=== PATIENT | male | born 1940 | race Caucasian/White ===

== ENCOUNTER → 2016-11-26 | Outpatient (CLI) | payer MEDICARE ==
[~2016-11-26] MED LIST: ACET-1256 PO; AMLO-110 PO; ANSHCCR EXT; ASPEC325 PO; ASPI325T39 PO; ASPI81TA28 PO; ATEN50TA8 PO; CLOP1TAB15 PO; CLS1 PO; EPGI2M; ERTA1INJ IV; GLC5 PO; HYDR-4079 PO; IMD2X PO; IMDSR/30 PO; INSDGIPEN SC; LEVO25TA5 PO; LEVO75TA5 PO; LPR25 PO; LVQ750 PO; MCRK20 PO; MGNO400 PO; MTML PO; NITR0.4S UT; NVLGIPEN SC; PRAV40TA2 PO; TAMS0.4C38 PO; TNR50 PO
[2016-11-26 17:49] LABS: URINE APPEARANCE CLEAR (CLEAR); URINE BILIRUBIN NEG (NEG); URINE COLOR DK YELLOW; URINE NITRITE NEG (NEG); UROBILINOGEN NEG (NEG)
[2016-11-26 17:55] LABS: MANUAL MICROSCOPIC REQUIRED? NO; REVIEW REQ? NO
[2016-11-26 18:18] LABS: HEMATOCRIT 26.5 % (42-52); MEAN CELL VOLUME 113.2 fL (80-100); MEAN CORPUSCULAR HEMOGLOBIN 36.8 pg (25-34); MEAN CORPUSCULAR HGB CONC 32.5 g/dl (32-36); MEAN PLATELET VOLUME 13.4 fL (7.4-10.4); PLATELET COUNT 79 K/uL (130-400); RED BLOOD COUNT 2.34 M/uL (4.7-6.1); WHITE BLOOD COUNT 2.75 K/uL (4.8-10.8)
[2016-11-26 18:21] LABS: ALT/SGPT 20 U/L (12-78); BLOOD UREA NITROGEN 26 mg/dl (7-18); BUN/CREATININE RATIO 16.4 (10-20); CARBON DIOXIDE 24 mmol/L (21-32); CHLORIDE 108 mmol/L (98-107); GLUCOSE 181 mg/dl (70-99); HDL CHOLESTEROL 32 mg/dl; POTASSIUM 4.5 mmol/L (3.5-5.1); SODIUM 140 mmol/L (136-145)
[2016-11-26 18:32] LABS: CHOLESTEROL 87 mg/dl (0-200); CHOLESTEROL/HDL RATIO 2.7; LDL CHOLESTEROL CALCULATED 34 mg/dl; TRIGLYCERIDES 107 mg/dl (0-150); VERY LOW DENSITY LIPOPROT CALC 21 mg/dl
[2016-11-26 18:41] LABS: BASO % 0.7 %; BASO ABS # 0.02 K/uL (0-0.2); COMPLETE YES; EOS % 5.1 %; IG% 1.1 %; LYMPH % 56.7 %; LYMPH ABS # 1.56 K/uL (1.2-3.4); MONO % 9.5 %; NEUT % 26.9 %; PLT ESTIMATE DECREASED
[2016-11-27 07:21] LABS: ESTIMATED AVERAGE GLUCOSE 120 mg/dl; HA1C FLAG Normal (Normal)
== END | disposition home or self-care (01) ==
LOC: C.LABBFT 11:12
PROVIDERS: ATTEND Internal Medicine
DX: E11.9 Type 2 diabetes mellitus without complications (principal)

== ENCOUNTER → 2017-01-23 | Outpatient (CLI) | payer MEDICARE ==
[~2017-01-23] MED LIST changes: -ACET-1256 PO; -AMLO-110 PO
--- NOTE | 2017-01-23 14:37 | DIAGNOSTIC IMAGING REPORT ---
CHEST 2 VIEWS ROUTINE CLINICAL HISTORY: R05 [id number] dyspnea COMPARISON STUDY: 04/20/2015 FINDINGS: Nodular density versus artifact right base laterally. Lungs otherwise are clear. Prior median sternotomy. Diaphragms are smooth. IMPRESSION: Nodular density versus overlap artifact right base laterally. CT of the chest is recommended as follow-up. Electronically signed by: Pierce Nielson M.D. 01/23/2017 2:35 PM Dictated Date/Time: 01/23/2017 2:34 PM
== END | disposition home or self-care (01) ==
LOC: C.RAD1850 14:21
PROVIDERS: ATTEND Internal Medicine
DX: R05 Cough (principal)

== ENCOUNTER → 2017-02-24 | Outpatient (CLI) | payer MEDICARE ==
--- NOTE | 2017-02-24 08:46 | DIAGNOSTIC IMAGING REPORT ---
ABDOMEN COMPLETE (US) CLINICAL HISTORY: 76 years-old Male with D64.9 anemia. TECHNIQUE: Multiple real time sonographic images of the abdomen were obtained assessing clark-scale appearance. FINDINGS: PANCREAS: The pancreas is partially obscured by bowel gas. The visualized portions of the pancreas are normal without focal lesion or pancreatic duct dilatation. LIVER: Liver appears to demonstrate increased echogenicity with poor through transmission suggesting mild fatty infiltration measuring up to 17.6 cm. No focal hepatic mass lesions are marginal nodularity is seen. No ascites. GALLBLADDER: The gallbladder is fluid-filled without cholelithiasis, wall thickening, or pericholecystic fluid. Negative sonographic Brand's sign. The common bile duct measures 0.5 cm. RIGHT KIDNEY: The right kidney measures 12.0 x 4.7 x 5.8 cm. There is minimal perinephric fluid adjacent to the inferior pole. No nephrolithiasis or hydronephrosis. There is a small renal sinus cyst, 1.0 x 1.2 x 1.2 cm. LEFT KIDNEY: The left kidney measures 11.9 x 4.7 x 6.4 cm. There is minimal perinephric fluid adjacent to the inferior pole. No nephrolithiasis or hydronephrosis. Hypoechoic lesion with thin internal echogenic septation is seen, 2.3 x 2.4 x 2.2 cm. There are no associated significant posterior features or internal vascularity. Small renal sinus cyst or prominent renal sinus is seen measuring up to 1.3 x 1.1 cm. SPLEEN: The spleen measures 14.9 cm and is normal in echotexture. No focal lesions are identified. VASCULATURE: Negative abdominal aortic aneurysm is again seen with shadowing from the aortobiiliac stent graft. Proximal abdominal aorta measures 1.6 x 1.9 cm. Mid abdominal aorta measures 1.4 x 1.6 cm. Distal abdominal aorta measures 3.1 x 2.8 cm.. IMPRESSION: 1. Minimal perinephric fluid is seen adjacent to the inferior pole kidneys bilaterally, a nonspecific finding. Correlate with urinalysis. 2. Fatty infiltration of the liver. 3. Splenomegaly. 4. No cholelithiasis or sonographic evidence of acute cholecystitis. 5. Lobulated cyst with thin internal septation is seen within the inferior pole left kidney, 2.4 cm. 6. Abdominal aortic aneurysm redemonstrated. The above report was generated using voice recognition software. It may contain grammatical, syntax or spelling errors. Electronically signed by: Marcus Pope M.D. 02/24/2017 8:45 AM Dictated Date/Time: 02/24/2017 8:35 AM
== END | disposition home or self-care (01) ==
LOC: C.ULTR 07:39
PROVIDERS: ATTEND Internal Medicine
DX: D64.9 Anemia, unspecified (principal); K76.0 Fatty (change of) liver, not elsewhere classified; R16.1 Splenomegaly, not elsewhere classified; N28.1 Cyst of kidney, acquired; I71.4 Abdominal aortic aneurysm, without rupture

== ENCOUNTER 2017-03-09 12:24 | Inpatient (IN) | payer MEDICARE, OTHER ==
[2017-03-09] VITALS (14 sets, daily range): BP systolic 114–135; BP diastolic 55–65; PULSE 56–66; TEMP 37.5–38.2; O2SAT 95–98; Ht 185.4 cm; Wt 82.0 kg
[~2017-03-09] VITALS: Ht 185.4 cm; Wt 82.0 kg
[~2017-03-09 12:24] MED LIST changes: -ANSHCCR EXT; -ASPI325T39 PO; -ASPI81TA28 PO; -CLS1 PO; -ERTA1INJ IV; -HYDR-4079 PO; -IMD2X PO; -INSDGIPEN SC; -LEVO75TA5 PO; -LPR25 PO; -LVQ750 PO; -MCRK20 PO; -MGNO400 PO; -MTML PO; -NVLGIPEN SC; -TNR50 PO
[2017-03-09] MEDS ORDERED: SODIUM CHLORIDE 0.9% 1000ML 1,000 ML IV ONE (13:17)
--- NOTE | 2017-03-09 13:25 | EMERGENCY ROOM VISIT NOTE ---
History Report prepared by Colby: Demetra Desir Under the Supervision of: Dr. Janes Newton D.O. First contact with patient: 13:04 Chief Complaint: FEVER Stated Complaint: FEVER, SMDS History of Present Illness The patient is a 76 year old male who presents to the Emergency Room with complaints of a constant fever beginning a couple of days ago. The patient states that he was diagnosed with myelodysplasia in November and notes that he was very anemic at the time. He reports that he is on chemotherapy and had his last treatment 3 weeks ago and is scheduled to have another treatment tomorrow. He notes a history of diabetes and bypass surgery . The patient states that he has had a fever over the last [] days that got as high as 102 yesterday. He notes that he took Aspirin 3 hours ago. The patient complains of a cough and decreased appetite. He denies any urinary symptoms, leg swelling, and leg redness. Source of History: patient Onset: a couple days ago Position: other (global) Symptom Intensity: 102 Quality: other (fever) Timing: constant Associated Symptoms: + cough, No urinary symptoms Note: The patient complains of a decreased appetite. He denies any leg swelling, and leg redness. Review of Systems See HPI for pertinent positives & negatives. A total of 10 systems reviewed and were otherwise negative. Past Medical & Surgical Medical Problems: (1) Abdominal aortic aneurysm (2) Calculus Of Kidney (3) CVD (cardiovascular disease) (4) Hyperlipidemia Nec/Nos (5) Hypertension Nos (6) Neutropenic fever (7) Old Myocardial Infarct (8) Senile Nuclear Cataract (9) Unilat Inguinal Hernia Surgical Problems: (1) H/O abdominal aortic aneurysm repair (2) H/O heart bypass surgery Family History No pertinent family history stated. Social History Smoking Status: Former Smoker Alcohol Use: occasionally Drug Use: none Marital Status: Housing Status: lives with significant other Occupation Status: retired Current/Historical Medications Scheduled Aspirin (Aspirin Ec), 325 MG PO DAILY Atenolol (Atenolol), 1 TAB PO BID Clopidogrel (Plavix), 75 MG PO DAILY Epoetin Butch (Procrit), Unknown Dose WK Glipizide (Glipizide), 5 MG PO BIDM Isosorbide Mononitrate (Isosorbide Mononitrate ER), 30 MG PO DAILY Levothyroxine Sodium (Levothyroxine Sodium), 1 TAB PO DAILYBB Pravastatin Sodium (Pravastatin Sodium), 40 MG PO HS Tamsulosin Hcl (Flomax), 0.4 MG PO HS Scheduled PRN Nitroglycerin (Nitrostat), 0.4 MG UT PRN PRN for Chest Pain Allergies Coded Allergies: No Known Allergies (Verified , 03/09/17) Physical Exam Vital Signs Date Time Temp Pulse Resp B/P (MAP) Pulse Ox O2 Delivery O2 Flow Rate FiO2 03/09/17 16:24 37.2 63 22 116/47 96 Room Air 03/09/17 15:55 63 20 111/46 96 Room Air 03/09/17 15:35 96 Room Air 03/09/17 15:04 65 23 126/51 96 Room Air 03/09/17 14:48 37.8 03/09/17 14:14 65 18 95/74 96 Room Air 03/09/17 13:10 63 03/09/17 13:00 62 22 115/60 92 Room Air 03/09/17 12:56 92 Room Air 03/09/17 12:30 36.9 93 18 102/51 96 Room Air Physical Exam GENERAL: Patient is awake, alert, and in no acute distress. Patient is resting comfortably and showing no signs of anxiety EYES: The conjunctivae are clear. The pupils are round and reactive. EARS, NOSE, Mdry tongue is midline NECK: The neck is nontender and supple. RESPIRATORY: Normal respiratory effort is noted there is no evidence of wheezing rhonchi or rales CARDIOVASCULAR: Regular rate and rhythm noted there no murmurs rubs or gallops normal S1 normal S2 GASTROINTESTINAL: The abdomen is soft. Bowel sounds are present in all quadrants. Abdomen is nontender MUSCULOSKELETAL/EXTREMITIES: There is no evidence of gross deformity full range of motion is noted in the hips and shoulders SKIN: There is no obvious evidence of any rash. There are no petechiae, pallor or cyanosis noted. Trace pedal edema bilaterally NEUROLOGIC: Patient is awake alert and oriented x3 Medical Decision & Procedures ER Provider Diagnostic Interpretation: X-ray results as stated below per interpretation by me and the radiologist. SINGLE VIEW CHEST FINDINGS: An AP, portable, upright chest radiograph is compared to study dated 01/23/2017. The examination is degraded by portable technique and patient rotation. The patient is status post midline sternotomy. The heart is enlarged and there is atherosclerotic calcification of the thoracic aorta. The pulmonary vasculature is noncongested. Chronic interstitial thickening is similar to previous. There are airspace opacities identified at the left lung base. The right lung is grossly clear. No large pleural effusion or pneumothorax is seen. The skeletal structures are osteopenic. The bony thorax is grossly intact. IMPRESSION: 1. Cardiomegaly without radiographic evidence of congestive failure. 2. Patchy airspace opacities are present at the left lung base. The could represent atelectasis versus an infectious/inflammatory pneumonitis. Clinical correlation will be required. Electronically signed by: Sawyer Robins M.D. 03/09/2017 2:01 PM Dictated Date/Time: 03/09/2017 2:00 PM Laboratory Results 03/09/17 13:36 Red Blood Count 2.57, Mean Corpuscular Volume 86.4, Mean Corpuscular Hemoglobin 28.8, Mean Corpuscular Hemoglobin Concent 33.3, Mean Platelet Volume 11.7 03/09/17 13:36 Test 03/09/17 13:36 03/09/17 13:43 03/09/17 14:05 03/09/17 14:40 White Blood Count 1.84 K/uL (4.8-10.8) Red Blood Count 2.57 M/uL (4.7-6.1) Hemoglobin 7.4 g/dL (14.0-18.0) Hematocrit 22.2 % (42-52) Mean Corpuscular Volume 86.4 fL (80-100) Mean Corpuscular Hemoglobin 28.8 pg (25-34) Mean Corpuscular Hemoglobin Concent 33.3 g/dl (32-36) Platelet Count 59 K/uL (130-400) Mean Platelet Volume 11.7 fL (7.4-10.4) RDW Standard Deviation 41.4 fL (36.4-46.3) RDW Coefficient of Variation 13.7 % (11.5-14.5) Neutrophils % (Manual) 33.3 % Lymphocytes % (Manual) 54.4 % Monocytes % (Manual) 1.8 % Myelocytes % 2.6 % Blast Cells % 7.9 % Neutrophils # (Manual) 0.61 K/uL (1.4-6.5) Total Absolute Neutrophils 0.61 K/uL (1.4-6.5) Lymphocytes # (Manual) 1.00 K/uL (1.2-3.4) Total Absolute Lymphocytes 1.00 K/uL (1.2-3.4) Monocytes # (Manual) 0.03 K/uL (0.11-0.59) Myelocytes # 0.05 K/uL (0-0) Hyposegmented Neutrophils OCCASIONAL Hypogranular Neutrophils 3+ Blast Cells # 0.15 K/uL (0-0) Giant Platelets 3+ Erythrocyte Sedimentation Rate 26 mm/hr (0-14) Prothrombin Time 11.5 SECONDS (9.0-12.0) Prothromb Time International Ratio 1.1 (0.9-1.1) Activated Partial Thromboplast Time 29.6 SECONDS (21.0-31.0) Partial Thromboplastin Ratio 1.1 Anion Gap 8.0 mmol/L (3-11) Est Creatinine Clear Calc Drug Dose 52.9 ml/min Estimated GFR () 60.6 Estimated GFR (Non- 52.3 BUN/Creatinine Ratio 15.3 (10-20) Calcium Level 8.8 mg/dl (8.5-10.1) Phosphorus Level 3.2 mg/dl (2.5-4.9) Magnesium Level 2.2 mg/dl (1.8-2.4) Total Bilirubin 1.3 mg/dl (0.2-1) Aspartate Amino Transf (AST/SGOT) 15 U/L (15-37) Alanine Aminotransferase (ALT/SGPT) 34 U/L (12-78) Alkaline Phosphatase 53 U/L (45-117) Total Creatine Kinase 36 U/L (39-308) Creatine Kinase MB 0.6 ng/ml (0.5-3.6) Creatine Kinase MB Ratio 1.7 (0-3.0) Troponin I 0.091 ng/ml (0-0.045) C-Reactive Protein 8.43 mg/dl (0-0.29) Pro-B-Type Natriuretic Peptide 3296 pg/ml (0-1800) Total Protein 7.1 gm/dl (6.4-8.2) Albumin 2.9 gm/dl (3.4-5.0) Globulin 4.2 gm/dl (2.5-4.0) Albumin/Globulin Ratio 0.7 (0.9-2) Lipase 137 U/L (73-393) Bedside Lactic Acid Venous 1.88 mmol/L (0.90-1.70) Venous Blood pH 7.46 (7.36-7.41) Venous Blood Partial Pressure CO2 33 mmHg (38.0-50.0) Venous Blood Partial Pressure O2 21 mmHg Venous Blood HCO3 23 mmol/L Venous Blood Oxygen Saturation < 60.0 % Venous Blood Base Excess -0.3 mEq/L Laboratory results per my review. Medications Administered Medications (Trade) Dose Ordered Sig/Cameron Route Start Time Stop Time Status Last Admin Dose Admin Sodium Chloride 1,000 ml @ 999 mls/hr Q1H1M ONCE IV 03/09/17 13:17 03/09/17 14:17 DC 03/09/17 14:13 999 MLS/HR Levofloxacin (Levaquin / D5W) 750 mg NOW STAT IV 03/09/17 14:26 03/09/17 14:27 DC 03/09/17 14:51 750 MG Cefepime HCl 2000 mg/Dextrose 122.6 ml @ 200 mls/hr NOW STAT IV 03/09/17 14:54 03/09/17 15:30 DC 03/09/17 15:09 200 MLS/HR ECG Rate (beats per minute): 64 Rhythm: junctional (bradycardia) Findings: ST depression (Lateral), other (no PVC) Comparison ECG Date: 04/20/16 Change: Junctional bradycardia is new otherwise no changes. ED Course 1304: The patient was evaluated in room B6. A complete history and physical examination were performed. 1317: NSS 1,000 ml @ 999 mls/hr IV. 1423: I reevaluated and updated the patient. 1426: Levofloxacin 750mg IV. 1454: Cefepime HCl 2000mg/Dextrose 122.6ml @ 200mls/hr IV. 1515: I spoke to Dr. Miguel who suggests that the patient stay in the hospital. 1518: I discussed the patient's case with [place] [facility] The patient will be evaluated for further management. 1524: Upon reevaluation, the patient is doing well. I discussed results and treatment plan with the patient. She verbalizes agreement and understanding. I spoke with Dr. Reese of the [facility] The patient will be evaluated for further management and care. Medical Decision Differential diagnosis: Etiologies such as viral syndrome, otitis, pharyngitis, pneumonia, influenza, meningitis, urinary tract infection, sepsis, bacteremia, as well as others were entertained. Nursing notes reviewed. The patient is a 76-year-old male who presented to the emergency department for an evaluation of fever. The patient had fever and cough. He was found have neutropenia. The patient was treated with IV fluids and IV antibiotics. Review the patient's recent laboratory studies does show that his neutropenia is improving however his total neutrophil count is still less than 1000. This reason I discussed his case with his primary oncologist as well as the on-call [facility] hospitalist group. They've agreed to evaluate patient in the emergency apartment for further management and disposition. Medication Reconcilliation Current Medication List: was personally reviewed by me Blood Pressure Screening Patient's blood pressure: Low blood pressure Blood pressure disposition: Did not require urgent referral Consults Time Called: 1515 Consulting Physician: Dr. Reese - [facility] Returned Call: 1512 I discussed the patient's case with Dr. Reese of [facility] The patient will be evaluated for further management. Additional Consults: Time Called: 1513 Consulted Physician: Dr. Miguel Returned Call: 1515 Additional Comments: I spoke to Dr. Miguel who suggests that the patient stay in the hospital. Impression Primary Impression: Pneumonia Additional Impressions: Pancytopenia Neutropenic fever Scribe Attestation The scribe's documentation has been prepared under my direction and personally reviewed by me in its entirety. I confirm that the note above accurately reflects all work, treatment, procedures, and medical decision making performed by me. Departure Information Dispostion Being Evaluated By Hospitalist Referrals Gonzalo Amin M.D. (PCP) Patient Instructions My [facility] Health Problem Qualifiers Primary Impression: Pneumonia Pneumonia type: due to unspecified organism Laterality: unspecified laterality Lung location: unspecified part of lung Qualified Codes: J18.9 - Pneumonia, unspecified organism
[2017-03-09] MEDS ORDERED: TNR50 PO (13:38)
[2017-03-09] MEDS ORDERED: ASPI325T39 PO (13:38)
[2017-03-09] MEDS ORDERED: LEVO75TA5 PO (13:38)
[2017-03-09 14:01] LABS: HEMATOCRIT 22.2 % (42-52); MEAN CELL VOLUME 86.4 fL (80-100); MEAN CORPUSCULAR HEMOGLOBIN 28.8 pg (25-34); MEAN CORPUSCULAR HGB CONC 33.3 g/dl (32-36); MEAN PLATELET VOLUME 11.7 fL (7.4-10.4); PLATELET COUNT 59 K/uL (130-400); RED BLOOD COUNT 2.57 M/uL (4.7-6.1); WHITE BLOOD COUNT 1.84 K/uL (4.8-10.8)
--- NOTE | 2017-03-09 14:03 | DIAGNOSTIC IMAGING REPORT ---
SINGLE VIEW CHEST CLINICAL HISTORY: Sepsis. FINDINGS: An AP, portable, upright chest radiograph is compared to study dated 01/23/2017. The examination is degraded by portable technique and patient rotation. The patient is status post midline sternotomy. The heart is enlarged and there is atherosclerotic calcification of the thoracic aorta. The pulmonary vasculature is noncongested. Chronic interstitial thickening is similar to previous. There are airspace opacities identified at the left lung base. The right lung is grossly clear. No large pleural effusion or pneumothorax is seen. The skeletal structures are osteopenic. The bony thorax is grossly intact. IMPRESSION: 1. Cardiomegaly without radiographic evidence of congestive failure. 2. Patchy airspace opacities are present at the left lung base. The could represent atelectasis versus an infectious/inflammatory pneumonitis. Clinical correlation will be required. Electronically signed by: Sawyer Robins M.D. 03/09/2017 2:01 PM Dictated Date/Time: 03/09/2017 2:00 PM
[2017-03-09 14:06] LABS: INR 1.1 (0.9-1.1); PARTIAL THROMBOPLASTIN RATIO 1.1; PROTHROMBIN TIME (PATIENT) 11.5 SECONDS (9.0-12.0)
[2017-03-09 14:12] LABS: BUN/CREATININE RATIO 15.3 (10-20); CALCIUM 8.8 mg/dl (8.5-10.1); CREATININE 1.3 mg/dl (0.60-1.40); MAGNESIUM 2.2 mg/dl (1.8-2.4); POTASSIUM 4.2 mmol/L (3.5-5.1)
[2017-03-09 14:19] LABS: ALB/GLOB RATIO 0.7 (0.9-2); C-REACTIVE PROTEIN 8.43 mg/dl (0-0.29); CKMB/CK RATIO 1.7 (0-3.0); PHOSPHORUS 3.2 mg/dl (2.5-4.9)
[2017-03-09 14:20] LABS: VEN BLD GAS O2 SATURATION < 60.0 %; VEN BLOOD GAS BASE EXCESS -0.3 mEq/L; VENOUS BLOOD GAS PCO2 33 mmHg (38.0-50.0); VENOUS BLOOD GAS PO2 21 mmHg
[2017-03-09] MEDS ORDERED: LEVAQUIN 750MG / 150ML D5W IV STA (14:26)
[2017-03-09 14:51] LABS: COMPLETE YES; GIANT PLATELETS 3+; HYPOSEGMENTED POLYS OCCASIONAL; LYMPHOCYTE % 54.4 %; MYELOCYTE % 2.6 %; NEUTROPHILS % 33.3 %
[2017-03-09] MEDS ORDERED: CEFEPIME IV 2,000 MG in DEXTROSE 5% 100ML 100 ML IV STA (14:54)
[2017-03-09 15:07] LABS: URINE APPEARANCE CLEAR (CLEAR); URINE BILIRUBIN NEG (NEG); URINE COLOR ORANGE; URINE EPITHELIAL CELL AUTO 0-5 /lpf (0-5); URINE NITRITE NEG (NEG); URINE SPECIFIC GRAVITY 1.023 (1.000-1.030); UROBILINOGEN NEG (NEG); ZZUR CULT IF INDIC CLEAN CATCH NO
[2017-03-09 15:25] LABS: MANUAL MICROSCOPIC REQUIRED? NO; REVIEW REQ? NO
[2017-03-09] MEDS ORDERED: ALUMINUM/MAGNESIUM/SIMETH (MAALOX MAX) 30 ML UDC PO PRN (16:30)
[2017-03-09] MEDS ORDERED: POLYETHYLENE (MIRALAX) 17 GM PACK PO PRN (16:30)
[2017-03-09] MEDS ORDERED: ONDANSETRON INJ 2 MG/ML 2 ML VIAL IV PRN (16:30)
[2017-03-09] MEDS ORDERED: ACETAMINOPHEN 325 MG TAB PO PRN (16:30)
[2017-03-09] MEDS ORDERED: MAGNESIUM HYDROXIDE SUSP 30 ML UDC PO PRN (16:30)
[2017-03-09] MEDS ORDERED: LEVOFLOXACIN CONSULT ACTIVE PRN (17:00)
[2017-03-09] MEDS ORDERED: CEFEPIME CONSULT ACTIVE PRN ×2 (17:00)
--- NOTE | 2017-03-09 17:11 | History and Physical ---
History & Physical Date & Time of Service: Mar 09, 2017 at 17:04 Chief Complaint: Fever, Smds Primary Care Physician: Gonzalo Amin M.D. History of Present Illness This patient suffers from myelodysplastic syndromes. Dr. Marroquin. He did receive his next treatment and one day. He presents with productive cough for one month 's duration however he is having low-grade fevers. 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 Patient also has a rash on his left flank. It hurts department he was found to have an absolute neutrophil cell count of 610. Elevated troponin 0.91 and hemoglobin 7.4 The chest x-ray is read as left lower lobe pneumonia the infiltrate has slight this might be from his marked neutropenia bases had no recent angina He has not been checking his blood glucoses for his diabetes because his glucometer is broken he however hasn't following a diabetic diet Past Medical/Surgical History Medical Problems: (1) Abdominal aortic aneurysm Status: Chronic (2) Calculus Of Kidney Status: Chronic (3) CVD (cardiovascular disease) Status: Chronic (4) Hyperlipidemia Nec/Nos Status: Chronic (5) Hypertension Nos Status: Chronic (6) Old Myocardial Infarct Status: Chronic (7) Senile Nuclear Cataract Status: Chronic (8) Unilat Inguinal Hernia Status: Chronic Surgical Problems: (1) H/O abdominal aortic aneurysm repair Status: Resolved (2) H/O heart bypass surgery Status: Resolved Family History Family history positive for diabetes cancer and heart disease Social History Smoking Status: Former Smoker Drug Use: none Marital Status: Occupational Status: retired Multi-Drug Resistant Organisms History of MDRO: No Allergies Coded Allergies: No Known Allergies (Verified , 03/09/17) Home Medications Scheduled Aspirin (Aspirin Ec), 325 MG PO DAILY Atenolol (Atenolol), 1 TAB PO BID Clopidogrel (Plavix), 75 MG PO DAILY Epoetin Butch (Procrit), Unknown Dose WK Glipizide (Glipizide), 5 MG PO BIDM Isosorbide Mononitrate (Isosorbide Mononitrate ER), 30 MG PO DAILY Levothyroxine Sodium (Levothyroxine Sodium), 1 TAB PO DAILYBB Pravastatin Sodium (Pravastatin Sodium), 40 MG PO HS Tamsulosin Hcl (Flomax), 0.4 MG PO HS Scheduled PRN Nitroglycerin (Nitrostat), 0.4 MG UT PRN PRN for Chest Pain Review of Systems ROS: well nourished well developed No double vision blurry vision No problems with speech or swallowing No palpitations, chest pain or pressure No Wheezing patient has dyspnea on exertion has a a cough which has not been productive No abdominal pain nausea vomiting diarrhea but has had constipation, no changes in appetite or weight No burning urine urine frequency or changes in color No focal joint pain or muscle pain The patient has a red shravan on his left lower flank over a rib which appears to be an abrasion he has some aphthous ulcers on his cheeks which do not appear to be actively infected No unusual bleeding No focused back pain or numbness or loss of strength No changes in memory or confusion Physical Exam Vital Signs Date Time Temp Pulse Resp B/P (MAP) Pulse Ox O2 Delivery O2 Flow Rate FiO2 03/09/17 16:24 37.2 63 22 116/47 96 Room Air 03/09/17 15:55 63 20 111/46 96 Room Air 03/09/17 15:35 96 Room Air 03/09/17 15:04 65 23 126/51 96 Room Air 03/09/17 14:48 37.8 03/09/17 14:14 65 18 95/74 96 Room Air 03/09/17 13:10 63 03/09/17 13:00 62 22 115/60 92 Room Air 03/09/17 12:56 92 Room Air 03/09/17 12:30 36.9 93 18 102/51 96 Room Air General Appearance: WD/WN, + mild distress Head: normocephalic, atraumatic Eyes: PERRL, EOMI ENT: hearing grossly normal, pharynx normal (at this ulcers are very small no thrush) Neck: supple, no JVD Respiratory/Chest: chest non-tender, lungs clear, normal breath sounds, + pertinent finding (radiology reading pneumonia his exam is unremarkable) Cardiovascular: regular rate, rhythm, no murmur Abdomen/GI: normal bowel sounds, non tender, soft Back: no CVA tenderness, normal range of motion Extremities/Musculoskelatal: normal inspection, no calf tenderness, no pedal edema Neurologic/Psych: alert, oriented x 3 Skin: normal color, + pertinent finding (has an abrasion on his left flank) Diagnostics Laboratory Results Results Past 24 Hours Test 03/09/17 13:36 03/09/17 13:43 03/09/17 14:05 03/09/17 14:40 Range/Units White Blood Count 1.84 4.8-10.8 K/uL Red Blood Count 2.57 4.7-6.1 M/uL Hemoglobin 7.4 14.0-18.0 g/dL Hematocrit 22.2 42-52 % Mean Corpuscular Volume 86.4 80-100 fL Mean Corpuscular Hemoglobin 28.8 25-34 pg Mean Corpuscular Hemoglobin Concent 33.3 32-36 g/dl Platelet Count 59 130-400 K/uL Mean Platelet Volume 11.7 7.4-10.4 fL RDW Standard Deviation 41.4 36.4-46.3 fL RDW Coefficient of Variation 13.7 11.5-14.5 % Neutrophils % (Manual) 33.3 % Lymphocytes % (Manual) 54.4 % Monocytes % (Manual) 1.8 % Myelocytes % 2.6 % Blast Cells % 7.9 % Neutrophils # (Manual) 0.61 1.4-6.5 K/uL Total Absolute Neutrophils 0.61 1.4-6.5 K/uL Lymphocytes # (Manual) 1.00 1.2-3.4 K/uL Total Absolute Lymphocytes 1.00 1.2-3.4 K/uL Monocytes # (Manual) 0.03 0.11-0.59 K/uL Myelocytes # 0.05 0-0 K/uL Hyposegmented Neutrophils OCCASIONAL Hypogranular Neutrophils 3+ Blast Cells # 0.15 0-0 K/uL Giant Platelets 3+ Erythrocyte Sedimentation Rate 26 0-14 mm/hr Prothrombin Time 11.5 9.0-12.0 SECONDS Prothromb Time International Ratio 1.1 0.9-1.1 Activated Partial Thromboplast Time 29.6 21.0-31.0 SECONDS Partial Thromboplastin Ratio 1.1 Sodium Level 136 136-145 mmol/L Potassium Level 4.2 3.5-5.1 mmol/L Chloride Level 104 98-107 mmol/L Carbon Dioxide Level 24 21-32 mmol/L Anion Gap 8.0 3-11 mmol/L Blood Urea Nitrogen 20 7-18 mg/dl Creatinine 1.30 0.60-1.40 mg/dl Est Creatinine Clear Calc Drug Dose 52.9 ml/min Estimated GFR () 60.6 Estimated GFR (Non- 52.3 BUN/Creatinine Ratio 15.3 10-20 Random Glucose 105 70-99 mg/dl Calcium Level 8.8 8.5-10.1 mg/dl Phosphorus Level 3.2 2.5-4.9 mg/dl Magnesium Level 2.2 1.8-2.4 mg/dl Total Bilirubin 1.3 0.2-1 mg/dl Aspartate Amino Transf (AST/SGOT) 15 15-37 U/L Alanine Aminotransferase (ALT/SGPT) 34 12-78 U/L Alkaline Phosphatase 53 45-117 U/L Total Creatine Kinase 36 39-308 U/L Creatine Kinase MB 0.6 0.5-3.6 ng/ml Creatine Kinase MB Ratio 1.7 0-3.0 Troponin I 0.091 0-0.045 ng/ml C-Reactive Protein 8.43 0-0.29 mg/dl Pro-B-Type Natriuretic Peptide 3296 0-1800 pg/ml Total Protein 7.1 6.4-8.2 gm/dl Albumin 2.9 3.4-5.0 gm/dl Globulin 4.2 2.5-4.0 gm/dl Albumin/Globulin Ratio 0.7 0.9-2 Lipase 137 73-393 U/L Bedside Lactic Acid Venous 1.88 0.90-1.70 mmol/L Venous Blood pH 7.46 7.36-7.41 Venous Blood Partial Pressure CO2 33 38.0-50.0 mmHg Venous Blood Partial Pressure O2 21 mmHg Venous Blood HCO3 23 mmol/L Venous Blood Oxygen Saturation < 60.0 % Venous Blood Base Excess -0.3 mEq/L Microbiology Results 03/09/17 Blood Culture, Received Pending 03/09/17 Blood Culture, Received Pending Diagnostic Radiology Pertinent labs her pancytopenia white count 1.8 and a triple count 610 hemoglobin 7.4 platelet count 59 troponin 0.91 other (read as left lower lobe pneumonia) other (junctional bradycardia the patient is on a beta french) Impression Assessment and Plan 68-year-old male to pancytopenia with left lower lobe pneumonia and neutropenic fever with incidental elevated troponin and junctional bradycardia next Neutropenic fever and pneumonia, Levaquin and cefepime blood cultures are pending. Discussed with oncologist on-call regarding G-CSF stimulating medication and recommendations were to not use this at this time. Anemia, the patient will be transfused 2 units packed red blood cells this is likely from lack of production due to his myelodysplastic syndrome From cytopenia and the patient will have his antiplatelet agents of aspirin and Plavix held he has no active bleeding at this time Elevated troponin the patient has known coronary disease and stable angina he's had no recent angina given his junctional bradycardia however we will reduce his atenolol to 25 continue isosorbide Diabetes will continue his glipizide on a diabetic diet with a loose insulin sliding scale Regarding his BPH we'll continue his Flomax at 0.4 DVT prevention is prohibited with his from cytopenia and anemia and compressive devices may cause bruising with low platelets of 59. Advanced Directives Existing Living Will: No Existing Power of Rf Manager: No VTE Prophylaxis VTE Risk Assessment Done? Y/N: Yes Risk Level: Low
[2017-03-09] MEDS: CEFEPIME IV 2,000 MG in DEXTROSE 5% 100ML 100 ML IV SCH ×2 (20:37→23:18)
[2017-03-09] MEDS ORDERED: TAMSULOSIN HCL 0.4 MG CAP PO SCH (21:00)
[2017-03-10] VITALS (7 sets, daily range): BP systolic 117–158; BP diastolic 56–69; PULSE 54–64; TEMP 36.5–38; O2SAT 95–97
[2017-03-10] MEDS: CEFEPIME IV 2,000 MG in DEXTROSE 5% 100ML 100 ML IV SCH (05:29)
[2017-03-10] MEDS ORDERED: LEVOTHYROXINE 75 MCG TAB PO SCH (06:00)
[2017-03-10 07:37] LABS: BLOOD UREA NITROGEN 19 mg/dl (7-18); BUN/CREATININE RATIO 16.1 (10-20); CALCIUM 8.6 mg/dl (8.5-10.1); CARBON DIOXIDE 23 mmol/L (21-32); CHLORIDE 106 mmol/L (98-107); GLUCOSE 130 mg/dl (70-99); POTASSIUM 4.2 mmol/L (3.5-5.1); SODIUM 137 mmol/L (136-145)
[2017-03-10 08:01] LABS: POIKILOCYTOSIS PRESENT
[2017-03-10 08:02] LABS: COMPLETE YES; EOSINOPHIL % 0.9 %; HEMATOCRIT 25.8 % (42-52); LYMPH ABS # 1.22 K/uL (1.2-3.4); LYMPHOCYTE % 65.2 %; MEAN CELL VOLUME 85.7 fL (80-100); MEAN CORPUSCULAR HEMOGLOBIN 29.6 pg (25-34); MEAN CORPUSCULAR HGB CONC 34.5 g/dl (32-36); MEAN PLATELET VOLUME 12.1 fL (7.4-10.4); MYELOCYTE % 1.7 %; NEUTROPHILS % 26.1 %; PLATELET COUNT 39 K/uL (130-400); RED BLOOD COUNT 3.01 M/uL (4.7-6.1); WHITE BLOOD COUNT 1.87 K/uL (4.8-10.8)
--- NOTE | 2017-03-10 08:19 | Oncology Consultation ---
Oncology/Heme Consultation Date of Consultation: Mar 10, 2017. Attending Physician: Carlos Reese M.D. Reason for Consultation: Neutropenic fever High-grade MDS History of Present Illness Elmer is a pleasant 76-year-old gentleman well-known to the [facility] currently under my care with high-grade myelodysplasia. Thus far he has received 3 cycles of 5-azacytidine last administered 4 weeks prior. In fact , he was due to begin a new cycle of chemotherapy today. Devan was diagnosed with myelodysplasia or earlier this spring when he had presented to his family physician with pancytopenia. Initially was felt to be medication induced however after discontinuance his cytopenias persisted and subsequently underwent bone marrow biopsy and aspiration. 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 Elmer has been transfusion dependent throughout his disease course on average receiving packed RBCs every 2 weeks. Unfortunately thus far his transfusion dependence has not improved. Over the weekend Elmer developed low-grade fever he measured at 100.5 complaining of some unproductive cough. He presented to the emergency room and was admitted on 03/09/2017. Chest x-ray reveals nonspecific patchy infiltrates and nonetheless was started on empiric antibiotics because of neutropenia. His overall performance status is reasonable denies any alterations in his appetite and complains of no other symptoms leading up to admission to the hospital. Past Medical/Surgical History Medical Problems: (1) Pancytopenia Status: Acute (2) Pneumonia Status: Acute Family History Sister with history of lung cancer (). Social History Elmer is retired, nonsmoker, nondrinker. Smoking Status: Former Smoker Drug Use: none Marital Status: Housing Status: lives with significant other Occupation Status: retired Allergies Coded Allergies: No Known Allergies (Verified , 03/09/17) Home Medications Scheduled Aspirin (Aspirin Ec), 325 MG PO DAILY Atenolol (Atenolol), 1 TAB PO BID Clopidogrel (Plavix), 75 MG PO DAILY Epoetin Butch (Procrit), Unknown Dose WK Glipizide (Glipizide), 5 MG PO BIDM Isosorbide Mononitrate (Isosorbide Mononitrate ER), 30 MG PO DAILY Levothyroxine Sodium (Levothyroxine Sodium), 1 TAB PO DAILYBB Pravastatin Sodium (Pravastatin Sodium), 40 MG PO HS Tamsulosin Hcl (Flomax), 0.4 MG PO HS Scheduled PRN Nitroglycerin (Nitrostat), 0.4 MG UT PRN PRN for Chest Pain Current Inpatient Medications Current Inpatient Medications Medications (Trade) Dose Ordered Sig/Cameron Route Start Time Stop Time Status Last Admin Dose Admin Glipizide (Glucotrol Tab) 5 mg BIDM PO 03/09/17 18:00 04/08/17 17:59 Isosorbide Mononitrate (Imdur Ext Rel Tab) 30 mg DAILY PO 03/10/17 09:00 04/09/17 08:59 Levothyroxine Sodium (Synthroid Tab) 75 mcg DAILYBB PO 03/10/17 06:00 04/09/17 06:59 03/10/17 05:28 75 MCG Tamsulosin HCl (Flomax Cap) 0.4 mg HS PO 03/09/17 21:00 04/08/17 20:59 03/09/17 20:36 0.4 MG Acetaminophen (Tylenol Tab) 650 mg Q4H PRN PO 03/09/17 16:30 04/08/17 16:29 03/09/17 22:49 650 MG Al Hydrox/Mg Hydrox/Simethicone (Maalox Max Susp) 15 ml Q4H PRN PO 03/09/17 16:30 04/08/17 16:29 Magnesium Hydroxide (Milk Of Magnesia Susp) 30 ml Q12H PRN PO 03/09/17 16:30 04/08/17 16:29 Ondansetron HCl (Zofran Inj) 4 mg Q6H PRN IV 03/09/17 16:30 04/08/17 16:29 Polyethylene (Miralax Powder Packet) 17 gm DAILY PRN PO 03/09/17 16:30 04/08/17 16:29 Cefepime HCl 2000 mg/Dextrose 112.5 ml @ 200 mls/hr Q12@0600,1800 IV 03/09/17 18:33 03/16/17 18:32 03/10/17 05:29 200 MLS/HR Levofloxacin 750 mg/Prmx 150 ml @ 100 mls/hr DAILY@1400 IV 03/10/17 14:00 03/16/17 13:59 Levofloxacin (Consult) 1 ea UD PRN N/A 03/09/17 17:00 04/08/17 16:59 Cefepime HCl (Consult) 1 ea UD PRN N/A 03/09/17 17:00 04/08/17 16:59 Atenolol (Tenormin Tab) 25 mg DAILY PO 03/10/17 09:00 04/08/17 20:59 Review of Systems Constitutional: + fever, + chills Eyes: No worsening of vision, No eye pain, No redness, No discharge, No diplopia, No problem reported ENT: No hearing loss, No unusual epistaxis, No nasal symptoms, No sore throat, No tinnitus, No dental problems, No trouble swallowing, No problem reported Respiratory: + cough Cardiovascular: No chest pain, No orthopnea, No PND, No edema, No claudication , No palpitations, No problem reported Abdomen: No pain, No nausea, No vomiting, No diarrhea, No constipation, No GI bleeding, No problem reported Musculoskeletal: No joint pain, No muscle pain, No swelling, No calf pain, No problem reported Neurologic: No memory loss, No paralysis, No weakness, No numbness/tingling, No vertigo, No balance problems, No problem reported Psychiatric: No depression symptoms, No anhedonism, No anxiety, No insomnia, No substance abuse, No problem reported Endocrine: No fatigue, No excessive thirst, No excessive urination, No problem reported Hematologic / Lymphatic: + abnormal bleeding/bruising, + clotting problems, + swollen lymph nodes, + night sweats, + problem reported (positive for pancytopenia secondary to myelodysplasia.) Integumentary: No rash, No itch, No new/changing skin lesions, No color change , No bleeding, No problem reported Allergic / Immunologic: No environmental allergies, No seasonal allergies, No pet sensitivities, No food allergies, No hives, No frequent infections, No poor healing, No prolonged convalescence, No problem reported Physical Exam Date Time Temp Pulse Resp B/P (MAP) Pulse Ox O2 Delivery O2 Flow Rate FiO2 03/10/17 04:02 36.8 56 17 127/60 (82) 96 Room Air 03/10/17 04:00 Room Air 03/10/17 01:45 36.5 64 16 134/63 96 03/10/17 00:45 37.1 54 16 131/59 96 03/10/17 00:15 38.0 54 15 121/56 97 03/10/17 00:00 Room Air 03/09/17 23:45 38.2 56 15 129/59 95 03/09/17 23:30 38.2 57 16 126/57 96 03/09/17 23:00 38.2 58 16 130/60 95 03/09/17 22:25 38.2 64 15 121/61 96 03/09/17 21:55 38.2 61 16 123/64 95 03/09/17 21:25 38.2 61 16 123/64 97 03/09/17 21:10 60 16 118/63 95 03/09/17 20:55 64 16 120/60 95 03/09/17 20:40 37.7 65 16 115/60 96 03/09/17 20:27 37.5 66 16 114/56 97 03/09/17 20:00 98 Room Air 03/09/17 19:39 37.7 65 18 135/55 (81) 98 Room Air 03/09/17 18:08 37.7 65 20 127/65 (85) 96 Room Air 03/09/17 17:39 37.2 61 22 118/50 95 03/09/17 16:24 37.2 63 22 116/47 96 Room Air 03/09/17 15:55 63 20 111/46 96 Room Air 03/09/17 15:35 96 Room Air 03/09/17 15:04 65 23 126/51 96 Room Air 03/09/17 14:48 37.8 03/09/17 14:14 65 18 95/74 96 Room Air 03/09/17 13:10 63 03/09/17 13:00 62 22 115/60 92 Room Air 03/09/17 12:56 92 Room Air 03/09/17 12:30 36.9 93 18 102/51 96 Room Air General Appearance: WD/WN, no apparent distress Head: normocephalic, atraumatic Eyes: normal inspection, PERRL, EOMI, sclerae normal ENT: normal ENT inspection Neck: supple, no adenopathy Respiratory/Chest: chest non-tender, lungs clear, normal breath sounds Cardiovascular: regular rate, rhythm, no edema, no gallop, no JVD Abdomen/GI: normal bowel sounds, non tender, soft, no organomegaly Back: normal inspection Extremities/Musculoskelatal: normal inspection, no calf tenderness, normal capillary refill 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 Skin: normal color, warm/dry, no rash Lymphatic: no adenopathy Laboratory Results Last 24 Hours Test 03/09/17 13:36 03/09/17 13:43 03/09/17 14:05 03/09/17 14:40 White Blood Count 1.84 K/uL Red Blood Count 2.57 M/uL Hemoglobin 7.4 g/dL Hematocrit 22.2 % Mean Corpuscular Volume 86.4 fL Mean Corpuscular Hemoglobin 28.8 pg Mean Corpuscular Hemoglobin Concent 33.3 g/dl Platelet Count 59 K/uL Mean Platelet Volume 11.7 fL RDW Standard Deviation 41.4 fL RDW Coefficient of Variation 13.7 % Neutrophils % (Manual) 33.3 % Lymphocytes % (Manual) 54.4 % Monocytes % (Manual) 1.8 % Myelocytes % 2.6 % Blast Cells % 7.9 % Neutrophils # (Manual) 0.61 K/uL Total Absolute Neutrophils 0.61 K/uL Lymphocytes # (Manual) 1.00 K/uL Total Absolute Lymphocytes 1.00 K/uL Monocytes # (Manual) 0.03 K/uL Myelocytes # 0.05 K/uL Hyposegmented Neutrophils OCCASIONAL Hypogranular Neutrophils 3+ Blast Cells # 0.15 K/uL Giant Platelets 3+ Erythrocyte Sedimentation Rate 26 mm/hr Prothrombin Time 11.5 SECONDS Prothromb Time International Ratio 1.1 Activated Partial Thromboplast Time 29.6 SECONDS Partial Thromboplastin Ratio 1.1 Sodium Level 136 mmol/L Potassium Level 4.2 mmol/L Chloride Level 104 mmol/L Carbon Dioxide Level 24 mmol/L Anion Gap 8.0 mmol/L Blood Urea Nitrogen 20 mg/dl Creatinine 1.30 mg/dl Est Creatinine Clear Calc Drug Dose 52.9 ml/min Estimated GFR () 60.6 Estimated GFR (Non- 52.3 BUN/Creatinine Ratio 15.3 Random Glucose 105 mg/dl Calcium Level 8.8 mg/dl Phosphorus Level 3.2 mg/dl Magnesium Level 2.2 mg/dl Total Bilirubin 1.3 mg/dl Aspartate Amino Transf (AST/SGOT) 15 U/L Alanine Aminotransferase (ALT/SGPT) 34 U/L Alkaline Phosphatase 53 U/L Total Creatine Kinase 36 U/L Creatine Kinase MB 0.6 ng/ml Creatine Kinase MB Ratio 1.7 Troponin I 0.091 ng/ml C-Reactive Protein 8.43 mg/dl Pro-B-Type Natriuretic Peptide 3296 pg/ml Total Protein 7.1 gm/dl Albumin 2.9 gm/dl Globulin 4.2 gm/dl Albumin/Globulin Ratio 0.7 Lipase 137 U/L Bedside Lactic Acid Venous 1.88 mmol/L Venous Blood pH 7.46 Venous Blood Partial Pressure CO2 33 mmHg Venous Blood Partial Pressure O2 21 mmHg Venous Blood HCO3 23 mmol/L Venous Blood Oxygen Saturation < 60.0 % Venous Blood Base Excess -0.3 mEq/L Urine Color ORANGE Urine Appearance CLEAR Urine pH 5.0 Urine Specific [place] 1.023 Urine Protein NEG Urine Glucose (UA) NEG Urine Ketones NEG Urine Occult Blood 2+ Urine Nitrite NEG Urine Bilirubin NEG Urine Urobilinogen NEG Urine Leukocyte Esterase NEG Urine WBC (Auto) 1-5 /hpf Urine RBC (Auto) 0-4 /hpf Urine Hyaline Casts (Auto) 0 /lpf Urine Epithelial Cells (Auto) 0-5 /lpf Urine Bacteria (Auto) NEG Test 03/09/17 22:23 03/10/17 06:24 03/10/17 06:39 03/10/17 06:42 Creatine Kinase MB 0.5 ng/ml 0.7 ng/ml Creatine Kinase MB Ratio White Blood Count 1.87 K/uL Red Blood Count 3.01 M/uL Hemoglobin 8.9 g/dL Hematocrit 25.8 % Mean Corpuscular Volume 85.7 fL Mean Corpuscular Hemoglobin 29.6 pg Mean Corpuscular Hemoglobin Concent 34.5 g/dl Platelet Count 39 K/uL Mean Platelet Volume 12.1 fL RDW Standard Deviation 41.5 fL RDW Coefficient of Variation 13.8 % Neutrophils % (Manual) 26.1 % Lymphocytes % (Manual) 65.2 % Monocytes % (Manual) 3.5 % Eosinophils % (Manual) 0.9 % Myelocytes % 1.7 % Blast Cells % 2.6 % Neutrophils # (Manual) 0.49 K/uL Total Absolute Neutrophils 0.49 K/uL Lymphocytes # (Manual) 1.22 K/uL Total Absolute Lymphocytes 1.22 K/uL Monocytes # (Manual) 0.07 K/uL Eosinophils # (Manual) 0.02 K/uL Myelocytes # 0.03 K/uL Hypogranular Neutrophils 2+ Blast Cells # 0.05 K/uL Poikilocytosis PRESENT Sodium Level 137 mmol/L Potassium Level 4.2 mmol/L Chloride Level 106 mmol/L Carbon Dioxide Level 23 mmol/L Anion Gap 8.0 mmol/L Blood Urea Nitrogen 19 mg/dl Creatinine 1.20 mg/dl Est Creatinine Clear Calc Drug Dose 57.3 ml/min Estimated GFR () 66.7 Estimated GFR (Non- 57.6 BUN/Creatinine Ratio 16.1 Random Glucose 130 mg/dl Calcium Level 8.6 mg/dl Bedside Glucose 142 mg/dl Assessment & Plan 1 neutropenic fever 2. Elevated troponin 3. Pancytopenia 4. Abdominal aortic aneurysm. 5. Essential hypertension. Elmer is a pleasant 76-year-old gentleman well-known to the cancer care [facility] currently under my care with high-risk myelodysplastic syndrome. Elmer has received multiple cycles of 5-azacytidine and unfortunately has not yet responded to treatment. His transfusion dependence has not improved on average receiving transfused products every 2 weeks. Elmer has been functionally neutropenic throughout his course of treatment and agree would not recommend granulocyte colony-stimulating growth factor because of subsequent leukemic proliferation. Obviously, if he declines further in that circumstance I would consider utilizing Neupogen. Chest x-ray suggests patchy infiltration which could represent developing pneumonic process. Therefore agree with broad- spectrum antimicrobials covering gram negatives with the addition of vancomycin should cultures and/or symptoms dictate. Apparently his troponin was also elevated and the primary team is conducting preliminary cardiac workup. Unfortunately, Chris prognosis is poor with the only curative manipulation would be allogeneic referral blood stem cell transplant. Because of his advanced age he is not a candidate and therefore will proceed with transfusional support, erythropoietin and chemotherapy once he is medically stable. His appointments this week will be canceled and may consider restarting him on 17 March should he be medically stable to do so. Thank you very much for allowing me to participate in his care. If you have any questions and concerns feel free to contact me at any time.
[2017-03-10] MEDS ORDERED: ISOSORBIDE MONONITRATE 30 MG TABCR PO SCH (09:00)
[2017-03-10] MEDS ORDERED: TNR50 PO (11:51)
[2017-03-10] MEDS ORDERED: LVQ750 PO (11:51)
--- NOTE | 2017-03-10 11:53 | Discharge Instructions ---
Discharge Instructions Date of Service Mar 10, 2017. Admission Reason for Admission: Neutropenic Fever Discharge Discharge Diagnosis / Problem: pneumonia, neutropenia Discharge Goals Goal(s): Diagnostic testing, Therapeutic intervention Activity Recommendations Activity Limitations: resume your previous activity . Current Hospital Diet Patient's current hospital diet: Diabetes Type 2 Diet Discharge Diet Recommended Diet: Regular Diet Pending Studies Studies pending at discharge: no Medical Emergencies . Who to Call and When: Medical Emergencies: If at any time you feel your situation is an emergency, please call 911 immediately. . Non-Emergent Contact Non-Emergency issues call your: Oncologist Call Non-Emergent contact if: temperature is above 101, your pain is unusual for you . . "Provider Documentation" section prepared by Carlos Reese. . Flower Pot Press Operator Recommendations Flower Pot Press Operator Recommendations: Please stay away from public places and ill contacts while on antibiotics VTE Core Measure Inpt VTE Proph given/why not?: Contraindicated (low platelets)
--- NOTE | 2017-03-10 13:51 | ECHOCARDIOGRAM REPORT ---
*NOTICE TO RECEIVING REPUBLICAN AGENCY This information is strictly Confidential and protected under [place] law. [place] law prohibits you from making any further disclosure of this information unless further disclosure is expressly permitted by the written consent of the person to whom it pertains or is authorized by law. A general authorization for the release of medical or other information is not sufficient for this purpose. Hospital accepts no responsibility if the information is made available to any other person, INCLUDING THE PATIENT. Interpretation Summary * Name: JAX FERNANDEZ Study Date: 03/10/2017 07:24 AM BP: 127/60 mmHg * Patient Location: C.2T\S\E222\S\1 HR: 56 * : 1940 (M/d/yyy) Gender: Male Height: 73 in * Age: 76 yrs Ethnicity: CA Weight: 180 lb * Ordering Physician: Carlos Reese * Referring Physician: Self, Referred * Performed By: Christianne Li RDCS * * Reason For Study: ELEVATED TROPONIN * BSA: 2.1 m2 * -- Conclusions -- * Left ventricular systolic function is normal. * No regional wall motion abnormalities noted. * Ejection Fraction = 55-60%. * There is mild mitral regurgitation. * There is mild tricuspid regurgitation. Procedure Details * A complete two-dimensional transthoracic echocardiogram was performed (2D, M-mode, Doppler and color flow Doppler). Left Ventricle * The left ventricle is normal in size. * There is normal left ventricular wall thickness. * Ejection Fraction = 55-60%. * Left ventricular systolic function is normal. * No regional wall motion abnormalities noted. Right Ventricle * The right ventricle is not well visualized. * The right ventricular systolic function is normal as assessed by tricuspid annular plane systolic excursion (TAPSE) (normal >1.5 cm). Atria * The left atrium is mildly dilated. * Right atrium not well visualized. * There is no evidence of atrial septal defect, but resolution does not allow assessment for a patent foramen ovale. Mitral Valve * The mitral valve anatomy is normal. * There is no mitral valve stenosis. * There is mild mitral regurgitation. Tricuspid Valve * The tricuspid valve anatomy is normal. * There is mild tricuspid regurgitation. Aortic Valve * The aortic valve is trileaflet. * The aortic valve opens well. * Aortic valve sclerosis mild, without significant aortic valvular stenosis. * No hemodynamically significant valvular aortic stenosis. * There is no significant aortic regurgitation. Pulmonic Valve * The pulmonary valve is not well seen, but the Doppler examination is normal without significant regurgitation or stenosis. Great Vessels * The aortic root is normal size. * The pulmonary is not well visualized. Pericardium/Pleural * There is no pericardial effusion. Great Vessels * Normal inferior vena cava size and collapsability with sniff indicates a normal right atrial pressure of 3 mmHg MMode 2D Measurements and Calculations IVSd 1.3 cm IVSs 1.8 cm LVIDd 4.6 cm LVIDs 3.2 cm LVPWd 1.4 cm LVPWs 1.6 cm IVS/LVPW 0.92 FS 31.3 % EDV(Teich) 99.1 ml ESV(Teich) 40.5 ml EF(Teich) 59.1 % EDV(cubed) 99.6 ml ESV(cubed) 32.3 ml EF(cubed) 67.5 % % IVS thick 38.9 % % LVPW thick 13.0 % LV mass(C)d 242.1 grams LV mass(C)dI 117.7 grams/m\S\2 LV mass(C)s 205.7 grams LV mass(C)sI 100.0 grams/m\S\2 SV(Teich) 58.6 ml SI(Teich) 28.5 ml/m\S\2 SV(cubed) 67.3 ml SI(cubed) 32.7 ml/m\S\2 Ao root diam 3.5 cm Ao root area 9.6 cm\S\2 LA dimension 4.6 cm LA/Ao 1.3 LVAd ap4 37.8 cm\S\2 LVLd ap4 8.6 cm EDV(MOD-sp4) 138.7 ml EDV(sp4-el) 140.9 ml LVAs ap4 22.5 cm\S\2 LVLs ap4 8.0 cm ESV(MOD-sp4) 57.2 ml ESV(sp4-el) 53.8 ml EF(MOD-sp4) 58.8 % EF(sp4-el) 61.8 % LVAd ap2 37.5 cm\S\2 LVLd ap2 8.8 cm EDV(MOD-sp2) 135.0 ml EDV(sp2-el) 135.3 ml LVAs ap2 23.0 cm\S\2 LVLs ap2 7.9 cm ESV(MOD-sp2) 59.4 ml ESV(sp2-el) 56.9 ml EF(MOD-sp2) 56.0 % EF(sp2-el) 57.9 % LVLd %diff 2.2 % EDV(MOD-bp) 136.8 ml LVLs %diff -0.79 % ESV(MOD-bp) 58.9 ml EF(MOD-bp) 56.9 % SV(MOD-sp4) 81.5 ml SI(MOD-sp4) 39.6 ml/m\S\2 SV(MOD-sp2) 75.6 ml SI(MOD-sp2) 36.7 ml/m\S\2 SV(MOD-bp) 77.9 ml SI(MOD-bp) 37.9 ml/m\S\2 SV(sp4-el) 87.1 ml SI(sp4-el) 42.4 ml/m\S\2 SV(sp2-el) 78.3 ml SI(sp2-el) 38.1 ml/m\S\2 Doppler Measurements and Calculations MV E max ankit 118.8 cm/sec MV A max ankit 73.7 cm/sec MV E/A 1.6 MV dec time 0.24 sec Ao V2 max 187.0 cm/sec Ao max PG 14.0 mmHg Ao max PG (full) 8.7 mmHg LV V1 max PG 5.3 mmHg LV V1 max 114.9 cm/sec TR max ankit 287.8 cm/sec
[2017-03-10] MEDS ORDERED: LEVOFLOXACIN / D5W 750 MG in PREMIXED IN D5W 150 ML IV SCH (14:00)
--- NOTE | 2017-03-10 15:57 | Discharge Summary ---
Discharge Summary Date of Service Mar 10, 2017. Discharge Summary Admission Date: Mar 09, 2017 at 16:36 Discharge Date: Mar 10, 2017 Discharge Disposition: Home Principal Diagnosis: neutropenic fever, pneumonia, elevated troponin Procedures: ECHO. no RWMA Medication Reconciliation New Medications: Levofloxacin (Levofloxacin) 750 Mg Tab 750 MG PO DAILY, #14 DOSE Changed Medications: Atenolol (Atenolol) 50 Mg Tab 1 TAB PO DAILY, #60 DOSE (Changed from: BID) Continued Medications: Aspirin (Aspirin Ec) 325 Mg Tab 325 MG PO DAILY Clopidogrel (Plavix) 75 Mg Tab 75 MG PO DAILY, TAB Epoetin Butch (Procrit) Unknown Strength Inj Unknown Dose WK Glipizide (Glipizide) 5 Mg Tab 5 MG PO BIDM Isosorbide Mononitrate (Isosorbide Mononitrate ER) 30 Mg Tabcr 30 MG PO DAILY Levothyroxine Sodium (Levothyroxine Sodium) 75 Mcg Tab 1 TAB PO DAILYBB Nitroglycerin (Nitrostat) 0.4 Mg Sub 0.4 MG UT PRN PRN for Chest Pain, BTL Pravastatin Sodium (Pravastatin Sodium) 40 Mg Tab 40 MG PO HS for 90 Days, #90 TAB 3 Refills Tamsulosin Hcl (Flomax) 0.4 Mg Cap 0.4 MG PO HS, CAP Discharge Exam Review of Systems: Constitutional: No fever, No chills Respiratory: No cough, No sputum, No wheezing, No shortness of breath, No dyspnea on exertion Cardiovascular: No chest pain, No orthopnea, No edema, No claudication Abdomen: No pain, No nausea, No vomiting Musculoskeletal: No joint pain, No muscle pain, No swelling Neurologic: No memory loss, No paralysis Psychiatric: No depression symptoms, No anhedonism Physical Exam: General Appearance: WD/WN, no apparent distress Neck: supple, no JVD Respiratory/Chest: chest non-tender, lungs clear, normal breath sounds Cardiovascular: regular rate, rhythm, no murmur Abdomen / GI: normal bowel sounds, non tender, soft Extremities: no pedal edema, normal range of motion Neurologic/Psychiatric: alert, oriented x 3 Hospital Course 68-year-old male to pancytopenia with left lower lobe pneumonia and neutropenic fever with incidental elevated troponin and junctional bradycardia Neutropenic fever and pneumonia, Discussed with oncologist will be comfortable going home on levequin despite still with low anc as pt is clinically stable at this time with close outpt follow up Anemia, s/p transfusion of 2 units packed red blood cells thrombocytopenia and the patient has no active bleeding at this time Elevated troponin, no trend, no RWMA, no angina, likely supply demand mismatch, for his junctional bradycardia however we will reduce his atenolol to 25 continue isosorbide Diabetes will continue his glipizide on a diabetic diet BPH no symptoms on Flomax at 0.[address] Lemos office this week. Total Time Spent: Greater than 30 minutes This includes examination of the patient, discharge planning, medication reconciliation, and communication with other providers. Discharge Instructions Please refer to the electronic Patient Visit Report (Discharge Instructions) for additional information.
== END 2017-03-10 14:00 | disposition home or self-care (01) | DRG 808 ==
LOC: C.EDB 12:25 → UNDOADMIN 16:36 → C.2T 16:36 → ENRESERV 16:44
PROVIDERS: ADMIT Internal Medicine; ATTEND Internal Medicine
DX: D70.9 Neutropenia, unspecified (principal); J18.9 Pneumonia, unspecified organism; D64.9 Anemia, unspecified; D69.6 Thrombocytopenia, unspecified; E11.9 Type 2 diabetes mellitus without complications; N40.0 Benign prostatic hyperplasia without lower urinary tract symptoms; D46.9 Myelodysplastic syndrome, unspecified; Z87.891 Personal history of nicotine dependence; D61.818 Other pancytopenia; R21 Rash and other nonspecific skin eruption; Z82.49 Family history of ischemic heart disease and other diseases of the circulatory system; Z83.3 Family history of diabetes mellitus; Z80.2 Family history of malignant neoplasm of other respiratory and intrathoracic organs; I71.4 Abdominal aortic aneurysm, without rupture

== ENCOUNTER → 2017-03-14 | Outpatient (CLI) | payer MEDICARE ==
[~2017-03-14] MED LIST changes: +ANSHCCR EXT; -ASPEC325 PO; +ASPI325T39 PO; +ASPI81TA28 PO; -ATEN50TA8 PO; +CLS1 PO; +ERTA1INJ IV; +HYDR-4079 PO; +IMD2X PO; +INSDGIPEN SC; -LEVO25TA5 PO; +LEVO75TA5 PO; +LPR25 PO; +LVQ750 PO; +MCRK20 PO; +MGNO400 PO; +MTML PO; +NVLGIPEN SC; +TNR50 PO
[2017-03-14 18:56] LABS: HEMATOCRIT 26.4 % (42-52); MEAN CELL VOLUME 87.7 fL (80-100); MEAN CORPUSCULAR HEMOGLOBIN 29.2 pg (25-34); MEAN CORPUSCULAR HGB CONC 33.3 g/dl (32-36); MEAN PLATELET VOLUME 11.9 fL (7.4-10.4); PLATELET COUNT 42 K/uL (130-400); RED BLOOD COUNT 3.01 M/uL (4.7-6.1)
[2017-03-14 19:10] LABS: COMPLETE YES; DOHLE BODIES 1+; EOSINOPHIL % 0.9 %; LYMPH ABS # 1.26 K/uL (1.2-3.4); LYMPHOCYTE % 60.2 %; MYELOCYTE % 4.4 %; NEUTROPHILS % 26.5 %; PLT ESTIMATE DECREASED; SCHISTOCYTES OCCASIONAL
== END | disposition home or self-care (01) ==
LOC: C.LAB1850 14:39
PROVIDERS: ATTEND Physician Assistant
DX: D61.818 Other pancytopenia (principal)

== ENCOUNTER 2017-03-17 10:42 | Outpatient (CLI) | payer MEDICARE ==
[~2017-03-17 10:42] MED LIST changes: -ANSHCCR EXT; -ASPI81TA28 PO; -CLS1 PO; -ERTA1INJ IV; -HYDR-4079 PO; -IMD2X PO; -INSDGIPEN SC; -LPR25 PO; -MCRK20 PO; -MGNO400 PO; -MTML PO; -NVLGIPEN SC
[2017-03-17] MEDS ORDERED: ACETAMINOPHEN 325 MG TAB ONE (11:48)
[2017-03-17 13:58] VITALS: BP 102/56; PULSE 59; TEMP 36.5
[2017-03-17 14:15] VITALS: BP 103/55; PULSE 58; TEMP 37; O2SAT 96
[2017-03-17 14:35] VITALS: BP 107/54; PULSE 59; TEMP 37.1; O2SAT 97
[2017-03-17 14:45] VITALS: BP 110/55; PULSE 58; TEMP 36.6; O2SAT 97
[2017-03-17 15:15] VITALS: BP 120/57; PULSE 58; TEMP 36.6; O2SAT 96
[2017-03-17 15:50] VITALS: BP 131/55; PULSE 62; TEMP 36.6; O2SAT 97
[2017-04-09] MEDS ORDERED: ERTA1INJ IV (10:56)
[2017-04-10] MEDS ORDERED: INSDGIPEN SC (11:04)
[2017-04-10] MEDS ORDERED: NVLGIPEN SC (11:04)
[2017-04-10] MEDS ORDERED: LPR25 PO (11:04)
[2017-04-10] MEDS ORDERED: MTML PO (11:04)
[2017-04-10] MEDS ORDERED: HYDR-4079 PO (11:04)
[2017-04-10] MEDS ORDERED: MCRK20 PO (11:04)
[2017-04-10] MEDS ORDERED: MGNO400 PO (11:04)
[2017-04-10] MEDS ORDERED: IMD2X PO (11:04)
[2017-04-10] MEDS ORDERED: CLS1 PO (11:04)
[2017-04-10] MEDS ORDERED: ANSHCCR EXT (11:04)
[2017-04-10] MEDS ORDERED: ASPI81TA28 PO (11:08)
== END 2017-03-17 17:00 | disposition home or self-care (01) ==
LOC: C.OPB 10:42 → C.MSN 10:43 → C.OPB 17:00
PROVIDERS: ATTEND Nurse Practitioner Family
DX: D46.9 Myelodysplastic syndrome, unspecified (principal); D46.21 Refractory anemia with excess of blasts 1; R19.7 Diarrhea, unspecified; D61.818 Other pancytopenia

== ENCOUNTER → 2017-03-17 | Outpatient (CLI) | payer MEDICARE ==
--- NOTE | 2017-03-17 09:51 | DIAGNOSTIC IMAGING REPORT ---
CHEST 2 VIEWS ROUTINE CLINICAL HISTORY: 76 years-old Male presenting with refractory anemia. TECHNIQUE: Portable upright AP view of the chest was obtained. COMPARISON: 03/09/2017. FINDINGS: Aortic atherosclerosis. Median sternotomy wires and numerous scattered mediastinal surgical clips unchanged. Cardiac silhouette is not significantly enlarged. Essential resolution of previous noted vague left basilar opacities. Lungs and pleural spaces clear. Degenerative changes of the spine. Upper abdomen normal. IMPRESSION: 1. Essential resolution of previously noted vague left basilar opacities. No acute cardiopulmonary disease. Electronically signed by: Carlos Laughlin M.D. 03/17/2017 9:50 AM Dictated Date/Time: 03/17/2017 9:48 AM
== END | disposition home or self-care (01) ==
LOC: C.RAD 09:22
PROVIDERS: ATTEND Nurse Practitioner Family
DX: D46.21 Refractory anemia with excess of blasts 1 (principal)

== ENCOUNTER → 2017-03-18 | Outpatient (CLI) | payer MEDICARE ==
[~2017-03-18] MED LIST changes: +ANSHCCR EXT; +ASPI81TA28 PO; +CLS1 PO; +ERTA1INJ IV; +HYDR-4079 PO; +IMD2X PO; +INSDGIPEN SC; +LPR25 PO; +MCRK20 PO; +MGNO400 PO; +MTML PO; +NVLGIPEN SC
== END | disposition home or self-care (01) ==
LOC: C.LAB 17:08
PROVIDERS: ATTEND Internal Medicine
DX: R19.7 Diarrhea, unspecified (principal)

== ENCOUNTER 2017-03-19 11:21 | Inpatient (IN) | payer MEDICARE, OTHER ==
[~2017-03-19] VITALS: Ht 170.2 cm; Wt 80.0 kg
[~2017-03-19 11:21] MED LIST changes: -ANSHCCR EXT; -ASPI81TA28 PO; -CLS1 PO; -ERTA1INJ IV; -HYDR-4079 PO; -IMD2X PO; -INSDGIPEN SC; -LPR25 PO; -MCRK20 PO; -MGNO400 PO; -MTML PO; -NVLGIPEN SC
[2017-03-19 12:30] VITALS: BP 94/51; PULSE 60; TEMP 36.4; O2SAT 97
[2017-03-19 13:40] VITALS: BMI 22.0
[2017-03-19] MEDS ORDERED: ONDANSETRON INJ 2 MG/ML 2 ML VIAL IV PRN ×2 (14:15→15:00)
[2017-03-19] MEDS ORDERED: NITROGLYCERIN 0.4 MG SL PER TAB CHARGE UT PRN (14:15)
[2017-03-19] MEDS ORDERED: ACETAMINOPHEN 325 MG TAB PO PRN (14:15)
[2017-03-19] MEDS ORDERED: POLYETHYLENE (MIRALAX) 17 GM PACK PO PRN ×2 (14:15→15:00)
[2017-03-19] MEDS ORDERED: ACETAMINOPHEN IV 650 MG in EMPTY BAG 0 ML IV PRN (14:30)
[2017-03-19] MEDS ORDERED: OPTIRAY 320 IV PRN (15:00)
[2017-03-19] MEDS ORDERED: MAGNESIUM HYDROXIDE SUSP 30 ML UDC PO PRN (15:00)
[2017-03-19] MEDS: SODIUM CHLORIDE 0.9% 1000ML 1,000 ML IV SCH (15:23)
[2017-03-19 15:24] VITALS: BP 104/61; PULSE 61; TEMP 36.6; O2SAT 97
[2017-03-19 15:25] LABS: HEMATOCRIT 26.3 % (42-52); MEAN CELL VOLUME 87.7 fL (80-100); MEAN CORPUSCULAR HEMOGLOBIN 29.3 pg (25-34); MEAN CORPUSCULAR HGB CONC 33.5 g/dl (32-36); MEAN PLATELET VOLUME 12.2 fL (7.4-10.4); PLATELET COUNT 36 K/uL (130-400); WHITE BLOOD COUNT 2.55 K/uL (4.8-10.8)
[2017-03-19] MEDS ORDERED: GLUCOSE 10 TABS/TUBE PO PRN (15:30)
[2017-03-19] MEDS ORDERED: DEXTROSE 50% 50 ML SYR IV PRN (15:30)
[2017-03-19] MEDS ORDERED: GLUCOSE 40% GEL 15 GM TUBE PO PRN (15:30)
[2017-03-19] MEDS ORDERED: GLUCAGON FOR INJ 1 MG VIAL SQ PRN (15:30)
[2017-03-19 15:33] LABS: COMPLETE YES; DOHLE BODIES 1+; EOSINOPHIL % 0.9 %; LARGE PLATELETS 2+; LYMPH ABS # 1.36 K/uL (1.2-3.4); LYMPHOCYTE % 53.4 %; META ABS # 0.05 K/uL (0-0); METAMYELOCYTE % 1.8 %; MYELOCYTE % 1.8 %; NEUTROPHILS % 34.2 %; SCHISTOCYTES OCCASIONAL; VACUOLIZATION 1+
[2017-03-19 15:38] LABS: ALT/SGPT 32 U/L (12-78); AST/SGOT 16 U/L (15-37); BLOOD UREA NITROGEN 18 mg/dl (7-18); BUN/CREATININE RATIO 17.9 (10-20); CALCIUM 8.7 mg/dl (8.5-10.1); CARBON DIOXIDE 24 mmol/L (21-32); CHLORIDE 102 mmol/L (98-107); GLUCOSE 109 mg/dl (70-99); POTASSIUM 3.6 mmol/L (3.5-5.1); SODIUM 135 mmol/L (136-145)
[2017-03-19 15:42] LABS: ALB/GLOB RATIO 0.6 (0.9-2); ALKALINE PHOSPHATASE 45 U/L (45-117)
[2017-03-19] MEDS ORDERED: PATIENT'S HEIGHT AND/OR WEIGHT NEEDED SCH (16:15)
[2017-03-19] MEDS ORDERED: PIPERACILL/TAZOBAC IV 3.375 GM in DEXTROSE 5% 100ML 100 ML IV ONE (16:15)
[2017-03-19] MEDS ORDERED: PIPERACILL/TAZOBAC CONSULT ACTIVE PRN (16:15)
[2017-03-19] MEDS: INSULIN ASPART 100 UNITS/ML 3 ML PEN SC SCH ×2 (16:30→21:00)
[2017-03-19] MEDS: ACETAMINOPHEN 325 MG TAB PO PRN ×2 (17:37→21:55)
--- NOTE | 2017-03-19 18:52 | DIAGNOSTIC IMAGING REPORT ---
ABD/PELVIS IV AND ORAL CONT CLINICAL HISTORY: 76 years-old Male presenting with fever and myelodysplastic syndrome. TECHNIQUE: Multidetector CT of the abdomen and pelvis was performed after the administration of oral and intravenous contrast. IV contrast: 93 mL of Optiray 320. A dose lowering technique was used consistent with the principles of ALARA (as low as reasonably achievable). COMPARISON: 05/08/2015. CT DOSE (mGy.cm): The estimated cumulative dose is 528.40 mGycm. FINDINGS: Manager Facility topogram: Median sternotomy wires and mediastinal surgical clips noted in addition to an aortobiiliac stent graft. Lung bases: Dependent reticular opacities in the lung bases with a few dependent nodular opacities at the left lung base. These changes of slightly progressed from the prior exam. Respiratory motion artifact degrades evaluation of the lung bases. Normal heart size. No pericardial or pleural effusion. Liver: Congenital hypoplasia of the medial segments of the left hepatic lobe. No liver lesion. Patent hepatic vasculature. Biliary: No intrahepatic or extrahepatic biliary ductal dilatation. Normal gallbladder. Pancreas: Normal. Spleen: Enlarged measuring nearly 15 cm in maximal sagittal dimension. Adrenal glands: Normal. Kidneys and ureters: Multiple well-defined hypodensities primarily localized to the interpolar region of the left kidney. Trace perinephric fat stranding bilaterally. No hydronephrosis. No nephrolithiasis. Normal ureters. Bladder: Minimal circumferential bladder wall thickening may suggest chronic outlet obstruction. Pelvic organs: Prostate enlargement likely secondary to benign prostatic hyperplasia. Bowel: Evidence of a rim-enhancing complex fluid collection along the right posterior lateral aspect of the anorectal junction measuring approximately 3.1 x 1.9 cm. Associated mild infiltration of the mesial rectal fascia and minimal presacral fluid noted. Mild wall thickening of the lower rectum. Diverticulosis of the descending and sigmoid colon. Mild wall thickening of the hepatic flexure likely due to underdistention and/or peristalsis. Normal appendix. No bowel obstruction. Peritoneal cavity: No free fluid or intraperitoneal gas. Vasculature: Atherosclerosis of the abdominal aorta with an aortobiiliac stent graft in place. This terminates prior to the iliac bifurcation. The stent appears patent. The origins of the renal arteries are patent and immediately superior to the stent graft. No significant aneurysmal dilatation of the aorta. IVC patent.. Lymph nodes: No enlarged lymph nodes in the abdomen or pelvis. Abdominal wall: Postsurgical changes in the bilateral inguinal regions likely from prior vascular access. No gross evidence of a pseudoaneurysm. Musculoskeletal: Degenerative changes of the spine. Degenerative changes of the sacroiliac joints. IMPRESSION: 1. Findings consistent with perirectal abscess at the anorectal junction as above. Evaluation for potential perianal fistulas limited. If there is clinical concern for this entity, dedicated contrast-enhanced MR of the perianal region is recommended. 2. Patent aortobiiliac stent graft. 3. Splenomegaly, likely related to myelofibrosis. 4. Slight interval increase in dependent reticulation at the lung bases suggestive of mild fibrotic changes. Rarely, fibrotic appearing changes in the setting of myelofibrosis could be secondary to pulmonary hematopoesis. Alternatively, this may represent changes secondary to a drug reaction or unrelated etiology. Electronically signed by: Carlos Laughlin M.D. 03/19/2017 6:51 PM Dictated Date/Time: 03/19/2017 6:24 PM
[2017-03-19 19:16] LABS: URINE APPEARANCE CLEAR (CLEAR); URINE BILIRUBIN NEG (NEG); URINE COLOR DK YELLOW; URINE EPITHELIAL CELL AUTO 0-5 /lpf (0-5); URINE NITRITE NEG (NEG); URINE SPECIFIC GRAVITY > 1.045 (1.000-1.030); UROBILINOGEN NEG (NEG)
[2017-03-19 19:17] LABS: MANUAL MICROSCOPIC REQUIRED? NO; REVIEW REQ? NO
--- NOTE | 2017-03-19 20:07 | History and Physical ---
History & Physical Date & Time of Service: Mar 19, 2017 at 20:03 Chief Complaint: MDS Primary Care Physician: Gonzalo Amin M.D. History of Present Illness 68-year-old male who's got mild dysplastic syndrome recently admitted with a brown neutropenia, discharge on levofloxacin, has had a poor outpatient course with persistent fevers. His only problem has painful hemorrhoids. He has seen Dr. edith virgen after some diarrhea which was negative for infectious etiologies he continues to have fevers chills and remains in poor condition is recommended for direct admission today he remains neutropenic on presentation with ANC of 870. He has no other focal complaints or problems other than his hemorrhoids and diarrhea Past Medical/Surgical History Medical Problems: (1) Abdominal aortic aneurysm Status: Chronic (2) Calculus Of Kidney Status: Chronic (3) CVD (cardiovascular disease) Status: Chronic (4) Hyperlipidemia Nec/Nos Status: Chronic (5) Hypertension Nos Status: Chronic (6) Old Myocardial Infarct Status: Chronic (7) Senile Nuclear Cataract Status: Chronic (8) Unilat Inguinal Hernia Status: Chronic Surgical Problems: (1) H/O abdominal aortic aneurysm repair Status: Resolved (2) H/O heart bypass surgery Status: Resolved Family History Family history positive for diabetes and heart disease Social History Smoking Status: Unknown if Ever Smoked Drug Use: none Marital Status: Occupational Status: retired Multi-Drug Resistant Organisms History of MDRO: No Allergies Coded Allergies: No Known Allergies (Verified , 03/09/17) Home Medications Scheduled Aspirin (Aspirin Ec), 325 MG PO DAILY Atenolol (Atenolol), 1 TAB PO DAILY Clopidogrel (Plavix), 75 MG PO DAILY Epoetin Butch (Procrit), Unknown Dose WK Glipizide (Glipizide), 5 MG PO BIDM Isosorbide Mononitrate (Isosorbide Mononitrate ER), 30 MG PO DAILY Levofloxacin (Levofloxacin), 750 MG PO DAILY Levothyroxine Sodium (Levothyroxine Sodium), 1 TAB PO DAILYBB Pravastatin Sodium (Pravastatin Sodium), 40 MG PO HS Tamsulosin Hcl (Flomax), 0.4 MG PO HS Scheduled PRN Nitroglycerin (Nitrostat), 0.4 MG UT PRN PRN for Chest Pain Review of Systems ROS: well nourished well developed he continues to have chills and low-grade temperatures No double vision blurry vision No problems with speech or swallowing No palpitations, chest pain or pressure No Wheezing or breathing issues No abdominal pain nausea vomiting patient has had loose bowel movements and rectal pain consistent with previous history of hemorrhoids No burning urine urine frequency has a dark colored urine with no blood No focal joint pain or muscle pain No skin rashes or oral lesions No unusual bruising or bleeding No focused back pain or numbness or loss of strength No changes in memory or confusion Physical Exam Vital Signs Date Time Temp Pulse Resp B/P (MAP) Pulse Ox O2 Delivery O2 Flow Rate FiO2 03/19/17 16:00 Room Air 03/19/17 15:24 36.6 61 18 104/61 (75) 97 Room Air 03/19/17 13:40 Room Air 03/19/17 12:30 36.4 60 18 94/51 (65) 97 Room Air General Appearance: WD/WN, + moderate distress Eyes: PERRL, EOMI ENT: hearing grossly normal, TMs normal, pharynx normal Neck: supple, no adenopathy, thyroid normal, no JVD Respiratory/Chest: chest non-tender, lungs clear, normal breath sounds, no respiratory distress Cardiovascular: regular rate, rhythm, no murmur Abdomen/GI: normal bowel sounds, non tender, soft Genitourinary - Male: normal male genitalia, normal phallus Back: normal inspection, no CVA tenderness, no muscle spasm Extremities/Musculoskelatal: normal inspection, no calf tenderness, normal capillary refill Neurologic/Psych: alert, oriented x 3 Skin: normal color, warm/dry, no rash Diagnostics Laboratory Results Results Past 24 Hours Test 03/19/17 12:37 03/19/17 14:56 03/19/17 14:57 03/19/17 16:53 Range/Units Bedside Glucose 127 124 70-99 mg/dl White Blood Count 2.55 4.8-10.8 K/uL Red Blood Count 3.00 4.7-6.1 M/uL Hemoglobin 8.8 14.0-18.0 g/dL Hematocrit 26.3 42-52 % Mean Corpuscular Volume 87.7 80-100 fL Mean Corpuscular Hemoglobin 29.3 25-34 pg Mean Corpuscular Hemoglobin Concent 33.5 32-36 g/dl Platelet Count 36 130-400 K/uL Mean Platelet Volume 12.2 7.4-10.4 fL RDW Standard Deviation 43.8 36.4-46.3 fL RDW Coefficient of Variation 14.1 11.5-14.5 % Neutrophils % (Manual) 34.2 % Lymphocytes % (Manual) 53.4 % Monocytes % (Manual) 3.5 % Eosinophils % (Manual) 0.9 % Metamyelocytes % 1.8 % Myelocytes % 1.8 % Blast Cells % 4.4 % Neutrophils # (Manual) 0.87 1.4-6.5 K/uL Total Absolute Neutrophils 0.87 1.4-6.5 K/uL Lymphocytes # (Manual) 1.36 1.2-3.4 K/uL Total Absolute Lymphocytes 1.36 1.2-3.4 K/uL Monocytes # (Manual) 0.09 0.11-0.59 K/uL Eosinophils # (Manual) 0.02 0-0.5 K/uL Metamyelocytes # 0.05 0-0 K/uL Myelocytes # 0.05 0-0 K/uL Blast Cells # 0.11 0-0 K/uL Toxic Vacuolation 1+ Dohle Bodies 1+ Large Platelets 2+ Schistocytes OCCASIONAL Lactic Acid Level 1.9 0.4-2.0 mmol/L Sodium Level 135 136-145 mmol/L Potassium Level 3.6 3.5-5.1 mmol/L Chloride Level 102 98-107 mmol/L Carbon Dioxide Level 24 21-32 mmol/L Anion Gap 9.0 3-11 mmol/L Blood Urea Nitrogen 18 7-18 mg/dl Creatinine 1.00 0.60-1.40 mg/dl Estimated GFR () 83.2 Estimated GFR (Non- 71.8 BUN/Creatinine Ratio 17.9 10-20 Random Glucose 109 70-99 mg/dl Calcium Level 8.7 8.5-10.1 mg/dl Total Bilirubin 1.5 0.2-1 mg/dl Aspartate Amino Transf (AST/SGOT) 16 15-37 U/L Alanine Aminotransferase (ALT/SGPT) 32 12-78 U/L Alkaline Phosphatase 45 45-117 U/L Total Protein 6.8 6.4-8.2 gm/dl Albumin 2.5 3.4-5.0 gm/dl Globulin 4.3 2.5-4.0 gm/dl Albumin/Globulin Ratio 0.6 0.9-2 Lipase 112 73-393 U/L Test 03/19/17 19:00 03/19/17 19:33 Range/Units Urine Color DK YELLOW Urine Appearance CLEAR CLEAR Urine pH 5.0 4.5-7.5 Urine Specific [place] > 1.045 1.000-1.030 Urine Protein TRACE NEG Urine Glucose (UA) NEG NEG Urine Ketones NEG NEG Urine Occult Blood 3+ NEG Urine Nitrite NEG NEG Urine Bilirubin NEG NEG Urine Urobilinogen NEG NEG Urine Leukocyte Esterase NEG NEG Urine WBC (Auto) 1-5 0-5 /hpf Urine RBC (Auto) 5-10 0-4 /hpf Urine Hyaline Casts (Auto) 0 0-5 /lpf Urine Epithelial Cells (Auto) 0-5 0-5 /lpf Urine Bacteria (Auto) NEG NEG Bedside Glucose 139 70-99 mg/dl Microbiology Results 03/19/17 Blood Culture, Received Pending Diagnostic Radiology CT scan of the abdomen is worrisome for perirectal abscess Impression Assessment and Plan 68-year-old male here with a history of mild dysplastic syndrome recent febrile neutropenia who presents with chills and persistent low neutrophil count with worrisome CT scan for perirectal abscess The patient will be changed to Zosyn and vancomycin surgical consultation and suggestion for MRI be undertaken blood cultures are pending For the patient's diabetes she'll remain on glipizide with sliding scale insulin For the patient's hypertension he has had no hypotension atenolol and isosorbide be maintained For cardiovascular prevention aspirin and Plavix will be held For BPH Flomax will be continued DVT prevention will be SCDs given the possibility of drainage of this abscess Advanced Directives Existing Living Will: Yes Existing Power of Correctional Treatment Specialist: Yes VTE Prophylaxis VTE Risk Assessment Done? Y/N: Yes Risk Level: Moderate
[2017-03-19] MEDS ORDERED: VANCOMYCIN CONSULT ACTIVE PRN (20:12)
--- NOTE | 2017-03-19 20:19 | Pharmacy Progress Note ---
Pharmacy Abx Initial Consult Date of Service Mar 19, 2017. Pharmacy Dosing Scope Date of Consult: 03/19/17 Consultation requested by: Dr. Reese Pharmacy is consulted to initiate vancomycin/Zosyn IV dosing therapy, order appropriate labs and adjust drug dose/frequency. Subjective The patient is a 76 year old male admitted on Mar 19, 2017 at 12:16. Objective Height (Feet): 6 Height (Inches): 0.00 Weight (Kilograms): 73.500 Vital Signs (Past 12Hrs) Vital Signs Past 12 Hours Date Time Temp Pulse Resp B/P (MAP) Pulse Ox O2 Delivery O2 Flow Rate FiO2 03/19/17 16:00 Room Air 03/19/17 15:24 36.6 61 18 104/61 (75) 97 Room Air 03/19/17 13:40 Room Air 03/19/17 12:30 36.4 60 18 94/51 (65) 97 Room Air Lab Results (24Hrs) Laboratory Tests (24 Hours) Test 03/19/17 14:56 Lactic Acid Level 1.9 mmol/L (0.4-2.0) White Blood Count 2.55 K/uL (4.8-10.8) L Red Blood Count 3.00 M/uL (4.7-6.1) L Hemoglobin 8.8 g/dL (14.0-18.0) L Hematocrit 26.3 % (42-52) L Mean Corpuscular Volume 87.7 fL (80-100) Mean Corpuscular Hemoglobin 29.3 pg (25-34) Mean Corpuscular Hemoglobin Concent 33.5 g/dl (32-36) Platelet Count 36 K/uL (130-400) L Mean Platelet Volume 12.2 fL (7.4-10.4) H Micro Results Date/Time Source Procedure Growth Status 03/19/17 14:57 Blood Blood Culture Pending Received 03/19/17 20:10 Stool C.difficile Toxin B Gene (PCR) Pending Received 03/19/17 20:10 Stool WBC Smear Pending Received 03/19/17 20:10 Stool Shiga Toxin Test Pending Received 03/19/17 20:10 Stool Stool Culture Pending Received Risk Factors for Resistance * Hospitalization for 48 hours or more within the past 90 days * Immunocompromised (chemotherapy- MDS with neutropenia) Assessment & Plan Assessment 76 year old male with a PMH of MDS who was recently admitted with febrile neutropenia. He was discharged on oral Levaquin; however, he has continued to have fevers and malaise with chills. He continued to have chronic diarrhea. He is a direct admit from the oncology office. CT scan of the patient's abdomen concerning for perirectal abscess. Plan vancomycin/Zosyn for treatment of neutropenic fever, concern for perirectal abscess Vancomycin IV * Loading dose: 2000 mg (27 mg/kg) * Maintenance dose: 1250 mg IV (17 mg/kg) every 12 hours (population pharmacokinetics suggest a half-life of 9.9 hours; however by using a larger dose a longer dosing interval can be utilized) * Goal trough level for perirectal abscess : 10 to 15 mcg/mL * Trough ordered for 03/21/17 prior to 10 AM dose Piperacillin/tazobactam * 3.375 g bolus administered over 30 minutes, then 3.375 g IV extended infusion every 8 hours for CrCl greater than 20 mL/min Pharmacy will continue to follow and will adjust dose/frequency as necessary. Thank you.
[2017-03-19] MEDS ORDERED: VANCOMYCIN INJ 2,000 MG in SODIUM CHLORIDE 0.9% 500ML 500 ML IV ONE (20:30)
[2017-03-19] MEDS: PRAVASTATIN SOD 40 MG TAB PO SCH (21:00)
[2017-03-19] MEDS: TAMSULOSIN HCL 0.4 MG CAP PO SCH (21:00)
[2017-03-19] MEDS: PIPERACILL/TAZOBAC IV 3.375 GM in DEXTROSE 5% 100ML 100 ML IV SCH (23:12)
[2017-03-19 23:13] VITALS: BP 126/57; PULSE 57; TEMP 36.9; O2SAT 96
[2017-03-20] VITALS (16 sets, daily range): BP systolic 100–156; BP diastolic 46–64; PULSE 57–71; TEMP 36.3–37.6; O2SAT 94–97; BMI 22.0
[2017-03-20] MEDS: SODIUM CHLORIDE 0.9% 1000ML 1,000 ML IV SCH ×3 (00:05→17:32)
[2017-03-20] MEDS: LEVOTHYROXINE 75 MCG TAB PO SCH (05:45)
[2017-03-20] MEDS: PIPERACILL/TAZOBAC IV 3.375 GM in DEXTROSE 5% 100ML 100 ML IV SCH ×3 (05:45→21:40)
[2017-03-20] MEDS: INSULIN ASPART 100 UNITS/ML 3 ML PEN SC SCH ×4 (06:30→20:11)
[2017-03-20 07:25] LABS: BUN/CREATININE RATIO 16.7 (10-20); CALCIUM 8.4 mg/dl (8.5-10.1); CREATININE 0.96 mg/dl (0.60-1.40); POTASSIUM 3.4 mmol/L (3.5-5.1)
[2017-03-20] MEDS: ISOSORBIDE MONONITRATE 30 MG TABCR PO SCH (07:27)
[2017-03-20 07:30] LABS: PROSTATE SPECIFIC ANTIGEN 0.575 ng/ml (0.000-4.000)
[2017-03-20 07:45] LABS: HEMATOCRIT 25.2 % (42-52); MEAN CELL VOLUME 86.3 fL (80-100); MEAN CORPUSCULAR HEMOGLOBIN 29.8 pg (25-34); MEAN CORPUSCULAR HGB CONC 34.5 g/dl (32-36); MEAN PLATELET VOLUME 11.7 fL (7.4-10.4); PLATELET COUNT 26 K/uL (130-400); RED BLOOD COUNT 2.92 M/uL (4.7-6.1); WHITE BLOOD COUNT 1.99 K/uL (4.8-10.8)
[2017-03-20] MEDS ORDERED: ASPIRIN 325 MG ECTAB PO SCH (08:00)
[2017-03-20] MEDS ORDERED: CLOPIDOGREL BISULFATE 75 MG TAB PO SCH (08:00)
[2017-03-20] MEDS: POTASSIUM CHLORIDE 20 MEQ TABCR PO SCH ×2 (08:44→20:21)
[2017-03-20] MEDS: VANCOMYCIN INJ 1,250 MG in SODIUM CHLORIDE 0.9% 250ML 250 ML IV SCH ×2 (09:03→21:40)
--- NOTE | 2017-03-20 09:45 | Clinical Documentation Query ---
BERNARD Rose : CLINICAL DOCUMENTATION QUERY Patient is a 68 year old male admitted for evaluation of fever and chills in the setting of ?myelodysplastic syndrome. Noted is neutropenia with CT scan of pelvis demonstrating a perirectal abscess. As appropriate, consider documentation as suggested below as this captures additional severity of illness and associated risk of mortality. Thank you. In your clinical opinion is this patient being managed for: ( xx) Pancytopenia due to myelodysplastic syndrome ( ) Not Agree ( ) Other explanation of clinical findings (Please Explain) ( ) Unable to determine (Please Define) ( ) Need to Discuss The medical record reflects the following clinical findings, treatment, and risk factors. Clinical Indicators: As above Treatment: Serial hematology, IV antibiotics Risk Factors: ?myelodysplastic syndrome Please clarify and document your clinical opinion in the progress notes and discharge summary. Terms such as "probable", "suspected", "likely", "questionable", "possible", or "still to be ruled out" are acceptable. IF IN AGREEMENT, YOU MUST DOCUMENT ABOVE DIAGNOSTIC STATEMENT IN DAILY PROGRESS NOTES AND DISCHARGE SUMMARY. This document is not part of the patient's record. Thank You, Porfirio Lund, RN [phone]
--- NOTE | 2017-03-20 11:17 | Surgery Consultation ---
Consultation Date of Consultation: Mar 20, 2017. Attending Physician: Carlos Reese M.D. Reason for Consultation: Perirectal Abscess History of Present Illness Dr. Amin personally called Dr. Rodríguez and requested that we see Mr. Elmer Fenton, a 76-year-old male with myelodysplastic syndrome, recently admitted to [facility] after several weeks of persistent fevers. Patient states that for the past few weeks he has experienced off and on rectal pain with episodes of diarrhea. Patient does have a history of painful hemorrhoids. CT scan was conducted yesterday which showed a perirectal abscess. He denies rectal bleeding or discharge. Denies blood in the stool. Denies abdominal pain. Denies nausea or vomiting. Per pt- last colonoscopy was about 10 years ago- unremarkable. C. diff negative. Patient on daily Aspirin therapy. Past Medical/Surgical History Medical Problems: (1) Pancytopenia Status: Acute (2) Pneumonia Status: Acute (3) Abdominal aortic aneurysm Status: Chronic (4) Calculus Of Kidney Status: Chronic (5) CVD (cardiovascular disease) Status: Chronic (6) Hyperlipidemia Nec/Nos Status: Chronic (7) Hypertension Nos Status: Chronic (8) Old Myocardial Infarct Status: Chronic (9) Senile Nuclear Cataract Status: Chronic (10) Unilat Inguinal Hernia Status: Chronic Surgical Problems: (1) H/O abdominal aortic aneurysm repair Status: Resolved (2) H/O heart bypass surgery Status: Resolved Social History Smoking Status: Unknown if Ever Smoked Drug Use: none Marital Status: Housing Status: lives with significant other Occupation Status: retired Allergies Coded Allergies: No Known Allergies (Verified , 03/09/17) Home Medications Scheduled Aspirin (Aspirin Ec), 325 MG PO DAILY Atenolol (Atenolol), 1 TAB PO DAILY Clopidogrel (Plavix), 75 MG PO DAILY Epoetin Butch (Procrit), Unknown Dose WK Glipizide (Glipizide), 5 MG PO BIDM Isosorbide Mononitrate (Isosorbide Mononitrate ER), 30 MG PO DAILY Levofloxacin (Levofloxacin), 750 MG PO DAILY Levothyroxine Sodium (Levothyroxine Sodium), 1 TAB PO DAILYBB Pravastatin Sodium (Pravastatin Sodium), 40 MG PO HS Tamsulosin Hcl (Flomax), 0.4 MG PO HS Scheduled PRN Nitroglycerin (Nitrostat), 0.4 MG UT PRN PRN for Chest Pain Current Inpatient Medications Current Inpatient Medications Medications (Trade) Dose Ordered Sig/Cameron Route Start Time Stop Time Status Last Admin Dose Admin Aspirin (Ecotrin Tab) 325 mg DAILY PO 03/20/17 08:00 04/19/17 07:59 03/20/17 07:26 325 MG Atenolol (Tenormin Tab) 50 mg DAILY PO 03/20/17 08:00 04/19/17 07:59 03/20/17 07:26 50 MG Clopidogrel Bisulfate (plAVix TAB) 75 mg DAILY PO 03/20/17 08:00 04/19/17 07:59 03/20/17 07:26 75 MG Glipizide (Glucotrol Tab) 5 mg BIDM PO 03/19/17 17:00 04/18/17 16:59 03/20/17 07:27 5 MG Isosorbide Mononitrate (Imdur Ext Rel Tab) 30 mg DAILY PO 03/20/17 08:00 04/19/17 07:59 03/20/17 07:27 30 MG Levothyroxine Sodium (Synthroid Tab) 75 mcg DAILYBB PO 03/20/17 06:30 04/19/17 06:29 03/20/17 05:45 75 MCG Nitroglycerin (Nitrostat Tab) 0.4 mg PRN PRN UT 03/19/17 14:15 04/18/17 14:14 Pravastatin Sodium (Pravachol Tab) 40 mg HS PO 03/19/17 21:00 04/18/17 20:59 03/19/17 21:00 40 MG Tamsulosin HCl (Flomax Cap) 0.4 mg HS PO 03/19/17 21:00 04/18/17 20:59 03/19/17 21:00 0.4 MG Piperacillin Sod/ Tazobactam Sod 3.375 gm/Dextrose 115 ml @ 28.75 mls/ hr Q8H IV 03/19/17 22:00 03/29/17 21:59 03/20/17 05:45 28.75 MLS/HR Acetaminophen 650 mg/Empty Bag 65 ml @ 260 mls/hr Q6H PRN IV 03/19/17 14:30 04/18/17 14:29 Sodium Chloride 1,000 ml @ 100 mls/hr Q10H IV 03/19/17 14:30 04/18/17 14:29 03/20/17 09:03 100 MLS/HR Insulin Aspart (novoLOG ASPART) SLIDING SCALE PARAMETER ACHS SC 03/19/17 16:30 04/18/17 16:29 Hydrocortisone (Proctozone Hc 2.5% Crm) 1 appln TID PRN EXT 03/19/17 15:00 04/18/17 14:59 Acetaminophen (Tylenol Tab) 650 mg Q4H PRN PO 03/19/17 15:00 04/18/17 14:59 03/19/17 21:55 650 MG Al Hydrox/Mg Hydrox/Simethicone (Maalox Max Susp) 15 ml Q4H PRN PO 03/19/17 15:00 04/18/17 14:59 Magnesium Hydroxide (Milk Of Magnesia Susp) 30 ml Q6H PRN PO 03/19/17 15:00 04/18/17 14:59 Polyethylene (Miralax Powder Packet) 17 gm DAILY PRN PO 03/19/17 15:00 04/18/17 14:59 Ondansetron HCl (Zofran Inj) 4 mg Q6H PRN IV 03/19/17 15:00 04/18/17 14:59 Ioversol (Optiray 320) 100 ml UD PRN IV 03/19/17 15:00 03/23/17 14:59 Glucose (Glucose 40% Gel) 15-30 GRAMS 15 GRAMS... UD PRN PO 03/19/17 15:30 04/18/17 15:29 Glucose (Glucose Chew Tab) 4-8 Tablets 4 Tabl... UD PRN PO 03/19/17 15:30 04/18/17 15:29 Dextrose (Dextrose 50% 50ML Syringe) 25-50ML OF 50% DW IV FOR... UD PRN IV 03/19/17 15:30 04/18/17 15:29 Glucagon (Glucagon Inj) 1 mg UD PRN SQ 03/19/17 15:30 04/18/17 15:29 Piperacillin Sod/ Tazobactam Sod (Consult) 1 ea UD PRN N/A 03/19/17 16:15 04/18/17 16:14 Vancomycin HCl (Consult) 1 ea UD PRN N/A 03/19/17 20:12 04/18/17 20:11 Vancomycin HCl 1250 mg/Sodium Chloride 275 ml @ 125 mls/hr Q12H IV 03/20/17 10:00 03/29/17 23:59 03/20/17 09:03 125 MLS/HR Potassium Chloride (Klor-Con Tab) 20 meq BID PO 03/20/17 08:00 03/21/17 08:01 03/20/17 08:44 20 MEQ Review of Systems Constitutional: No chills, No sweats Respiratory: No shortness of breath Cardiovascular: No chest pain Abdomen: + diarrhea, No pain, No nausea, No vomiting Physical Exam Date Time Temp Pulse Resp B/P (MAP) Pulse Ox O2 Delivery O2 Flow Rate FiO2 03/20/17 08:02 37.2 71 18 120/59 (79) 97 Room Air 03/20/17 08:00 97 Room Air 03/20/17 04:45 36.7 62 20 156/56 (89) 97 Room Air 03/20/17 00:05 Room Air 03/19/17 23:13 36.9 57 18 126/57 (80) 96 Room Air 03/19/17 16:00 Room Air 03/19/17 15:24 36.6 61 18 104/61 (75) 97 Room Air 03/19/17 13:40 Room Air 03/19/17 12:30 36.4 60 18 94/51 (65) 97 Room Air General Appearance: WD/WN, no apparent distress Head: normocephalic, atraumatic Respiratory/Chest: no respiratory distress, no accessory muscle use Abdomen/GI: non tender, soft Laboratory Results Last 24 Hours Test 03/19/17 12:37 03/19/17 14:56 03/19/17 14:57 03/19/17 16:53 Bedside Glucose 127 mg/dl 124 mg/dl White Blood Count 2.55 K/uL Red Blood Count 3.00 M/uL Hemoglobin 8.8 g/dL Hematocrit 26.3 % Mean Corpuscular Volume 87.7 fL Mean Corpuscular Hemoglobin 29.3 pg Mean Corpuscular Hemoglobin Concent 33.5 g/dl Platelet Count 36 K/uL Mean Platelet Volume 12.2 fL RDW Standard Deviation 43.8 fL RDW Coefficient of Variation 14.1 % Neutrophils % (Manual) 34.2 % Lymphocytes % (Manual) 53.4 % Monocytes % (Manual) 3.5 % Eosinophils % (Manual) 0.9 % Metamyelocytes % 1.8 % Myelocytes % 1.8 % Blast Cells % 4.4 % Neutrophils # (Manual) 0.87 K/uL Total Absolute Neutrophils 0.87 K/uL Lymphocytes # (Manual) 1.36 K/uL Total Absolute Lymphocytes 1.36 K/uL Monocytes # (Manual) 0.09 K/uL Eosinophils # (Manual) 0.02 K/uL Metamyelocytes # 0.05 K/uL Myelocytes # 0.05 K/uL Blast Cells # 0.11 K/uL Toxic Vacuolation 1+ Dohle Bodies 1+ Large Platelets 2+ Schistocytes OCCASIONAL Lactic Acid Level 1.9 mmol/L Sodium Level 135 mmol/L Potassium Level 3.6 mmol/L Chloride Level 102 mmol/L Carbon Dioxide Level 24 mmol/L Anion Gap 9.0 mmol/L Blood Urea Nitrogen 18 mg/dl Creatinine 1.00 mg/dl Estimated GFR () 83.2 Estimated GFR (Non- 71.8 BUN/Creatinine Ratio 17.9 Random Glucose 109 mg/dl Calcium Level 8.7 mg/dl Total Bilirubin 1.5 mg/dl Aspartate Amino Transf (AST/SGOT) 16 U/L Alanine Aminotransferase (ALT/SGPT) 32 U/L Alkaline Phosphatase 45 U/L Total Protein 6.8 gm/dl Albumin 2.5 gm/dl Globulin 4.3 gm/dl Albumin/Globulin Ratio 0.6 Lipase 112 U/L Test 03/19/17 19:00 03/19/17 19:33 03/20/17 06:09 03/20/17 07:50 Urine Color DK YELLOW Urine Appearance CLEAR Urine pH 5.0 Urine Specific [place] > 1.045 Urine Protein TRACE Urine Glucose (UA) NEG Urine Ketones NEG Urine Occult Blood 3+ Urine Nitrite NEG Urine Bilirubin NEG Urine Urobilinogen NEG Urine Leukocyte Esterase NEG Urine WBC (Auto) 1-5 /hpf Urine RBC (Auto) 5-10 /hpf Urine Hyaline Casts (Auto) 0 /lpf Urine Epithelial Cells (Auto) 0-5 /lpf Urine Bacteria (Auto) NEG Bedside Glucose 139 mg/dl 113 mg/dl White Blood Count 1.99 K/uL Red Blood Count 2.92 M/uL Hemoglobin 8.7 g/dL Hematocrit 25.2 % Mean Corpuscular Volume 86.3 fL Mean Corpuscular Hemoglobin 29.8 pg Mean Corpuscular Hemoglobin Concent 34.5 g/dl RDW Standard Deviation 43.1 fL RDW Coefficient of Variation 14.0 % Platelet Count 26 K/uL Mean Platelet Volume 11.7 fL Sodium Level 137 mmol/L Potassium Level 3.4 mmol/L Chloride Level 105 mmol/L Carbon Dioxide Level 24 mmol/L Anion Gap 8.0 mmol/L Blood Urea Nitrogen 16 mg/dl Creatinine 0.96 mg/dl Est Creatinine Clear Calc Drug Dose 65.9 ml/min Estimated GFR () 87.4 Estimated GFR (Non- 75.4 BUN/Creatinine Ratio 16.7 Random Glucose 94 mg/dl Calcium Level 8.4 mg/dl Prostate Specific Antigen 0.575 ng/ml Assessment & Plan Discussed with Dr. Rodríguez. Patient added to OR schedule for Incision and Drainage of perirectal abscess. Discussed risks and benefits of surgery with patient. Patient had no further questions. Patient NPO. Continue IV antibiotics.
--- NOTE | 2017-03-20 12:22 | Medical Consult ---
Consultation Date of Consultation: Mar 20, 2017. Attending Physician: Carlos Reese M.D. Reason for Consultation: perirectal abscess History of Present Illness Neutropenic, thrombocytopenic pt with fever, perirectal pain and evidence on CT of perirectal abscess Past Medical/Surgical History Medical Problems: (1) Pancytopenia Status: Acute (2) Pneumonia Status: Acute Social History Smoking Status: Unknown if Ever Smoked Drug Use: none Marital Status: Housing Status: lives with significant other Occupation Status: retired Allergies Coded Allergies: No Known Allergies (Verified , 03/09/17) Current Inpatient Medications Current Inpatient Medications Medications (Trade) Dose Ordered Sig/Cameron Route Start Time Stop Time Status Last Admin Dose Admin Aspirin (Ecotrin Tab) 325 mg DAILY PO 03/20/17 08:00 04/19/17 07:59 03/20/17 07:26 325 MG Atenolol (Tenormin Tab) 50 mg DAILY PO 03/20/17 08:00 04/19/17 07:59 03/20/17 07:26 50 MG Clopidogrel Bisulfate (plAVix TAB) 75 mg DAILY PO 03/20/17 08:00 04/19/17 07:59 03/20/17 07:26 75 MG Glipizide (Glucotrol Tab) 5 mg BIDM PO 03/19/17 17:00 04/18/17 16:59 03/20/17 07:27 5 MG Isosorbide Mononitrate (Imdur Ext Rel Tab) 30 mg DAILY PO 03/20/17 08:00 04/19/17 07:59 03/20/17 07:27 30 MG Levothyroxine Sodium (Synthroid Tab) 75 mcg DAILYBB PO 03/20/17 06:30 04/19/17 06:29 03/20/17 05:45 75 MCG Nitroglycerin (Nitrostat Tab) 0.4 mg PRN PRN UT 03/19/17 14:15 04/18/17 14:14 Pravastatin Sodium (Pravachol Tab) 40 mg HS PO 03/19/17 21:00 04/18/17 20:59 03/19/17 21:00 40 MG Tamsulosin HCl (Flomax Cap) 0.4 mg HS PO 03/19/17 21:00 04/18/17 20:59 03/19/17 21:00 0.4 MG Piperacillin Sod/ Tazobactam Sod 3.375 gm/Dextrose 115 ml @ 28.75 mls/ hr Q8H IV 03/19/17 22:00 03/29/17 21:59 03/20/17 05:45 28.75 MLS/HR Acetaminophen 650 mg/Empty Bag 65 ml @ 260 mls/hr Q6H PRN IV 03/19/17 14:30 04/18/17 14:29 Sodium Chloride 1,000 ml @ 100 mls/hr Q10H IV 03/19/17 14:30 04/18/17 14:29 03/20/17 09:03 100 MLS/HR Insulin Aspart (novoLOG ASPART) SLIDING SCALE PARAMETER ACHS SC 03/19/17 16:30 04/18/17 16:29 Hydrocortisone (Proctozone Hc 2.5% Crm) 1 appln TID PRN EXT 03/19/17 15:00 04/18/17 14:59 Acetaminophen (Tylenol Tab) 650 mg Q4H PRN PO 03/19/17 15:00 04/18/17 14:59 03/19/17 21:55 650 MG Al Hydrox/Mg Hydrox/Simethicone (Maalox Max Susp) 15 ml Q4H PRN PO 03/19/17 15:00 04/18/17 14:59 Magnesium Hydroxide (Milk Of Magnesia Susp) 30 ml Q6H PRN PO 03/19/17 15:00 04/18/17 14:59 Polyethylene (Miralax Powder Packet) 17 gm DAILY PRN PO 03/19/17 15:00 04/18/17 14:59 Ondansetron HCl (Zofran Inj) 4 mg Q6H PRN IV 03/19/17 15:00 04/18/17 14:59 Ioversol (Optiray 320) 100 ml UD PRN IV 03/19/17 15:00 03/23/17 14:59 Glucose (Glucose 40% Gel) 15-30 GRAMS 15 GRAMS... UD PRN PO 03/19/17 15:30 04/18/17 15:29 Glucose (Glucose Chew Tab) 4-8 Tablets 4 Tabl... UD PRN PO 03/19/17 15:30 04/18/17 15:29 Dextrose (Dextrose 50% 50ML Syringe) 25-50ML OF 50% DW IV FOR... UD PRN IV 03/19/17 15:30 04/18/17 15:29 Glucagon (Glucagon Inj) 1 mg UD PRN SQ 03/19/17 15:30 04/18/17 15:29 Piperacillin Sod/ Tazobactam Sod (Consult) 1 ea UD PRN N/A 03/19/17 16:15 04/18/17 16:14 Vancomycin HCl (Consult) 1 ea UD PRN N/A 03/19/17 20:12 04/18/17 20:11 Vancomycin HCl 1250 mg/Sodium Chloride 275 ml @ 125 mls/hr Q12H IV 03/20/17 10:00 03/29/17 23:59 03/20/17 09:03 125 MLS/HR Potassium Chloride (Klor-Con Tab) 20 meq BID PO 03/20/17 08:00 03/21/17 08:01 03/20/17 08:44 20 MEQ Physical Exam Date Time Temp Pulse Resp B/P (MAP) Pulse Ox O2 Delivery O2 Flow Rate FiO2 03/20/17 12:00 36.9 62 18 128/52 94 03/20/17 11:45 36.9 62 18 131/58 94 03/20/17 11:42 36.8 61 18 107/58 (74) 95 Room Air 03/20/17 11:26 37.0 70 18 120/51 03/20/17 08:02 37.2 71 18 120/59 (79) 97 Room Air 03/20/17 08:00 97 Room Air 03/20/17 04:45 36.7 62 20 156/56 (89) 97 Room Air 03/20/17 00:05 Room Air 03/19/17 23:13 36.9 57 18 126/57 (80) 96 Room Air 03/19/17 16:00 Room Air 03/19/17 15:24 36.6 61 18 104/61 (75) 97 Room Air 03/19/17 13:40 Room Air 03/19/17 12:30 36.4 60 18 94/51 (65) 97 Room Air very weak General Appearance: + mild distress (from rectal pain), + cachetic Eyes: sclerae normal Respiratory/Chest: no respiratory distress Abdomen/GI: soft Skin: warm/dry Laboratory Results Last 24 Hours Test 03/19/17 12:37 03/19/17 14:56 03/19/17 14:57 03/19/17 16:53 Bedside Glucose 127 mg/dl 124 mg/dl White Blood Count 2.55 K/uL Red Blood Count 3.00 M/uL Hemoglobin 8.8 g/dL Hematocrit 26.3 % Mean Corpuscular Volume 87.7 fL Mean Corpuscular Hemoglobin 29.3 pg Mean Corpuscular Hemoglobin Concent 33.5 g/dl Platelet Count 36 K/uL Mean Platelet Volume 12.2 fL RDW Standard Deviation 43.8 fL RDW Coefficient of Variation 14.1 % Neutrophils % (Manual) 34.2 % Lymphocytes % (Manual) 53.4 % Monocytes % (Manual) 3.5 % Eosinophils % (Manual) 0.9 % Metamyelocytes % 1.8 % Myelocytes % 1.8 % Blast Cells % 4.4 % Neutrophils # (Manual) 0.87 K/uL Total Absolute Neutrophils 0.87 K/uL Lymphocytes # (Manual) 1.36 K/uL Total Absolute Lymphocytes 1.36 K/uL Monocytes # (Manual) 0.09 K/uL Eosinophils # (Manual) 0.02 K/uL Metamyelocytes # 0.05 K/uL Myelocytes # 0.05 K/uL Blast Cells # 0.11 K/uL Toxic Vacuolation 1+ Dohle Bodies 1+ Large Platelets 2+ Schistocytes OCCASIONAL Lactic Acid Level 1.9 mmol/L Sodium Level 135 mmol/L Potassium Level 3.6 mmol/L Chloride Level 102 mmol/L Carbon Dioxide Level 24 mmol/L Anion Gap 9.0 mmol/L Blood Urea Nitrogen 18 mg/dl Creatinine 1.00 mg/dl Estimated GFR () 83.2 Estimated GFR (Non- 71.8 BUN/Creatinine Ratio 17.9 Random Glucose 109 mg/dl Calcium Level 8.7 mg/dl Total Bilirubin 1.5 mg/dl Aspartate Amino Transf (AST/SGOT) 16 U/L Alanine Aminotransferase (ALT/SGPT) 32 U/L Alkaline Phosphatase 45 U/L Total Protein 6.8 gm/dl Albumin 2.5 gm/dl Globulin 4.3 gm/dl Albumin/Globulin Ratio 0.6 Lipase 112 U/L Test 03/19/17 19:00 03/19/17 19:33 03/20/17 06:09 03/20/17 07:50 Urine Color DK YELLOW Urine Appearance CLEAR Urine pH 5.0 Urine Specific Lovely > 1.045 Urine Protein TRACE Urine Glucose (UA) NEG Urine Ketones NEG Urine Occult Blood 3+ Urine Nitrite NEG Urine Bilirubin NEG Urine Urobilinogen NEG Urine Leukocyte Esterase NEG Urine WBC (Auto) 1-5 /hpf Urine RBC (Auto) 5-10 /hpf Urine Hyaline Casts (Auto) 0 /lpf Urine Epithelial Cells (Auto) 0-5 /lpf Urine Bacteria (Auto) NEG Bedside Glucose 139 mg/dl 113 mg/dl White Blood Count 1.99 K/uL Red Blood Count 2.92 M/uL Hemoglobin 8.7 g/dL Hematocrit 25.2 % Mean Corpuscular Volume 86.3 fL Mean Corpuscular Hemoglobin 29.8 pg Mean Corpuscular Hemoglobin Concent 34.5 g/dl RDW Standard Deviation 43.1 fL RDW Coefficient of Variation 14.0 % Platelet Count 26 K/uL Mean Platelet Volume 11.7 fL Sodium Level 137 mmol/L Potassium Level 3.4 mmol/L Chloride Level 105 mmol/L Carbon Dioxide Level 24 mmol/L Anion Gap 8.0 mmol/L Blood Urea Nitrogen 16 mg/dl Creatinine 0.96 mg/dl Est Creatinine Clear Calc Drug Dose 65.9 ml/min Estimated GFR () 87.4 Estimated GFR (Non- 75.4 BUN/Creatinine Ratio 16.7 Random Glucose 94 mg/dl Calcium Level 8.4 mg/dl Prostate Specific Antigen 0.575 ng/ml Test 03/20/17 11:25 Bedside Glucose 75 mg/dl Assessment & Plan 03/20/17- see Leidy Garza consult- I agree- pt is receiving IV atbx and platelets will need Incision/ drainage perirectal abscess- will send culture- may need transrectal drainage. Has eaten breakfast- anesthesia needs us to wait- not emergent
[2017-03-20] MEDS ORDERED: METHYLPREDNISOLONE ACETATE 80 MG/ML VIAL ONE (14:58)
[2017-03-20] MEDS ORDERED: METHYLENE BLUE 0.5% 10 ML VIAL ONE (14:58)
[2017-03-20] MEDS ORDERED: BUPIVACAINE 0.5 % 5 MG/1 ML MPF 30ML VIAL ONE (14:58)
[2017-03-20] MEDS ORDERED: ONDANSETRON INJ 2 MG/ML 2 ML VIAL IV PRN (15:15)
[2017-03-20] MEDS ORDERED: EpHEDrine SULFATE INJ 50 MG/ML AMP IV PRN (15:15)
[2017-03-20] MEDS ORDERED: ATROPINE SULFATE 0.1 MG/ML 5ML SYR IV PRN (15:15)
[2017-03-20] MEDS ORDERED: FENTANYL CITRATE INJ 50 MCG/1 ML 2 ML VIAL IV PRN (15:15)
[2017-03-20] MEDS ORDERED: HYDROmorphone INJ 1 MG/ML SYR IV PRN (15:15)
[2017-03-20] MEDS ORDERED: GLYCOPYRROLATE INJ 0.2 MG/ML VIAL ONE (15:21)
[2017-03-20] MEDS ORDERED: LIDOCAINE HCL 2% 2 ML VIAL (20MG/ML) ONE ×2 (15:21→16:31)
[2017-03-20] MEDS ORDERED: PROPOFOL IV EMULSION 10 MG/ML 20 ML VIAL IV ONE (15:21)
[2017-03-20] MEDS ORDERED: NEOSTIGMINE METHYLSULFATE 5 MG/5 ML SYR ONE (15:21)
[2017-03-20] MEDS ORDERED: DEXAMETHASONE SOD INJ 4 MG/ML VIAL ONE ×2 (15:21→16:31)
[2017-03-20] MEDS ORDERED: ONDANSETRON INJ 2 MG/ML 2 ML VIAL ONE (15:21)
[2017-03-20] MEDS ORDERED: MIDAZOLAM HCL 1 MG/ML 2ML VIAL ONE (15:21)
[2017-03-20] MEDS ORDERED: FENTANYL CITRATE INJ 50 MCG/1 ML 2 ML VIAL ONE (15:22)
--- NOTE | 2017-03-20 16:16 | [facility] Operative Report ---
Operative Report Operative Date Mar 20, 2017. Pre-Operative Diagnosis Perirectal Abscess Post-Operative Diagnosis Perirectal Abscess Procedure(s) Performed Incision and drainage perirectal abscess- cultured x [address] Rodríguez Installation And Repair Technician Surgeon(s) none Estimated Blood Loss 20 cc Findings 4 cm posterior perirectal abscess- significant purulent drainage initially difficult to localize- found just above dentate line and cephalad Specimens Micro #1 Perirectal abscess gram stain, aerobic/anaerobic, culture and sensitivity #2 Posterior perirectal abscess gram stain, aerobic/anaerobic, culture and sensitivity Drains 1/4 inch packing placed Complication(s) None Disposition Recovery Room / PACU I attest to the content of the Intraoperative Record and any orders documented therein. Any exceptions are noted below.
[2017-03-20] MEDS ORDERED: SUCCINYLCHOLINE CHLORIDE 20 MG/ML 10 ML VIAL IV ONE (16:31)
--- NOTE | 2017-03-20 16:50 | Anesthesiology Progress Note ---
Anesthesia Post Op Note Date & Time Mar 20, 2017 at 16:49 Vital Signs Pain Intensity: 0 Vital Signs Past 12 Hours Date Time Temp Pulse Resp B/P (MAP) Pulse Ox O2 Delivery O2 Flow Rate FiO2 03/20/17 16:40 62 28 121/51 95 Nasal Cannula 2 03/20/17 16:30 66 32 113/55 96 Oxymask 10 03/20/17 16:21 37.2 71 32 110/49 96 Oxymask 10 03/20/17 14:49 37 61 16 142/63 (89) 98 Room Air 03/20/17 13:59 36.7 60 16 119/64 95 03/20/17 13:29 36.8 62 16 129/62 95 03/20/17 13:13 36.8 60 16 118/52 95 03/20/17 13:00 36.8 61 18 126/62 03/20/17 12:30 36.8 62 18 129/58 96 03/20/17 12:00 36.9 62 18 128/52 94 03/20/17 11:45 36.9 62 18 131/58 94 03/20/17 11:42 36.8 61 18 107/58 (74) 95 Room Air 03/20/17 11:26 37.0 70 18 120/51 03/20/17 08:02 37.2 71 18 120/59 (79) 97 Room Air 03/20/17 08:00 97 Room Air Notes Mental Status: alert / awake / arousable, participated in evaluation Pt Amnestic to Procedure: Yes Nausea / Vomiting: adequately controlled Pain: adequately controlled Airway Patency, RR, SpO2: stable & adequate BP & HR: stable & adequate Hydration State: stable & adequate Anesthetic Complications: no major complications apparent
--- NOTE | 2017-03-20 19:07 | Progress Note ---
Subjective Date of Service: Mar 20, 2017. Subjective Patient preoperatively was still feeling slightly ill underwent a rectal abscess drainage by Dr. Vega after being transfused with platelets Problem List Medical Problems: (1) Pancytopenia Status: Acute (2) Pneumonia Status: Acute Review of Systems Constitutional: + chills, + weakness, + fatigue, No fever Respiratory: No cough, No sputum, No shortness of breath, No dyspnea on exertion Cardiac: No chest pain, No orthopnea, No PND, No edema Abdomen: + diarrhea, + problem reported (perirectal pain), No pain, No nausea, No vomiting, No constipation Musculoskeletal: No joint pain, No muscle pain Neurologic: + weakness, No memory loss, No paralysis Psychiatric: No depression symptoms, No anhedonism, No anxiety Objective Vital Signs Date Time Temp Pulse Resp B/P (MAP) Pulse Ox O2 Delivery O2 Flow Rate FiO2 03/20/17 19:01 36.6 59 18 107/46 (66) 95 Room Air 03/20/17 18:19 36.5 60 18 100/51 (67) 96 Room Air 03/20/17 17:15 97 Nasal Cannula 2.0 03/20/17 17:15 37.6 59 18 112/46 (68) 97 Nasal Cannula 2.0 03/20/17 17:00 37.5 60 20 116/53 98 Nasal Cannula 2 03/20/17 16:50 62 18 125/51 94 Nasal Cannula 2 03/20/17 16:40 62 28 121/51 95 Nasal Cannula 2 03/20/17 16:30 66 32 113/55 96 Oxymask 10 03/20/17 16:21 37.2 71 32 110/49 96 Oxymask 10 03/20/17 14:49 37 61 16 142/63 (89) 98 Room Air 03/20/17 13:59 36.7 60 16 119/64 95 03/20/17 13:29 36.8 62 16 129/62 95 03/20/17 13:13 36.8 60 16 118/52 95 03/20/17 13:00 36.8 61 18 126/62 03/20/17 12:30 36.8 62 18 129/58 96 03/20/17 12:00 36.9 62 18 128/52 94 03/20/17 11:45 36.9 62 18 131/58 94 03/20/17 11:42 36.8 61 18 107/58 (74) 95 Room Air 03/20/17 11:26 37.0 70 18 120/51 03/20/17 08:02 37.2 71 18 120/59 (79) 97 Room Air 03/20/17 08:00 97 Room Air 03/20/17 04:45 36.7 62 20 156/56 (89) 97 Room Air 03/20/17 00:05 Room Air 03/19/17 23:13 36.9 57 18 126/57 (80) 96 Room Air Physical Exam General Appearance: WD/WN, + mild distress Neck: supple, no JVD Respiratory/Chest: chest non-tender, lungs clear, normal breath sounds Cardiovascular: regular rate, rhythm, no murmur Abdomen: normal bowel sounds, non tender, + guarding, + tenderness Extremities: no pedal edema, no calf tenderness Neurologic/Psychiatric: alert, oriented x 3 Laboratory Results Last 24 Hours Test 03/19/17 19:33 03/20/17 06:09 03/20/17 07:50 03/20/17 11:25 Bedside Glucose 139 mg/dl 113 mg/dl 75 mg/dl White Blood Count 1.99 K/uL Red Blood Count 2.92 M/uL Hemoglobin 8.7 g/dL Hematocrit 25.2 % Mean Corpuscular Volume 86.3 fL Mean Corpuscular Hemoglobin 29.8 pg Mean Corpuscular Hemoglobin Concent 34.5 g/dl RDW Standard Deviation 43.1 fL RDW Coefficient of Variation 14.0 % Platelet Count 26 K/uL Mean Platelet Volume 11.7 fL Sodium Level 137 mmol/L Potassium Level 3.4 mmol/L Chloride Level 105 mmol/L Carbon Dioxide Level 24 mmol/L Anion Gap 8.0 mmol/L Blood Urea Nitrogen 16 mg/dl Creatinine 0.96 mg/dl Est Creatinine Clear Calc Drug Dose 65.9 ml/min Estimated GFR () 87.4 Estimated GFR (Non- 75.4 BUN/Creatinine Ratio 16.7 Random Glucose 94 mg/dl Calcium Level 8.4 mg/dl Prostate Specific Antigen 0.575 ng/ml Test 03/20/17 14:43 03/20/17 17:02 Bedside Glucose 63 mg/dl 72 mg/dl Assessment and Plan 68-year-old male here with a history of myelodysplastic syndrome recent febrile neutropenia who presents with chills and persistent low neutrophil count with worrisome CT scan for perirectal abscess, operative drainage on 03/20 Perirectal abscess we'll continue Zosyn and vancomycin surgical consultation has collected cultures intraoperatively Thrombocytopenia will give 2 units platelets, neutropenia remains for myelodysplastic syndrome For the patient's diabetes he will repeat main on sliding scale insulin and resume glipizide when taking oral intake hypertension atenolol and isosorbide We will resume aspirin and Plavix per surgery's recommendations BPH Flomax will be continued DVT prevention will be SCDs
--- NOTE | 2017-03-20 19:51 | OPERATIVE REPORT ---
DATE OF OPERATION: 03/20/2017 NAME OF OPERATION: Transrectal incision and drainage of perirectal abscess. PREOPERATIVE DIAGNOSIS: Perirectal abscess. POSTOPERATIVE DIAGNOSIS: Same. STAFF SURGEON: Dr. Rodríguez. ANESTHESIA: General. FINDINGS Initially, I could not palpate or observe an area in the distal rectum of the perirectal abscess, but on further examination digital exploration, I found the abscess posteriorly just above the dentate line. It was opened with significant purulent drainage and approximately 4 cm cavity. PROCEDURE: The patient was brought in the operating room and placed on the operating table in supine position. He was then placed in lithotomy position using the shark fins and his buttocks were taped apart. The perineum was prepped and draped in usual fashion. On inspection and palpation, I was unable to visualize or palpate a significant abscess initially; however, after digital manipulation, I was able to enter a site just above the dentate line posteriorly approximately 1.5-2 cm in diameter finding a cavity of approximately 4 cm which traversed cephalad and contained a significant purulent fluid. Two cultures were taken. The first was a perirectal abscess and the second was posterior perirectal abscess. After irrigation and observation with some gentle packing, it did not appear that there was significant bleeding. A 1/4 inch iodoform packing was placed into the cavity and then significant amount left out through the anus to be removed tomorrow. A gauze dressing applied and mesh pants and then the patient transferred to recovery room in stable condition. I attest to the content of the Intraoperative Record and any orders documented therein. Any exception s are noted below.
[2017-03-20] MEDS: PRAVASTATIN SOD 40 MG TAB PO SCH (20:22)
[2017-03-20] MEDS: TAMSULOSIN HCL 0.4 MG CAP PO SCH (20:22)
[2017-03-21] VITALS (8 sets, daily range): BP systolic 115–155; BP diastolic 46–68; PULSE 51–58; TEMP 36.5–36.9; O2SAT 95–99; BMI 26.5
[2017-03-21 04:56] LABS: HEMATOCRIT 23.1 % (42-52); MEAN CELL VOLUME 87.8 fL (80-100); MEAN CORPUSCULAR HGB CONC 34.2 g/dl (32-36); RED BLOOD COUNT 2.63 M/uL (4.7-6.1); WHITE BLOOD COUNT 1.73 K/uL (4.8-10.8)
[2017-03-21 05:38] LABS: BUN/CREATININE RATIO 18.6 (10-20); CALCIUM 8.1 mg/dl (8.5-10.1); CREATININE 1.1 mg/dl (0.60-1.40); POTASSIUM 4.2 mmol/L (3.5-5.1)
[2017-03-21] MEDS: SODIUM CHLORIDE 0.9% 1000ML 1,000 ML IV SCH ×2 (05:44→15:29)
[2017-03-21] MEDS: PIPERACILL/TAZOBAC IV 3.375 GM in DEXTROSE 5% 100ML 100 ML IV SCH ×3 (05:45→21:29)
[2017-03-21] MEDS: LEVOTHYROXINE 75 MCG TAB PO SCH (05:45)
[2017-03-21 05:46] LABS: PLATELET COUNT 33 K/uL (130-400)
--- NOTE | 2017-03-21 06:09 | Surgery Progress Note ---
Surgery Progress Note Date of Service Mar 21, 2017. Subjective says he feels so much better- almost no pain- taking no pain meds no acute bleeding, packing in place some expected decrease in H/H- has been rec transfusion q 2weeks Objective Vital Signs: Date Time Temp Pulse Resp B/P (MAP) Pulse Ox O2 Delivery O2 Flow Rate FiO2 03/21/17 04:40 36.6 53 18 155/68 (97) 99 Room Air 03/21/17 00:00 Room Air 03/20/17 23:30 36.3 57 16 123/55 (77) 97 Room Air 03/20/17 19:01 36.6 59 18 107/46 (66) 95 Room Air 03/20/17 18:19 36.5 60 18 100/51 (67) 96 Room Air 03/20/17 17:15 97 Nasal Cannula 2.0 03/20/17 17:15 37.6 59 18 112/46 (68) 97 Nasal Cannula 2.0 03/20/17 17:00 37.5 60 20 116/53 98 Nasal Cannula 2 03/20/17 16:50 62 18 125/51 94 Nasal Cannula 2 03/20/17 16:40 62 28 121/51 95 Nasal Cannula 2 03/20/17 16:30 66 32 113/55 96 Oxymask 10 03/20/17 16:21 37.2 71 32 110/49 96 Oxymask 10 03/20/17 14:49 37 61 16 142/63 (89) 98 Room Air 03/20/17 13:59 36.7 60 16 119/64 95 03/20/17 13:29 36.8 62 16 129/62 95 03/20/17 13:13 36.8 60 16 118/52 95 03/20/17 13:00 36.8 61 18 126/62 03/20/17 12:30 36.8 62 18 129/58 96 03/20/17 12:00 36.9 62 18 128/52 94 03/20/17 11:45 36.9 62 18 131/58 94 03/20/17 11:42 36.8 61 18 107/58 (74) 95 Room Air 03/20/17 11:26 37.0 70 18 120/51 03/20/17 08:02 37.2 71 18 120/59 (79) 97 Room Air 03/20/17 08:00 97 Room Air General Appearance: no apparent distress Respiratory/Chest: no respiratory distress, no accessory muscle use Incision(s): drainage (packing in place) Laboratory Results: Results Past 24 Hours Test 03/20/17 06:09 03/20/17 07:50 03/20/17 11:25 03/20/17 14:43 Range/Units White Blood Count 1.99 4.8-10.8 K/uL Red Blood Count 2.92 4.7-6.1 M/uL Hemoglobin 8.7 14.0-18.0 g/dL Hematocrit 25.2 42-52 % Mean Corpuscular Volume 86.3 80-100 fL Mean Corpuscular Hemoglobin 29.8 25-34 pg Mean Corpuscular Hemoglobin Concent 34.5 32-36 g/dl RDW Standard Deviation 43.1 36.4-46.3 fL RDW Coefficient of Variation 14.0 11.5-14.5 % Platelet Count 26 130-400 K/uL Mean Platelet Volume 11.7 7.4-10.4 fL Sodium Level 137 136-145 mmol/L Potassium Level 3.4 3.5-5.1 mmol/L Chloride Level 105 98-107 mmol/L Carbon Dioxide Level 24 21-32 mmol/L Anion Gap 8.0 3-11 mmol/L Blood Urea Nitrogen 16 7-18 mg/dl Creatinine 0.96 0.60-1.40 mg/dl Est Creatinine Clear Calc Drug Dose 65.9 ml/min Estimated GFR () 87.4 Estimated GFR (Non- 75.4 BUN/Creatinine Ratio 16.7 10-20 Random Glucose 94 70-99 mg/dl Calcium Level 8.4 8.5-10.1 mg/dl Prostate Specific Antigen 0.575 0.000-4.000 ng/ml Bedside Glucose 113 75 63 70-99 mg/dl Test 03/20/17 17:02 03/20/17 20:03 03/21/17 04:47 Range/Units Bedside Glucose 72 109 70-99 mg/dl White Blood Count 1.73 4.8-10.8 K/uL Red Blood Count 2.63 4.7-6.1 M/uL Hemoglobin 7.9 14.0-18.0 g/dL Hematocrit 23.1 42-52 % Mean Corpuscular Volume 87.8 80-100 fL Mean Corpuscular Hemoglobin 30.0 25-34 pg Mean Corpuscular Hemoglobin Concent 34.2 32-36 g/dl RDW Standard Deviation 44.5 36.4-46.3 fL RDW Coefficient of Variation 14.1 11.5-14.5 % Platelet Count 33 130-400 K/uL Mean Platelet Volume 10.0 7.4-10.4 fL Sodium Level 139 136-145 mmol/L Potassium Level 4.2 3.5-5.1 mmol/L Chloride Level 110 98-107 mmol/L Carbon Dioxide Level 24 21-32 mmol/L Anion Gap 5.0 3-11 mmol/L Blood Urea Nitrogen 20 7-18 mg/dl Creatinine 1.10 0.60-1.40 mg/dl Est Creatinine Clear Calc Drug Dose 57.5 ml/min Estimated GFR () 74.1 Estimated GFR (Non- 64.0 BUN/Creatinine Ratio 18.6 10-20 Random Glucose 145 70-99 mg/dl Calcium Level 8.1 8.5-10.1 mg/dl Microbiology Results 03/20/17 Gram Stain, Received Pending 03/20/17 Bacterial Culture, Received Pending 03/20/17 Gram Stain, Received Pending 03/20/17 Bacterial Culture, Received Pending Assessment & Plan 03/21/17- s/p incision/ drainage perirectal abscess via transrectal approach- will have nurses remove packing- cannot replace- cont IV atbx/ check cultures- may need Blood transfusion with expected anemia. No evidence of acute bleeding. Would cont atbx 2 weeks (IV then po)
[2017-03-21] MEDS: ISOSORBIDE MONONITRATE 30 MG TABCR PO SCH (08:43)
[2017-03-21] MEDS: POTASSIUM CHLORIDE 20 MEQ TABCR PO SCH (08:44)
--- NOTE | 2017-03-21 08:44 | Anesthesiology Progress Note ---
Anesthesia Post Op Note Date & Time Mar 21, 2017 at 08:44 Vital Signs Pain Intensity: 0 Vital Signs Past 12 Hours Date Time Temp Pulse Resp B/P (MAP) Pulse Ox O2 Delivery O2 Flow Rate FiO2 03/21/17 07:26 36.5 52 18 148/64 (92) 98 Room Air 03/21/17 04:40 36.6 53 18 155/68 (97) 99 Room Air 03/21/17 00:00 Room Air 03/20/17 23:30 36.3 57 16 123/55 (77) 97 Room Air Notes Mental Status: alert / awake / arousable, participated in evaluation Pt Amnestic to Procedure: Yes Nausea / Vomiting: adequately controlled Pain: adequately controlled Airway Patency, RR, SpO2: stable & adequate BP & HR: stable & adequate Hydration State: stable & adequate Anesthetic Complications: no major complications apparent
[2017-03-21] MEDS: INSULIN ASPART 100 UNITS/ML 3 ML PEN SC SCH ×4 (08:51→21:32)
[2017-03-21] MEDS ORDERED: VANCOMYCIN TROUGH SCH (09:30)
[2017-03-21] MEDS: VANCOMYCIN INJ 1,250 MG in SODIUM CHLORIDE 0.9% 250ML 250 ML IV SCH (10:35)
[2017-03-21] MEDS: ACETAMINOPHEN 325 MG TAB PO PRN (10:49)
--- NOTE | 2017-03-21 11:08 | Pharmacy Progress Note ---
Pharmacy Abx Dose Progress Nt Date of Service Mar 21, 2017. Pharmacy Dosing Scope The patient is currently receiving the following antimicrobial agents per Pharmacy consult: vancomycin 1250 mg q12 hours Objective Height (Feet): 5 Height (Inches): 7.00 Weight (Kilograms): 76.700 Vital Signs (Past 12Hrs) Vital Signs Past 12 Hours Date Time Temp Pulse Resp B/P (MAP) Pulse Ox O2 Delivery O2 Flow Rate FiO2 03/21/17 08:58 58 121/58 (79) 03/21/17 07:26 36.5 52 18 148/64 (92) 98 Room Air 03/21/17 07:05 Room Air 03/21/17 04:40 36.6 53 18 155/68 (97) 99 Room Air 03/21/17 00:00 Room Air 03/20/17 23:30 36.3 57 16 123/55 (77) 97 Room Air Lab Results (24Hrs) Laboratory Tests (24 Hours) Test 03/21/17 04:47 White Blood Count 1.73 K/uL (4.8-10.8) L Micro Results Date/Time Source Procedure Growth Status 03/19/17 14:57 Blood Blood Culture - Preliminary NO GROWTH TO DATE. Resulted 03/19/17 20:10 Stool C.difficile Toxin B Gene (PCR) - Final No C. difficile toxin B gene detected Complete 03/19/17 20:10 Stool WBC Smear - Final Resulted 03/19/17 20:10 Stool Shiga Toxin Test - Preliminary Resulted 03/19/17 20:10 Stool Stool Culture - Preliminary NO SALMONELLA ISOLATED TO DATE,... Resulted 03/19/17 19:00 Urine , Clean Catch Urine Culture - Preliminary Staph Species Resulted 03/20/17 16:00 Abscess Perirectal Gram Stain - Final Resulted 03/20/17 16:00 Abscess Perirectal Bacterial Culture Pending Resulted 03/20/17 15:50 Abscess Perirectal Gram Stain - Final Resulted 03/20/17 15:50 Abscess Perirectal Bacterial Culture Pending Resulted Risk Factors for Resistance * Immunocompromised Assessment & Plan Assessment 76 year old male receiving vancomycin, zosyn for treatment of perirectal abscess/febrile neutropenia Day # 3 of antimicrobial therapy Plan Vancomycin IV * Trough level this morning, 12.4, therapeutic and drawn appropriately before 3rd dose. * Would like to target slightly higher trough, abscess was drained today, microbiology pending. * Renal function fluctuating 0.96-1.1 mg/dL * Will increase slightly to 1500 mg q12H * Check trough prior to 1000 dose on 03/23 Will continue to monitor renal function and adjust dose as necessary.
--- NOTE | 2017-03-21 15:04 | Progress Note ---
Subjective Date of Service: Mar 21, 2017. Subjective Patient is fatigued doing better than yesterday. Abdominal rectal pain is improving is no other bruising A bowel movement since surgery, surgery is permitted him to take in oral liquids and food Problem List Medical Problems: (1) Pancytopenia Status: Acute (2) Pneumonia Status: Acute Review of Systems Constitutional: + weakness, + fatigue, No fever, No chills Respiratory: No cough, No shortness of breath Cardiac: No chest pain, No edema Abdomen: No pain, No nausea, No vomiting, No diarrhea Male : No dysuria, No urinary frequency Neurologic: No memory loss, No paralysis Objective Vital Signs Date Time Temp Pulse Resp B/P (MAP) Pulse Ox O2 Delivery O2 Flow Rate FiO2 03/21/17 11:29 36.5 54 20 120/49 (72) 97 Room Air 03/21/17 08:58 58 121/58 (79) 03/21/17 07:26 36.5 52 18 148/64 (92) 98 Room Air 03/21/17 07:05 Room Air 03/21/17 04:40 36.6 53 18 155/68 (97) 99 Room Air 03/21/17 00:00 Room Air 03/20/17 23:30 36.3 57 16 123/55 (77) 97 Room Air 03/20/17 19:01 36.6 59 18 107/46 (66) 95 Room Air 03/20/17 18:19 36.5 60 18 100/51 (67) 96 Room Air 03/20/17 17:15 97 Nasal Cannula 2.0 03/20/17 17:15 37.6 59 18 112/46 (68) 97 Nasal Cannula 2.0 03/20/17 17:00 37.5 60 20 116/53 98 Nasal Cannula 2 03/20/17 16:50 62 18 125/51 94 Nasal Cannula 2 03/20/17 16:40 62 28 121/51 95 Nasal Cannula 2 03/20/17 16:30 66 32 113/55 96 Oxymask 10 03/20/17 16:21 37.2 71 32 110/49 96 Oxymask 10 Physical Exam General Appearance: WD/WN, + mild distress Neck: supple, no JVD Respiratory/Chest: chest non-tender, lungs clear, normal breath sounds Cardiovascular: regular rate, rhythm, no murmur Abdomen: normal bowel sounds, non tender, soft Extremities: no pedal edema, no calf tenderness Laboratory Results Last 24 Hours Test 03/20/17 17:02 03/20/17 20:03 03/21/17 04:47 03/21/17 07:58 Bedside Glucose 72 mg/dl 109 mg/dl 146 mg/dl White Blood Count 1.73 K/uL Red Blood Count 2.63 M/uL Hemoglobin 7.9 g/dL Hematocrit 23.1 % Mean Corpuscular Volume 87.8 fL Mean Corpuscular Hemoglobin 30.0 pg Mean Corpuscular Hemoglobin Concent 34.2 g/dl RDW Standard Deviation 44.5 fL RDW Coefficient of Variation 14.1 % Platelet Count 33 K/uL Mean Platelet Volume 10.0 fL Sodium Level 139 mmol/L Potassium Level 4.2 mmol/L Chloride Level 110 mmol/L Carbon Dioxide Level 24 mmol/L Anion Gap 5.0 mmol/L Blood Urea Nitrogen 20 mg/dl Creatinine 1.10 mg/dl Est Creatinine Clear Calc Drug Dose 57.5 ml/min Estimated GFR () 74.1 Estimated GFR (Non- 64.0 BUN/Creatinine Ratio 18.6 Random Glucose 145 mg/dl Calcium Level 8.1 mg/dl Test 03/21/17 09:26 03/21/17 11:51 Vancomycin Level Trough 12.4 mcg/ml Bedside Glucose 182 mg/dl Assessment and Plan 68-year-old male here with a history of myelodysplastic syndrome recent febrile neutropenia who presents with chills and persistent low neutrophil count with worrisome CT scan for perirectal abscess, operative drainage on 03/20 Perirectal abscess we'll continue Zosyn and vancomycin surgical consultation has performed I&D with rectal packing preliminary urine culture shows staph we are awaiting surgical cultures we'll continue both medications until we're sure whether MRSA or not Thrombocytopenia will give 2 units platelets, postprocedure platelet count is 33 total white count is 1.7 and suppressed from myelodysplastic syndrome diabetes has been stable on sliding scale insulin and resume glipizide when taking oral intake hypertension atenolol and isosorbide We will resume aspirin and Plavix per surgery's recommendations BPH Flomax will be continued DVT prevention will be SCDs
[2017-03-21] MEDS ORDERED: NURSING VERBAL MED ORDER ONE (17:15)
[2017-03-21] MEDS: TAMSULOSIN HCL 0.4 MG CAP PO SCH (21:29)
[2017-03-21] MEDS: PRAVASTATIN SOD 40 MG TAB PO SCH (21:29)
[2017-03-21] MEDS: VANCOMYCIN INJ 1,500 MG in SODIUM CHLORIDE 0.9% 500ML 500 ML IV SCH (21:30)
[2017-03-22] MEDS: ACETAMINOPHEN 325 MG TAB PO PRN (01:39)
[2017-03-22] MEDS: HYDROCODONE/ACETAMOPHEN 5/325MG TAB PO PRN ×4 (02:04→14:23)
[2017-03-22] MEDS: SODIUM CHLORIDE 0.9% 1000ML 1,000 ML IV SCH ×2 (02:20→12:42)
[2017-03-22 04:13] VITALS: BP 148/63; PULSE 56; TEMP 36.7; O2SAT 95
[2017-03-22] MEDS: LEVOTHYROXINE 75 MCG TAB PO SCH (05:51)
[2017-03-22] MEDS: PIPERACILL/TAZOBAC IV 3.375 GM in DEXTROSE 5% 100ML 100 ML IV SCH ×3 (05:51→21:41)
[2017-03-22 06:43] VITALS: BMI 28.1
[2017-03-22 08:05] LABS: BUN/CREATININE RATIO 20.8 (10-20); CALCIUM 7.9 mg/dl (8.5-10.1); CREATININE 0.9 mg/dl (0.60-1.40); POTASSIUM 3.6 mmol/L (3.5-5.1)
[2017-03-22] MEDS: ISOSORBIDE MONONITRATE 30 MG TABCR PO SCH (08:05)
[2017-03-22] MEDS: HYDROCORTISONE HC 2.5% CRM 30GM TUBE EXT PRN (08:06)
[2017-03-22 08:18] LABS: MEAN CELL VOLUME 89.1 fL (80-100); MEAN CORPUSCULAR HEMOGLOBIN 29.5 pg (25-34); MEAN PLATELET VOLUME 11.1 fL (7.4-10.4); PLATELET COUNT 33 K/uL (130-400); RED BLOOD COUNT 2.58 M/uL (4.7-6.1); WHITE BLOOD COUNT 2.31 K/uL (4.8-10.8)
[2017-03-22 08:19] LABS: POIKILOCYTOSIS PRESENT
[2017-03-22 08:30] VITALS: O2SAT 95
[2017-03-22 08:38] VITALS: BP 167/69; PULSE 57; TEMP 36.5; O2SAT 93
[2017-03-22 08:47] LABS: COMPLETE YES; EOSINOPHIL % 0.9 %; LYMPH ABS # 1.82 K/uL (1.2-3.4); LYMPHOCYTE % 78.9 %; NEUTROPHILS % 13.2 %
[2017-03-22] MEDS: INSULIN ASPART 100 UNITS/ML 3 ML PEN SC SCH ×4 (08:52→20:43)
[2017-03-22] MEDS: VANCOMYCIN INJ 1,500 MG in SODIUM CHLORIDE 0.9% 500ML 500 ML IV SCH ×2 (10:27→21:51)
[2017-03-22] MEDS: ALUMINUM/MAGNESIUM/SIMETH (MAALOX MAX) 30 ML UDC PO PRN ×2 (11:06→16:39)
[2017-03-22 11:34] VITALS: BP 133/49; PULSE 59; TEMP 36.7; O2SAT 95
--- NOTE | 2017-03-22 12:28 | PROGRESS NOTE ---
DATE: 03/22/[address] Rodríguez. Elmer is second postoperative day status post incision and drainage of a perirectal abscess. Elmer overall is doing well. I think his only complaint and discomfort is that he has had liquid bowel movements that are incapacitating him for soiling the area. He apparently had this prior to his perirectal abscess drainage. His last vitals showed a temperature of 36.5, pulse 57, respirations 20, blood pressure 167/69. I&O, he has had at least 4 bowel movements. He is slightly fluid positive. Laboratory [place], his WBC is 2.31, absolute neutrophil 0.30. The perianal area shows significant amount of soilage with dark loose stool. Both buttocks and the perianal area show no evidence of cellulitis. At this point, we will try to institute some more local hygiene, probably by sitz bath few times a day. Regarding his diarrhea or loose stools, the C. diff has been negative as was the other bacterial cultures. He is growing E. coli out of the perianal abscess and he is continued on piperacillin.
[2017-03-22] MEDS ORDERED: ACETAMINOPHEN 500 MG TAB PO STA (18:33)
--- NOTE | 2017-03-22 18:38 | Progress Note ---
Subjective Date of Service: Mar 22, 2017. Subjective Pt evaluation today including: conversation w/ patient, conversation w/ family ( at bedside), physical exam, chart review, lab review, review of studies ( CT abd/pelvis), review of inpatient medication list Pain: rectal area, most times of the day PO Intake: fair Voiding: no voiding problems patient with ongoing pain in rectal area couldn't sleep last pm due to pain has not been out of bed in nearly 2 days asks about when he might leave the hospital denies dyspnea denies fever continues with diarrhea Problem List Medical Problems: (1) Pancytopenia Status: Acute (2) Pneumonia Status: Acute Review of Systems Constitutional: + fatigue, No fever, No chills Respiratory: No shortness of breath Cardiac: No chest pain Abdomen: + diarrhea, No pain, No nausea, No GI bleeding Objective Vital Signs Date Time Temp Pulse Resp B/P (MAP) Pulse Ox O2 Delivery O2 Flow Rate FiO2 03/22/17 11:34 36.7 59 18 133/49 (77) 95 Room Air 03/22/17 08:38 36.5 57 20 167/69 (101) 93 03/22/17 08:30 95 Room Air 03/22/17 04:13 36.7 56 20 148/63 (91) 95 Room Air 03/22/17 00:00 Room Air 03/21/17 23:15 36.9 57 20 150/63 (92) 95 Room Air 03/21/17 20:31 36.6 55 18 135/64 (87) 95 Room Air Physical Exam General Appearance: no apparent distress ENT: pharynx normal Neck: no JVD Respiratory/Chest: lungs clear, no respiratory distress, no accessory muscle use Cardiovascular: regular rate, rhythm, no gallop, no murmur Abdomen: normal bowel sounds, non tender, soft, no organomegaly Extremities: no pedal edema Neurologic/Psychiatric: alert, oriented x 3 Skin: + pallor Comments: rectal area - copious loose stool in the perirectal region; in the midline at 6 oclock is the previous perirectal abscess incision; there is no active drainage from that site Laboratory Results Last 24 Hours Test 03/21/17 20:16 03/22/17 02:08 03/22/17 07:20 03/22/17 08:06 Bedside Glucose 179 mg/dl 81 mg/dl Stool Occult Blood NEGATIVE White Blood Count 2.31 K/uL Red Blood Count 2.58 M/uL Hemoglobin 7.6 g/dL Hematocrit 23.0 % Mean Corpuscular Volume 89.1 fL Mean Corpuscular Hemoglobin 29.5 pg Mean Corpuscular Hemoglobin Concent 33.0 g/dl Platelet Count 33 K/uL Mean Platelet Volume 11.1 fL RDW Standard Deviation 45.0 fL RDW Coefficient of Variation 14.2 % Neutrophils % (Manual) 13.2 % Lymphocytes % (Manual) 78.9 % Monocytes % (Manual) 0.9 % Eosinophils % (Manual) 0.9 % Blast Cells % 6.1 % Neutrophils # (Manual) 0.30 K/uL Total Absolute Neutrophils 0.30 K/uL Lymphocytes # (Manual) 1.82 K/uL Total Absolute Lymphocytes 1.82 K/uL Monocytes # (Manual) 0.02 K/uL Eosinophils # (Manual) 0.02 K/uL Hypogranular Neutrophils 3+ Blast Cells # 0.14 K/uL Poikilocytosis PRESENT Sodium Level 141 mmol/L Potassium Level 3.6 mmol/L Chloride Level 112 mmol/L Carbon Dioxide Level 22 mmol/L Anion Gap 7.0 mmol/L Blood Urea Nitrogen 19 mg/dl Creatinine 0.90 mg/dl Est Creatinine Clear Calc Drug Dose 69.1 ml/min Estimated GFR () 94.5 Estimated GFR (Non- 81.5 BUN/Creatinine Ratio 20.8 Random Glucose 77 mg/dl Calcium Level 7.9 mg/dl Test 03/22/17 11:51 03/22/17 16:29 Bedside Glucose 128 mg/dl 102 mg/dl Assessment and Plan 68-year-old male with: 1. perirectal abscess, s/p I/D - POD #2 - culture growing e. coli to date. Continue zosyn/vanco; hopefully can narrow abx tomorrow once final culture result has returned. Gen surg following and pleased w/ progress. 2. pancytopenia 2nd to MDS - H/H continue to trend down. He is severely fatigued. Will Tx 2 units of irradiated PRBCs due to severe neutropenia. Tylenol/benadryl prior. Repeat CBC following transfusion. 3. recent neutropenic fever - resolved; was 2nd to #1. 4. thrombocytopenia - no bleeding at this time. Platelets in the 30s is typical for him. No transfusion at this time. 5. severe deconditioning - PT, OT; I question if he will be able to return home following this stay. 6. diarrhea - check c. diff again. 7. T2DM - control is adequate on supplemental novolog. Would d/c sulfonylurea due to low-normal or low FSBS's and due to risk of hypoglycemia. 8. HTN - acceptable at this time; continue same meds. 9. BPH - no voiding symptoms; continue flomax 10. DVT proph - chemical means contraindication due to significant thrombocytopenia; SCDs only 11. hypothyroidism - TSH 11/2016 was normal; continue same synthroid dose. updated I did speak to Dr. Marroquin today and gave him update PT, OT giancarlo will help with disposition plan to schedule hydrocodone at bedtime to help him rest Continued [facility] stay due to: inadequate oral pain control, ambulation difficulties, multiple IV medications needed Discharge planning: uncertain
[2017-03-22 19:48] VITALS: BP 161/61; PULSE 59; TEMP 37; O2SAT 93
[2017-03-22] MEDS: PRAVASTATIN SOD 40 MG TAB PO SCH (20:40)
[2017-03-22] MEDS: TAMSULOSIN HCL 0.4 MG CAP PO SCH (20:40)
[2017-03-22] MEDS: HYDROCODONE/ACETAMINOPHEN 7.5/325MG TAB PO SCH (20:43)
[2017-03-22 23:45] VITALS: BP 142/62; PULSE 57; TEMP 36.7; O2SAT 94
[2017-03-23] VITALS (16 sets, daily range): BP systolic 136–188; BP diastolic 54–84; PULSE 53–71; TEMP 36.3–37.2; O2SAT 88–95
[2017-03-23] MEDS ORDERED: ACETAMINOPHEN 500 MG TAB PO SCH (02:00)
[2017-03-23] MEDS: PIPERACILL/TAZOBAC IV 3.375 GM in DEXTROSE 5% 100ML 100 ML IV SCH ×3 (05:45→21:16)
[2017-03-23] MEDS: LEVOTHYROXINE 75 MCG TAB PO SCH (06:35)
--- NOTE | 2017-03-23 06:50 | SURGERY PROGRESS NOTE ---
DATE: 03/23/2017 Surgeon is covering for Dr. Rodríguez. Elmer is 3rd postoperative day status post I&D of perirectal abscess. This morning, he feels much better than he had yesterday. We started him on some Sitz baths, which helped quite considerably. The pain is down significantly. His spirits are much improved. His last vitals showed a temperature of 36.6, pulse 54, respirations 18, blood pressure 69/68, O2 sats 94 on room air. Since he is resting comfortably, I did not look at his perianal area this morning and as stated, he feels much better. His bowel movements he says they are still loose, but he had 10 yesterday but none recorded overnight. His laboratory studies are pending. We will continue local therapy with the Sitz baths and antibiotics at this time.
[2017-03-23] MEDS: ISOSORBIDE MONONITRATE 30 MG TABCR PO SCH (07:54)
[2017-03-23] MEDS: HYDROCODONE/ACETAMOPHEN 5/325MG TAB PO PRN ×2 (08:03→13:09)
[2017-03-23] MEDS: ALUMINUM/MAGNESIUM/SIMETH (MAALOX MAX) 30 ML UDC PO PRN (08:39)
[2017-03-23] MEDS: INSULIN ASPART 100 UNITS/ML 3 ML PEN SC SCH ×4 (08:43→21:14)
[2017-03-23] MEDS ORDERED: VANCOMYCIN TROUGH ONE (09:30)
[2017-03-23] MEDS: VANCOMYCIN INJ 1,500 MG in SODIUM CHLORIDE 0.9% 500ML 500 ML IV SCH (10:34)
[2017-03-23 10:38] LABS: HEMATOCRIT 26.4 % (42-52); MEAN CELL VOLUME 85.2 fL (80-100); MEAN CORPUSCULAR HEMOGLOBIN 29.7 pg (25-34); MEAN CORPUSCULAR HGB CONC 34.8 g/dl (32-36); MEAN PLATELET VOLUME 10.6 fL (7.4-10.4); PLATELET COUNT 28 K/uL (130-400); WHITE BLOOD COUNT 2.36 K/uL (4.8-10.8)
[2017-03-23 10:43] LABS: BUN/CREATININE RATIO 14.9 (10-20); CREATININE 0.96 mg/dl (0.60-1.40); MAGNESIUM 2.2 mg/dl (1.8-2.4); POTASSIUM 3.5 mmol/L (3.5-5.1)
[2017-03-23 10:46] LABS: COMPLETE YES; EOSINOPHIL % 0.9 %; LYMPH ABS # 1.77 K/uL (1.2-3.4); LYMPHOCYTE % 74.8 %
--- NOTE | 2017-03-23 13:53 | DIAGNOSTIC IMAGING REPORT ---
CHEST ONE VIEW PORTABLE CLINICAL HISTORY: Wheezing. Shortness of breath. COMPARISON STUDY: Chest radiograph March 17, 2017. FINDINGS: There are median sternotomy wires and clips from bypass grafting. No pneumothorax or pleural effusion is present. Borderline cardiomegaly is noted. Left suprahilar opacity has developed. Mild bibasilar opacities are present. There is mild interstitial thickening. IMPRESSION: 1. Interval development of bilateral airspace opacities which favors pneumonia. 2. Mild interstitial thickening which may reflect developing pulmonary edema. Electronically signed by: Luis Mills M.D. 03/23/2017 1:51 PM Dictated Date/Time: 03/23/2017 1:49 PM
[2017-03-23] MEDS ORDERED: POTASSIUM CHLORIDE 10 MEQ TABCR PO STA (14:28)
[2017-03-23] MEDS ORDERED: FUROSEMIDE INJ 20 MG in SYRINGE 0 ML IV STA (14:41)
[2017-03-23] MEDS: HYDROCODONE/ACETAMI 10/325 TAB PO PRN (17:21)
--- NOTE | 2017-03-23 19:37 | Progress Note ---
Subjective Date of Service: Mar 23, 2017. Subjective Pt evaluation today including: conversation w/ patient, conversation w/ family (, at bedside), physical exam, chart review, lab review, review of studies ( cxr), review of inpatient medication list Pain: rectal - ongoing PO Intake: fair at best Voiding: incontinence continues with rectal pain, fecal incontinence, and now having scrotal irritation due to the frequent stooling he has also developed mild dyspnea overnight with minimal activity has not been out of bed in multiple days (did not get out of bed yesterday) with multiple questions Problem List Medical Problems: (1) Pancytopenia Status: Acute (2) Pneumonia Status: Acute Review of Systems Constitutional: + fatigue, No fever, No chills Respiratory: + dyspnea on exertion, No cough Cardiac: No chest pain, No orthopnea Abdomen: + diarrhea, No pain, No nausea, No vomiting, No GI bleeding Objective Vital Signs Date Time Temp Pulse Resp B/P (MAP) Pulse Ox O2 Delivery O2 Flow Rate FiO2 03/23/17 16:00 Room Air 03/23/17 15:11 37.2 62 20 147/61 (89) 94 03/23/17 11:17 36.7 55 20 160/60 (93) 93 03/23/17 08:30 94 Room Air 03/23/17 07:34 36.5 71 20 188/84 94 03/23/17 07:00 36.5 53 18 159/71 93 03/23/17 06:30 36.6 54 18 169/68 94 03/23/17 06:15 36.5 54 18 155/72 94 03/23/17 05:55 36.4 53 18 164/72 94 03/23/17 05:15 36.3 55 16 163/54 03/23/17 04:15 36.3 54 16 155/64 03/23/17 03:45 36.6 53 18 143/61 95 03/23/17 03:15 36.7 54 16 151/56 94 03/23/17 03:00 36.6 58 16 144/59 92 03/23/17 02:42 36.9 56 20 148/61 03/23/17 00:00 Room Air 03/22/17 23:45 36.7 57 16 142/62 (88) 94 Room Air 03/22/17 19:48 37.0 59 20 161/61 (94) 93 Room Air Physical Exam General Appearance: no apparent distress, + pertinent finding (looks ill ) ENT: pharynx normal Neck: no JVD (nothing obvious ) Respiratory/Chest: no respiratory distress, no accessory muscle use, + crackles (both bases) Cardiovascular: regular rate, rhythm, no gallop Abdomen: normal bowel sounds, non tender, soft, no organomegaly Extremities: no pedal edema Neurologic/Psychiatric: alert, oriented x 3, + depressed affect Skin: + pertinent finding (scrotum is quite irritated & raw ) Laboratory Results Last 24 Hours Test 03/22/17 20:42 03/23/17 07:19 03/23/17 10:04 03/23/17 11:20 Bedside Glucose 107 mg/dl 80 mg/dl 110 mg/dl White Blood Count 2.36 K/uL Red Blood Count 3.10 M/uL Hemoglobin 9.2 g/dL Hematocrit 26.4 % Mean Corpuscular Volume 85.2 fL Mean Corpuscular Hemoglobin 29.7 pg Mean Corpuscular Hemoglobin Concent 34.8 g/dl Platelet Count 28 K/uL Mean Platelet Volume 10.6 fL RDW Standard Deviation 44.9 fL RDW Coefficient of Variation 14.6 % Neutrophils % (Manual) 20.0 % Lymphocytes % (Manual) 74.8 % Eosinophils % (Manual) 0.9 % Blast Cells % 4.3 % Neutrophils # (Manual) 0.47 K/uL Total Absolute Neutrophils 0.47 K/uL Lymphocytes # (Manual) 1.77 K/uL Total Absolute Lymphocytes 1.77 K/uL Eosinophils # (Manual) 0.02 K/uL Hypogranular Neutrophils 1+ Blast Cells # 0.10 K/uL Sodium Level 139 mmol/L Potassium Level 3.5 mmol/L Chloride Level 107 mmol/L Carbon Dioxide Level 27 mmol/L Anion Gap 5.0 mmol/L Blood Urea Nitrogen 14 mg/dl Creatinine 0.96 mg/dl Est Creatinine Clear Calc Drug Dose 64.8 ml/min Estimated GFR () 87.4 Estimated GFR (Non- 75.4 BUN/Creatinine Ratio 14.9 Random Glucose 115 mg/dl Calcium Level 8.0 mg/dl Magnesium Level 2.2 mg/dl Vancomycin Level Trough 16.1 mcg/ml Test 03/23/17 16:05 Bedside Glucose 121 mg/dl Assessment and Plan 68-year-old male with: 1. perirectal abscess, s/p I/D - POD #3 - culture growing e. coli and bacteroides to date. Continue zosyn; stop the vanco; hopefully can narrow abx tomorrow once final culture result has returned. Gen surg following; appreciate their consult and assistance. 2. pancytopenia 2nd to MDS - s/p 2 units PRBCs overnight. Probable acute diastolic CHF in setting of volume overload - see below. 3. recent neutropenic fever - resolved; was 2nd to #1. 4. thrombocytopenia - no bleeding at this time. Platelets 28; monitor daily cbc. 5. severe deconditioning - PT, OT; unless he goes with hospice at home he likely will need SNF placement. 6. diarrhea - c. diff x 2 negative. 7. T2DM - control is adequate on supplemental novolog. Would d/c sulfonylurea due to low-normal or low FSBS's and due to risk of hypoglycemia. 8. HTN - acceptable at this time; continue same meds. 9. BPH - no voiding symptoms; continue flomax 10. DVT proph - chemical means contraindicated due to significant thrombocytopenia; SCDs only 11. hypothyroidism - TSH 11/2016 was normal; continue same synthroid dose. 12. dyspnea - likely due to acute diastolic CHF - he is 10+ liters + since admission and he feels worse following PRBCs overnight. CXR today with b/l infiltrates - suspect this is pulm edema. lasix and K now. labs in am serial exams 13. rectal pain - sitz baths, hydrocodone (increase this medication) and/or change to oxycodone updated very, very poor prognosis in light of refractory MDS Continued [facility] stay due to: inadequate oral pain control, ambulation difficulties, multiple IV medications needed Discharge planning: uncertain
[2017-03-23] MEDS: HYDROCODONE/ACETAMINOPHEN 7.5/325MG TAB PO SCH (21:00)
[2017-03-23] MEDS: TAMSULOSIN HCL 0.4 MG CAP PO SCH (21:10)
[2017-03-23] MEDS: PRAVASTATIN SOD 40 MG TAB PO SCH (21:11)
[2017-03-24] VITALS (7 sets, daily range): BP systolic 117–166; BP diastolic 47–79; PULSE 57–62; TEMP 36.7–36.9; O2SAT 94–98; BMI 27.2
[2017-03-24] MEDS: HYDROCODONE/ACETAMI 10/325 TAB PO PRN ×3 (00:01→12:25)
[2017-03-24] MEDS: ALUMINUM/MAGNESIUM/SIMETH (MAALOX MAX) 30 ML UDC PO PRN (04:52)
[2017-03-24] MEDS: LEVOTHYROXINE 75 MCG TAB PO SCH (05:37)
[2017-03-24] MEDS: PIPERACILL/TAZOBAC IV 3.375 GM in DEXTROSE 5% 100ML 100 ML IV SCH (05:38)
[2017-03-24 07:19] LABS: HEMATOCRIT 27.3 % (42-52); MEAN CELL VOLUME 85.3 fL (80-100); MEAN CORPUSCULAR HEMOGLOBIN 28.4 pg (25-34); MEAN CORPUSCULAR HGB CONC 33.3 g/dl (32-36); MEAN PLATELET VOLUME 11.4 fL (7.4-10.4); PLATELET COUNT 28 K/uL (130-400); WHITE BLOOD COUNT 2.63 K/uL (4.8-10.8)
--- NOTE | 2017-03-24 07:35 | SURGERY PROGRESS NOTE ---
DATE: 03/24/2017 Elmer is 4th postop day status post I&D of perirectal abscess. Overall, he is doing well, but his main issue is that he has constant seepage of stool, very loose. This morning, we cleaned them up and I was able to visualize the perianal area. There is no evidence of any fluctuance and no cellulitis at this time. His last vitals showed a temperature of 36.8, pulse 57, respirations 20, blood pressure 162/66. Laboratory [place] this morning is pending, but his platelet count has been about 28-30,000. His absolute neutrophil yesterday was 0.47. The patient is not having any pain but his main concern has been discomfort and has been a liquid stools, so we will try to add some Metamucil and discontinued any cathartic that he has on the order list. He continues with the Sitz baths and he finds those to be helpful.
[2017-03-24 07:43] LABS: COMPLETE YES; EOSINOPHIL % 1.7 %; LYMPH ABS # 1.58 K/uL (1.2-3.4); MYELOCYTE % 2.6 %; NEUTROPHILS % 23.5 %
[2017-03-24 07:47] LABS: CALCIUM 8.2 mg/dl (8.5-10.1); CREATININE 0.94 mg/dl (0.60-1.40); POTASSIUM 3.7 mmol/L (3.5-5.1)
[2017-03-24] MEDS: ISOSORBIDE MONONITRATE 30 MG TABCR PO SCH (08:19)
[2017-03-24] MEDS: INSULIN ASPART 100 UNITS/ML 3 ML PEN SC SCH ×4 (08:25→20:57)
[2017-03-24] MEDS ORDERED: FUROSEMIDE INJ 20 MG in SYRINGE 0 ML IV SCH (09:00)
[2017-03-24] MEDS ORDERED: POTASSIUM CHLORIDE 20 MEQ TABCR PO ONE (09:00)
[2017-03-24] MEDS: MAGNESIUM OXIDE 400 MG TAB PO SCH (09:59)
[2017-03-24] MEDS: PSYLLIUM 58.6% PWD PACK S\\F PO SCH (10:00)
[2017-03-24] MEDS: COLESTIPOL HCL 1 GM TAB PO SCH ×2 (13:40→20:41)
[2017-03-24] MEDS: LOPERAMIDE HCL 2 MG CAP PO PRN ×2 (14:55→20:43)
[2017-03-24] MEDS: CEPHALEXIN MONOHYDRATE 500 MG CAP PO SCH ×2 (14:55→20:41)
[2017-03-24] MEDS: METRONIDAZOLE 500 MG TAB PO SCH ×2 (14:55→20:41)
[2017-03-24] MEDS ORDERED: NURSING VERBAL MED ORDER ONE (16:30)
[2017-03-24] MEDS: HYDROCODONE/ACETAMINOPHEN 7.5/325MG TAB PO SCH (20:40)
[2017-03-24] MEDS: TAMSULOSIN HCL 0.4 MG CAP PO SCH (20:41)
[2017-03-24] MEDS: PRAVASTATIN SOD 40 MG TAB PO SCH (20:41)
[2017-03-25] VITALS (10 sets, daily range): BP systolic 108–153; BP diastolic 48–68; PULSE 50–64; TEMP 36.4–38.6; O2SAT 95–97
[2017-03-25] MEDS: HYDROCODONE/ACETAMI 10/325 TAB PO PRN ×3 (04:34→23:09)
[2017-03-25] MEDS: BUTT PASTE 171 APPLN/57 GM JAR EXT PRN ×2 (04:37→10:52)
[2017-03-25] MEDS: LEVOTHYROXINE 75 MCG TAB PO SCH (05:40)
--- NOTE | 2017-03-25 05:41 | Progress Note ---
Subjective Date of Service: Mar 24, 2017. Subjective Pt evaluation today including: conversation w/ patient, conversation w/ family ( at bedside), physical exam, chart review, lab review, review of inpatient medication list Pain: rectal area PO Intake: fair patient slept well overnight still having copious loose stools however and significant fecal incontinence [place] catheter unfortunately fell off this am causing urinary incontinence and he got very upset from such it's [birth year] today Problem List Medical Problems: (1) Pancytopenia Status: Acute (2) Pneumonia Status: Acute Review of Systems Constitutional: No fever, No chills Respiratory: No shortness of breath Cardiac: No chest pain, No orthopnea, No PND, No edema Abdomen: + diarrhea, No pain, No nausea, No vomiting Objective Vital Signs Date Time Temp Pulse Resp B/P (MAP) Pulse Ox O2 Delivery O2 Flow Rate FiO2 03/24/17 15:30 Room Air 03/24/17 15:29 36.9 60 18 117/47 (70) 95 Room Air 03/24/17 11:38 36.7 62 18 163/59 (93) 95 Room Air 03/24/17 08:30 94 Room Air 03/24/17 08:00 36.7 60 18 158/68 (98) 94 03/24/17 05:09 36.8 57 20 162/66 (98) 94 Room Air 03/24/17 00:11 Room Air 03/24/17 00:07 36.9 57 18 166/68 (100) 94 Room Air 03/23/17 20:13 36.7 58 20 136/65 (88) 95 Room Air Physical Exam General Appearance: no apparent distress ENT: pharynx normal Neck: no JVD Respiratory/Chest: no respiratory distress, no accessory muscle use, + rales ( scant, bases) Cardiovascular: regular rate, rhythm, no gallop Abdomen: normal bowel sounds, non tender, soft, no organomegaly Extremities: no pedal edema Neurologic/Psychiatric: alert, + pertinent finding (slightly confused) Skin: + pertinent finding (perirectal area VERY irritated with erythematous and raw skin; anus - clean, I cannot visualize the former abscess site) Laboratory Results Last 24 Hours Test 03/23/17 20:20 03/24/17 06:59 03/24/17 07:48 03/24/17 11:50 Bedside Glucose 208 mg/dl 144 mg/dl 163 mg/dl White Blood Count 2.63 K/uL Red Blood Count 3.20 M/uL Hemoglobin 9.1 g/dL Hematocrit 27.3 % Mean Corpuscular Volume 85.3 fL Mean Corpuscular Hemoglobin 28.4 pg Mean Corpuscular Hemoglobin Concent 33.3 g/dl Platelet Count 28 K/uL Mean Platelet Volume 11.4 fL RDW Standard Deviation 45.2 fL RDW Coefficient of Variation 14.7 % Neutrophils % (Manual) 23.5 % Lymphocytes % (Manual) 60.0 % Monocytes % (Manual) 3.5 % Eosinophils % (Manual) 1.7 % Myelocytes % 2.6 % Blast Cells % 8.7 % Neutrophils # (Manual) 0.62 K/uL Total Absolute Neutrophils 0.62 K/uL Lymphocytes # (Manual) 1.58 K/uL Total Absolute Lymphocytes 1.58 K/uL Monocytes # (Manual) 0.09 K/uL Eosinophils # (Manual) 0.04 K/uL Myelocytes # 0.07 K/uL Hypogranular Neutrophils 2+ Blast Cells # 0.23 K/uL Sodium Level 135 mmol/L Potassium Level 3.7 mmol/L Chloride Level 104 mmol/L Carbon Dioxide Level 24 mmol/L Anion Gap 7.0 mmol/L Blood Urea Nitrogen 15 mg/dl Creatinine 0.94 mg/dl Est Creatinine Clear Calc Drug Dose 59.6 ml/min Estimated GFR () 89.0 Estimated GFR (Non- 76.8 BUN/Creatinine Ratio 16.0 Random Glucose 133 mg/dl Calcium Level 8.2 mg/dl Test 03/24/17 16:28 Bedside Glucose 227 mg/dl Assessment and Plan 68-year-old male with: 1. perirectal abscess, s/p I/D - POD #4 - culture has grown e. coli and bacteroides to date. Stop IV abx. Change to keflex (for e. coli) and flagyl (for anerobes). Complete 10-14 days in total. Gen surg following; appreciate their consult and assistance. 2. pancytopenia 2nd to MDS - s/p 2 units PRBCs 2 nights ago CBC today acceptable 3. recent neutropenic fever - resolved; was 2nd to #1. 4. thrombocytopenia - no bleeding at this time. Platelets 28; monitor daily cbc. 5. severe deconditioning - PT, OT; unless he goes with hospice at home he likely will need SNF placement. 6. diarrhea - c. diff x 2 negative. Add colestipol 1gm BID and immodium prn. 7. T2DM - control is adequate on supplemental novolog. 8. HTN - acceptable at this time; continue same meds. 9. BPH - has incontinence but it is due to lasix. Cont flomax. 10. DVT proph - chemical means contraindicated due to significant thrombocytopenia; SCDs only 11. hypothyroidism - TSH 11/2016 was normal; continue same synthroid dose. 12. acute diastolic CHF - improved with stable BUN & Cr. another dose of lasix today and follow. 13. rectal pain - sitz baths, hydrocodone, barrier creams for irritated skin, etc updated once again very, very poor prognosis in light of refractory MDS Continued [facility] stay due to: inadequate oral pain control, ambulation difficulties, multiple IV medications needed Discharge planning: uncertain
[2017-03-25 06:18] LABS: MEAN CELL VOLUME 85.4 fL (80-100); MEAN CORPUSCULAR HEMOGLOBIN 28.8 pg (25-34); MEAN CORPUSCULAR HGB CONC 33.7 g/dl (32-36); MEAN PLATELET VOLUME 11.6 fL (7.4-10.4); PLATELET COUNT 22 K/uL (130-400); RED BLOOD COUNT 3.16 M/uL (4.7-6.1); WHITE BLOOD COUNT 2.37 K/uL (4.8-10.8)
[2017-03-25 06:27] LABS: BUN/CREATININE RATIO 22.2 (10-20); CALCIUM 8.2 mg/dl (8.5-10.1); CREATININE 0.97 mg/dl (0.60-1.40); MAGNESIUM 2.3 mg/dl (1.8-2.4); POTASSIUM 3.7 mmol/L (3.5-5.1)
--- NOTE | 2017-03-25 06:37 | Surgery Progress Note ---
Surgery Progress Note Date of Service Mar 25, 2017. Subjective very weak begun on colestid- less loose stool- causing skin irritation no perirectal pain associated with abscess Objective Vital Signs: Date Time Temp Pulse Resp B/P (MAP) Pulse Ox O2 Delivery O2 Flow Rate FiO2 03/25/17 04:43 36.7 53 18 147/61 (89) 96 Room Air 03/25/17 00:39 Room Air 03/25/17 00:30 36.5 50 20 134/62 (86) 95 Room Air 03/24/17 21:35 Room Air 03/24/17 19:43 36.7 62 18 137/79 (98) 98 Room Air 03/24/17 15:30 Room Air 03/24/17 15:29 36.9 60 18 117/47 (70) 95 Room Air 03/24/17 11:38 36.7 62 18 163/59 (93) 95 Room Air 03/24/17 08:30 94 Room Air 03/24/17 08:00 36.7 60 18 158/68 (98) 94 General Appearance: + cachetic, + thin Respiratory/Chest: no respiratory distress Laboratory Results: Results Past 24 Hours Test 03/24/17 06:59 03/24/17 07:48 03/24/17 11:50 03/24/17 16:28 Range/Units White Blood Count 2.63 4.8-10.8 K/uL Red Blood Count 3.20 4.7-6.1 M/uL Hemoglobin 9.1 14.0-18.0 g/dL Hematocrit 27.3 42-52 % Mean Corpuscular Volume 85.3 80-100 fL Mean Corpuscular Hemoglobin 28.4 25-34 pg Mean Corpuscular Hemoglobin Concent 33.3 32-36 g/dl Platelet Count 28 130-400 K/uL Mean Platelet Volume 11.4 7.4-10.4 fL RDW Standard Deviation 45.2 36.4-46.3 fL RDW Coefficient of Variation 14.7 11.5-14.5 % Neutrophils % (Manual) 23.5 % Lymphocytes % (Manual) 60.0 % Monocytes % (Manual) 3.5 % Eosinophils % (Manual) 1.7 % Myelocytes % 2.6 % Blast Cells % 8.7 % Neutrophils # (Manual) 0.62 1.4-6.5 K/uL Total Absolute Neutrophils 0.62 1.4-6.5 K/uL Lymphocytes # (Manual) 1.58 1.2-3.4 K/uL Total Absolute Lymphocytes 1.58 1.2-3.4 K/uL Monocytes # (Manual) 0.09 0.11-0.59 K/uL Eosinophils # (Manual) 0.04 0-0.5 K/uL Myelocytes # 0.07 0-0 K/uL Hypogranular Neutrophils 2+ Blast Cells # 0.23 0-0 K/uL Sodium Level 135 136-145 mmol/L Potassium Level 3.7 3.5-5.1 mmol/L Chloride Level 104 98-107 mmol/L Carbon Dioxide Level 24 21-32 mmol/L Anion Gap 7.0 3-11 mmol/L Blood Urea Nitrogen 15 7-18 mg/dl Creatinine 0.94 0.60-1.40 mg/dl Est Creatinine Clear Calc Drug Dose 59.6 ml/min Estimated GFR () 89.0 Estimated GFR (Non- 76.8 BUN/Creatinine Ratio 16.0 10-20 Random Glucose 133 70-99 mg/dl Calcium Level 8.2 8.5-10.1 mg/dl Bedside Glucose 144 163 227 70-99 mg/dl Test 03/24/17 20:06 03/25/17 05:45 Range/Units Bedside Glucose 284 70-99 mg/dl White Blood Count 2.37 4.8-10.8 K/uL Red Blood Count 3.16 4.7-6.1 M/uL Hemoglobin 9.1 14.0-18.0 g/dL Hematocrit 27.0 42-52 % Mean Corpuscular Volume 85.4 80-100 fL Mean Corpuscular Hemoglobin 28.8 25-34 pg Mean Corpuscular Hemoglobin Concent 33.7 32-36 g/dl Platelet Count 22 130-400 K/uL Mean Platelet Volume 11.6 7.4-10.4 fL RDW Standard Deviation 44.0 36.4-46.3 fL RDW Coefficient of Variation 14.4 11.5-14.5 % Sodium Level 134 136-145 mmol/L Potassium Level 3.7 3.5-5.1 mmol/L Chloride Level 102 98-107 mmol/L Carbon Dioxide Level 25 21-32 mmol/L Anion Gap 7.0 3-11 mmol/L Blood Urea Nitrogen 22 7-18 mg/dl Creatinine 0.97 0.60-1.40 mg/dl Est Creatinine Clear Calc Drug Dose 57.7 ml/min Estimated GFR () 85.7 Estimated GFR (Non- 73.9 BUN/Creatinine Ratio 22.2 10-20 Random Glucose 147 70-99 mg/dl Calcium Level 8.2 8.5-10.1 mg/dl Magnesium Level 2.3 1.8-2.4 mg/dl Assessment & Plan 03/25/17- progressive deterioration w/ incontinence of bowel/bladder. min loose stool since yesterday afternoon- colestid may be helping. Now on po atbx for perirectal abscess. Severe anemia, pancytopenia. will ask wound care nurse for suggestions re- skin protective ointment. Needs significant nursing care 03/21/17- s/p incision/ drainage perirectal abscess via transrectal approach- will have nurses remove packing- cannot replace- cont IV atbx/ check cultures- may need Blood transfusion with expected anemia. No evidence of acute bleeding. Would cont atbx 2 weeks (IV then po) 03/21/17- s/p incision/ drainage perirectal abscess via transrectal approach- will have nurses remove packing- cannot replace- cont IV atbx/ check cultures- may need Blood transfusion with expected anemia. No evidence of acute bleeding. Would cont atbx 2 weeks (IV then po)
[2017-03-25 06:41] LABS: PLT ESTIMATE SIGNIFIC DECREASED
[2017-03-25 06:43] LABS: BASO ABS # 0.02 K/uL (0-0.2); BASOPHIL % 0.9 % (0-2); COMPLETE YES; LYMPH ABS # 1.83 K/uL (1.2-3.4); LYMPHOCYTE % 77.1 %; META ABS # 0.02 K/uL (0-0); METAMYELOCYTE % 0.9 %; MYELOCYTE % 0.9 %; NEUTROPHILS % 13.2 %
[2017-03-25] MEDS: METRONIDAZOLE 500 MG TAB PO SCH ×3 (09:12→21:36)
[2017-03-25] MEDS: CEPHALEXIN MONOHYDRATE 500 MG CAP PO SCH ×3 (09:13→21:36)
[2017-03-25] MEDS: ISOSORBIDE MONONITRATE 30 MG TABCR PO SCH (09:13)
[2017-03-25] MEDS: MAGNESIUM OXIDE 400 MG TAB PO SCH (09:14)
[2017-03-25] MEDS: COLESTIPOL HCL 1 GM TAB PO SCH ×2 (09:16→22:59)
[2017-03-25] MEDS: INSULIN ASPART 100 UNITS/ML 3 ML PEN SC SCH ×4 (09:20→21:40)
[2017-03-25] MEDS: PSYLLIUM 58.6% PWD PACK S\\F PO SCH (10:22)
[2017-03-25] MEDS: ACETAMINOPHEN 325 MG TAB PO PRN (13:38)
[2017-03-25 16:26] LABS: URINE COLOR DK YELLOW
[2017-03-25 16:27] LABS: URINE APPEARANCE CLEAR (CLEAR); URINE BILIRUBIN NEG (NEG); URINE NITRITE NEG (NEG); URINE SPECIFIC GRAVITY 1.027 (1.000-1.030); UROBILINOGEN NEG (NEG)
[2017-03-25 16:28] LABS: MANUAL MICROSCOPIC REQUIRED? NO; REVIEW REQ? NO
--- NOTE | 2017-03-25 21:03 | Progress Note ---
Subjective Date of Service: Mar 25, 2017. Subjective Pt evaluation today including: conversation w/ patient, conversation w/ family (, daughter), physical exam, chart review, lab review, conversation w/ security sales consultant (heme/onc Dr. Marroquin; PCP Dr. Amin) Pain: rectal area PO Intake: ate very well today Voiding: incontinence (occasional with some dysuria) slept decently last pm still having rectal pain but slightly better than previous frequent stooling has stopped no fever overnight patient reports they will pursue SNF placement - #1 choice is [facility] he mentioned that he would like to travel to [place] in May and remain there for the winter he apparently DID get out of bed this afternoon Problem List Medical Problems: (1) Pancytopenia Status: Acute (2) Pneumonia Status: Acute Review of Systems Constitutional: + fatigue (but improved today), No fever Respiratory: No cough, No shortness of breath Cardiac: No chest pain Abdomen: No pain, No nausea, No vomiting, No diarrhea Objective Vital Signs Date Time Temp Pulse Resp B/P (MAP) Pulse Ox O2 Delivery O2 Flow Rate FiO2 03/25/17 19:27 36.4 52 18 115/48 (70) 96 Room Air 03/25/17 16:00 36.5 52 18 108/48 (68) 96 Room Air 03/25/17 15:40 Room Air 03/25/17 14:37 37.0 03/25/17 13:40 38.6 03/25/17 12:08 36.8 64 20 153/68 (96) 95 03/25/17 12:03 36.8 64 20 153/68 (96) 95 03/25/17 09:20 61 03/25/17 09:15 Room Air 03/25/17 07:13 36.7 53 18 137/61 (86) 97 03/25/17 04:43 36.7 53 18 147/61 (89) 96 Room Air 03/25/17 00:39 Room Air 03/25/17 00:30 36.5 50 20 134/62 (86) 95 Room Air 03/24/17 21:35 Room Air Physical Exam General Appearance: no apparent distress, + pertinent finding (best he has looked all week) ENT: pharynx normal (no thrush, MMM) Neck: no JVD Respiratory/Chest: lungs clear, no respiratory distress, no accessory muscle use Cardiovascular: regular rate, rhythm, no gallop, no murmur Abdomen: normal bowel sounds, non tender, soft, no organomegaly Extremities: no pedal edema Neurologic/Psychiatric: alert, oriented x 3 Skin: + pertinent finding (perirectal region still quite raw, erythematous, and irritated but no worse than prior exams) Laboratory Results Last 24 Hours Test 03/25/17 05:45 03/25/17 07:24 03/25/17 11:43 03/25/17 16:00 White Blood Count 2.37 K/uL Red Blood Count 3.16 M/uL Hemoglobin 9.1 g/dL Hematocrit 27.0 % Mean Corpuscular Volume 85.4 fL Mean Corpuscular Hemoglobin 28.8 pg Mean Corpuscular Hemoglobin Concent 33.7 g/dl Platelet Count 22 K/uL Mean Platelet Volume 11.6 fL RDW Standard Deviation 44.0 fL RDW Coefficient of Variation 14.4 % Neutrophils % (Manual) 13.2 % Lymphocytes % (Manual) 77.1 % Monocytes % (Manual) 3.5 % Basophils % (Manual) 0.9 % Metamyelocytes % 0.9 % Myelocytes % 0.9 % Promyelocytes % 0.9 % Blast Cells % 2.6 % Neutrophils # (Manual) 0.31 K/uL Total Absolute Neutrophils 0.31 K/uL Lymphocytes # (Manual) 1.83 K/uL Total Absolute Lymphocytes 1.83 K/uL Monocytes # (Manual) 0.08 K/uL Basophils # (Manual) 0.02 K/uL Metamyelocytes # 0.02 K/uL Myelocytes # 0.02 K/uL Promyelocytes # 0.02 K/uL Hypogranular Neutrophils 2+ Blast Cells # 0.06 K/uL Platelet Estimate SIGNIFIC DECREASED Sodium Level 134 mmol/L Potassium Level 3.7 mmol/L Chloride Level 102 mmol/L Carbon Dioxide Level 25 mmol/L Anion Gap 7.0 mmol/L Blood Urea Nitrogen 22 mg/dl Creatinine 0.97 mg/dl Est Creatinine Clear Calc Drug Dose 57.7 ml/min Estimated GFR () 85.7 Estimated GFR (Non- 73.9 BUN/Creatinine Ratio 22.2 Random Glucose 147 mg/dl Calcium Level 8.2 mg/dl Magnesium Level 2.3 mg/dl Bedside Glucose 161 mg/dl 207 mg/dl Urine Color DK YELLOW Urine Appearance CLEAR Urine pH 5.0 Urine Specific [place] 1.027 Urine Protein NEG Urine Glucose (UA) NEG Urine Ketones NEG Urine Occult Blood 3+ Urine Nitrite NEG Urine Bilirubin NEG Urine Urobilinogen NEG Urine Leukocyte Esterase TRACE Urine WBC (Auto) 1-5 /hpf Urine RBC (Auto) 10-30 /hpf Urine Hyaline Casts (Auto) 1-5 /lpf Urine Epithelial Cells (Auto) 5-10 /lpf Urine Bacteria (Auto) NEG Test 03/25/17 16:31 Bedside Glucose 194 mg/dl Assessment and Plan 68-year-old male with: 1. perirectal abscess, s/p I/D - POD #5 - culture has grown e. coli and bacteroides to date. IV abx stopped on 03/24/17. Day #2 of keflex (for e. coli) and flagyl (for anerobes). Complete 10-14 days in total. Gen surg following; appreciate their consult and assistance. 2. pancytopenia 2nd to MDS - s/p 2 units PRBCs a few nights ago. H/H stable today. WBC is at his baseline. Platelets worse but no plans for infusion at this time. CBC in am. 3. recent neutropenic fever - resolved; was 2nd to #1. Then, after I saw him this AM, he had a fever to 38.6. Repeat blood and urine cx's sent. I did NOT restart broad-spectrum IV antibiotic therapy today. However, if his fevers recur, he clinically worsens, a pathogen grows, etc his IV abx will need to be restarted. 4. thrombocytopenia - no bleeding at this time. Platelets 22; monitor daily cbc. 5. severe deconditioning - PT, OT. We have discussed "options" including home with HH and private caregivers vs SNF. We also briefly discussed hospice. Pt/ prefer SNF at this time. 6. diarrhea - c. diff x 2 negative. Improved with addition of colestipol 1gm BID and immodium prn. 7. T2DM - control is adequate on supplemental novolog. 8. HTN - BPs starting to trend down relative to earlier this week. HR has been < 60 multiple times. Will lower atenolol dose to 25mg daily. 9. BPH - cont flomax. 10. DVT proph - chemical means contraindicated due to significant thrombocytopenia; SCDs only 11. hypothyroidism - TSH 11/2016 was normal; continue same synthroid dose. 12. acute diastolic CHF - resolved; no further lasix. 13. rectal pain - sitz baths, hydrocodone, barrier creams for irritated skin, etc 14. CAD - plavix/asa on hold due to severe thrombocytopenia. Remains on BB and imdur. NO symptoms at this time. updated once again at bedside today very, very poor prognosis in light of refractory MDS Dr. Marroquin to speak with pt/pt's & daughter on 03/26/17 about poor prognosis ( once again) fever today may delay his discharge to SNF Continued [facility] stay due to: inadequate oral pain control, ambulation difficulties, multiple IV medications needed Discharge planning: custodial facility
[2017-03-25] MEDS: HYDROCODONE/ACETAMI 10/325 TAB PO SCH (21:36)
[2017-03-25] MEDS: TAMSULOSIN HCL 0.4 MG CAP PO SCH (21:36)
[2017-03-25] MEDS: PRAVASTATIN SOD 40 MG TAB PO SCH (21:36)
[2017-03-26] VITALS (8 sets, daily range): BP systolic 120–157; BP diastolic 44–70; PULSE 51–67; TEMP 36.6–37.3; O2SAT 93–97; BMI 27.3
[2017-03-26] MEDS: LEVOTHYROXINE 75 MCG TAB PO SCH (06:14)
--- NOTE | 2017-03-26 06:43 | Surgery Progress Note ---
Surgery Progress Note Date of Service Mar 26, 2017. Subjective feeling better this am- much less perineal irritation with decrease in loose bms had fever yesterday , afeb since Objective Vital Signs: Date Time Temp Pulse Resp B/P (MAP) Pulse Ox O2 Delivery O2 Flow Rate FiO2 03/26/17 03:58 36.6 51 18 145/63 (90) 96 Room Air 03/26/17 00:01 Room Air 03/26/17 00:01 36.7 58 18 146/62 (90) 96 Room Air 03/25/17 20:00 Room Air 03/25/17 19:27 36.4 52 18 115/48 (70) 96 Room Air 03/25/17 16:00 36.5 52 18 108/48 (68) 96 Room Air 03/25/17 15:40 Room Air 03/25/17 14:37 37.0 03/25/17 13:40 38.6 03/25/17 12:08 36.8 64 20 153/68 (96) 95 03/25/17 12:03 36.8 64 20 153/68 (96) 95 03/25/17 09:20 61 03/25/17 09:15 Room Air 03/25/17 07:13 36.7 53 18 137/61 (86) 97 General Appearance: no apparent distress Respiratory/Chest: no respiratory distress Laboratory Results: Results Past 24 Hours Test 03/25/17 07:24 03/25/17 11:43 03/25/17 16:00 03/25/17 16:31 Range/Units Bedside Glucose 161 207 194 70-99 mg/dl Urine Color DK YELLOW Urine Appearance CLEAR CLEAR Urine pH 5.0 4.5-7.5 Urine Specific [place] 1.027 1.000-1.030 Urine Protein NEG NEG Urine Glucose (UA) NEG NEG Urine Ketones NEG NEG Urine Occult Blood 3+ NEG Urine Nitrite NEG NEG Urine Bilirubin NEG NEG Urine Urobilinogen NEG NEG Urine Leukocyte Esterase TRACE NEG Urine WBC (Auto) 1-5 0-5 /hpf Urine RBC (Auto) 10-30 0-4 /hpf Urine Hyaline Casts (Auto) 1-5 0-5 /lpf Urine Epithelial Cells (Auto) 5-10 0-5 /lpf Urine Bacteria (Auto) NEG NEG Test 03/25/17 21:37 03/26/17 06:07 Range/Units Bedside Glucose 200 70-99 mg/dl Microbiology Results 03/25/17 Blood Culture, Received Pending 03/25/17 Blood Culture, Received Pending 03/25/17 Urine Culture, Received Pending perineal/ sacral skin irritation Assessment & Plan 03/26/17- seems to be more stable, always a concern for recurrence of abscess- would consider repeat pelvic CT w/o contrast if fever recurs. will check CT pelvis- no contrast- keep npo for now in case of significant collection- 03/25/17- progressive deterioration w/ incontinence of bowel/bladder. min loose stool since yesterday afternoon- colestid may be helping. Now on po atbx for perirectal abscess. Severe anemia, pancytopenia. will ask wound care nurse for suggestions re- skin protective ointment. Needs significant nursing care 03/21/17- s/p incision/ drainage perirectal abscess via transrectal approach- will have nurses remove packing- cannot replace- cont IV atbx/ check cultures- may need Blood transfusion with expected anemia. No evidence of acute bleeding. Would cont atbx 2 weeks (IV then po) 03/25/17- progressive deterioration w/ incontinence of bowel/bladder. min loose stool since yesterday afternoon- colestid may be helping. Now on po atbx for perirectal abscess. Severe anemia, pancytopenia. will ask wound care nurse for suggestions re- skin protective ointment. Needs significant nursing care 03/21/17- s/p incision/ drainage perirectal abscess via transrectal approach- will have nurses remove packing- cannot replace- cont IV atbx/ check cultures- may need Blood transfusion with expected anemia. No evidence of acute bleeding. Would cont atbx 2 weeks (IV then po)
[2017-03-26 06:55] LABS: HEMATOCRIT 26.4 % (42-52); MEAN CELL VOLUME 85.2 fL (80-100); MEAN CORPUSCULAR HEMOGLOBIN 28.7 pg (25-34); MEAN CORPUSCULAR HGB CONC 33.7 g/dl (32-36); PLATELET COUNT 18 K/uL (130-400); WHITE BLOOD COUNT 2.53 K/uL (4.8-10.8)
[2017-03-26 07:02] LABS: BUN/CREATININE RATIO 21.7 (10-20); CALCIUM 8.2 mg/dl (8.5-10.1); CREATININE 0.99 mg/dl (0.60-1.40); POTASSIUM 3.9 mmol/L (3.5-5.1)
[2017-03-26 07:55] LABS: LARGE PLATELETS 1+; PLT ESTIMATE SIGNIFIC DECREASED
[2017-03-26 07:59] LABS: COMPLETE YES; EOSINOPHIL % 2.6 %; LYMPH ABS # 2.17 K/uL (1.2-3.4); LYMPHOCYTE % 85.9 %; META ABS # 0.02 K/uL (0-0); METAMYELOCYTE % 0.9 %; MYELOCYTE % 0.9 %; NEUTROPHILS % 4.4 %
--- NOTE | 2017-03-26 08:48 | DIAGNOSTIC IMAGING REPORT ---
PELVIS NO IV/ORAL CONT (CT) HISTORY: h/o perirectal abscess TECHNIQUE: Multiaxial CT images of the pelvis are performed without the use of intravenous contrast. COMPARISON STUDY: Abdomen and pelvis CT 03/19/2017. FINDINGS: Difficulty evaluation of the patient's known perirectal abscess due to the lack of intravenous contrast. However, there is again noted an extraluminal perirectal gas collection seen on the right and posterior aspect of the rectum. This is likely similar in size compared to the prior study. No evidence for supralevator extension. There is mild thickening of the rectum with perirectal fat stranding and presacral fat stranding. This has slightly progressed. Prostate gland remains enlarged. There is mild bladder wall thickening, unchanged. Colonic diverticulosis. Moderate stool throughout the visualized colon. No pelvic lymphadenopathy. Normal appendix. Partially visualized aortobiiliac stent. IMPRESSION: 1. Suboptimal evaluation of the perirectal abscess due to the lack of intravenous contrast. However, the right/posterior perirectal abscess is likely similar in size. 2. Mild rectal wall thickening with perirectal fat stranding consistent with a proctitis. This has slightly progressed. 3. Mild bladder wall thickening, unchanged. 4. Colonic diverticulosis. Electronically signed by: Woo Purvis M.D. 03/26/2017 8:47 AM Dictated Date/Time: 03/26/2017 8:31 AM
[2017-03-26] MEDS: INSULIN ASPART 100 UNITS/ML 3 ML PEN SC SCH ×4 (08:59→21:22)
--- NOTE | 2017-03-26 09:41 | Surgery Progress Note ---
Surgery Progress Note Date of Service Mar 26, 2017. Objective Vital Signs: Date Time Temp Pulse Resp B/P (MAP) Pulse Ox O2 Delivery O2 Flow Rate FiO2 03/26/17 07:19 36.6 55 18 157/56 (89) 97 Room Air 03/26/17 03:58 36.6 51 18 145/63 (90) 96 Room Air 03/26/17 00:01 Room Air 03/26/17 00:01 36.7 58 18 146/62 (90) 96 Room Air 03/25/17 20:00 Room Air 03/25/17 19:27 36.4 52 18 115/48 (70) 96 Room Air 03/25/17 16:00 36.5 52 18 108/48 (68) 96 Room Air 03/25/17 15:40 Room Air 03/25/17 14:37 37.0 03/25/17 13:40 38.6 03/25/17 12:08 36.8 64 20 153/68 (96) 95 03/25/17 12:03 36.8 64 20 153/68 (96) 95 Laboratory Results: Results Past 24 Hours Test 03/25/17 11:43 03/25/17 16:00 03/25/17 16:31 03/25/17 21:37 Range/Units Bedside Glucose 207 194 200 70-99 mg/dl Urine Color DK YELLOW Urine Appearance CLEAR CLEAR Urine pH 5.0 4.5-7.5 Urine Specific [place] 1.027 1.000-1.030 Urine Protein NEG NEG Urine Glucose (UA) NEG NEG Urine Ketones NEG NEG Urine Occult Blood 3+ NEG Urine Nitrite NEG NEG Urine Bilirubin NEG NEG Urine Urobilinogen NEG NEG Urine Leukocyte Esterase TRACE NEG Urine WBC (Auto) 1-5 0-5 /hpf Urine RBC (Auto) 10-30 0-4 /hpf Urine Hyaline Casts (Auto) 1-5 0-5 /lpf Urine Epithelial Cells (Auto) 5-10 0-5 /lpf Urine Bacteria (Auto) NEG NEG Test 03/26/17 06:07 03/26/17 07:23 Range/Units White Blood Count 2.53 4.8-10.8 K/uL Red Blood Count 3.10 4.7-6.1 M/uL Hemoglobin 8.9 14.0-18.0 g/dL Hematocrit 26.4 42-52 % Mean Corpuscular Volume 85.2 80-100 fL Mean Corpuscular Hemoglobin 28.7 25-34 pg Mean Corpuscular Hemoglobin Concent 33.7 32-36 g/dl Platelet Count 18 130-400 K/uL RDW Standard Deviation 43.6 36.4-46.3 fL RDW Coefficient of Variation 14.4 11.5-14.5 % Neutrophils % (Manual) 4.4 % Lymphocytes % (Manual) 85.9 % Eosinophils % (Manual) 2.6 % Metamyelocytes % 0.9 % Myelocytes % 0.9 % Blast Cells % 5.3 % Neutrophils # (Manual) 0.11 1.4-6.5 K/uL Total Absolute Neutrophils 0.11 1.4-6.5 K/uL Lymphocytes # (Manual) 2.17 1.2-3.4 K/uL Total Absolute Lymphocytes 2.17 1.2-3.4 K/uL Eosinophils # (Manual) 0.07 0-0.5 K/uL Metamyelocytes # 0.02 0-0 K/uL Myelocytes # 0.02 0-0 K/uL Hypogranular Neutrophils 2+ Blast Cells # 0.13 0-0 K/uL Platelet Estimate SIGNIFIC DECREASED Large Platelets 1+ Sodium Level 135 136-145 mmol/L Potassium Level 3.9 3.5-5.1 mmol/L Chloride Level 102 98-107 mmol/L Carbon Dioxide Level 27 21-32 mmol/L Anion Gap 6.0 3-11 mmol/L Blood Urea Nitrogen 22 7-18 mg/dl Creatinine 0.99 0.60-1.40 mg/dl Est Creatinine Clear Calc Drug Dose 56.6 ml/min Estimated GFR () 83.6 Estimated GFR (Non- 72.1 BUN/Creatinine Ratio 21.7 10-20 Random Glucose 146 70-99 mg/dl Calcium Level 8.2 8.5-10.1 mg/dl Bedside Glucose 157 70-99 mg/dl Microbiology Results 03/25/17 Blood Culture, Received Pending 03/25/17 Blood Culture, Received Pending 03/25/17 Urine Culture, Received Pending Assessment & Plan 03/26/17- seems to be more stable, always a concern for recurrence of abscess- would consider repeat pelvic CT w/o contrast if fever recurs. will check CT pelvis- no contrast- keep npo for now in case of significant collection- see addendum below 03/25/17- progressive deterioration w/ incontinence of bowel/bladder. min loose stool since yesterday afternoon- colestid may be helping. Now on po atbx for perirectal abscess. Severe anemia, pancytopenia. will ask wound care nurse for suggestions re- skin protective ointment. Needs significant nursing care 03/21/17- s/p incision/ drainage perirectal abscess via transrectal approach- will have nurses remove packing- cannot replace- cont IV atbx/ check cultures- may need Blood transfusion with expected anemia. No evidence of acute bleeding. Would cont atbx 2 weeks (IV then po) 03/26/17- seems to be more stable, always a concern for recurrence of abscess- would consider repeat pelvic CT w/o contrast if fever recurs. will check CT pelvis- no contrast- keep npo for now in case of significant collection- 03/25/17- progressive deterioration w/ incontinence of bowel/bladder. min loose stool since yesterday afternoon- colestid may be helping. Now on po atbx for perirectal abscess. Severe anemia, pancytopenia. will ask wound care nurse for suggestions re- skin protective ointment. Needs significant nursing care 03/21/17- s/p incision/ drainage perirectal abscess via transrectal approach- will have nurses remove packing- cannot replace- cont IV atbx/ check cultures- may need Blood transfusion with expected anemia. No evidence of acute bleeding. Would cont atbx 2 weeks (IV then po)
[2017-03-26] MEDS: ISOSORBIDE MONONITRATE 30 MG TABCR PO SCH (10:26)
[2017-03-26] MEDS: METRONIDAZOLE 500 MG TAB PO SCH ×2 (10:26→12:28)
[2017-03-26] MEDS: MAGNESIUM OXIDE 400 MG TAB PO SCH (10:27)
[2017-03-26] MEDS: CEPHALEXIN MONOHYDRATE 500 MG CAP PO SCH ×2 (10:27→12:28)
[2017-03-26] MEDS: COLESTIPOL HCL 1 GM TAB PO SCH ×2 (10:27→22:30)
[2017-03-26] MEDS: PSYLLIUM 58.6% PWD PACK S\\F PO SCH (10:28)
[2017-03-26] MEDS: HYDROCODONE/ACETAMI 10/325 TAB PO PRN ×2 (10:29→18:04)
[2017-03-26] MEDS ORDERED: ERTAPENEM IV 1 GM in SODIUM CHLOR 0.9% AD-VAN 50ML 50 ML IV SCH (15:00)
[2017-03-26] MEDS ORDERED: METRONIDAZOLE / NSS 500 MG in PREMIXED NSS 100 ML IV SCH (15:00)
[2017-03-26] MEDS ORDERED: PIPERACILL/TAZOBAC CONSULT ACTIVE PRN (17:00)
[2017-03-26] MEDS ORDERED: PIPERACILL/TAZOBAC IV 3.375 GM in DEXTROSE 5% 100ML IV ONE (17:00)
[2017-03-26] MEDS: HYDROCODONE/ACETAMI 10/325 TAB PO SCH ×2 (17:03→21:16)
--- NOTE | 2017-03-26 17:52 | Progress Note ---
Subjective Date of Service: Mar 26, 2017. Subjective Patient is very weak and tired prefers to be in bed and does have the strength move about, and daughter at the bedside and updated I personally discussed this case with Dr. Amin and Dr. Rodríguez on March 26 Problem List Medical Problems: (1) Pancytopenia Status: Acute (2) Pneumonia Status: Acute Review of Systems Constitutional: + weakness, + fatigue Respiratory: No cough, No sputum, No shortness of breath Cardiac: No chest pain, No orthopnea Abdomen: + pain, + problem reported (rectal pain), No nausea, No vomiting, No diarrhea Male : No dysuria, No urinary frequency Neurologic: No memory loss, No paralysis Psychiatric: + depression symptoms, No anhedonism Skin: + rash (mostly thrombocytopenic purpura and bruising) Objective Vital Signs Date Time Temp Pulse Resp B/P (MAP) Pulse Ox O2 Delivery O2 Flow Rate FiO2 03/26/17 07:19 36.6 55 18 157/56 (89) 97 Room Air 03/26/17 03:58 36.6 51 18 145/63 (90) 96 Room Air 03/26/17 00:01 Room Air 03/26/17 00:01 36.7 58 18 146/62 (90) 96 Room Air 03/25/17 20:00 Room Air 03/25/17 19:27 36.4 52 18 115/48 (70) 96 Room Air 03/25/17 16:00 36.5 52 18 108/48 (68) 96 Room Air 03/25/17 15:40 Room Air 03/25/17 14:37 37.0 03/25/17 13:40 38.6 03/25/17 12:08 36.8 64 20 153/68 (96) 95 03/25/17 12:03 36.8 64 20 153/68 (96) 95 03/25/17 09:20 61 Physical Exam General Appearance: + mild distress, + thin Eyes: PERRL, EOMI Respiratory/Chest: chest non-tender, lungs clear Cardiovascular: regular rate, rhythm, no murmur Abdomen: normal bowel sounds, non tender, soft Extremities: normal capillary refill, + pedal edema Neurologic/Psychiatric: alert, oriented x 3 Skin: + pertinent finding (skin changes consistent with bruising from thrombocytopenia) Laboratory Results Last 24 Hours Test 03/25/17 11:43 03/25/17 16:00 03/25/17 16:31 03/25/17 21:37 Bedside Glucose 207 mg/dl 194 mg/dl 200 mg/dl Urine Color DK YELLOW Urine Appearance CLEAR Urine pH 5.0 Urine Specific [place] 1.027 Urine Protein NEG Urine Glucose (UA) NEG Urine Ketones NEG Urine Occult Blood 3+ Urine Nitrite NEG Urine Bilirubin NEG Urine Urobilinogen NEG Urine Leukocyte Esterase TRACE Urine WBC (Auto) 1-5 /hpf Urine RBC (Auto) 10-30 /hpf Urine Hyaline Casts (Auto) 1-5 /lpf Urine Epithelial Cells (Auto) 5-10 /lpf Urine Bacteria (Auto) NEG Test 03/26/17 06:07 03/26/17 07:23 White Blood Count 2.53 K/uL Red Blood Count 3.10 M/uL Hemoglobin 8.9 g/dL Hematocrit 26.4 % Mean Corpuscular Volume 85.2 fL Mean Corpuscular Hemoglobin 28.7 pg Mean Corpuscular Hemoglobin Concent 33.7 g/dl Platelet Count 18 K/uL RDW Standard Deviation 43.6 fL RDW Coefficient of Variation 14.4 % Neutrophils % (Manual) 4.4 % Lymphocytes % (Manual) 85.9 % Eosinophils % (Manual) 2.6 % Metamyelocytes % 0.9 % Myelocytes % 0.9 % Blast Cells % 5.3 % Neutrophils # (Manual) 0.11 K/uL Total Absolute Neutrophils 0.11 K/uL Lymphocytes # (Manual) 2.17 K/uL Total Absolute Lymphocytes 2.17 K/uL Eosinophils # (Manual) 0.07 K/uL Metamyelocytes # 0.02 K/uL Myelocytes # 0.02 K/uL Hypogranular Neutrophils 2+ Blast Cells # 0.13 K/uL Platelet Estimate SIGNIFIC DECREASED Large Platelets 1+ Sodium Level 135 mmol/L Potassium Level 3.9 mmol/L Chloride Level 102 mmol/L Carbon Dioxide Level 27 mmol/L Anion Gap 6.0 mmol/L Blood Urea Nitrogen 22 mg/dl Creatinine 0.99 mg/dl Est Creatinine Clear Calc Drug Dose 56.6 ml/min Estimated GFR () 83.6 Estimated GFR (Non- 72.1 BUN/Creatinine Ratio 21.7 Random Glucose 146 mg/dl Calcium Level 8.2 mg/dl Bedside Glucose 157 mg/dl Assessment and Plan 68-year-old male here with periretal abscess and a history of myelodysplastic syndrome, operative drainage on 03/20 Perirectal abscess E coli and bactorodies, will transition back to intravenous Zosyn as surgeries concern of progression on oral antibiotics. Dr. Vega is following closely Diarrhea has been help with Metamucil cholestyramine and Imodium no infectious diarrhea has been seen pancytopenia from myelodysplastic syndrome, supported with transfusion of both platelets and red blood cells currently hemoglobin is in the 8 g range for platelets are 18 remains neutropenic with neutropenic precautions with a ANC of 110. Procrit has been recommended by both nephrology and heme onc acute diastolic heart failure, did require lasix seems clinically euvolemic after eating rescued from volume overload from transfusions diabetes has been stable on sliding scale insulin oral intake is poor HTn continue isosorbide and atenolol BPH Flomax no difficulty urinating DVT prevention will be SCDs but watch for bruising with pressure Discharge planning: residential facility
[2017-03-26] MEDS ORDERED: EPOETIN ALFA 40,000 UNITS/ML VIAL IV ONE (19:30)
[2017-03-26] MEDS: PIPERACILL/TAZOBAC IV 3.375 GM in DEXTROSE 5% 100ML IV SCH (21:18)
[2017-03-26] MEDS: PRAVASTATIN SOD 40 MG TAB PO SCH (21:18)
[2017-03-26] MEDS: TAMSULOSIN HCL 0.4 MG CAP PO SCH (21:18)
[2017-03-27] VITALS (7 sets, daily range): BP systolic 113–176; BP diastolic 51–74; PULSE 59–75; TEMP 36.7–37.6; O2SAT 95–97; BMI 27.0
[2017-03-27] MEDS: HYDROCODONE/ACETAMI 10/325 TAB PO PRN ×3 (03:52→12:36)
--- NOTE | 2017-03-27 06:22 | Surgery Progress Note ---
Surgery Progress Note Date of Service Mar 27, 2017. Subjective awake, pain controlled w/ hydrocodone- extremely weak even to have short conversation had soft bm- much improved Objective Vital Signs: Date Time Temp Pulse Resp B/P (MAP) Pulse Ox O2 Delivery O2 Flow Rate FiO2 03/27/17 04:30 37.4 71 20 158/66 (96) 97 Room Air 03/27/17 00:05 Room Air 03/26/17 22:31 36.8 64 20 138/70 (92) 93 Room Air 03/26/17 19:01 37.3 67 18 122/44 (70) 96 Room Air 03/26/17 16:12 Room Air 03/26/17 15:05 36.9 58 18 120/47 (71) 96 Room Air 03/26/17 11:19 36.6 62 18 138/55 (82) 96 Room Air 03/26/17 10:30 60 03/26/17 10:30 Room Air 03/26/17 07:19 36.6 55 18 157/56 (89) 97 Room Air General Appearance: no apparent distress Respiratory/Chest: no respiratory distress Abdomen: soft Laboratory Results: Results Past 24 Hours Test 03/26/17 07:23 03/26/17 11:45 03/26/17 16:39 03/26/17 20:08 Range/Units Bedside Glucose 157 223 185 263 70-99 mg/dl Assessment & Plan 03/27/17- seems to be stable from infection standpoint but extreme weakness from primary disease will likely progress. Not using any IV pain meds. cont supportive care and IV atbx. 03/26/17- seems to be more stable, always a concern for recurrence of abscess- would consider repeat pelvic CT w/o contrast if fever recurs. will check CT pelvis- no contrast- keep npo for now in case of significant collection- see addendum below 03/25/17- progressive deterioration w/ incontinence of bowel/bladder. min loose stool since yesterday afternoon- colestid may be helping. Now on po atbx for perirectal abscess. Severe anemia, pancytopenia. will ask wound care nurse for suggestions re- skin protective ointment. Needs significant nursing care 03/21/17- s/p incision/ drainage perirectal abscess via transrectal approach- will have nurses remove packing- cannot replace- cont IV atbx/ check cultures- may need Blood transfusion with expected anemia. No evidence of acute bleeding. Would cont atbx 2 weeks (IV then po) 03/26/17- seems to be more stable, always a concern for recurrence of abscess- would consider repeat pelvic CT w/o contrast if fever recurs. will check CT pelvis- no contrast- keep npo for now in case of significant collection- see addendum below 03/25/17- progressive deterioration w/ incontinence of bowel/bladder. min loose stool since yesterday afternoon- colestid may be helping. Now on po atbx for perirectal abscess. Severe anemia, pancytopenia. will ask wound care nurse for suggestions re- skin protective ointment. Needs significant nursing care 03/21/17- s/p incision/ drainage perirectal abscess via transrectal approach- will have nurses remove packing- cannot replace- cont IV atbx/ check cultures- may need Blood transfusion with expected anemia. No evidence of acute bleeding. Would cont atbx 2 weeks (IV then po)
[2017-03-27] MEDS: PIPERACILL/TAZOBAC IV 3.375 GM in DEXTROSE 5% 100ML IV SCH ×3 (06:29→21:48)
[2017-03-27] MEDS: LEVOTHYROXINE 75 MCG TAB PO SCH (06:30)
[2017-03-27] MEDS: MAGNESIUM OXIDE 400 MG TAB PO SCH (07:55)
[2017-03-27] MEDS: PSYLLIUM 58.6% PWD PACK S\\F PO SCH (07:56)
[2017-03-27] MEDS: ISOSORBIDE MONONITRATE 30 MG TABCR PO SCH (07:56)
[2017-03-27] MEDS: INSULIN ASPART 100 UNITS/ML 3 ML PEN SC SCH ×4 (08:56→20:50)
[2017-03-27 08:58] LABS: BUN/CREATININE RATIO 16.3 (10-20); CALCIUM 8.4 mg/dl (8.5-10.1); CREATININE 1.1 mg/dl (0.60-1.40)
[2017-03-27 09:12] LABS: HEMATOCRIT 26.9 % (42-52); MEAN CELL VOLUME 85.4 fL (80-100); MEAN CORPUSCULAR HEMOGLOBIN 29.5 pg (25-34); MEAN CORPUSCULAR HGB CONC 34.6 g/dl (32-36); PLATELET COUNT 14 K/uL (130-400); RED BLOOD COUNT 3.15 M/uL (4.7-6.1); WHITE BLOOD COUNT 2.38 K/uL (4.8-10.8)
[2017-03-27 09:18] LABS: PLT ESTIMATE SIGNIFIC DECREASED
[2017-03-27] MEDS: COLESTIPOL HCL 1 GM TAB PO SCH ×2 (10:20→21:49)
[2017-03-27 10:22] LABS: LYMPH ABS # 1.73 K/uL (1.2-3.4); LYMPHOCYTE % 72.8 %; MYELOCYTE % 3.5 %; NEUTROPHILS % 21.1 %
[2017-03-27 14:46] LABS: COMPLETE YES
--- NOTE | 2017-03-27 15:32 | DIAGNOSTIC IMAGING REPORT ---
CT SCAN OF THE BRAIN WITHOUT IV CONTRAST CLINICAL HISTORY: Change in mental status. COMPARISON STUDY: No priors. TECHNIQUE: Unenhanced axial CT scan of the brain is performed from the vertex to the skull base. CT DOSE: 638.56 mGycm FINDINGS: Brain parenchyma: There are age-related involutional changes noting mild subcortical and periventricular microangiopathic change. There is no hemorrhage, mass effect, or evidence of acute territorial ischemia by CT criteria. Elliott-white matter is preserved. No extra-axial fluid collection is seen. Ventricles, sulci, cisterns: Prominent secondary to involutional change. Intracranial vasculature: There is atherosclerotic calcification of the cavernous carotid arteries. Calvarium: Unremarkable. Sinuses and mastoids: The visualized paranasal sinuses are clear. There is a trace left mastoid effusion. The right mastoid air cells are well pneumatized. Orbits: The bony orbits are grossly intact. There are bilateral ocular lens implants. IMPRESSION: There is no hemorrhage, mass effect, or evidence of acute territorial ischemia by CT criteria. Electronically signed by: Sawyer Robins M.D. 03/27/2017 3:31 PM Dictated Date/Time: 03/27/2017 3:29 PM
[2017-03-27] MEDS: ACETAMINOPHEN 325 MG TAB PO PRN (17:40)
--- NOTE | 2017-03-27 19:45 | Progress Note ---
Subjective Date of Service: Mar 27, 2017. Subjective This patient of very unusual affect this afternoon. I tried to the speak with him about end-of-life decisions he seemed aloof agitated and disconnected so much so that I ordered a CT scan set of his had determine if his intercerebral bleed given his low platelet count this may be effective his opiate medications as a CT scan was negative later in the afternoon he did improve but he stiffly was not himself throughout the day he was changed to intravenous Zosyn to treat his. Perirectal abscess and he was given intravenous Procrit on 03/26 Problem List Medical Problems: (1) Pancytopenia Status: Acute (2) Pneumonia Status: Acute Review of Systems Constitutional: + chills, + weakness, + fatigue, No fever Respiratory: No cough, No shortness of breath, No dyspnea on exertion Cardiac: No chest pain Abdomen: + pain, No nausea, No vomiting, No diarrhea Male : No dysuria, No urinary frequency Neurologic: + memory loss, No paralysis Psychiatric: No depression symptoms, No anxiety Objective Vital Signs Date Time Temp Pulse Resp B/P (MAP) Pulse Ox O2 Delivery O2 Flow Rate FiO2 03/27/17 19:39 134/57 (82) 03/27/17 18:38 37.2 73 17 176/74 (108) 95 Room Air 03/27/17 16:00 Room Air 03/27/17 15:08 37.0 75 18 113/51 (71) 95 Room Air 03/27/17 14:43 37.6 03/27/17 08:30 Room Air 03/27/17 07:18 36.7 59 18 142/55 (84) 97 Room Air 03/27/17 04:30 37.4 71 20 158/66 (96) 97 Room Air 03/27/17 00:05 Room Air 03/26/17 22:31 36.8 64 20 138/70 (92) 93 Room Air Physical Exam General Appearance: WD/WN, + moderate distress Eyes: normal inspection, PERRL, EOMI, sclerae normal ENT: hearing grossly normal, pharynx normal Respiratory/Chest: chest non-tender, lungs clear, normal breath sounds Cardiovascular: regular rate, rhythm, no murmur Abdomen: normal bowel sounds, soft, + tenderness (minor) Extremities: no pedal edema, no calf tenderness Neurologic/Psychiatric: + depressed affect, + disoriented Skin: normal color, warm/dry, no rash Laboratory Results Last 24 Hours Test 03/26/17 20:08 03/27/17 07:27 03/27/17 08:16 03/27/17 11:48 Bedside Glucose 263 mg/dl 162 mg/dl 206 mg/dl White Blood Count 2.38 K/uL Red Blood Count 3.15 M/uL Hemoglobin 9.3 g/dL Hematocrit 26.9 % Mean Corpuscular Volume 85.4 fL Mean Corpuscular Hemoglobin 29.5 pg Mean Corpuscular Hemoglobin Concent 34.6 g/dl Platelet Count 14 K/uL RDW Standard Deviation 43.4 fL RDW Coefficient of Variation 14.2 % Neutrophils % (Manual) 21.1 % Lymphocytes % (Manual) 72.8 % Myelocytes % 3.5 % Blast Cells % 2.6 % Neutrophils # (Manual) 0.50 K/uL Total Absolute Neutrophils 0.50 K/uL Lymphocytes # (Manual) 1.73 K/uL Total Absolute Lymphocytes 1.73 K/uL Myelocytes # 0.08 K/uL Hypogranular Neutrophils 2+ Blast Cells # 0.06 K/uL Platelet Estimate SIGNIFIC DECREASED Red Blood Cell Morphology Unremarkable Sodium Level 131 mmol/L Potassium Level 4.0 mmol/L Chloride Level 99 mmol/L Carbon Dioxide Level 26 mmol/L Anion Gap 6.0 mmol/L Blood Urea Nitrogen 18 mg/dl Creatinine 1.10 mg/dl Est Creatinine Clear Calc Drug Dose 50.9 ml/min Estimated GFR () 73.6 Estimated GFR (Non- 63.5 BUN/Creatinine Ratio 16.3 Random Glucose 164 mg/dl Calcium Level 8.4 mg/dl Test 03/27/17 16:50 Bedside Glucose 289 mg/dl Assessment and Plan 68-year-old male here with periretal abscess and a history of myelodysplastic syndrome, operative drainage on 03/20 Encephalopathy likely toxic from opiate medications negative CT scan of his head continue to monitor and reduce opiates as possible Perirectal abscess E coli and bactorodies, continues on intravenous Zosyn, some slight rash on his back will follow Diarrhea has been help with Metamucil cholestyramine and Imodium no infectious diarrhea has been seen pancytopenia from myelodysplastic syndrome, supported with transfusion of both platelets and red blood cells currently hemoglobin has improved to the 9 g range for platelets are low at 14 remains neutropenic with neutropenic precautions with a ANC of 500 acute diastolic heart failure, did require lasix seems clinically continues to be euvolemic diabetes slightly elevated we'll adjust sliding scale insulin oral intake is poor and concern for basal insulin leading to low levels of serum glucose HTn continue isosorbide and atenolol BPH Flomax DVT prevention will be SCDs but watch for bruising with pressure Discharge planning: [facility] facility
[2017-03-27] MEDS: TAMSULOSIN HCL 0.4 MG CAP PO SCH (20:43)
[2017-03-27] MEDS: PRAVASTATIN SOD 40 MG TAB PO SCH (20:43)
[2017-03-27] MEDS: HYDROCODONE/ACETAMI 10/325 TAB PO SCH (20:44)
[2017-03-28] MEDS: HYDROCODONE/ACETAMI 10/325 TAB PO PRN ×4 (02:15→18:18)
[2017-03-28 04:19] VITALS: BP 140/61; PULSE 72; TEMP 36.9; O2SAT 95
--- NOTE | 2017-03-28 06:17 | Surgery Progress Note ---
Surgery Progress Note Date of Service Mar 28, 2017. Subjective awake, mental status seems to be ok- frail/weak afeb, pulse normal, has small loose bm early am- soft prior Objective Vital Signs: Date Time Temp Pulse Resp B/P (MAP) Pulse Ox O2 Delivery O2 Flow Rate FiO2 03/28/17 04:19 36.9 72 18 140/61 (87) 95 Room Air 03/28/17 00:05 Room Air 03/27/17 23:38 36.8 60 20 131/60 (83) 95 Room Air 03/27/17 21:28 Room Air 03/27/17 19:39 134/57 (82) 03/27/17 18:38 37.2 73 17 176/74 (108) 95 Room Air 03/27/17 16:00 Room Air 03/27/17 15:08 37.0 75 18 113/51 (71) 95 Room Air 03/27/17 14:43 37.6 03/27/17 08:30 Room Air 03/27/17 07:18 36.7 59 18 142/55 (84) 97 Room Air General Appearance: no apparent distress Respiratory/Chest: no respiratory distress Abdomen: soft Laboratory Results: Results Past 24 Hours Test 03/27/17 07:27 03/27/17 08:16 03/27/17 11:48 03/27/17 16:50 Range/Units Bedside Glucose 162 206 289 70-99 mg/dl White Blood Count 2.38 4.8-10.8 K/uL Red Blood Count 3.15 4.7-6.1 M/uL Hemoglobin 9.3 14.0-18.0 g/dL Hematocrit 26.9 42-52 % Mean Corpuscular Volume 85.4 80-100 fL Mean Corpuscular Hemoglobin 29.5 25-34 pg Mean Corpuscular Hemoglobin Concent 34.6 32-36 g/dl Platelet Count 14 130-400 K/uL RDW Standard Deviation 43.4 36.4-46.3 fL RDW Coefficient of Variation 14.2 11.5-14.5 % Neutrophils % (Manual) 21.1 % Lymphocytes % (Manual) 72.8 % Myelocytes % 3.5 % Blast Cells % 2.6 % Neutrophils # (Manual) 0.50 1.4-6.5 K/uL Total Absolute Neutrophils 0.50 1.4-6.5 K/uL Lymphocytes # (Manual) 1.73 1.2-3.4 K/uL Total Absolute Lymphocytes 1.73 1.2-3.4 K/uL Myelocytes # 0.08 0-0 K/uL Hypogranular Neutrophils 2+ Blast Cells # 0.06 0-0 K/uL Platelet Estimate SIGNIFIC DECREASED Red Blood Cell Morphology Unremarkable Sodium Level 131 136-145 mmol/L Potassium Level 4.0 3.5-5.1 mmol/L Chloride Level 99 98-107 mmol/L Carbon Dioxide Level 26 21-32 mmol/L Anion Gap 6.0 3-11 mmol/L Blood Urea Nitrogen 18 7-18 mg/dl Creatinine 1.10 0.60-1.40 mg/dl Est Creatinine Clear Calc Drug Dose 50.9 ml/min Estimated GFR () 73.6 Estimated GFR (Non- 63.5 BUN/Creatinine Ratio 16.3 10-20 Random Glucose 164 70-99 mg/dl Calcium Level 8.4 8.5-10.1 mg/dl Test 03/27/17 19:35 03/28/17 04:44 Range/Units Bedside Glucose 244 70-99 mg/dl perineal and buttock erythema w/ skin protective paste Assessment & Plan 03/28/17- would continue IV atbx, nonoperative management unless shows significant worsening perirectal infection- plan repeat imaging on Mon- most likely here over weekend. Dr Hooper covering over weekend. 03/27/17- seems to be stable from infection standpoint but extreme weakness from primary disease will likely progress. Not using any IV pain meds. cont supportive care and IV atbx. 03/26/17- seems to be more stable, always a concern for recurrence of abscess- would consider repeat pelvic CT w/o contrast if fever recurs. will check CT pelvis- no contrast- keep npo for now in case of significant collection- see addendum below 03/25/17- progressive deterioration w/ incontinence of bowel/bladder. min loose stool since yesterday afternoon- colestid may be helping. Now on po atbx for perirectal abscess. Severe anemia, pancytopenia. will ask wound care nurse for suggestions re- skin protective ointment. Needs significant nursing care 03/21/17- s/p incision/ drainage perirectal abscess via transrectal approach- will have nurses remove packing- cannot replace- cont IV atbx/ check cultures- may need Blood transfusion with expected anemia. No evidence of acute bleeding. Would cont atbx 2 weeks (IV then po) 03/27/17- seems to be stable from infection standpoint but extreme weakness from primary disease will likely progress. Not using any IV pain meds. cont supportive care and IV atbx. 03/26/17- seems to be more stable, always a concern for recurrence of abscess- would consider repeat pelvic CT w/o contrast if fever recurs. will check CT pelvis- no contrast- keep npo for now in case of significant collection- see addendum below 03/25/17- progressive deterioration w/ incontinence of bowel/bladder. min loose stool since yesterday afternoon- colestid may be helping. Now on po atbx for perirectal abscess. Severe anemia, pancytopenia. will ask wound care nurse for suggestions re- skin protective ointment. Needs significant nursing care 03/21/17- s/p incision/ drainage perirectal abscess via transrectal approach- will have nurses remove packing- cannot replace- cont IV atbx/ check cultures- may need Blood transfusion with expected anemia. No evidence of acute bleeding. Would cont atbx 2 weeks (IV then po)
[2017-03-28] MEDS: PIPERACILL/TAZOBAC IV 3.375 GM in DEXTROSE 5% 100ML IV SCH ×3 (06:23→20:57)
[2017-03-28] MEDS: LEVOTHYROXINE 75 MCG TAB PO SCH (06:24)
[2017-03-28 07:27] VITALS: BP 127/61; PULSE 60; TEMP 36.4; O2SAT 98
[2017-03-28 08:15] LABS: BUN/CREATININE RATIO 16.5 (10-20); CALCIUM 8.1 mg/dl (8.5-10.1); CREATININE 1.1 mg/dl (0.60-1.40)
[2017-03-28] MEDS: MAGNESIUM OXIDE 400 MG TAB PO SCH (08:20)
[2017-03-28] MEDS: ISOSORBIDE MONONITRATE 30 MG TABCR PO SCH (08:20)
[2017-03-28] MEDS: PSYLLIUM 58.6% PWD PACK S\\F PO SCH (08:21)
[2017-03-28 08:22] LABS: HEMATOCRIT 25.2 % (42-52); MEAN CORPUSCULAR HGB CONC 33.7 g/dl (32-36); MEAN PLATELET VOLUME 11.6 fL (7.4-10.4); PLATELET COUNT 15 K/uL (130-400); RED BLOOD COUNT 2.93 M/uL (4.7-6.1); WHITE BLOOD COUNT 2.31 K/uL (4.8-10.8)
[2017-03-28] MEDS: INSULIN ASPART 100 UNITS/ML 3 ML PEN SC SCH ×4 (08:29→21:09)
[2017-03-28] MEDS: COLESTIPOL HCL 1 GM TAB PO SCH ×2 (09:47→20:58)
[2017-03-28 12:53] VITALS: BP 128/60; PULSE 71; TEMP 37.2; O2SAT 96
[2017-03-28] MEDS ORDERED: FILGRASTIM 300 MCG/ML 1 ML VIAL SQ ONE (13:15)
[2017-03-28] MEDS: INSULIN GLARGINE SOLOSTAR 100 UNITS/ML 3 ML PEN SC SCH (13:27)
[2017-03-28 15:11] LABS: COMPLETE YES
[2017-03-28 15:22] LABS: LYMPH ABS # 1.71 K/uL (1.2-3.4); ROULEAUX 1+
[2017-03-28 15:30] VITALS: BP 110/54; PULSE 68; TEMP 36.7; O2SAT 94
--- NOTE | 2017-03-28 19:22 | Progress Note ---
Subjective Date of Service: Mar 28, 2017. Subjective This patient is weak and tired lying in bed difficult to move about difficult to get out of bed his is at the bedside and updated he has no new problems other than just marketed weakness his absolute neutrophil count did go up to 500 platelet counts remain low red blood cell count remains in the 8.5 g range Attempts discussing end-of-life with the family were not well received at this point he remains a full code with persistent need for blood transfusion Problem List Medical Problems: (1) Pancytopenia Status: Acute (2) Pneumonia Status: Acute Review of Systems Constitutional: + chills, + weakness, No fever Respiratory: + shortness of breath, + dyspnea on exertion, No cough Cardiac: + orthopnea, + edema, No chest pain, No PND Abdomen: + pain, No nausea, No vomiting, No diarrhea Musculoskeletal: + joint pain, + muscle pain Neurologic: + weakness, + balance problems, No memory loss Psychiatric: No depression symptoms, No anhedonism Objective Vital Signs Date Time Temp Pulse Resp B/P (MAP) Pulse Ox O2 Delivery O2 Flow Rate FiO2 03/28/17 16:00 Room Air 03/28/17 15:30 36.7 68 16 110/54 (72) 94 Room Air 03/28/17 12:53 37.2 71 18 128/60 (82) 96 Room Air 03/28/17 08:00 Room Air 03/28/17 07:27 36.4 60 16 127/61 (83) 98 Room Air 03/28/17 04:19 36.9 72 18 140/61 (87) 95 Room Air 03/28/17 00:05 Room Air 03/27/17 23:38 36.8 60 20 131/60 (83) 95 Room Air 03/27/17 21:28 Room Air 03/27/17 19:39 134/57 (82) Physical Exam General Appearance: + moderate distress, + thin Eyes: PERRL, EOMI Respiratory/Chest: chest non-tender, + decreased breath sounds Cardiovascular: regular rate, rhythm, no murmur Abdomen: normal bowel sounds, soft, + tenderness Extremities: no calf tenderness, + pedal edema Neurologic/Psychiatric: alert, + disoriented Skin: normal color, warm/dry, no rash Laboratory Results Last 24 Hours Test 03/27/17 19:35 03/28/17 07:24 03/28/17 07:49 03/28/17 12:04 Bedside Glucose 244 mg/dl 190 mg/dl 251 mg/dl White Blood Count 2.31 K/uL Red Blood Count 2.93 M/uL Hemoglobin 8.5 g/dL Hematocrit 25.2 % Mean Corpuscular Volume 86.0 fL Mean Corpuscular Hemoglobin 29.0 pg Mean Corpuscular Hemoglobin Concent 33.7 g/dl RDW Standard Deviation 43.7 fL RDW Coefficient of Variation 14.1 % Platelet Count 15 K/uL Mean Platelet Volume 11.6 fL Nucleated RBC Absolute Count (auto) 0.00 K/uL Neutrophils % (Manual) 18.0 % Lymphocytes % (Manual) 74.0 % Myelocytes % 3.0 % Promyelocytes % 5.0 % Nucleated Red Blood Cells % 0.0 % Neutrophils # (Manual) 0.42 K/uL Total Absolute Neutrophils 0.42 K/uL Lymphocytes # (Manual) 1.71 K/uL Total Absolute Lymphocytes 1.71 K/uL Myelocytes # 0.07 K/uL Promyelocytes # 0.12 K/uL [place] 1+ Sodium Level 132 mmol/L Potassium Level 4.0 mmol/L Chloride Level 100 mmol/L Carbon Dioxide Level 26 mmol/L Anion Gap 6.0 mmol/L Blood Urea Nitrogen 18 mg/dl Creatinine 1.10 mg/dl Est Creatinine Clear Calc Drug Dose 50.9 ml/min Estimated GFR () 73.6 Estimated GFR (Non- 63.5 BUN/Creatinine Ratio 16.5 Random Glucose 180 mg/dl Calcium Level 8.1 mg/dl Test 03/28/17 14:55 03/28/17 16:41 Bedside Glucose 269 mg/dl 179 mg/dl Assessment and Plan 68-year-old male here with periretal abscess and a history of myelodysplastic syndrome, operative drainage on 03/20 Encephalopathy likely toxic from opiate medications negative CT scan of his head continue to monitor and reduce opiates as possible, continue to be occasionally confused maybe hospital psychosis Perirectal abscess E coli and bactorodies, continues on intravenous Zosyn, Diarrhea has been help with Metamucil cholestyramine and Imodium no infectious diarrhea has been seen pancytopenia from myelodysplastic syndrome, supported with transfusion of both platelets and red blood cells currently hemoglobin has improved to the 8.5 g range for platelets are low at 14 remains neutropenic with neutropenic precautions with a ANC of 500 we'll attempt to use Neupogen to see if we can help improve acute diastolic heart failure, stable and euvolemic diabetes slightly elevated we'll adjust sliding scale insulin oral intake is poor and adding basal insulin HTn continue isosorbide and atenolol BPH Flomax DVT prevention will be SCDs but watch for bruising with pressure Discharge planning: correction facility
[2017-03-28 19:26] VITALS: BP 137/57; PULSE 68; TEMP 36.8; O2SAT 97
[2017-03-28] MEDS: TAMSULOSIN HCL 0.4 MG CAP PO SCH (20:57)
[2017-03-28] MEDS: HYDROCODONE/ACETAMI 10/325 TAB PO SCH (20:57)
[2017-03-28] MEDS: PRAVASTATIN SOD 40 MG TAB PO SCH (20:58)
[2017-03-29] VITALS (8 sets, daily range): BP systolic 89–165; BP diastolic 43–67; PULSE 58–80; TEMP 36.6–37.7; O2SAT 94–97
[2017-03-29] MEDS: PIPERACILL/TAZOBAC IV 3.375 GM in DEXTROSE 5% 100ML IV SCH ×3 (05:40→21:32)
[2017-03-29] MEDS: LEVOTHYROXINE 75 MCG TAB PO SCH (06:05)
[2017-03-29 08:27] LABS: HEMATOCRIT 21.4 % (42-52); MEAN CELL VOLUME 84.9 fL (80-100); MEAN CORPUSCULAR HEMOGLOBIN 29.8 pg (25-34); RED BLOOD COUNT 2.52 M/uL (4.7-6.1); WHITE BLOOD COUNT 3.03 K/uL (4.8-10.8)
[2017-03-29] MEDS: PSYLLIUM 58.6% PWD PACK S\\F PO SCH (08:28)
[2017-03-29] MEDS: MAGNESIUM OXIDE 400 MG TAB PO SCH (08:28)
--- NOTE | 2017-03-29 08:33 | Progress Note ---
Progress Note Date of Service Mar 29, 2017. Progress Note Pt seen for Dr. Rodríguez. No complaints of rectal pain. Unsure if he is having rectal drainage. Bowels are functioning but are still "messy". Labs reviewed - c /w myelodysplastic syndrome. No new recommendations.
[2017-03-29] MEDS: HYDROCODONE/ACETAMI 10/325 TAB PO PRN ×3 (08:36→18:11)
[2017-03-29] MEDS: INSULIN ASPART 100 UNITS/ML 3 ML PEN SC SCH ×4 (08:43→21:26)
[2017-03-29] MEDS: INSULIN GLARGINE SOLOSTAR 100 UNITS/ML 3 ML PEN SC SCH (08:44)
[2017-03-29 08:53] LABS: PLATELET COUNT 15 K/uL (130-400)
[2017-03-29] MEDS: ISOSORBIDE MONONITRATE 30 MG TABCR PO SCH (09:04)
[2017-03-29] MEDS: COLESTIPOL HCL 1 GM TAB PO SCH ×2 (09:05→21:31)
[2017-03-29 09:36] LABS: COMPLETE YES; LYMPH ABS # 2.36 K/uL (1.2-3.4); LYMPHOCYTE % 77.8 %; META ABS # 0.03 K/uL (0-0); METAMYELOCYTE % 0.9 %; MYELOCYTE % 0.9 %; NEUTROPHILS % 17.7 %
--- NOTE | 2017-03-29 15:20 | Progress Note ---
Subjective Date of Service: Mar 29, 2017. Subjective this pt seems more awake and alert, is agreeable to get out of bed today and try the chair, did not have significant bump in counts will agree to another day of neupogen, understanding risk of stimulating blast or abnormal cell rise also Problem List Medical Problems: (1) Pancytopenia Status: Acute (2) Pneumonia Status: Acute Review of Systems Constitutional: No fever, No chills Respiratory: No cough, No sputum Cardiac: No chest pain, No orthopnea Abdomen: No pain, No nausea Objective Vital Signs Date Time Temp Pulse Resp B/P (MAP) Pulse Ox O2 Delivery O2 Flow Rate FiO2 03/29/17 14:56 36.6 63 18 107/56 (73) 96 Room Air 03/29/17 11:17 36.8 73 18 96/43 (60) 96 Room Air 03/29/17 08:00 Room Air 03/29/17 07:25 37.1 69 18 124/55 (78) 94 Room Air 03/29/17 04:06 37.7 80 18 165/67 (99) 96 Room Air 03/29/17 00:24 37.3 70 18 136/62 (86) 95 Room Air 03/29/17 00:05 Room Air 03/28/17 20:05 Room Air 03/28/17 19:26 36.8 68 16 137/57 (83) 97 Room Air 03/28/17 16:00 Room Air 03/28/17 15:30 36.7 68 16 110/54 (72) 94 Room Air Physical Exam General Appearance: WD/WN, + mild distress, + obese Respiratory/Chest: chest non-tender, lungs clear Cardiovascular: regular rate, rhythm, no murmur Abdomen: normal bowel sounds, soft Extremities: no pedal edema, no calf tenderness Neurologic/Psychiatric: alert, oriented x 3 Laboratory Results Last 24 Hours Test 03/28/17 16:41 03/28/17 19:44 03/29/17 07:38 03/29/17 07:47 Bedside Glucose 179 mg/dl 224 mg/dl 204 mg/dl White Blood Count 3.03 K/uL Red Blood Count 2.52 M/uL Hemoglobin 7.5 g/dL Hematocrit 21.4 % Mean Corpuscular Volume 84.9 fL Mean Corpuscular Hemoglobin 29.8 pg Mean Corpuscular Hemoglobin Concent 35.0 g/dl Platelet Count 15 K/uL RDW Standard Deviation 42.5 fL RDW Coefficient of Variation 14.0 % Neutrophils % (Manual) 17.7 % Lymphocytes % (Manual) 77.8 % Metamyelocytes % 0.9 % Myelocytes % 0.9 % Blast Cells % 2.7 % Neutrophils # (Manual) 0.54 K/uL Total Absolute Neutrophils 0.54 K/uL Lymphocytes # (Manual) 2.36 K/uL Total Absolute Lymphocytes 2.36 K/uL Metamyelocytes # 0.03 K/uL Myelocytes # 0.03 K/uL Hypogranular Neutrophils 2+ Blast Cells # 0.08 K/uL Test 03/29/17 11:35 Bedside Glucose 242 mg/dl Assessment and Plan 68-year-old male here with periretal abscess and a history of myelodysplastic syndrome, operative drainage on 03/20 Encephalopathy resolved, still not clear of cause Perirectal abscess E coli and bactorodies, continues on intravenous Zosyn, Diarrhea greatly improved with Metamucil cholestyramine and Imodium no infectious diarrhea has been seen pancytopenia from myelodysplastic syndrome, supported with transfusion of both platelets and red blood cells currently hemoglobin is flucutating now in 7's may need transfusion soon, range for platelets are low at 15 remains neutropenic with neutropenic precautions another dose of Neupogen 03/29 acute diastolic heart failure, stable and euvolemic diabetes slightly elevated despite adding basal to sliding scale insulin continue to adjust HTn continue isosorbide and atenolol BPH Flomax DVT prevention will be SCDs contraindicated with such low platelets, watch for bruising with pressure Discharge planning: residential facility
[2017-03-29] MEDS: TAMSULOSIN HCL 0.4 MG CAP PO SCH (21:20)
[2017-03-29] MEDS: PRAVASTATIN SOD 40 MG TAB PO SCH (21:20)
[2017-03-29] MEDS: HYDROCODONE/ACETAMI 10/325 TAB PO SCH (21:21)
[2017-03-30 04:19] VITALS: BP 159/70; PULSE 67; TEMP 36.8; O2SAT 95
[2017-03-30 05:48] LABS: HEMATOCRIT 22.8 % (42-52); MEAN CELL VOLUME 85.4 fL (80-100); MEAN CORPUSCULAR HEMOGLOBIN 29.2 pg (25-34); MEAN CORPUSCULAR HGB CONC 34.2 g/dl (32-36); PLATELET COUNT 13 K/uL (130-400); RED BLOOD COUNT 2.67 M/uL (4.7-6.1); WHITE BLOOD COUNT 2.93 K/uL (4.8-10.8)
[2017-03-30] MEDS: PIPERACILL/TAZOBAC IV 3.375 GM in DEXTROSE 5% 100ML IV SCH ×3 (06:01→21:21)
[2017-03-30] MEDS: LEVOTHYROXINE 75 MCG TAB PO SCH (06:01)
[2017-03-30 06:06] LABS: CALCIUM 8.1 mg/dl (8.5-10.1); CREATININE 1.1 mg/dl (0.60-1.40)
[2017-03-30 07:02] LABS: LARGE PLATELETS 3+; PLT ESTIMATE SIGNIFIC DECREASED
[2017-03-30 07:14] LABS: COMPLETE YES; LYMPH ABS # 2.64 K/uL (1.2-3.4); LYMPHOCYTE % 90.1 %; NEUTROPHILS % 3.6 %
[2017-03-30 07:24] VITALS: BP 124/60; PULSE 63; TEMP 36.6; O2SAT 96
[2017-03-30] MEDS: HYDROCODONE/ACETAMI 10/325 TAB PO PRN ×3 (07:45→19:20)
[2017-03-30] MEDS: ISOSORBIDE MONONITRATE 30 MG TABCR PO SCH (07:46)
[2017-03-30] MEDS: MAGNESIUM OXIDE 400 MG TAB PO SCH (07:46)
[2017-03-30] MEDS: PSYLLIUM 58.6% PWD PACK S\\F PO SCH (07:46)
[2017-03-30] MEDS ORDERED: FILGRASTIM 300 MCG/ML 1 ML VIAL SQ ONE (09:00)
[2017-03-30] MEDS: INSULIN ASPART 100 UNITS/ML 3 ML PEN SC SCH ×4 (09:03→21:20)
[2017-03-30] MEDS: INSULIN GLARGINE SOLOSTAR 100 UNITS/ML 3 ML PEN SC SCH (09:04)
--- NOTE | 2017-03-30 10:08 | Progress Note ---
Progress Note Date of Service Mar 30, 2017. Progress Note Pt essentially unchanged. Pancytopenic. Diarrhea is improving with antidiarrheal agents. Some perirectal pain. No drainage that he can tell. No new recommendations. Dr. Rodríguez to return tomorrow.
[2017-03-30] MEDS: COLESTIPOL HCL 1 GM TAB PO SCH ×2 (10:23→21:21)
[2017-03-30 11:52] VITALS: BP 102/50; PULSE 63; TEMP 36.6; O2SAT 96
[2017-03-30 15:55] VITALS: BP 106/53; PULSE 72; TEMP 36.6; O2SAT 94
--- NOTE | 2017-03-30 16:25 | Progress Note ---
Subjective Date of Service: Mar 30, 2017. Subjective Pt is about the same to a bit weaker, have made little progress and pt seems content to stay in bed, blood counts are about the same with no real response to procrit or neupogen. Pt seems committed to the fact that he is not ready to pursue palliative care but offers no direction in where we go if this does not improve, and no solution to his persistent deconditioning. Problem List Medical Problems: (1) Pancytopenia Status: Acute (2) Pneumonia Status: Acute Review of Systems Constitutional: + weakness (profound), + fatigue, No fever, No chills Respiratory: No cough, No sputum Cardiac: No chest pain, No orthopnea Abdomen: + pain, No nausea, No vomiting, No diarrhea Objective Vital Signs Date Time Temp Pulse Resp B/P (MAP) Pulse Ox O2 Delivery O2 Flow Rate FiO2 03/30/17 15:55 36.6 72 18 106/53 (70) 94 Room Air 03/30/17 11:52 36.6 63 18 102/50 (67) 96 Room Air 03/30/17 08:00 Room Air 03/30/17 07:24 36.6 63 18 124/60 (81) 96 Room Air 03/30/17 04:19 36.8 67 18 159/70 (99) 95 Room Air 03/30/17 00:05 Room Air 03/29/17 23:16 36.6 58 18 124/56 (78) 97 Room Air 03/29/17 20:05 Room Air 03/29/17 19:11 36.8 64 16 123/54 (77) 94 Room Air Physical Exam General Appearance: + mild distress, + thin Eyes: PERRL, EOMI Respiratory/Chest: chest non-tender, lungs clear, normal breath sounds Cardiovascular: regular rate, rhythm, no murmur Abdomen: normal bowel sounds, non tender, soft Extremities: no calf tenderness, + pedal edema Neurologic/Psychiatric: alert, oriented x 3 Laboratory Results Last 24 Hours Test 03/29/17 16:45 03/29/17 19:41 03/30/17 05:20 03/30/17 07:33 Bedside Glucose 265 mg/dl 202 mg/dl 195 mg/dl White Blood Count 2.93 K/uL Red Blood Count 2.67 M/uL Hemoglobin 7.8 g/dL Hematocrit 22.8 % Mean Corpuscular Volume 85.4 fL Mean Corpuscular Hemoglobin 29.2 pg Mean Corpuscular Hemoglobin Concent 34.2 g/dl Platelet Count 13 K/uL RDW Standard Deviation 42.2 fL RDW Coefficient of Variation 14.0 % Neutrophils % (Manual) 3.6 % Lymphocytes % (Manual) 90.1 % Monocytes % (Manual) 1.8 % Promyelocytes % 0.9 % Blast Cells % 3.6 % Neutrophils # (Manual) 0.11 K/uL Total Absolute Neutrophils 0.11 K/uL Lymphocytes # (Manual) 2.64 K/uL Total Absolute Lymphocytes 2.64 K/uL Monocytes # (Manual) 0.05 K/uL Promyelocytes # 0.03 K/uL Hypogranular Neutrophils 2+ Blast Cells # 0.11 K/uL Platelet Estimate SIGNIFIC DECREASED Large Platelets 3+ Sodium Level 134 mmol/L Potassium Level 4.0 mmol/L Chloride Level 102 mmol/L Carbon Dioxide Level 26 mmol/L Anion Gap 6.0 mmol/L Blood Urea Nitrogen 19 mg/dl Creatinine 1.10 mg/dl Est Creatinine Clear Calc Drug Dose 50.9 ml/min Estimated GFR () 73.6 Estimated GFR (Non- 63.5 BUN/Creatinine Ratio 17.0 Random Glucose 171 mg/dl Calcium Level 8.1 mg/dl Test 03/30/17 11:36 Bedside Glucose 247 mg/dl Assessment and Plan 68-year-old male here with perirectal abscess and a history of myelodysplastic syndrome, operative drainage on 03/20, has persistent fluid collection and poor WBC with pancytopenia for the duration of his stay Encephalopathy resolved, still not clear of cause, maybe opiate meds Perirectal abscess E coli and bacteroides, continues on intravenous Zosyn, re image 03/26 shows persistent fluid collection, surgery is hesitant to drain as would require substantial procedure and pt is deconditioned and malnourished and will likely have poor post op course , Dr Rodríguez is still following Diarrhea continues to be improved with Metamucil cholestyramine and Imodium no infectious diarrhea has been seen pancytopenia from myelodysplastic syndrome, supported with transfusion of both platelets and red blood cells currently hemoglobin is fluctuating now in 7's may need transfusion soon, range for platelets are low at 13 remains neutropenic with neutropenic precautions another dose of Neupogen 03/30, now 2 doses, anc remains low acute diastolic heart failure, stable and euvolemic diabetes slightly elevated despite adding basal to sliding scale insulin continue to adjust HTn continue isosorbide and atenolol BPH Flomax DVT prevention will be SCDs contraindicated with such low platelets, watch for bruising with pressure Attempts at discussion of palliative care with pt and both alone and together have not been well received, he just does not feel he is ready for this , also continued questions about bone marrow transplant Discharge planning: retirement facility
[2017-03-30 19:39] VITALS: BP 122/52; PULSE 67; TEMP 36.8; O2SAT 97
[2017-03-30] MEDS: TAMSULOSIN HCL 0.4 MG CAP PO SCH (21:13)
[2017-03-30] MEDS: PRAVASTATIN SOD 40 MG TAB PO SCH (21:14)
[2017-03-30] MEDS: HYDROCODONE/ACETAMI 10/325 TAB PO SCH (21:20)
[2017-03-30 23:37] VITALS: BP 144/62; PULSE 68; TEMP 36.6; O2SAT 93
[2017-03-31 04:32] VITALS: BP 136/63; PULSE 61; TEMP 36.7; O2SAT 95
[2017-03-31] MEDS: PIPERACILL/TAZOBAC IV 3.375 GM in DEXTROSE 5% 100ML IV SCH ×3 (06:08→21:36)
[2017-03-31] MEDS: LEVOTHYROXINE 75 MCG TAB PO SCH (06:09)
[2017-03-31] MEDS ORDERED: OPTIRAY 320 IV PRN (06:45)
--- NOTE | 2017-03-31 06:45 | Surgery Progress Note ---
Surgery Progress Note Date of Service Mar 31, 2017. Subjective afeb, pain mostly skin irritation of buttock area bowel movements soft, some incontinence Objective Vital Signs: Date Time Temp Pulse Resp B/P (MAP) Pulse Ox O2 Delivery O2 Flow Rate FiO2 03/31/17 04:32 36.7 61 18 136/63 (87) 95 Room Air 03/31/17 00:05 Room Air 03/30/17 23:37 36.6 68 18 144/62 (89) 93 Room Air 03/30/17 20:05 Room Air 03/30/17 19:39 36.8 67 20 122/52 (75) 97 Room Air 03/30/17 16:00 Room Air 03/30/17 15:55 36.6 72 18 106/53 (70) 94 Room Air 03/30/17 11:52 36.6 63 18 102/50 (67) 96 Room Air 03/30/17 08:00 Room Air 03/30/17 07:24 36.6 63 18 124/60 (81) 96 Room Air General Appearance: no apparent distress Respiratory/Chest: no respiratory distress Laboratory Results: Results Past 24 Hours Test 03/30/17 07:33 03/30/17 11:36 03/30/17 16:53 03/30/17 20:10 Range/Units Bedside Glucose 195 247 185 154 70-99 mg/dl Test 03/31/17 06:25 Range/Units perianal/ gluteal skin irritation- skin protective ointment in use Assessment & Plan 03/31/17- no acute changes or temp spikes. Overall same over past week. more anemic and platelets diminished. Will repeat CT pelvis w/ IV contrast only ( no oral ). Consider transfer to [facility] if no significant changes reviewed CT- persistent 2 cm abscess w/ gas, probable developing fistula tract- Will likely worsen over time w/o drain placement- especiallt in light of pancytopenia- For OR in am 12- will need 2 packs of plts preop 03/28/17- would continue IV atbx, nonoperative management unless shows significant worsening perirectal infection- plan repeat imaging on Mon- most likely here over weekend. Dr Hooper covering over weekend. 03/27/17- seems to be stable from infection standpoint but extreme weakness from primary disease will likely progress. Not using any IV pain meds. cont supportive care and IV atbx. 03/26/17- seems to be more stable, always a concern for recurrence of abscess- would consider repeat pelvic CT w/o contrast if fever recurs. will check CT pelvis- no contrast- keep npo for now in case of significant collection- see addendum below 03/25/17- progressive deterioration w/ incontinence of bowel/bladder. min loose stool since yesterday afternoon- colestid may be helping. Now on po atbx for perirectal abscess. Severe anemia, pancytopenia. will ask wound care nurse for suggestions re- skin protective ointment. Needs significant nursing care 03/21/17- s/p incision/ drainage perirectal abscess via transrectal approach- will have nurses remove packing- cannot replace- cont IV atbx/ check cultures- may need Blood transfusion with expected anemia. No evidence of acute bleeding. Would cont atbx 2 weeks (IV then po) 03/28/17- would continue IV atbx, nonoperative management unless shows significant worsening perirectal infection- plan repeat imaging on Mon- most likely here over weekend. Dr Hooper covering over weekend. 03/27/17- seems to be stable from infection standpoint but extreme weakness from primary disease will likely progress. Not using any IV pain meds. cont supportive care and IV atbx. 03/26/17- seems to be more stable, always a concern for recurrence of abscess- would consider repeat pelvic CT w/o contrast if fever recurs. will check CT pelvis- no contrast- keep npo for now in case of significant collection- see addendum below 03/25/17- progressive deterioration w/ incontinence of bowel/bladder. min loose stool since yesterday afternoon- colestid may be helping. Now on po atbx for perirectal abscess. Severe anemia, pancytopenia. will ask wound care nurse for suggestions re- skin protective ointment. Needs significant nursing care 03/21/17- s/p incision/ drainage perirectal abscess via transrectal approach- will have nurses remove packing- cannot replace- cont IV atbx/ check cultures- may need Blood transfusion with expected anemia. No evidence of acute bleeding. Would cont atbx 2 weeks (IV then po)
[2017-03-31 07:22] VITALS: BP 143/59; PULSE 67; TEMP 36.7; O2SAT 95
[2017-03-31 07:55] LABS: HEMATOCRIT 23.7 % (42-52); MEAN CELL VOLUME 84.6 fL (80-100); MEAN CORPUSCULAR HEMOGLOBIN 28.6 pg (25-34); MEAN CORPUSCULAR HGB CONC 33.8 g/dl (32-36); PLATELET COUNT 13 K/uL (130-400); WHITE BLOOD COUNT 2.77 K/uL (4.8-10.8)
[2017-03-31 08:11] LABS: DOHLE BODIES 1+; GIANT PLATELETS 3+
[2017-03-31 08:14] LABS: COMPLETE YES; LYMPH ABS # 2.28 K/uL (1.2-3.4); LYMPHOCYTE % 82.3 %; NEUTROPHILS % 10.6 %
[2017-03-31] MEDS: ISOSORBIDE MONONITRATE 30 MG TABCR PO SCH (08:44)
[2017-03-31] MEDS: MAGNESIUM OXIDE 400 MG TAB PO SCH (08:45)
[2017-03-31] MEDS: HYDROCODONE/ACETAMI 10/325 TAB PO PRN ×2 (08:46→16:20)
--- NOTE | 2017-03-31 08:46 | DIAGNOSTIC IMAGING REPORT ---
PELVIS W/IV CONT ONLY (CT) CLINICAL HISTORY: 77 years-old Male presenting with perirectal abscess. TECHNIQUE: Multidetector CT of the pelvis was performed after the administration of intravenous contrast. IV contrast: 93 mL of Optiray 320. A dose lowering technique was used consistent with the principles of ALARA (as low as reasonably achievable). COMPARISON: 03/26/2017. CT DOSE (mGy.cm): The estimated cumulative dose is 201.21 mGy.cm. FINDINGS: Dependency Case Manager topogram: Aortobiiliac stent grafts in place. Previously noted gas and fluid containing collection along the right posterior lateral aspect of the lower rectum is better defined on the current exam with intravenous contrast. Rim enhancement is evident. This collection again contains a small amount of gas and measures up to 2.2 cm in diameter. 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 A second rim-enhancing 11 mm collection is noted along the right anterolateral aspect of the anus near the anal verge (series 2 image 50). This was not clearly noted on the prior exam, although the lack of intravenous contrast on prior exam makes direct comparison difficult. Extensive presacral inflammatory change is again apparent. Visualized portions of the sigmoid colon and rectum demonstrate diverticulosis. Mild circumferential bladder wall thickening may indicate chronic outlet obstruction. Prostatomegaly likely indicates the presence of underlying benign prostatic hyperplasia. The appendix is contained within the right inguinal canal (Amyand hernia). No associated inflammatory change. Postsurgical changes along the bilateral common femoral vessels, likely from prior endovascular treatment. Heterogeneous hypoattenuation in the bilateral superficial femoral veins likely from mixing artifact. Aortobiiliac stent graft appears patent. The aortic bifurcation is mildly ectatic. No lymphadenopathy. Degenerative changes of the lower lumbar spine and sacroiliac joints evident. IMPRESSION: 1. Persistent perirectal abscess along the right posterior lateral aspect. Suggestion of a perianal fistula arising from the 6:00 position of the anus. This is better evaluated with dedicated contrast-enhanced MR of the anus. 2. Additional 11 mm abscess at the right anterolateral aspect near the anal verge. 3. Diverticulosis. 4. Suggestion of chronic bladder outlet obstruction secondary to prostatomegaly. 5. Visualized portion of the aortobiiliac stent graft is patent. Electronically signed by: Carlos Laughlin M.D. 03/31/2017 8:45 AM Dictated Date/Time: 03/31/2017 8:35 AM
[2017-03-31] MEDS: PSYLLIUM 58.6% PWD PACK S\\F PO SCH (08:47)
[2017-03-31] MEDS: INSULIN ASPART 100 UNITS/ML 3 ML PEN SC SCH ×5 (08:53→21:32)
[2017-03-31] MEDS: INSULIN GLARGINE SOLOSTAR 100 UNITS/ML 3 ML PEN SC SCH (08:54)
[2017-03-31] MEDS: COLESTIPOL HCL 1 GM TAB PO SCH ×2 (10:12→21:32)
[2017-03-31] MEDS: HYDROCORTISONE HC 2.5% CRM 30GM TUBE EXT PRN (10:59)
[2017-03-31 12:07] VITALS: BP 101/49; PULSE 62; TEMP 36.7; O2SAT 95
--- NOTE | 2017-03-31 13:46 | Anesthesiology Progress Note ---
Anesthesia Progress Note Date of Service Mar 31, 2017. Progress Notes The patient is a 76 y/o male scheduled for I and D of a rectal abscess by Dr. Rodríguez tomorrow. The patient had the same surgery on 03/20/17 for the same issue. Dr. Rodríguez states that the surgery is of an urgent nature because of the worsening abscess. He has been hospitalized since that time with increased weakness likely related to his myelodysplastic syndrome with pancytopenia. His current platelets are 13 for which he is scheduled to receive two units of platelets tonight in anticipation of surgery. Other PMH includes CAD with OK and CABG in 1988, dyslipidemia, HTN, PVD with AAA repair, mild MR/TR, recent delirium likely from opiates, type 2 DM, hypothyroidism, and BPH. He tolerated general anesthesia on 03/20/17 and was noted to be a Grade 1 view with MAC 3. His recent head CT shows NAD. Recent EKG showed sinus bradycardia with nonspecific ST changes. His recent echo shows EF 55% with mild TR and MR. Labs are significant for WBC 2.8, hgb 8, and platelet 13. Electrolytes are stable. The patient is an ASA 4. The patient was consented for general anesthesia. He was counseled to remain NPO after 2300 except for sips of water with pills.
[2017-03-31 15:13] VITALS: BP 119/49; PULSE 62; TEMP 36.6; O2SAT 96
--- NOTE | 2017-03-31 15:21 | Progress Note ---
Subjective Date of Service: Mar 31, 2017. Subjective Pt evaluation today including: conversation w/ patient, conversation w/ family , conversation w/ marketing operations consultant Pt is having pain related to the abscess, but otherwise no new concerns. Tolerating PO without issue. Pt denies fever, SOB, chest pain, abd pain, n/v/c/ d, LE pain or swelling. Problem List Medical Problems: (1) Pancytopenia Status: Acute (2) Pneumonia Status: Acute Objective Vital Signs Date Time Temp Pulse Resp B/P (MAP) Pulse Ox O2 Delivery O2 Flow Rate FiO2 03/31/17 15:13 36.6 62 20 119/49 (72) 96 Room Air 03/31/17 12:07 36.7 62 14 101/49 (66) 95 Room Air 03/31/17 08:00 Room Air 03/31/17 07:22 36.7 67 20 143/59 (87) 95 03/31/17 04:32 36.7 61 18 136/63 (87) 95 Room Air 03/31/17 00:05 Room Air 03/30/17 23:37 36.6 68 18 144/62 (89) 93 Room Air 03/30/17 20:05 Room Air 03/30/17 19:39 36.8 67 20 122/52 (75) 97 Room Air 03/30/17 16:00 Room Air 03/30/17 15:55 36.6 72 18 106/53 (70) 94 Room Air Physical Exam General Appearance: WD/WN, no apparent distress Eyes: normal inspection, EOMI Respiratory/Chest: normal breath sounds, no respiratory distress Cardiovascular: regular rate, rhythm, no edema Abdomen: non tender, soft Extremities: non-tender, no pedal edema Neurologic/Psychiatric: alert, normal mood/affect, oriented x 3 Skin: normal color, warm/dry Laboratory Results Last 24 Hours Test 03/30/17 16:53 03/30/17 20:10 03/31/17 06:25 03/31/17 07:38 Bedside Glucose 185 mg/dl 154 mg/dl 184 mg/dl White Blood Count 2.77 K/uL Red Blood Count 2.80 M/uL Hemoglobin 8.0 g/dL Hematocrit 23.7 % Mean Corpuscular Volume 84.6 fL Mean Corpuscular Hemoglobin 28.6 pg Mean Corpuscular Hemoglobin Concent 33.8 g/dl Platelet Count 13 K/uL RDW Standard Deviation 42.1 fL RDW Coefficient of Variation 13.8 % Neutrophils % (Manual) 10.6 % Lymphocytes % (Manual) 82.3 % Monocytes % (Manual) 1.8 % Blast Cells % 5.3 % Neutrophils # (Manual) 0.29 K/uL Total Absolute Neutrophils 0.29 K/uL Lymphocytes # (Manual) 2.28 K/uL Total Absolute Lymphocytes 2.28 K/uL Monocytes # (Manual) 0.05 K/uL Hypogranular Neutrophils 1+ Blast Cells # 0.15 K/uL Dohle Bodies 1+ Giant Platelets 3+ Test 03/31/17 12:05 Bedside Glucose 249 mg/dl Assessment and Plan 68-year-old male here with perirectal abscess and a history of myelodysplastic syndrome, operative drainage on 03/20, has persistent fluid collection and poor WBC with pancytopenia for the duration of his stay Encephalopathy resolved, still not clear of cause ? related to opiate meds Perirectal abscess E coli and bacteroides, continues on intravenous Zosyn re imaging shows persistent fluid collection and possibly developing a fistul surgery is planning for OR tomorrow s/p platelet transfusion Diarrhea continues to be improved with Metamucil cholestyramine and Imodium no infectious diarrhea has been seen pancytopenia from myelodysplastic syndrome Neupogen-2 doses, will monitor for now Platelets 2 packs tonight acute diastolic heart failure, stable and euvolemic diabetes slightly elevated despite adding basal to sliding scale insulin continue to adjust HTn continue isosorbide and atenolol BPH Flomax DVT prevention will be SCDs contraindicated with such low platelets, watch for bruising with pressure Attempts at discussion of palliative care with pt and both alone and together have not been well received per prior physician, he just does not feel he is ready for this, also continued questions about bone marrow transplant Planning for d/c to [facility] once stable Discharge planning: long-term facility
[2017-03-31 20:10] VITALS: BP 112/50; PULSE 65; TEMP 36.6; O2SAT 95
[2017-03-31] MEDS: PRAVASTATIN SOD 40 MG TAB PO SCH (21:27)
[2017-03-31] MEDS: TAMSULOSIN HCL 0.4 MG CAP PO SCH (21:28)
[2017-03-31] MEDS: HYDROCODONE/ACETAMI 10/325 TAB PO SCH (21:37)
[2017-03-31 23:28] VITALS: BP 123/46; PULSE 61; TEMP 36.7; O2SAT 98
[2017-04-01] VITALS (22 sets, daily range): BP systolic 104–163; BP diastolic 48–77; PULSE 58–93; TEMP 36.2–39.4; O2SAT 91–99
[2017-04-01] MEDS: LEVOTHYROXINE 75 MCG TAB PO SCH (05:56)
[2017-04-01] MEDS: PIPERACILL/TAZOBAC IV 3.375 GM in DEXTROSE 5% 100ML IV SCH ×4 (05:56→21:57)
[2017-04-01] MEDS ORDERED: ONDANSETRON INJ 2 MG/ML 2 ML VIAL ONE (06:30)
[2017-04-01] MEDS ORDERED: PROPOFOL IV EMULSION 10 MG/ML 20 ML VIAL IV ONE (06:30)
[2017-04-01] MEDS ORDERED: ROCURONIUM BROMIDE 10 MG/ML 5 ML VIAL IV ONE (06:30)
[2017-04-01] MEDS ORDERED: LIDOCAINE HCL 2% 2 ML VIAL (20MG/ML) ONE (06:30)
[2017-04-01] MEDS ORDERED: FENTANYL CITRATE INJ 50 MCG/1 ML 2 ML VIAL ONE (06:30)
--- NOTE | 2017-04-01 06:34 | History & Physical Bridge Note ---
H&P Re-Evaluation Bridge Note: I have examined the patient, reviewed the History & Physical and in the interval since the performance of the History & Physical I have noted the following changes of clinical significance: No changes noted
[2017-04-01] MEDS ORDERED: BUPIVACAINE 0.5 % 5 MG/1 ML MPF 30ML VIAL ONE (07:03)
[2017-04-01] MEDS ORDERED: BUPIVACAINE 0.25% 30 ML VIAL ONE (07:03)
[2017-04-01] MEDS ORDERED: NEOSTIGMINE METHYLSULFATE 1 MG/ML 10ML VIAL ONE (07:14)
[2017-04-01] MEDS ORDERED: GLYCOPYRROLATE INJ 0.2 MG/ML VIAL ONE (07:14)
--- NOTE | 2017-04-01 08:01 | [facility] Operative Report ---
Operative Report Operative Date Apr 01, 2017. Pre-Operative Diagnosis Perirectal abscess Post-Operative Diagnosis Same as preop- complex, loculated with sinus track Procedure(s) Performed Incision and Drainage Perirectal Abscess- seton and malecot drain placement Surgeon Dr. Rodríguez Anesthesiology Tech Surgeon(s) Dr. Correa Estimated Blood Loss 20 cc Findings complex , loculated abscess tracking above levator muscles and to the Rt side- as a sinus track Specimens None, as per surgeon Drains 1/2 inch packing placed, seton and 16 fr malecot drain Anesthesia gen Complication(s) None Disposition Recovery Room / PACU I attest to the content of the Intraoperative Record and any orders documented therein. Any exceptions are noted below.
--- NOTE | 2017-04-01 08:10 | OPERATIVE REPORT ---
DATE OF OPERATION: 04/01/2017 NAME OF OPERATION: Incision and drainage of complex perirectal abscess with a Seton and Malecot drain placement. PREOPERATIVE DIAGNOSIS: Perirectal abscess with recurrence. POSTOPERATIVE DIAGNOSIS: Same. STAFF SURGEON: Dr. Rodríguez. VENDING TECHNICIAN: Dr. Correa. ANESTHESIA: General, positioning prone. DESCRIPTION OF PROCEDURE: The patient was brought in the operating room and placed on the operating table in the prone position after appropriate intubation, the table was flexed and his perianal area was prepped and draped in usual fashion. On inspection, the patient had induration on the right perianal area at approximately 3 o'clock area with no erythema, but from CAT scan, we could see that the abscess was tracking toward this area as a sinus tract trying to develop a fistula. On manipulation of this area, we saw purulent fluid coming from the anal area. On inspection, the patient had a posterior opening which was likely from prior attempted drainage. On digital manipulation of this cavity, I was able to identify a second loculation which was high into the right and also the sinus tract going to the right side of the perianal area tracking toward the scan. This is second area of loculation. This was all broken free. Purulent fluid was drained and aspirated. At this point, we felt that it was better to drain the areas through the right perianal area and an incision was made using 0.5% plain Marcaine and then a clamp placed through this into the cavity. A double red vessel loop was brought through this area and out through the anus as a Seton. The Seton was secured using 2-0 silk suture. It was relatively loose. At this point, I also felt that we should place a mushroom drain up into the cavity which we did through the same opening in the perianal skin. This was secured using 4-0 nylon suture. At this point, we packed the cavity with half inch Nu Gauze, which would be removed within 24 hours. The patient did not have significant bleeding. A dressing was applied and he was transferred to recovery room in stable condition. Essentially, the finding was a very complex perirectal abscess which actually tracked above the levator muscles which we did not have to transect any of the levator muscles. He was developing a fistula which was essentially drained. I attest to the content of the Intraoperative Record and any orders documented therein. Any exception s are noted below.
[2017-04-01] MEDS ORDERED: HYDROmorphone INJ 2 MG/ML SYR/VIAL ONE (08:27)
[2017-04-01] MEDS ORDERED: NURSING VERBAL MED ORDER ONE (08:45)
[2017-04-01] MEDS ORDERED: HYDROmorphone INJ 0.5 MG/0.5 ML SYR IV PRN (09:00)
[2017-04-01 09:15] LABS: BUN/CREATININE RATIO 17.8 (10-20); CALCIUM 8.9 mg/dl (8.5-10.1); CREATININE 1.1 mg/dl (0.60-1.40); POTASSIUM 4.1 mmol/L (3.5-5.1)
[2017-04-01] MEDS ORDERED: HYDROmorphone INJ 2 MG/ML SYR/VIAL IV PRN (09:15)
[2017-04-01] MEDS ORDERED: EpHEDrine SULFATE INJ 50 MG/ML AMP IV PRN (09:15)
[2017-04-01] MEDS ORDERED: ATROPINE SULFATE 0.1 MG/ML 5ML SYR IV PRN (09:15)
[2017-04-01] MEDS ORDERED: PHENYLEPHRINE 100MCG/ML 5ML SYR IV PRN (09:15)
[2017-04-01] MEDS ORDERED: ONDANSETRON INJ 2 MG/ML 2 ML VIAL IV PRN (09:15)
--- NOTE | 2017-04-01 09:16 | Anesthesiology Progress Note ---
Anesthesia Post Op Note Date & Time Apr 01, 2017 at 09:16 Vital Signs Pain Intensity: 3 Vital Signs Past 12 Hours Date Time Temp Pulse Resp B/P (MAP) Pulse Ox O2 Delivery O2 Flow Rate FiO2 04/01/17 08:55 36.6 57 16 117/51 97 Nasal Cannula 2 04/01/17 08:45 57 16 121/54 98 Nasal Cannula 2 04/01/17 08:35 58 18 121/51 95 Nasal Cannula 2 04/01/17 08:25 60 24 118/52 94 Room Air 04/01/17 08:15 59 24 121/89 100 Oxymask 10 04/01/17 08:05 62 24 137/54 96 Oxymask 10 04/01/17 07:56 36.6 64 24 157/68 99 Oxymask 10 04/01/17 06:46 36.7 63 18 163/65 (97) 94 Room Air 04/01/17 06:09 37.8 63 18 157/66 (96) 96 Room Air 04/01/17 05:38 36.6 60 16 153/61 94 Room Air 04/01/17 04:45 36.6 60 16 153/61 94 04/01/17 04:17 36.7 60 18 104/56 (72) 95 Room Air 04/01/17 04:15 36.7 60 16 140/56 94 04/01/17 03:42 36.4 60 16 146/66 94 04/01/17 03:30 36.7 60 16 145/56 94 04/01/17 03:13 36.2 61 16 147/67 94 04/01/17 02:00 36.7 61 16 134/60 94 04/01/17 01:30 36.8 59 18 111/54 94 04/01/17 01:00 36.6 60 18 122/77 93 04/01/17 00:45 36.9 60 16 118/75 93 04/01/17 00:34 37.0 64 18 125/58 93 04/01/17 00:05 Room Air 03/31/17 23:28 36.7 61 20 123/46 (71) 98 Room Air Notes Mental Status: alert / awake / arousable, participated in evaluation Pt Amnestic to Procedure: Yes Nausea / Vomiting: adequately controlled Pain: adequately controlled Airway Patency, RR, SpO2: stable & adequate BP & HR: stable & adequate Hydration State: stable & adequate Anesthetic Complications: no major complications apparent
[2017-04-01 09:47] LABS: HEMATOCRIT 23.1 % (42-52); MEAN CELL VOLUME 85.9 fL (80-100); MEAN CORPUSCULAR HEMOGLOBIN 27.9 pg (25-34); MEAN CORPUSCULAR HGB CONC 32.5 g/dl (32-36); MEAN PLATELET VOLUME 9.3 fL (7.4-10.4); PLATELET COUNT 34 K/uL (130-400); RED BLOOD COUNT 2.69 M/uL (4.7-6.1); WHITE BLOOD COUNT 1.94 K/uL (4.8-10.8)
[2017-04-01 09:54] LABS: VACUOLIZATION 1+
[2017-04-01 09:55] LABS: COMPLETE YES; EOSINOPHIL % 0.9 %; LYMPH ABS # 1.43 K/uL (1.2-3.4); LYMPHOCYTE % 73.9 %; NEUTROPHILS % 16.5 %
[2017-04-01] MEDS: COLESTIPOL HCL 1 GM TAB PO SCH ×2 (10:06→23:17)
[2017-04-01] MEDS: ISOSORBIDE MONONITRATE 30 MG TABCR PO SCH (10:06)
[2017-04-01] MEDS: PSYLLIUM 58.6% PWD PACK S\\F PO SCH (10:06)
[2017-04-01] MEDS: MAGNESIUM OXIDE 400 MG TAB PO SCH (10:06)
[2017-04-01] MEDS: INSULIN ASPART 100 UNITS/ML 3 ML PEN SC SCH ×4 (10:10→22:00)
[2017-04-01] MEDS: INSULIN GLARGINE SOLOSTAR 100 UNITS/ML 3 ML PEN SC SCH (10:11)
[2017-04-01] MEDS: ACETAMINOPHEN 325 MG TAB PO PRN (12:34)
[2017-04-01 14:18] LABS: HEMATOCRIT 22.4 % (42-52); MEAN CELL VOLUME 84.2 fL (80-100); MEAN CORPUSCULAR HEMOGLOBIN 30.1 pg (25-34); RED BLOOD COUNT 2.66 M/uL (4.7-6.1)
--- NOTE | 2017-04-01 14:26 | DIAGNOSTIC IMAGING REPORT ---
CHEST ONE VIEW PORTABLE CLINICAL HISTORY: chest pain, abn EKG pain COMPARISON STUDY: 03/23/2017 FINDINGS: Improving bilateral parenchymal infiltrates. Minimal residual. No evidence for cardiac enlargement. Prior median sternotomy. Diaphragms are smooth. IMPRESSION: Improving bilateral parenchymal infiltrates. Minimal residual. The above report was generated using voice recognition software. It may contain grammatical, syntax or spelling errors. Electronically signed by: Pierce Nielson M.D. 04/01/2017 2:25 PM Dictated Date/Time: 04/01/2017 2:24 PM
[2017-04-01 14:39] LABS: MEAN CORPUSCULAR HGB CONC 35.7 g/dl (32-36); MEAN PLATELET VOLUME 9.3 fL (7.4-10.4); PLATELET COUNT 35 K/uL (130-400)
[2017-04-01 14:41] LABS: BUN/CREATININE RATIO 17.1 (10-20); CREATININE 1.2 mg/dl (0.60-1.40); POTASSIUM 4.6 mmol/L (3.5-5.1)
[2017-04-01 14:44] LABS: PLT ESTIMATE DECREASED
[2017-04-01] MEDS: METOPROLOL TARTRATE 25 MG TAB PO SCH ×2 (15:26→21:56)
--- NOTE | 2017-04-01 16:08 | Progress Note ---
Subjective Date of Service: Apr 01, 2017. Subjective Pt evaluation today including: conversation w/ patient, conversation w/ family , conversation w/ healthcare consultant Pt reportedly without issues in the OR this AM. Was called by nursing for pt fever. reports that pt did not want to eat lunch, which is unusual for him. Pt reports fever and feeling fatigued s/p OR, but no other complaints. He does have ongoing pain related to his rectal abscesses. Specifically no SOB or chest pain. Nursing instructed for tylenol and to hang abx early. BP and HR are WNL. Called again by nursing as pt's states that pt has chest pain. Pt has been at rest. EKG at that time suspicious for acute IN. Repeat EKG neg for this. Returned to pt bedside and chest pain has resolved. Pt is feeling fatigued but overall improved. Case discussed with Dr. Saravia given pt's cardiac hx. EKGs reviewed, labs and CXR pending at that time. Given MDS and platelet issues in the setting of EKG changes that resolved, planning to monitor. This was all discussed with pt and his . Pt denies abd pain, n/v/c/d, LE pain or swelling. Problem List Medical Problems: (1) Pancytopenia Status: Acute (2) Pneumonia Status: Acute Objective Vital Signs Date Time Temp Pulse Resp B/P (MAP) Pulse Ox O2 Delivery O2 Flow Rate FiO2 04/01/17 13:27 38.1 04/01/17 13:01 38.3 85 20 138/70 (92) 96 Nasal Cannula 2.0 04/01/17 12:29 39.4 93 22 142/76 (98) 91 Room Air 04/01/17 11:21 37.2 75 16 148/69 (95) 96 04/01/17 09:53 Nasal Cannula 4.0 04/01/17 09:23 36.6 58 18 126/64 (84) 99 Nasal Cannula 4.0 04/01/17 08:55 36.6 57 16 117/51 97 Nasal Cannula 2 04/01/17 08:45 57 16 121/54 98 Nasal Cannula 2 04/01/17 08:35 58 18 121/51 95 Nasal Cannula 2 04/01/17 08:25 60 24 118/52 94 Room Air 04/01/17 08:15 59 24 121/89 100 Oxymask 10 04/01/17 08:05 62 24 137/54 96 Oxymask 10 04/01/17 07:56 36.6 64 24 157/68 99 Oxymask 10 04/01/17 06:46 36.7 63 18 163/65 (97) 94 Room Air 04/01/17 06:09 37.8 63 18 157/66 (96) 96 Room Air 04/01/17 05:38 36.6 60 16 153/61 94 Room Air 04/01/17 04:45 36.6 60 16 153/61 94 04/01/17 04:17 36.7 60 18 104/56 (72) 95 Room Air 04/01/17 04:15 36.7 60 16 140/56 94 04/01/17 03:42 36.4 60 16 146/66 94 04/01/17 03:30 36.7 60 16 145/56 94 04/01/17 03:13 36.2 61 16 147/67 94 04/01/17 02:00 36.7 61 16 134/60 94 04/01/17 01:30 36.8 59 18 111/54 94 04/01/17 01:00 36.6 60 18 122/77 93 04/01/17 00:45 36.9 60 16 118/75 93 04/01/17 00:34 37.0 64 18 125/58 93 04/01/17 00:05 Room Air 03/31/17 23:28 36.7 61 20 123/46 (71) 98 Room Air 03/31/17 20:10 36.6 65 18 112/50 (70) 95 Room Air 03/31/17 20:05 Room Air 03/31/17 16:00 Room Air Physical Exam Comments: General Appearance: WD/WN, no apparent distress Eyes: normal inspection, EOMI Respiratory/Chest: normal breath sounds, no respiratory distress Cardiovascular: regular rate, rhythm, no edema Abdomen: non tender, soft Extremities: non-tender, no pedal edema Neurologic/Psychiatric: alert, appears fatigued, oriented x 3 Skin: normal color, warm/dry Laboratory Results Last 24 Hours Test 03/31/17 16:25 03/31/17 19:47 04/01/17 05:32 04/01/17 06:04 Bedside Glucose 226 mg/dl 258 mg/dl 167 mg/dl 163 mg/dl Test 04/01/17 07:59 04/01/17 08:41 04/01/17 11:19 04/01/17 13:41 Bedside Glucose 199 mg/dl 204 mg/dl White Blood Count 1.94 K/uL Red Blood Count 2.69 M/uL Hemoglobin 7.5 g/dL Hematocrit 23.1 % Mean Corpuscular Volume 85.9 fL Mean Corpuscular Hemoglobin 27.9 pg Mean Corpuscular Hemoglobin Concent 32.5 g/dl Platelet Count 34 K/uL Mean Platelet Volume 9.3 fL RDW Standard Deviation 42.8 fL RDW Coefficient of Variation 14.1 % Neutrophils % (Manual) 16.5 % Lymphocytes % (Manual) 73.9 % Eosinophils % (Manual) 0.9 % Blast Cells % 8.7 % Neutrophils # (Manual) 0.32 K/uL Total Absolute Neutrophils 0.32 K/uL Lymphocytes # (Manual) 1.43 K/uL Total Absolute Lymphocytes 1.43 K/uL Eosinophils # (Manual) 0.02 K/uL Hypogranular Neutrophils 1+ Blast Cells # 0.17 K/uL Toxic Vacuolation 1+ Sodium Level 135 mmol/L Potassium Level 4.1 mmol/L Chloride Level 101 mmol/L Carbon Dioxide Level 28 mmol/L Anion Gap 6.0 mmol/L Blood Urea Nitrogen 20 mg/dl Creatinine 1.10 mg/dl Est Creatinine Clear Calc Drug Dose 50.9 ml/min Estimated GFR () 73.6 Estimated GFR (Non- 63.5 BUN/Creatinine Ratio 17.8 Random Glucose 187 mg/dl Calcium Level 8.9 mg/dl Creatine Kinase MB Ratio Test 04/01/17 13:51 04/01/17 14:09 Creatine Kinase MB 0.8 ng/ml Troponin I 0.053 ng/ml White Blood Count 1.90 K/uL Red Blood Count 2.66 M/uL Hemoglobin 8.0 g/dL Hematocrit 22.4 % Mean Corpuscular Volume 84.2 fL Mean Corpuscular Hemoglobin 30.1 pg Mean Corpuscular Hemoglobin Concent 35.7 g/dl RDW Standard Deviation 42.6 fL RDW Coefficient of Variation 14.0 % Platelet Count 35 K/uL Mean Platelet Volume 9.3 fL Platelet Estimate DECREASED Sodium Level 133 mmol/L Potassium Level 4.6 mmol/L Chloride Level 101 mmol/L Carbon Dioxide Level 24 mmol/L Anion Gap 8.0 mmol/L Blood Urea Nitrogen 21 mg/dl Creatinine 1.20 mg/dl Est Creatinine Clear Calc Drug Dose 46.7 ml/min Estimated GFR () 66.3 Estimated GFR (Non- 57.2 BUN/Creatinine Ratio 17.1 Random Glucose 259 mg/dl Calcium Level 9.0 mg/dl Assessment and Plan 68-year-old male here with perirectal abscess and a history of myelodysplastic syndrome, operative drainage on 03/20, has persistent fluid collection and poor WBC with pancytopenia for the duration of his stay Encephalopathy resolved, still not clear of cause ? related to opiate meds Perirectal abscess E coli and bacteroides, continue on IV Zosyn re imaging shows persistent fluid collection and possibly developing a fistula s/p OR Chest pain: Initially EKG suspicious, however appears improved on repeat Trop with slight elevation at 0.053, which has been seen in the past. Serials pending Platelets stable from AM, still low at 33 PRP stable CXR is stable with PNA actually appearing improved Cardiology recs for atenolol to be changed to metoprolol 25mg TID BP has remained stable and actually slightly elevated with HR WNL, O2 sats stable Diarrhea continues to be improved with Metamucil cholestyramine and Imodium no infectious diarrhea has been seen pancytopenia from myelodysplastic syndrome Neupogen-2 doses, will monitor for now s/p 2 packs of platelets 03/31 in preparation for OR this AM acute diastolic heart failure, stable and euvolemic diabetes slightly elevated despite adding basal to sliding scale insulin continue to adjust HTn continue isosorbide and atenolol BPH Flomax DVT prevention will be SCDs contraindicated with such low platelets, watch for bruising with pressure Attempts at discussion of palliative care with pt and both alone and together have not been well received per prior physician. Apparently, he does not feel he is ready for this, also continued questions about bone marrow transplant Planning for d/c to [facility] once stable Transferred to [facility], formal cardiology c/s pending Discharge planning: alf facility
--- NOTE | 2017-04-01 16:18 | Cardiology Consultation ---
Cardiology Consultation Date of Consultation: Apr 01, 2017. Requesting Physician: Dr. Jimenez Reason for Consultation: CAD Pt evaluation today including: conversation w/ patient, physical exam History of Present Illness This is a very pleasant 77-year-old gentleman who has a history of hypertension , hypercholesterolemia and vascular as well as coronary artery disease. He had coronary bypass surgery 4 in 1988, and he had an abdominal aortic aneurysm repaired by endovascular means in March 2015. He has been having stable exertional angina, when last seen in the office by Dr. Ulrich on 11/27/2016 his symptoms were stable. He had been maintained on clopidogrel, Ascriptin 325 mg daily and atenolol as an outpatient. He also has a myelodysplastic syndrome resulting in anemia, neutropenia and thrombocytopenia. He has been having a lot of difficulty with a perirectal abscess and has required several surgeries for this, including this morning. After surgery he evidently was not feeling well, and electrocardiogram was done which suggested some inferior ST elevation. This was repeated thereafter and the elevation was no longer present. Of note, his clopidogrel and aspirin have been held due to thrombocytopenia and anemia (his platelet count was 13,000 prior to receiving platelets for surgery). At the time of my evaluation he was alert and oriented, he denied having chest discomfort today and feels that he has not had any type of chest discomfort or cardiac symptoms during this hospitalization. He does recall having them with exertion prior to admission. He is on his shortness of breath or palpitations. Past Medical/Surgical History (1) Old Myocardial Infarct (2) Hyperlipidemia Nec/Nos (3) Hypertension Nos (4) Abdominal aortic aneurysm (5) CVD (cardiovascular disease) (6) H/O abdominal aortic aneurysm repair (7) H/O heart bypass surgery Social History Smoking Status: Unknown if Ever Smoked History of Alcohol Use: No Review of Systems Constitutional: No fever, No weight loss, No weakness Respiratory: No cough, No sputum Cardiac: No chest pain, No orthopnea Abdomen: No pain, No nausea, No vomiting, No diarrhea, No GI bleeding Male : No urinary frequency, No nocturia more than once/night, No slowing stream, No sexual dysfunction Neurologic: No paralysis, No weakness, No numbness/tingling, No balance problems Heme: No abnormal bleeding/bruising, No clotting problems Endo: No fatigue Skin: No problem reported All Other Systems: Reviewed and Negative Allergies Coded Allergies: No Known Allergies (Verified , 03/09/17) Medications Current Inpatient Medications Medications (Trade) Dose Ordered Sig/Cameron Route Start Time Stop Time Status Last Admin Dose Admin Aspirin (Ecotrin Tab) 325 mg DAILY PO 03/20/17 08:00 04/19/17 07:59 Future Hold 03/20/17 07:26 325 MG Clopidogrel Bisulfate (plAVix TAB) 75 mg DAILY PO 03/20/17 08:00 04/19/17 07:59 Future Hold 03/20/17 07:26 75 MG Isosorbide Mononitrate (Imdur Ext Rel Tab) 30 mg DAILY PO 03/20/17 08:00 04/19/17 07:59 04/01/17 10:06 30 MG Levothyroxine Sodium (Synthroid Tab) 75 mcg DAILYBB PO 03/20/17 06:30 04/19/17 06:29 03/31/17 06:09 75 MCG Nitroglycerin (Nitrostat Tab) 0.4 mg PRN PRN UT 03/19/17 14:15 04/18/17 14:14 Pravastatin Sodium (Pravachol Tab) 40 mg HS PO 03/19/17 21:00 04/18/17 20:59 03/31/17 21:27 40 MG Tamsulosin HCl (Flomax Cap) 0.4 mg HS PO 03/19/17 21:00 04/18/17 20:59 03/31/17 21:28 0.4 MG Insulin Aspart (novoLOG ASPART) SLIDING SCALE PARAMETER ACHS SC 03/19/17 16:30 04/18/17 16:29 04/01/17 13:25 4 UNITS Hydrocortisone (Proctozone Hc 2.5% Crm) 1 appln TID PRN EXT 03/19/17 15:00 04/18/17 14:59 03/31/17 10:59 1 APPLN Acetaminophen (Tylenol Tab) 650 mg Q4H PRN PO 03/19/17 15:00 04/18/17 14:59 04/01/17 12:34 650 MG Ondansetron HCl (Zofran Inj) 4 mg Q6H PRN IV 03/19/17 15:00 04/18/17 14:59 Glucose (Glucose 40% Gel) 15-30 GRAMS 15 GRAMS... UD PRN PO 03/19/17 15:30 04/18/17 15:29 Glucose (Glucose Chew Tab) 4-8 Tablets 4 Tabl... UD PRN PO 03/19/17 15:30 04/18/17 15:29 Dextrose (Dextrose 50% 50ML Syringe) 25-50ML OF 50% DW IV FOR... UD PRN IV 03/19/17 15:30 04/18/17 15:29 Glucagon (Glucagon Inj) 1 mg UD PRN SQ 03/19/17 15:30 04/18/17 15:29 Hydromorphone HCl (Dilaudid Inj) 0.5 mg Q1H PRN IV 03/20/17 16:00 04/03/17 15:59 Psyllium Hydrophilic Mucilloid (Metamucil Powder) 1 pkt QAM PO 03/24/17 09:00 04/23/17 08:59 04/01/17 10:06 1 PKT Magnesium Oxide (Mag-Ox Tab) 400 mg QAM PO 03/24/17 08:30 04/23/17 08:29 04/01/17 10:06 400 MG Colestipol HCl (Colestid Tab) 1 gm BID@1000,2200 PO 03/24/17 13:30 04/23/17 13:29 04/01/17 10:06 1 GM Loperamide HCl (Imodium Cap) 2 mg Q2H PRN PO 03/24/17 12:45 04/23/17 12:44 03/24/17 20:43 2 MG Acetaminophen/ Hydrocodone Bitart (Barton 10/325 Tab) 1 tab HS PO 03/25/17 21:30 04/08/17 21:29 03/31/17 21:37 1 TAB Acetaminophen/ Hydrocodone Bitart (Barton 10/325 Tab) 1 tab Q4H PRN PO 03/26/17 17:45 04/06/17 15:44 03/31/17 16:20 1 TAB Piperacillin Sod/ Tazobactam Sod 3.375 gm/Dextrose 115 ml @ 28.75 mls/ hr Q8H IV 03/26/17 22:00 04/05/17 21:59 04/01/17 12:34 28.75 MLS/HR Piperacillin Sod/ Tazobactam Sod (Consult) 1 ea UD PRN N/A 03/26/17 17:00 04/25/17 16:59 Insulin Glargine (Lantus Solostar Pen) 15 units DAILY SC 03/30/17 09:00 04/29/17 08:59 04/01/17 10:11 15 UNITS Ioversol (Optiray 320) 100 ml UD PRN IV 03/31/17 06:45 04/04/17 06:44 Metoprolol Tartrate (Lopressor Tab) 25 mg TID PO 04/01/17 14:00 05/01/17 13:59 04/01/17 15:26 25 MG Physical Exam Vital Signs Past 12 Hours Date Time Temp Pulse Resp B/P (MAP) Pulse Ox O2 Delivery O2 Flow Rate FiO2 04/01/17 13:27 38.1 04/01/17 13:01 38.3 85 20 138/70 (92) 96 Nasal Cannula 2.0 04/01/17 12:29 39.4 93 22 142/76 (98) 91 Room Air 04/01/17 11:21 37.2 75 16 148/69 (95) 96 04/01/17 09:53 Nasal Cannula 4.0 04/01/17 09:23 36.6 58 18 126/64 (84) 99 Nasal Cannula 4.0 04/01/17 08:55 36.6 57 16 117/51 97 Nasal Cannula 2 04/01/17 08:45 57 16 121/54 98 Nasal Cannula 2 04/01/17 08:35 58 18 121/51 95 Nasal Cannula 2 04/01/17 08:25 60 24 118/52 94 Room Air 04/01/17 08:15 59 24 121/89 100 Oxymask 10 04/01/17 08:05 62 24 137/54 96 Oxymask 10 04/01/17 07:56 36.6 64 24 157/68 99 Oxymask 10 04/01/17 06:46 36.7 63 18 163/65 (97) 94 Room Air 04/01/17 06:09 37.8 63 18 157/66 (96) 96 Room Air 04/01/17 05:38 36.6 60 16 153/61 94 Room Air 04/01/17 04:45 36.6 60 16 153/61 94 04/01/17 04:17 36.7 60 18 104/56 (72) 95 Room Air 04/01/17 04:15 36.7 60 16 140/56 94 Constitutional: Level of Distress: NAD Psychiatric: Mental Status: active & alert Head: normocephalic Eyes: EOM: EOMI ENMT: normal ENT inspection, hearing grossly normal Neck: supple, no masses Lungs: Respiratory effort: no dyspnea, good air movement Auscultation: breath sounds normal, no wheezing Cardiovascular: Heart Auscultation: RRR, no murmurs, no rubs, no gallops Peripheral Pulses: Bruits: none appreciated Abdomen: Bowel Sounds: normal Inspection & Palpation: soft, no tenderness, guarding & rebound, no masses Musculoskeletal: normal strength (5/5 throughout) Extremities: no edema Neurologic: Cranial Nerves: grossly intact Sensation: grossly intact Data Laboratory Results: Last 24 Hours Test 03/31/17 16:25 03/31/17 19:47 04/01/17 05:32 04/01/17 06:04 Bedside Glucose 226 mg/dl 258 mg/dl 167 mg/dl 163 mg/dl Test 04/01/17 07:59 04/01/17 08:41 04/01/17 11:19 04/01/17 13:41 Bedside Glucose 199 mg/dl 204 mg/dl White Blood Count 1.94 K/uL Red Blood Count 2.69 M/uL Hemoglobin 7.5 g/dL Hematocrit 23.1 % Mean Corpuscular Volume 85.9 fL Mean Corpuscular Hemoglobin 27.9 pg Mean Corpuscular Hemoglobin Concent 32.5 g/dl Platelet Count 34 K/uL Mean Platelet Volume 9.3 fL RDW Standard Deviation 42.8 fL RDW Coefficient of Variation 14.1 % Neutrophils % (Manual) 16.5 % Lymphocytes % (Manual) 73.9 % Eosinophils % (Manual) 0.9 % Blast Cells % 8.7 % Neutrophils # (Manual) 0.32 K/uL Total Absolute Neutrophils 0.32 K/uL Lymphocytes # (Manual) 1.43 K/uL Total Absolute Lymphocytes 1.43 K/uL Eosinophils # (Manual) 0.02 K/uL Hypogranular Neutrophils 1+ Blast Cells # 0.17 K/uL Toxic Vacuolation 1+ Sodium Level 135 mmol/L Potassium Level 4.1 mmol/L Chloride Level 101 mmol/L Carbon Dioxide Level 28 mmol/L Anion Gap 6.0 mmol/L Blood Urea Nitrogen 20 mg/dl Creatinine 1.10 mg/dl Est Creatinine Clear Calc Drug Dose 50.9 ml/min Estimated GFR () 73.6 Estimated GFR (Non- 63.5 BUN/Creatinine Ratio 17.8 Random Glucose 187 mg/dl Calcium Level 8.9 mg/dl Creatine Kinase MB Ratio Test 04/01/17 13:51 04/01/17 14:09 Creatine Kinase MB 0.8 ng/ml Troponin I 0.053 ng/ml White Blood Count 1.90 K/uL Red Blood Count 2.66 M/uL Hemoglobin 8.0 g/dL Hematocrit 22.4 % Mean Corpuscular Volume 84.2 fL Mean Corpuscular Hemoglobin 30.1 pg Mean Corpuscular Hemoglobin Concent 35.7 g/dl RDW Standard Deviation 42.6 fL RDW Coefficient of Variation 14.0 % Platelet Count 35 K/uL Mean Platelet Volume 9.3 fL Platelet Estimate DECREASED Sodium Level 133 mmol/L Potassium Level 4.6 mmol/L Chloride Level 101 mmol/L Carbon Dioxide Level 24 mmol/L Anion Gap 8.0 mmol/L Blood Urea Nitrogen 21 mg/dl Creatinine 1.20 mg/dl Est Creatinine Clear Calc Drug Dose 46.7 ml/min Estimated GFR () 66.3 Estimated GFR (Non- 57.2 BUN/Creatinine Ratio 17.1 Random Glucose 259 mg/dl Calcium Level 9.0 mg/dl EKG: His electrocardiogram from today at 1324 shows sinus rhythm with a possible anteroseptal infarct, inferolateral ST-T abnormalities with a suggestion of inferior ST elevation although does little bit unusual. This was repeated at 1353 today, this shows sinus rhythm at 90 bpm with nonspecific inferolateral ST-T abnormalities which have been present for a number of years. The inferior ST elevation is not present. Telemetry reviewed: He is just being placed on telemetry now Assessment & Plan #1. Electrocardiographic abnormalities: Although his first echocardiogram today suggests an active process he had no symptoms and a follow-up shortly thereafter does not show this finding. Given his other medical problems and lack of symptoms I would not pursue further evaluation. It might be prudent to trend enzymes and repeat an electrocardiogram tomorrow. #2. Coronary disease: He has long-standing coronary artery disease and has had stable exertional angina prior to hospitalization. He does not recall having chest discomfort during his hospitalization. I suspect his coronary disease is stable and would not consider evaluation now. He would be at high risk for any type of invasive procedure and noninvasive study would not be indicated. It would be prudent to increase his beta blockade, he does have a history of bradycardia and we will need to watch for that but he will be on telemetry. I' ve recommended increasing his metoprolol to 25 mg 3 times a day. In addition I would agree with holding his antiplatelet agents for now. He is on Imdur and I would continue that. Thank you for allowing me to participate in his care.
[2017-04-01] MEDS: HYDROCODONE/ACETAMI 10/325 TAB PO SCH ×2 (17:59→22:01)
[2017-04-01] MEDS: PRAVASTATIN SOD 40 MG TAB PO SCH (21:56)
[2017-04-01] MEDS: TAMSULOSIN HCL 0.4 MG CAP PO SCH (21:56)
[2017-04-02] VITALS (14 sets, daily range): BP systolic 100–147; BP diastolic 42–74; PULSE 54–78; TEMP 36.3–38.1; O2SAT 93–97
[2017-04-02] MEDS: LEVOTHYROXINE 75 MCG TAB PO SCH (05:37)
[2017-04-02] MEDS: PIPERACILL/TAZOBAC IV 3.375 GM in DEXTROSE 5% 100ML IV SCH (05:41)
--- NOTE | 2017-04-02 06:13 | Surgery Progress Note ---
Surgery Progress Note Date of Service Apr 02, 2017. Subjective low grade fever, pain controlled- some drainage expected Objective Vital Signs: Date Time Temp Pulse Resp B/P (MAP) Pulse Ox O2 Delivery O2 Flow Rate FiO2 04/02/17 04:10 37.8 67 18 128/61 (83) 93 Room Air 04/02/17 04:00 Room Air 04/02/17 01:31 37.1 04/01/17 23:59 Room Air 04/01/17 23:40 37.7 65 18 114/48 (70) 94 Room Air 04/01/17 20:00 95 Room Air 04/01/17 19:40 37.2 70 18 116/61 (79) 95 Room Air 04/01/17 16:00 94 Room Air 04/01/17 16:00 37.4 78 18 113/56 (75) 94 Room Air 04/01/17 13:27 38.1 04/01/17 13:01 38.3 85 20 138/70 (92) 96 Nasal Cannula 2.0 04/01/17 12:29 39.4 93 22 142/76 (98) 91 Room Air 04/01/17 11:21 37.2 75 16 148/69 (95) 96 04/01/17 09:53 Nasal Cannula 4.0 04/01/17 09:23 36.6 58 18 126/64 (84) 99 Nasal Cannula 4.0 04/01/17 08:55 36.6 57 16 117/51 97 Nasal Cannula 2 04/01/17 08:45 57 16 121/54 98 Nasal Cannula 2 04/01/17 08:35 58 18 121/51 95 Nasal Cannula 2 04/01/17 08:25 60 24 118/52 94 Room Air 04/01/17 08:15 59 24 121/89 100 Oxymask 10 04/01/17 08:05 62 24 137/54 96 Oxymask 10 04/01/17 07:56 36.6 64 24 157/68 99 Oxymask 10 04/01/17 06:46 36.7 63 18 163/65 (97) 94 Room Air 04/01/17 06:09 37.8 63 18 157/66 (96) 96 Room Air General Appearance: no apparent distress Respiratory/Chest: no respiratory distress Laboratory Results: Results Past 24 Hours Test 04/01/17 07:59 04/01/17 08:41 04/01/17 11:19 04/01/17 13:41 Range/Units Bedside Glucose 199 204 70-99 mg/dl White Blood Count 1.94 4.8-10.8 K/uL Red Blood Count 2.69 4.7-6.1 M/uL Hemoglobin 7.5 14.0-18.0 g/dL Hematocrit 23.1 42-52 % Mean Corpuscular Volume 85.9 80-100 fL Mean Corpuscular Hemoglobin 27.9 25-34 pg Mean Corpuscular Hemoglobin Concent 32.5 32-36 g/dl Platelet Count 34 130-400 K/uL Mean Platelet Volume 9.3 7.4-10.4 fL RDW Standard Deviation 42.8 36.4-46.3 fL RDW Coefficient of Variation 14.1 11.5-14.5 % Neutrophils % (Manual) 16.5 % Lymphocytes % (Manual) 73.9 % Eosinophils % (Manual) 0.9 % Blast Cells % 8.7 % Neutrophils # (Manual) 0.32 1.4-6.5 K/uL Total Absolute Neutrophils 0.32 1.4-6.5 K/uL Lymphocytes # (Manual) 1.43 1.2-3.4 K/uL Total Absolute Lymphocytes 1.43 1.2-3.4 K/uL Eosinophils # (Manual) 0.02 0-0.5 K/uL Hypogranular Neutrophils 1+ Blast Cells # 0.17 0-0 K/uL Toxic Vacuolation 1+ Sodium Level 135 136-145 mmol/L Potassium Level 4.1 3.5-5.1 mmol/L Chloride Level 101 98-107 mmol/L Carbon Dioxide Level 28 21-32 mmol/L Anion Gap 6.0 3-11 mmol/L Blood Urea Nitrogen 20 7-18 mg/dl Creatinine 1.10 0.60-1.40 mg/dl Est Creatinine Clear Calc Drug Dose 50.9 ml/min Estimated GFR () 73.6 Estimated GFR (Non- 63.5 BUN/Creatinine Ratio 17.8 10-20 Random Glucose 187 70-99 mg/dl Calcium Level 8.9 8.5-10.1 mg/dl Creatine Kinase MB Ratio 0-3.0 Test 04/01/17 13:51 04/01/17 14:09 04/01/17 16:51 9/12/17 19:43 Range/Units Creatine Kinase MB 0.8 0.5-3.6 ng/ml Troponin I 0.053 0.048 0-0.045 ng/ml White Blood Count 1.90 4.8-10.8 K/uL Red Blood Count 2.66 4.7-6.1 M/uL Hemoglobin 8.0 14.0-18.0 g/dL Hematocrit 22.4 42-52 % Mean Corpuscular Volume 84.2 80-100 fL Mean Corpuscular Hemoglobin 30.1 25-34 pg Mean Corpuscular Hemoglobin Concent 35.7 32-36 g/dl RDW Standard Deviation 42.6 36.4-46.3 fL RDW Coefficient of Variation 14.0 11.5-14.5 % Platelet Count 35 130-400 K/uL Mean Platelet Volume 9.3 7.4-10.4 fL Platelet Estimate DECREASED Sodium Level 133 136-145 mmol/L Potassium Level 4.6 3.5-5.1 mmol/L Chloride Level 101 98-107 mmol/L Carbon Dioxide Level 24 21-32 mmol/L Anion Gap 8.0 3-11 mmol/L Blood Urea Nitrogen 21 7-18 mg/dl Creatinine 1.20 0.60-1.40 mg/dl Est Creatinine Clear Calc Drug Dose 46.7 ml/min Estimated GFR () 66.3 Estimated GFR (Non- 57.2 BUN/Creatinine Ratio 17.1 10-20 Random Glucose 259 70-99 mg/dl Calcium Level 9.0 8.5-10.1 mg/dl Bedside Glucose 242 70-99 mg/dl Test 04/01/17 20:42 04/02/17 00:25 04/02/17 05:52 Range/Units Bedside Glucose 228 70-99 mg/dl Troponin I 0.033 0-0.045 ng/ml Assessment & Plan 04/02/17- s/p incision/ drainage complex perirectal abscess- loculated w/ sinus cavity into Rt perianal buttock- now has drain tube and seton in place- also gauze packing which will be removed this am and not replaced. Drains will remain weeks to months for seton. Will need to determine duration of atbx- IV/po. will ask ID for suggestions. Currently evaluating cardiac issues . 03/31/17- no acute changes or temp spikes. Overall same over past week. more anemic and platelets diminished. Will repeat CT pelvis w/ IV contrast only ( no oral ). Consider transfer to [facility] if no significant changes reviewed CT- persistent 2 cm abscess w/ gas, probable developing fistula tract- Will likely worsen over time w/o drain placement- especiallt in light of pancytopenia- For OR in am 04/01- will need 2 packs of plts preop 03/28/17- would continue IV atbx, nonoperative management unless shows significant worsening perirectal infection- plan repeat imaging on Mon- most likely here over weekend. Dr Hooper covering over weekend. 03/27/17- seems to be stable from infection standpoint but extreme weakness from primary disease will likely progress. Not using any IV pain meds. cont supportive care and IV atbx. 03/26/17- seems to be more stable, always a concern for recurrence of abscess- would consider repeat pelvic CT w/o contrast if fever recurs. will check CT pelvis- no contrast- keep npo for now in case of significant collection- see addendum below 03/25/17- progressive deterioration w/ incontinence of bowel/bladder. min loose stool since yesterday afternoon- colestid may be helping. Now on po atbx for perirectal abscess. Severe anemia, pancytopenia. will ask wound care nurse for suggestions re- skin protective ointment. Needs significant nursing care 03/21/17- s/p incision/ drainage perirectal abscess via transrectal approach- will have nurses remove packing- cannot replace- cont IV atbx/ check cultures- may need Blood transfusion with expected anemia. No evidence of acute bleeding. Would cont atbx 2 weeks (IV then po) 03/31/17- no acute changes or temp spikes. Overall same over past week. more anemic and platelets diminished. Will repeat CT pelvis w/ IV contrast only ( no oral ). Consider transfer to [facility] if no significant changes reviewed CT- persistent 2 cm abscess w/ gas, probable developing fistula tract- Will likely worsen over time w/o drain placement- especiallt in light of pancytopenia- For OR in am 04/01- will need 2 packs of plts preop 03/28/17- would continue IV atbx, nonoperative management unless shows significant worsening perirectal infection- plan repeat imaging on Mon- most likely here over weekend. Dr Hooper covering over weekend. 03/27/17- seems to be stable from infection standpoint but extreme weakness from primary disease will likely progress. Not using any IV pain meds. cont supportive care and IV atbx. 03/26/17- seems to be more stable, always a concern for recurrence of abscess- would consider repeat pelvic CT w/o contrast if fever recurs. will check CT pelvis- no contrast- keep npo for now in case of significant collection- see addendum below 03/25/17- progressive deterioration w/ incontinence of bowel/bladder. min loose stool since yesterday afternoon- colestid may be helping. Now on po atbx for perirectal abscess. Severe anemia, pancytopenia. will ask wound care nurse for suggestions re- skin protective ointment. Needs significant nursing care 03/21/17- s/p incision/ drainage perirectal abscess via transrectal approach- will have nurses remove packing- cannot replace- cont IV atbx/ check cultures- may need Blood transfusion with expected anemia. No evidence of acute bleeding. Would cont atbx 2 weeks (IV then po)
[2017-04-02 07:23] LABS: HEMATOCRIT 22.6 % (42-52); MEAN CELL VOLUME 86.6 fL (80-100); MEAN CORPUSCULAR HEMOGLOBIN 28.4 pg (25-34); MEAN CORPUSCULAR HGB CONC 32.7 g/dl (32-36); MEAN PLATELET VOLUME 10.2 fL (7.4-10.4); PLATELET COUNT 32 K/uL (130-400); RED BLOOD COUNT 2.61 M/uL (4.7-6.1); WHITE BLOOD COUNT 2.05 K/uL (4.8-10.8)
[2017-04-02 07:40] LABS: COMPLETE YES; EOSINOPHIL % 1.7 %; LYMPH ABS # 1.53 K/uL (1.2-3.4); LYMPHOCYTE % 74.8 %; MYELOCYTE % 0.9 %; NEUTROPHILS % 7.8 %
[2017-04-02] MEDS: INSULIN ASPART 100 UNITS/ML 3 ML PEN SC SCH ×4 (07:56→21:47)
[2017-04-02] MEDS: INSULIN GLARGINE SOLOSTAR 100 UNITS/ML 3 ML PEN SC SCH (07:57)
[2017-04-02] MEDS: HYDROCODONE/ACETAMI 10/325 TAB PO PRN (08:04)
[2017-04-02] MEDS: PSYLLIUM 58.6% PWD PACK S\\F PO SCH (09:07)
[2017-04-02] MEDS: MAGNESIUM OXIDE 400 MG TAB PO SCH (09:08)
[2017-04-02] MEDS: METOPROLOL TARTRATE 25 MG TAB PO SCH ×3 (09:08→20:37)
[2017-04-02] MEDS: ISOSORBIDE MONONITRATE 30 MG TABCR PO SCH (09:09)
--- NOTE | 2017-04-02 10:04 | CARDIOLOGY PROGRESS NOTE ---
DATE: 04/02/2017 SUBJECTIVE: Mr. Fenton is resting comfortably in bed without complaints of chest pain or dyspnea. He is anxious for transfer back to the fourth floor. OBJECTIVE: VITAL SIGNS: Blood pressure is 140/55 with a regular pulse of 67. Respiratory rate is 20 and the patient is afebrile at 37.5 degrees Celsius. Saturation is 97% on room air. NECK: Supple with full carotid upstrokes. No carotid bruits. Jugular venous pressure is flat at 90 degrees. There is no thyromegaly. CARDIOVASCULAR: Reveals a regular rhythm with normal S1 and S2. Heart sounds are distant. No obvious murmurs. No S3. LUNGS: Clear without rales, rhonchi, or wheezes. ABDOMEN: Soft without bruits. EXTREMITIES: Reveal intact radial artery pulses bilaterally. There is no peripheral edema. DATA: CBC notes hemoglobin of 7.4, hematocrit 22.6, white count 2.0, platelet count 32,000. Electrolytes note a sodium of 133, potassium 4.6, chloride 101, bicarb 24, BUN 21, creatinine 1.2, glucose 259. Troponin I level is now normal at 0.033, down from a peak value of 0.053. CK-MB fraction was normal at 0.8. EKG notes sinus rhythm and a nonspecific ST abnormality diffusely. awake overnight monitor is benign. IMPRESSION AND PLAN: 1. Chest pain syndrome -- patient denied chest discomfort to Dr. Saravia and also this morning regarding yesterday after surgery. In any event, his EKG has improved and his troponin now normal. We will continue with conservative medical care as in face of procedures will not be possible, realizing his myelodysplastic syndrome and low counts. 2. Coronary artery disease -- status post coronary artery bypass graft x4 in 1988. Cardiac catheterization in May 2007 noted an occluded SVG to a diagonal branch. All other grafts were patent. Tolerating increased dose of metoprolol tartrate at 25 mg t.i.d. Aspirin and Plavix are currently on hold because of his low platelet count. 3. Chronic stable angina pectoris -- has been class 1 four several years. 4. Hypertension -- controlled. 5. Hypercholesterolemia -- continue statin. 6. Status post endovascular repair of abdominal aneurysm -- 03/2015. 7. Myelodysplastic syndrome. 8. Perirectal abscess -- per Dr. Rodríguez. 9. Disposition -- stable for transfer to the floor.
--- NOTE | 2017-04-02 10:07 | Anesthesiology Progress Note ---
Anesthesia Post Op Note Date & Time Apr 02, 2017 at 10:07 Vital Signs Pain Intensity: 6.0 Vital Signs Past 12 Hours Date Time Temp Pulse Resp B/P (MAP) Pulse Ox O2 Delivery O2 Flow Rate FiO2 04/02/17 08:07 37.5 67 20 139/54 (82) 97 Room Air 04/02/17 04:10 37.8 67 18 128/61 (83) 93 Room Air 04/02/17 04:00 Room Air 04/02/17 01:31 37.1 04/01/17 23:59 Room Air 04/01/17 23:40 37.7 65 18 114/48 (70) 94 Room Air Notes Mental Status: alert / awake / arousable, participated in evaluation Pt Amnestic to Procedure: Yes Nausea / Vomiting: adequately controlled Pain: adequately controlled Airway Patency, RR, SpO2: stable & adequate BP & HR: stable & adequate Hydration State: stable & adequate Anesthetic Complications: no major complications apparent
[2017-04-02] MEDS: COLESTIPOL HCL 1 GM TAB PO SCH ×2 (10:52→21:49)
--- NOTE | 2017-04-02 11:38 | Progress Note ---
Progress Note Date of Service Apr 02, 2017. Progress Note ID Consult Dictated #[id number] A/P: 1. Rectal Abscesses - polymicrobial, s/p multiple I&D 2. Pancytopenia 3. Fever -Will change to Ertapenem 1g daily, will need min 14 days -Can follow with Id post d/c -blood cultures negative, ok for picc line -thank you
--- NOTE | 2017-04-02 11:55 | INFECT. DISEASE CONSULTATION ---
DATE OF CONSULTATION: 04/02/2017 REQUESTING PHYSICIAN: Dr. Rodríguez. HISTORY OF PRESENT ILLNESS: This is a 77-year-old gentleman who has a history of myelodysplastic syndrome which was diagnosed in November. He does follow with hematology for this. He was admitted after he had painful hemorrhoids and persistent abdominal pain. He was placed reportedly on Levaquin for about 1 week prior to admission, but did not have any improvement in his symptoms. He has had multiple episodes of fever throughout his hospital stay dating back to his admission in February. His most recent temperature was this morning of 37.8; however, he denies any fevers. His T-max today was 39.4 on the . He did initially undergo I&D on the 20 of March. Cultures from that grew Escherichia coli and 2 species of bacteroides. He has been on vancomycin and Zosyn for some time. He is currently just on Zosyn therapy. He appears to be tolerating this well. He has had multiple CAT scans of the abdomen. The first was done in the ER on the , which showed a 3 x 2 cm abscess. He had a repeat CAT scan done on the showed no changes in the fluid collection and again on the , he had a CAT scan which showed the initial abscess measuring 2 x 2 cm and now a second collection measuring 11 mm. Due to his CT findings and persistent febrile fevers on antibiotics, he was taken back to the operating room yesterday and underwent extensive debridement and drain placement which remains in place. His only complaint on my exam this morning is persistent pain at his incision site. He currently denies any fevers or chills. He is eating and tolerating his diet well. He denies any nausea, vomiting or diarrhea. He is tolerating antibiotics well. He denies any chest pain, cough or shortness of breath. His remaining review of systems is unremarkable. Infectious disease was consulted for antibiotic selection at time of discharge. PAST MEDICAL HISTORY: Significant for aortic aneurysm, kidney stones, cardiovascular disease, high cholesterol, hypertension, history of MD, cataracts and inguinal hernia. PAST SURGICAL HISTORY: Significant for aneurysm repair, CABG and multiple I&Ds of a recent rectal abscess. FAMILY HISTORY: Noncontributory. SOCIAL HISTORY: Negative for tobacco use, alcohol use or drug use. ALLERGIES: He has no known drug allergies. CURRENT MEDICATIONS: Include Lopressor, Lantus, Zosyn, Percocet, Imodium, Metamucil, magnesium, Dilaudid, Imdur, Synthroid, Pravachol, Flomax, Tylenol and Zofran. PHYSICAL EXAMINATION: VITAL SIGNS: His T-max overnight was 37.8. His current temperature is 37.5, pulse 67, respiratory rate is 20, blood pressure 139/54, oxygen saturation is 97% on room air. GENERAL: He is awake, alert and oriented x3. He is in no acute distress. HEENT: Mucous membranes are moist. Extraocular muscles are intact. HEART: Regular. LUNGS: Clear bilaterally. SKIN: Without rash. LABORATORY STUDIES: Today reveal a white blood cell count of 2.0, hemoglobin 7.4 and platelets of 32. He has been pancytopenic since admission to the hospital. Chemistry panel yesterday reveals sodium of 133, potassium 4.6, chloride 101, bicarbonate 24, BUN 21, creatinine 1.2, glucose 259. Urinalysis on the was unremarkable. Again, the abscess culture from the is growing E. coli resistant to ampicillin and sulbactam, Cipro and levofloxacin is otherwise sensitive and 2 species of bacteroides. Blood cultures were obtained on the and are no growth x2 sets and a final blood culture from the Emergency Room on the is also negative and final imaging is as above. ASSESSMENT AND PLAN: Perirectal abscess status post multiple incision and drainage on broad spectrum antibiotics at this time. I feel that he can be continued on intravenous antibiotics. He states he is being discharged to rehab facility. My recommendation will be to change to ertapenem 1 gram daily for ease of use. I would give a minimum of 14 days; however, if he still requires a drain placement at 14 days, this certainly could be extended additionally. My recommendation would be for ertapenem 1 gram daily at rehabilitation via peripherally inserted central catheter line for a minimum of 14 days. He certainly can follow up with surgery and infectious disease post-discharge from the hospital. Thank you for this consultation. ESTEFANI
[2017-04-02] MEDS: ERTAPENEM IV 1 GM in SODIUM CHLOR 0.9% AD-VAN 50ML 50 ML IV SCH (14:09)
--- NOTE | 2017-04-02 16:02 | Progress Note ---
Subjective Date of Service: Apr 02, 2017. Subjective Pt evaluation today including: conversation w/ patient Pt is feeling much improved over yesterday. He has had no further chest pain and states he did not have any yesterday either. No SOB. Tolerating PO today. Ongoing pain related to rectal abscesses, but does feel this is "slightly" improved. Pt denies fever, abd pain, n/v/c/d, LE pain or swelling. Problem List Medical Problems: (1) Pancytopenia Status: Acute (2) Pneumonia Status: Acute Review of Systems All Other Systems: Reviewed and Negative Objective Vital Signs Date Time Temp Pulse Resp B/P (MAP) Pulse Ox O2 Delivery O2 Flow Rate FiO2 04/02/17 14:36 Room Air 04/02/17 14:15 38.1 78 18 147/57 (87) 96 04/02/17 13:00 37.3 65 20 96 04/02/17 10:48 37.3 65 20 100/42 (61) 96 Room Air 04/02/17 08:07 37.5 67 20 139/54 (82) 97 Room Air 04/02/17 08:00 Room Air 04/02/17 04:10 37.8 67 18 128/61 (83) 93 Room Air 04/02/17 04:00 Room Air 04/02/17 01:31 37.1 04/01/17 23:59 Room Air 04/01/17 23:40 37.7 65 18 114/48 (70) 94 Room Air 04/01/17 20:00 95 Room Air 04/01/17 19:40 37.2 70 18 116/61 (79) 95 Room Air 04/01/17 16:00 94 Room Air 04/01/17 16:00 37.4 78 18 113/56 (75) 94 Room Air Physical Exam Comments: General Appearance: WD/WN, no apparent distress, more awake and interactive today Eyes: normal inspection, EOMI Respiratory/Chest: normal breath sounds, no respiratory distress Cardiovascular: regular rate, rhythm, no edema Abdomen: non tender, soft Extremities: non-tender, no pedal edema Neurologic/Psychiatric: alert, appears fatigued, oriented x 3 Skin: normal color, warm/dry Laboratory Results Last 24 Hours Test 04/01/17 16:51 04/01/17 19:43 04/01/17 20:42 04/02/17 00:25 Bedside Glucose 242 mg/dl 228 mg/dl Troponin I 0.048 ng/ml 0.033 ng/ml Test 04/02/17 05:52 04/02/17 06:39 04/02/17 11:03 White Blood Count 2.05 K/uL Red Blood Count 2.61 M/uL Hemoglobin 7.4 g/dL Hematocrit 22.6 % Mean Corpuscular Volume 86.6 fL Mean Corpuscular Hemoglobin 28.4 pg Mean Corpuscular Hemoglobin Concent 32.7 g/dl Platelet Count 32 K/uL Mean Platelet Volume 10.2 fL RDW Standard Deviation 43.9 fL RDW Coefficient of Variation 14.0 % Neutrophils % (Manual) 7.8 % Lymphocytes % (Manual) 74.8 % Monocytes % (Manual) 2.6 % Eosinophils % (Manual) 1.7 % Myelocytes % 0.9 % Blast Cells % 12.2 % Neutrophils # (Manual) 0.16 K/uL Total Absolute Neutrophils 0.16 K/uL Lymphocytes # (Manual) 1.53 K/uL Total Absolute Lymphocytes 1.53 K/uL Monocytes # (Manual) 0.05 K/uL Eosinophils # (Manual) 0.03 K/uL Myelocytes # 0.02 K/uL Hypogranular Neutrophils 2+ Blast Cells # 0.25 K/uL Bedside Glucose 220 mg/dl 258 mg/dl Assessment and Plan 68-year-old male here with perirectal abscess and a history of myelodysplastic syndrome, operative drainage on 03/20, has persistent fluid collection and poor WBC with pancytopenia for the duration of his stay Encephalopathy resolved, still not clear of cause ? related to opiate meds Perirectal abscess E coli and bacteroides, continue on IV Zosyn re imaging shows persistent fluid collection and possibly developing a fistula s/p OR 04/01 Ongoing abx use, ID c/s pending Chest pain: Initial EKG suspicious, however was improved on repeat 30 minutes later and no issues on tele overnight or with AM EKG No further chest pain Trop with slight elevation at 0.053 and serials trending down Platelets stable PRP stable CXR is stable with PNA actually appearing improved Cardiology recs for atenolol to be changed to metoprolol 25mg TID BP has remained stable and actually slightly elevated with HR WNL, O2 sats stable At this point, it is unclear whether pt had chest pain as he repeatedly denies that he did, even at the time of event (reported by ), however EKG change was noted. Seems likely there was demand ischemia given OR/anesthesia earlier in the morning and current hematologic issues in the setting of MDS Diarrhea continues to be improved with Metamucil cholestyramine and Imodium no infectious diarrhea has been seen pancytopenia from myelodysplastic syndrome Neupogen-2 doses, will monitor for now s/p 2 packs of platelets 03/31 in preparation for OR 2 units PRBC 04/02 acute diastolic heart failure, stable and euvolemic diabetes slightly elevated despite adding basal to sliding scale insulin continue to adjust HTn continue isosorbide and atenolol BPH Flomax DVT prevention will be SCDs contraindicated with such low platelets, watch for bruising with pressure Attempts at discussion of palliative care with pt and both alone and together have not been well received per prior physician. Apparently, he does not feel he is ready for this, also continued questions about bone marrow transplant Planning for d/c to [facility] once stable Stable for transfer back to medical floor [facility]
[2017-04-02] MEDS: ACETAMINOPHEN 325 MG TAB PO PRN (16:58)
[2017-04-02] MEDS ORDERED: ACETAMINOPHEN 325 MG TAB PO ONE (18:30)
[2017-04-02] MEDS ORDERED: NURSING VERBAL MED ORDER ONE (18:30)
[2017-04-02] MEDS: TAMSULOSIN HCL 0.4 MG CAP PO SCH (20:37)
[2017-04-02] MEDS: PRAVASTATIN SOD 40 MG TAB PO SCH (20:38)
[2017-04-03] VITALS (15 sets, daily range): BP systolic 113–175; BP diastolic 49–72; PULSE 50–71; TEMP 36.4–39.1; O2SAT 94–99
--- NOTE | 2017-04-03 06:14 | Discharge Instructions ---
Discharge Instructions Date of Service Apr 03, 2017. Admission Reason for Admission: MDS Discharge Discharge Diagnosis / Problem: pancytopenia, perirectal abscess Discharge Goals Goal(s): Decrease discomfort, Improve function, Improve disease control Activity Recommendations Activity Limitations: as noted below Lifting Limitations: gradually increase as tolerated Exercise/Sports Limitations: gradually increase as tolerated Shower/Bathe: no limitations (may soak in tub, use sitz bath, shower) SPECIAL CARE INSTRUCTIONS: * Cover incisions and change daily for comfort/drainage. will need peripad for expected drainage 1-2 weeks * May use ibuprofen for pain as tolerated. * Expect some swelling and bruising. Call your doctor if: * Temperature above 101 degrees * Pain not relieved by pain medicine ordered * There is increased drainage or redness from any incision * You have any unanswered questions or concerns [phone]. FOLLOW UP VISIT: If not already scheduled, please call the office for a follow-up visit. for 1-2 weeks- check up OFFICE PHONE NUMBER: Dr. Rodríguez Office . Current Hospital Diet Patient's current hospital diet: Regular Diet, Diabetes Type 2 Diet Discharge Diet Recommended Diet: AHA Diet (Heart Healthy) Procedures Procedures Performed: Incision and Drainage Perirectal Abscess- seton and malecot drain placement Pending Studies Studies pending at discharge: no Medical Emergencies . Who to Call and When: Medical Emergencies: If at any time you feel your situation is an emergency, please call 911 immediately. . Non-Emergent Contact Non-Emergency issues call your: Primary Care Provider, Surgeon . "Provider Documentation" section prepared by Elmer Rodríguez. . VTE Core Measure Inpt VTE Proph given/why not?: SCD's
--- NOTE | 2017-04-03 06:21 | Surgery Progress Note ---
Surgery Progress Note Date of Service Apr 03, 2017. Subjective awake, very weak temp down to normal from yesterday afternoon now on Ertapenem no acute bleeding Objective Vital Signs: Date Time Temp Pulse Resp B/P (MAP) Pulse Ox O2 Delivery O2 Flow Rate FiO2 04/03/17 04:00 36.5 70 18 160/64 (96) 95 Room Air 04/03/17 02:15 36.4 58 18 146/65 97 04/03/17 01:15 36.7 57 18 150/66 (94) 98 Room Air 04/03/17 00:45 36.6 55 18 147/66 (93) 99 Room Air 04/03/17 00:15 36.4 56 18 146/72 98 04/03/17 00:00 Room Air 04/03/17 00:00 36.8 54 18 136/61 96 04/02/17 23:47 36.8 54 18 136/61 (86) 96 Room Air 04/02/17 23:21 36.5 56 18 126/64 97 04/02/17 22:20 36.3 56 18 121/59 97 04/02/17 21:20 36.4 57 18 130/63 97 04/02/17 20:50 36.4 60 18 111/52 95 04/02/17 20:35 36.8 61 18 113/51 95 04/02/17 20:20 37.1 63 20 115/53 95 0.0 04/02/17 19:34 36.9 67 17 112/74 (87) 94 Room Air 04/02/17 16:00 Room Air 04/02/17 14:36 Room Air 04/02/17 14:15 38.1 78 18 147/57 (87) 96 04/02/17 13:00 37.3 65 20 96 04/02/17 10:48 37.3 65 20 100/42 (61) 96 Room Air 04/02/17 08:07 37.5 67 20 139/54 (82) 97 Room Air 04/02/17 08:00 Room Air General Appearance: no apparent distress Respiratory/Chest: no respiratory distress Incision(s): drainage (expected mild drainage- drains in place) Laboratory Results: Results Past 24 Hours Test 04/02/17 06:39 04/02/17 11:03 04/02/17 16:58 04/02/17 21:17 Range/Units Bedside Glucose 220 258 189 252 70-99 mg/dl Test 04/03/17 04:44 Range/Units Assessment & Plan 04/03/17- no acute changes- IV Ertapenem for at least 2 weeks will need picc line to go to [facility]- per medical team. I will follow him in the office and also ID f/u. Cont to show evidence of gradual deterioration. 04/02/17- s/p incision/ drainage complex perirectal abscess- loculated w/ sinus cavity into Rt perianal buttock- now has drain tube and seton in place- also gauze packing which will be removed this am and not replaced. Drains will remain weeks to months for seton. Will need to determine duration of atbx- IV/po. will ask ID for suggestions. Currently evaluating cardiac issues . 03/31/17- no acute changes or temp spikes. Overall same over past week. more anemic and platelets diminished. Will repeat CT pelvis w/ IV contrast only ( no oral ). Consider transfer to [facility] if no significant changes reviewed CT- persistent 2 cm abscess w/ gas, probable developing fistula tract- Will likely worsen over time w/o drain placement- especiallt in light of pancytopenia- For OR in am 04/01- will need 2 packs of plts preop 03/28/17- would continue IV atbx, nonoperative management unless shows significant worsening perirectal infection- plan repeat imaging on Mon- most likely here over weekend. Dr Hooper covering over weekend. 03/27/17- seems to be stable from infection standpoint but extreme weakness from primary disease will likely progress. Not using any IV pain meds. cont supportive care and IV atbx. 03/26/17- seems to be more stable, always a concern for recurrence of abscess- would consider repeat pelvic CT w/o contrast if fever recurs. will check CT pelvis- no contrast- keep npo for now in case of significant collection- see addendum below 03/25/17- progressive deterioration w/ incontinence of bowel/bladder. min loose stool since yesterday afternoon- colestid may be helping. Now on po atbx for perirectal abscess. Severe anemia, pancytopenia. will ask wound care nurse for suggestions re- skin protective ointment. Needs significant nursing care 03/21/17- s/p incision/ drainage perirectal abscess via transrectal approach- will have nurses remove packing- cannot replace- cont IV atbx/ check cultures- may need Blood transfusion with expected anemia. No evidence of acute bleeding. Would cont atbx 2 weeks (IV then po) 04/02/17- s/p incision/ drainage complex perirectal abscess- loculated w/ sinus cavity into Rt perianal buttock- now has drain tube and seton in place- also gauze packing which will be removed this am and not replaced. Drains will remain weeks to months for seton. Will need to determine duration of atbx- IV/po. will ask ID for suggestions. Currently evaluating cardiac issues . 03/31/17- no acute changes or temp spikes. Overall same over past week. more anemic and platelets diminished. Will repeat CT pelvis w/ IV contrast only ( no oral ). Consider transfer to [facility] if no significant changes reviewed CT- persistent 2 cm abscess w/ gas, probable developing fistula tract- Will likely worsen over time w/o drain placement- especiallt in light of pancytopenia- For OR in am 04/01- will need 2 packs of plts preop 03/28/17- would continue IV atbx, nonoperative management unless shows significant worsening perirectal infection- plan repeat imaging on Mon- most likely here over weekend. Dr Hooper covering over weekend. 03/27/17- seems to be stable from infection standpoint but extreme weakness from primary disease will likely progress. Not using any IV pain meds. cont supportive care and IV atbx. 03/26/17- seems to be more stable, always a concern for recurrence of abscess- would consider repeat pelvic CT w/o contrast if fever recurs. will check CT pelvis- no contrast- keep npo for now in case of significant collection- see addendum below 03/25/17- progressive deterioration w/ incontinence of bowel/bladder. min loose stool since yesterday afternoon- colestid may be helping. Now on po atbx for perirectal abscess. Severe anemia, pancytopenia. will ask wound care nurse for suggestions re- skin protective ointment. Needs significant nursing care 03/21/17- s/p incision/ drainage perirectal abscess via transrectal approach- will have nurses remove packing- cannot replace- cont IV atbx/ check cultures- may need Blood transfusion with expected anemia. No evidence of acute bleeding. Would cont atbx 2 weeks (IV then po)
[2017-04-03] MEDS: LEVOTHYROXINE 75 MCG TAB PO SCH (06:23)
[2017-04-03 07:45] LABS: HEMATOCRIT 23.7 % (42-52); MEAN CELL VOLUME 85.3 fL (80-100); MEAN CORPUSCULAR HEMOGLOBIN 29.1 pg (25-34); MEAN CORPUSCULAR HGB CONC 34.2 g/dl (32-36); PLATELET COUNT 29 K/uL (130-400); RED BLOOD COUNT 2.78 M/uL (4.7-6.1); WHITE BLOOD COUNT 1.96 K/uL (4.8-10.8)
[2017-04-03 07:55] LABS: BUN/CREATININE RATIO 18.3 (10-20); CALCIUM 8.8 mg/dl (8.5-10.1); CREATININE 1.1 mg/dl (0.60-1.40); POTASSIUM 3.9 mmol/L (3.5-5.1)
[2017-04-03] MEDS: MAGNESIUM OXIDE 400 MG TAB PO SCH (08:23)
[2017-04-03] MEDS: ISOSORBIDE MONONITRATE 30 MG TABCR PO SCH (08:23)
[2017-04-03] MEDS: METOPROLOL TARTRATE 25 MG TAB PO SCH ×3 (08:24→20:43)
[2017-04-03] MEDS: PSYLLIUM 58.6% PWD PACK S\\F PO SCH (08:24)
--- NOTE | 2017-04-03 09:14 | CARDIOLOGY PROGRESS NOTE ---
DATE: 04/03/2017 SUBJECTIVE: Mr. Fenton is resting comfortably in bed without complaints of chest pain or dyspnea. He had slept well last evening. OBJECTIVE: VITAL SIGNS: Blood pressure is 160/65 with a regular pulse of 68. Respiratory rate is 18 and the patient is afebrile at 36.9 degrees Celsius. Saturation is 94% on room air. NECK: Supple with full carotid upstrokes. There are no carotid bruits. Jugular venous pressure is flat at 90 degrees. There is no thyromegaly. CARDIOVASCULAR: Reveals a regular rhythm with a normal S1 and S2. Heart sounds are distant. No obvious murmurs. LUNGS: Clear without rales, rhonchi, or wheezes. ABDOMEN: Soft and nontender without bruits. EXTREMITIES: Reveal intact radial artery pulses bilaterally. There is no peripheral edema. LABORATORY DATA: CBC notes a hemoglobin of 8.1, hematocrit 23.7, white count 1.96, and platelet count 29,000. Electrolytes note a sodium of 134, potassium 3.9, chloride 102, bicarbonate 24, BUN 20, creatinine 1.1, and glucose 224. IMPRESSION AND PLAN: 1. Coronary artery disease -- status post coronary artery bypass graft x4 in 1988. Cardiac catheterization in May 2007 noted an occluded SVG to a diagonal branch. All other grafts were patent. Continue medical management of his coronary artery disease. He is tolerating metoprolol tartrate at 25 mg t.i.d. Aspirin and Plavix are on hold because of thrombocytopenia. 2. Chronic stable angina pectoris -- has been present for several years. 3. Hypertension -- controlled. 4. Hypercholesterolemia -- continue statin. 5. Status post endovascular repair of abdominal aneurysm - March 2015. 6. Myelodysplastic syndrome. 7. Perirectal abscess.
[2017-04-03] MEDS: HYDROCODONE/ACETAMI 10/325 TAB PO PRN (09:35)
[2017-04-03] MEDS: INSULIN ASPART 100 UNITS/ML 3 ML PEN SC SCH ×4 (09:54→20:48)
[2017-04-03] MEDS: INSULIN GLARGINE SOLOSTAR 100 UNITS/ML 3 ML PEN SC SCH (09:55)
[2017-04-03] MEDS: COLESTIPOL HCL 1 GM TAB PO SCH ×2 (10:43→22:16)
[2017-04-03] MEDS: ERTAPENEM IV 1 GM in SODIUM CHLOR 0.9% AD-VAN 50ML 50 ML IV SCH (14:31)
[2017-04-03] MEDS: ACETAMINOPHEN 325 MG TAB PO PRN (16:57)
[2017-04-03] MEDS: TAMSULOSIN HCL 0.4 MG CAP PO SCH (20:43)
[2017-04-03] MEDS: PRAVASTATIN SOD 40 MG TAB PO SCH (20:44)
[2017-04-03] MEDS: HYDROCODONE/ACETAMI 10/325 TAB PO SCH (20:48)
--- NOTE | 2017-04-03 20:54 | Progress Note ---
Subjective Date of Service: Apr 03, 2017. Subjective Pt evaluation today including: conversation w/ patient, conversation w/ family (, daughter), physical exam, chart review, lab review, conversation w/ individual pension consultant (heme/onc - Dr. Marroquin), review of inpatient medication list Pain: rectal PO Intake: fair per staff Voiding: incontinence (occasional) staff report he got up today and sat in chair and walked on a limited fashion around the room during my visit he was very sleepy - in fact falling asleep he c/o rectal pain he admitted to feeling weak had another fever this afternoon to 39 degrees Problem List Medical Problems: (1) Pancytopenia Status: Acute (2) Pneumonia Status: Acute Review of Systems Constitutional: + fever, + fatigue Respiratory: No shortness of breath Cardiac: No chest pain Abdomen: No pain, No nausea, No vomiting, No diarrhea Objective Vital Signs Date Time Temp Pulse Resp B/P (MAP) Pulse Ox O2 Delivery O2 Flow Rate FiO2 04/03/17 19:36 37.2 60 18 132/49 (76) 95 Room Air 04/03/17 18:28 39.0 62 20 04/03/17 17:30 39.1 71 18 175/66 (102) 95 Room Air 04/03/17 16:50 37.4 68 20 04/03/17 16:30 Room Air 04/03/17 12:00 36.6 62 18 113/58 (76) 96 Room Air 04/03/17 11:42 96 Room Air 04/03/17 08:30 95 Room Air 04/03/17 07:54 36.9 67 18 161/65 (97) 94 Room Air 04/03/17 04:00 36.5 70 18 160/64 (96) 95 Room Air 04/03/17 02:15 36.4 58 18 146/65 97 04/03/17 01:15 36.7 57 18 150/66 (94) 98 Room Air 04/03/17 00:45 36.6 55 18 147/66 (93) 99 Room Air 04/03/17 00:15 36.4 56 18 146/72 98 04/03/17 00:00 Room Air 04/03/17 00:00 36.8 54 18 136/61 96 04/02/17 23:47 36.8 54 18 136/61 (86) 96 Room Air 04/02/17 23:21 36.5 56 18 126/64 97 04/02/17 22:20 36.3 56 18 121/59 97 04/02/17 21:20 36.4 57 18 130/63 97 04/02/17 20:50 36.4 60 18 111/52 95 Physical Exam General Appearance: no apparent distress, + pertinent finding (looks tired, ill ) ENT: pharynx normal (MMM, no thrush) Neck: no JVD Respiratory/Chest: lungs clear, normal breath sounds, no respiratory distress, no accessory muscle use Cardiovascular: regular rate, rhythm, no gallop, no murmur Abdomen: normal bowel sounds, non tender, soft, no organomegaly Extremities: no pedal edema Neurologic/Psychiatric: + pertinent finding (sleepy but able to answer questions) Skin: + pallor Laboratory Results Last 24 Hours Test 04/02/17 21:17 04/03/17 06:45 04/03/17 07:41 04/03/17 11:49 Bedside Glucose 252 mg/dl 224 mg/dl 320 mg/dl White Blood Count 1.96 K/uL Red Blood Count 2.78 M/uL Hemoglobin 8.1 g/dL Hematocrit 23.7 % Mean Corpuscular Volume 85.3 fL Mean Corpuscular Hemoglobin 29.1 pg Mean Corpuscular Hemoglobin Concent 34.2 g/dl RDW Standard Deviation 42.0 fL RDW Coefficient of Variation 13.7 % Platelet Count 29 K/uL Mean Platelet Volume 12.0 fL Sodium Level 134 mmol/L Potassium Level 3.9 mmol/L Chloride Level 102 mmol/L Carbon Dioxide Level 24 mmol/L Anion Gap 8.0 mmol/L Blood Urea Nitrogen 20 mg/dl Creatinine 1.10 mg/dl Est Creatinine Clear Calc Drug Dose 50.9 ml/min Estimated GFR () 73.6 Estimated GFR (Non- 63.5 BUN/Creatinine Ratio 18.3 Random Glucose 194 mg/dl Calcium Level 8.8 mg/dl Test 04/03/17 11:55 04/03/17 16:33 04/03/17 19:44 Bedside Glucose 329 mg/dl 198 mg/dl 206 mg/dl Assessment and Plan 68-year-old male with: 1. perirectal abscess, s/p I/D x 2 with most recent surgery on 04/01/17 - culture from first I/& grew e. coli and bacteroides species. ID has recommended at least 2 weeks of ertapenem. However, he is now spiking fevers through the ertapenem. Will broaden ertapenem to include pseudomonas coverage -- change to cefepime. For anaerobe coverage add flagyl IV. If he continues w/ fevers then add MRSA coverage and even antifungal coverage. Repeat blood cx's x 2 sets. 2. 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 Doubt there will be any improvement in cell counts. repeat CBC w/ diff in am. cont neutropenic precautions. 3. thrombocytopenia - no bleeding at this time. Daily CBC. 4. uncontrolled T2DM - tighten his novolog coverage; increase lantus to 18 units daily. 5. HTN - adequate control with metoprolol 25 TID. 6. BPH - cont flomax. 7. DVT proph - chemical means contraindicated due to significant thrombocytopenia; SCDs only 8. hypothyroidism - TSH 11/2016 was normal; continue same synthroid dose. 9. rectal pain - in light of declining status consider adding fentanyl patch 12.5mcg as a palliative measure. Hydrocodone in the meantime. 10. CAD - plavix/asa on hold due to severe thrombocytopenia. Remains on BB and imdur. Recent chest pain - has not recurred. Appreciate cardiology input. I have not seen Mr Fenton in over a week and he has declined even further from my last visit. He is weaker, has lost weight, and his deconditioning continues. It is an ominous sign that he continues with fevers despite ertapenem. Spoke with Dr. Marroquin who will speak with family tomorrow. I spoke briefly with his and daughter christine and expressed my concerns about his ongoing fevers, declining status, etc. Need to discuss end-of-life issues adam with pt/family, code status, etc. Continued [facility] stay due to: fever, ambulation difficulties, multiple IV medications needed Discharge planning: long-term facility ([facility])
[2017-04-03] MEDS: CEFEPIME IV 2,000 MG in DEXTROSE 5% 100ML 100 ML IV SCH (21:22)
[2017-04-03] MEDS: METRONIDAZOLE / NSS 500 MG in PREMIXED NSS 100 ML IV SCH (22:16)
[2017-04-04] VITALS (8 sets, daily range): BP systolic 122–161; BP diastolic 55–70; PULSE 51–77; TEMP 36.7–38.5; O2SAT 94–99; BMI 25.1
[2017-04-04] MEDS: CEFEPIME IV 2,000 MG in DEXTROSE 5% 100ML 100 ML IV SCH ×3 (04:54→21:53)
[2017-04-04] MEDS: METRONIDAZOLE / NSS 500 MG in PREMIXED NSS 100 ML IV SCH ×3 (05:54→21:53)
[2017-04-04] MEDS: LEVOTHYROXINE 75 MCG TAB PO SCH (06:20)
[2017-04-04 06:44] LABS: HEMATOCRIT 25.4 % (42-52); MEAN CELL VOLUME 85.5 fL (80-100); MEAN CORPUSCULAR HEMOGLOBIN 28.6 pg (25-34); MEAN CORPUSCULAR HGB CONC 33.5 g/dl (32-36); PLATELET COUNT 20 K/uL (130-400); RED BLOOD COUNT 2.97 M/uL (4.7-6.1); WHITE BLOOD COUNT 2.04 K/uL (4.8-10.8)
[2017-04-04 07:12] LABS: BUN/CREATININE RATIO 23.7 (10-20); CALCIUM 8.8 mg/dl (8.5-10.1); MAGNESIUM 2.1 mg/dl (1.8-2.4); POTASSIUM 3.8 mmol/L (3.5-5.1)
[2017-04-04] MEDS: HYDROCODONE/ACETAMI 10/325 TAB PO PRN (07:28)
[2017-04-04 07:42] LABS: COMPLETE YES; LYMPH ABS # 1.64 K/uL (1.2-3.4); LYMPHOCYTE % 80.6 %; META ABS # 0.02 K/uL (0-0); METAMYELOCYTE % 0.9 %; MYELOCYTE % 1.8 %; NEUTROPHILS % 12.3 %
--- NOTE | 2017-04-04 07:54 | Surgery Progress Note ---
Surgery Progress Note Date of Service Apr 04, 2017. Subjective Fever spike- Dr Lancaster changed atbx- not having too much pain but receiving po meds 2-3 times per day Has pain in perianal and gluteal area- with some skin necrosis Rt buttock and erythema from prior diarrhea at bedside and came out into hallway to talk Objective Vital Signs: Date Time Temp Pulse Resp B/P (MAP) Pulse Ox O2 Delivery O2 Flow Rate FiO2 04/04/17 07:20 37.2 59 20 156/70 (98) 95 04/04/17 04:11 36.7 51 18 161/64 (96) 99 Room Air 04/04/17 00:15 Room Air 04/03/17 23:42 36.5 50 20 151/67 (95) 98 Room Air 04/03/17 20:15 Room Air 04/03/17 19:36 37.2 60 18 132/49 (76) 95 Room Air 04/03/17 18:28 39.0 62 20 04/03/17 17:30 39.1 71 18 175/66 (102) 95 Room Air 04/03/17 16:50 37.4 68 20 04/03/17 16:30 Room Air 04/03/17 12:00 36.6 62 18 113/58 (76) 96 Room Air 04/03/17 11:42 96 Room Air 04/03/17 08:30 95 Room Air 04/03/17 07:54 36.9 67 18 161/65 (97) 94 Room Air General Appearance: no apparent distress, + pertinent finding (very weak) Respiratory/Chest: no respiratory distress Laboratory Results: Results Past 24 Hours Test 04/03/17 07:41 04/03/17 11:49 04/03/17 11:55 04/03/17 16:33 Range/Units Bedside Glucose 224 320 329 198 70-99 mg/dl Test 04/03/17 19:44 04/04/17 06:10 Range/Units Bedside Glucose 206 70-99 mg/dl White Blood Count 2.04 4.8-10.8 K/uL Red Blood Count 2.97 4.7-6.1 M/uL Hemoglobin 8.5 14.0-18.0 g/dL Hematocrit 25.4 42-52 % Mean Corpuscular Volume 85.5 80-100 fL Mean Corpuscular Hemoglobin 28.6 25-34 pg Mean Corpuscular Hemoglobin Concent 33.5 32-36 g/dl Platelet Count 20 130-400 K/uL Mean Platelet Volume 11.0 7.4-10.4 fL RDW Standard Deviation 43.0 36.4-46.3 fL RDW Coefficient of Variation 13.9 11.5-14.5 % Sodium Level 138 136-145 mmol/L Potassium Level 3.8 3.5-5.1 mmol/L Chloride Level 105 98-107 mmol/L Carbon Dioxide Level 25 21-32 mmol/L Anion Gap 8.0 3-11 mmol/L Blood Urea Nitrogen 24 7-18 mg/dl Creatinine 1.00 0.60-1.40 mg/dl Est Creatinine Clear Calc Drug Dose 56.0 ml/min Estimated GFR () 82.6 Estimated GFR (Non- 71.3 BUN/Creatinine Ratio 23.7 10-20 Random Glucose 183 70-99 mg/dl Calcium Level 8.8 8.5-10.1 mg/dl Magnesium Level 2.1 1.8-2.4 mg/dl Microbiology Results 04/03/17 Blood Culture, Received Pending 04/03/17 Blood Culture, Received Pending Rt sacral/ buttock with 2-3 cm skin necrosis- no overt infection - foam appears to be helping has tenderness diffusely in area Assessment & Plan 04/04/17- Difficult situation in that he will continue to decline and aggressive measures will not help except to cause him discomfort. I told his he will gradually become weaker and I think she is realizing this- I also mentioned the Duragesic patch - doubt they will agree to that yet. Dr Gonzalez will be covering over the weekend. 04/03/17- no acute changes- IV Ertapenem for at least 2 weeks will need picc line to go to [facility]- per medical team. I will follow him in the office and also ID f/u. Cont to show evidence of gradual deterioration. 04/02/17- s/p incision/ drainage complex perirectal abscess- loculated w/ sinus cavity into Rt perianal buttock- now has drain tube and seton in place- also gauze packing which will be removed this am and not replaced. Drains will remain weeks to months for seton. Will need to determine duration of atbx- IV/po. will ask ID for suggestions. Currently evaluating cardiac issues . 03/31/17- no acute changes or temp spikes. Overall same over past week. more anemic and platelets diminished. Will repeat CT pelvis w/ IV contrast only ( no oral ). Consider transfer to [facility] if no significant changes reviewed CT- persistent 2 cm abscess w/ gas, probable developing fistula tract- Will likely worsen over time w/o drain placement- especiallt in light of pancytopenia- For OR in am 04/01- will need 2 packs of plts preop 03/28/17- would continue IV atbx, nonoperative management unless shows significant worsening perirectal infection- plan repeat imaging on Mon- most likely here over weekend. Dr Hooper covering over weekend. 03/27/17- seems to be stable from infection standpoint but extreme weakness from primary disease will likely progress. Not using any IV pain meds. cont supportive care and IV atbx. 03/26/17- seems to be more stable, always a concern for recurrence of abscess- would consider repeat pelvic CT w/o contrast if fever recurs. will check CT pelvis- no contrast- keep npo for now in case of significant collection- see addendum below 03/25/17- progressive deterioration w/ incontinence of bowel/bladder. min loose stool since yesterday afternoon- colestid may be helping. Now on po atbx for perirectal abscess. Severe anemia, pancytopenia. will ask wound care nurse for suggestions re- skin protective ointment. Needs significant nursing care 03/21/17- s/p incision/ drainage perirectal abscess via transrectal approach- will have nurses remove packing- cannot replace- cont IV atbx/ check cultures- may need Blood transfusion with expected anemia. No evidence of acute bleeding. Would cont atbx 2 weeks (IV then po) 04/03/17- no acute changes- IV Ertapenem for at least 2 weeks will need picc line to go to [facility]- per medical team. I will follow him in the office and also ID f/u. Cont to show evidence of gradual deterioration. 04/02/17- s/p incision/ drainage complex perirectal abscess- loculated w/ sinus cavity into Rt perianal buttock- now has drain tube and seton in place- also gauze packing which will be removed this am and not replaced. Drains will remain weeks to months for seton. Will need to determine duration of atbx- IV/po. will ask ID for suggestions. Currently evaluating cardiac issues . 03/31/17- no acute changes or temp spikes. Overall same over past week. more anemic and platelets diminished. Will repeat CT pelvis w/ IV contrast only ( no oral ). Consider transfer to [facility] if no significant changes reviewed CT- persistent 2 cm abscess w/ gas, probable developing fistula tract- Will likely worsen over time w/o drain placement- especiallt in light of pancytopenia- For OR in am 04/01- will need 2 packs of plts preop 03/28/17- would continue IV atbx, nonoperative management unless shows significant worsening perirectal infection- plan repeat imaging on Mon- most likely here over weekend. Dr Hooper covering over weekend. 03/27/17- seems to be stable from infection standpoint but extreme weakness from primary disease will likely progress. Not using any IV pain meds. cont supportive care and IV atbx. 03/26/17- seems to be more stable, always a concern for recurrence of abscess- would consider repeat pelvic CT w/o contrast if fever recurs. will check CT pelvis- no contrast- keep npo for now in case of significant collection- see addendum below 03/25/17- progressive deterioration w/ incontinence of bowel/bladder. min loose stool since yesterday afternoon- colestid may be helping. Now on po atbx for perirectal abscess. Severe anemia, pancytopenia. will ask wound care nurse for suggestions re- skin protective ointment. Needs significant nursing care 03/21/17- s/p incision/ drainage perirectal abscess via transrectal approach- will have nurses remove packing- cannot replace- cont IV atbx/ check cultures- may need Blood transfusion with expected anemia. No evidence of acute bleeding. Would cont atbx 2 weeks (IV then po)
[2017-04-04] MEDS: ISOSORBIDE MONONITRATE 30 MG TABCR PO SCH (08:59)
[2017-04-04] MEDS: PSYLLIUM 58.6% PWD PACK S\\F PO SCH (09:00)
[2017-04-04] MEDS: METOPROLOL TARTRATE 25 MG TAB PO SCH ×3 (09:00→21:54)
[2017-04-04] MEDS: MAGNESIUM OXIDE 400 MG TAB PO SCH (09:00)
[2017-04-04] MEDS: INSULIN ASPART 100 UNITS/ML 3 ML PEN SC SCH ×4 (09:01→21:56)
[2017-04-04] MEDS: INSULIN GLARGINE SOLOSTAR 100 UNITS/ML 3 ML PEN SC SCH (09:02)
--- NOTE | 2017-04-04 09:18 | CARDIOLOGY PROGRESS NOTE ---
DATE: 04/04/2017 SUBJECTIVE: Mr. Fenton is without complaints of angina pectoris or dyspnea. OBJECTIVE: VITAL SIGNS Blood pressure is 150/70 with a regular pulse of 64. Respiratory rate is 20 and the patient is afebrile at 37.2 degrees Celsius. Saturation is 95% on room air. NECK: Supple with full carotid upstrokes. There are no carotid bruits. Jugular venous pressure is flat at 90 degrees. There is no thyromegaly. CARDIOVASCULAR: Reveals a regular rhythm with normal S1 and S2. Heart sounds are distant. No obvious murmurs. LUNGS: Clear without rales, rhonchi, or wheezes. ABDOMEN: Soft, nontender without bruits. EXTREMITIES: Reveal intact radial artery pulses bilaterally. There is no peripheral edema. DATA: CBC notes a hemoglobin of 8.5, hematocrit 25.4, white count 2.0, platelet count 20,000. Electrolytes note a sodium of 138, potassium 3.8, chloride 105, bicarbonate 25, BUN 24, creatinine 1.0, glucose 183. IMPRESSION AND PLAN: 1. Coronary artery disease -- status post coronary artery bypass graft x4 in 1988. Cardiac catheterization in May 2007. Noted an occluded SVG to diagonal branch, but all other grafts were patent. Continue medical management. Aspirin and clopidogrel on hold because of thrombocytopenia. 2. Chronic stable angina pectoris. 3. Hypertension -- controlled. 4. Hypercholesterolemia -- continue statin. 5. Status post endovascular repair of abdominal aneurysm -- March 2015. 6. Myelodysplastic syndrome. 7. Perirectal abscess.
[2017-04-04] MEDS: COLESTIPOL HCL 1 GM TAB PO SCH ×2 (10:48→21:54)
[2017-04-04 18:11] LABS: URINE APPEARANCE CLEAR (CLEAR); URINE BILIRUBIN NEG (NEG); URINE COLOR YELLOW; URINE EPITHELIAL CELL AUTO 0-5 /lpf (0-5); URINE NITRITE NEG (NEG); URINE SPECIFIC GRAVITY 1.025 (1.000-1.030); UROBILINOGEN NEG (NEG)
[2017-04-04 18:12] LABS: MANUAL MICROSCOPIC REQUIRED? NO; REVIEW REQ? NO
--- NOTE | 2017-04-04 19:57 | DIAGNOSTIC IMAGING REPORT ---
CHEST ONE VIEW PORTABLE CLINICAL HISTORY: 77 years-old Male presenting with neutropenic fever, eval for pneumonia. TECHNIQUE: Portable upright AP view of the chest was obtained. COMPARISON: 04/01/2017. FINDINGS: Median sternotomy wires with breakage of the superiormost and one of the inferior wires again noted. Mediastinal surgical clips also noted. Atherosclerosis of aortic arch. Chronic silhouette normal in size.Minimal bandlike opacities in the lung bases and left midlung unchanged. No new focal infiltrate. No large effusion or pneumothorax. Degenerative changes of the bilateral glenohumeral joints. Upper abdomen normal. IMPRESSION: 1. No new infiltrate. Persistent mid and basilar atelectasis or scarring. Electronically signed by: Carlos Laughlin M.D. 04/04/2017 7:56 PM Dictated Date/Time: 04/04/2017 7:54 PM
[2017-04-04] MEDS: PRAVASTATIN SOD 40 MG TAB PO SCH (21:55)
[2017-04-04] MEDS: TAMSULOSIN HCL 0.4 MG CAP PO SCH (21:55)
[2017-04-04] MEDS: HYDROCODONE/ACETAMI 10/325 TAB PO SCH (22:01)
[2017-04-05] VITALS (10 sets, daily range): BP systolic 133–170; BP diastolic 60–81; PULSE 54–89; TEMP 36.4–37.2; O2SAT 94–98
[2017-04-05] MEDS: CEFEPIME IV 2,000 MG in DEXTROSE 5% 100ML 100 ML IV SCH ×3 (04:40→21:07)
[2017-04-05] MEDS: METRONIDAZOLE / NSS 500 MG in PREMIXED NSS 100 ML IV SCH ×3 (04:44→20:58)
[2017-04-05] MEDS: LEVOTHYROXINE 75 MCG TAB PO SCH (06:21)
[2017-04-05] MEDS: METOPROLOL TARTRATE 25 MG TAB PO SCH ×3 (08:00→20:58)
[2017-04-05] MEDS: PSYLLIUM 58.6% PWD PACK S\\F PO SCH (08:16)
[2017-04-05] MEDS: COLESTIPOL HCL 1 GM TAB PO SCH (08:16)
[2017-04-05] MEDS: ISOSORBIDE MONONITRATE 30 MG TABCR PO SCH (08:17)
[2017-04-05] MEDS: MAGNESIUM OXIDE 400 MG TAB PO SCH (08:17)
[2017-04-05 08:18] LABS: BUN/CREATININE RATIO 24.8 (10-20); CALCIUM 8.6 mg/dl (8.5-10.1); CREATININE 0.9 mg/dl (0.60-1.40); POTASSIUM 3.6 mmol/L (3.5-5.1)
--- NOTE | 2017-04-05 08:19 | Progress Note ---
Subjective Date of Service: Apr 04, 2017. Subjective Pt evaluation today including: conversation w/ patient, conversation w/ family (daughters, ), physical exam, chart review, lab review, review of studies ( cxr), review of inpatient medication list Pain: rectum PO Intake: fair Voiding: incontinence (occasional) another fever this afternoon to 39 degrees feels "ok" frustrated by ongoing issues no new cough, sore throat, ear pain, sob, east, abd pain, nausea, emesis, diarrhea no dysuria although urine has foul odor no new rash LENGTHY discussion held this evening with family re: plan of care Problem List Medical Problems: (1) Pancytopenia Status: Acute (2) Pneumonia Status: Acute Review of Systems Constitutional: + fever, + chills, + weight loss, + fatigue Respiratory: No cough Cardiac: No chest pain, No orthopnea Abdomen: No pain Male : No dysuria Objective Vital Signs Date Time Temp Pulse Resp B/P (MAP) Pulse Ox O2 Delivery O2 Flow Rate FiO2 04/04/17 19:15 37.7 67 18 122/58 (79) 94 Room Air 04/04/17 17:00 38.5 77 20 130/55 (80) 94 Room Air 04/04/17 14:06 37.0 04/04/17 11:37 36.9 62 20 138/69 (92) 97 04/04/17 10:02 Room Air 04/04/17 08:57 64 04/04/17 07:20 37.2 59 20 156/70 (98) 95 04/04/17 04:11 36.7 51 18 161/64 (96) 99 Room Air 04/04/17 00:15 Room Air 04/03/17 23:42 36.5 50 20 151/67 (95) 98 Room Air Physical Exam General Appearance: no apparent distress, + pertinent finding (looks tired and ill) ENT: pharynx normal, + pertinent finding (ulcer on tip of tongue; no thrush) Neck: no JVD Respiratory/Chest: no respiratory distress, no accessory muscle use, + crackles (faint, dry, rll) Cardiovascular: regular rate, rhythm, no gallop, no murmur Abdomen: normal bowel sounds, non tender, soft, no organomegaly Extremities: no pedal edema Neurologic/Psychiatric: alert, oriented x 3, + depressed affect Skin: no rash Comments: rectum - [address], perirectal area very swollen, drains are draining a thin liquid, some odor Laboratory Results Last 24 Hours Test 04/04/17 06:10 04/04/17 07:33 04/04/17 11:13 04/04/17 16:47 White Blood Count 2.04 K/uL Red Blood Count 2.97 M/uL Hemoglobin 8.5 g/dL Hematocrit 25.4 % Mean Corpuscular Volume 85.5 fL Mean Corpuscular Hemoglobin 28.6 pg Mean Corpuscular Hemoglobin Concent 33.5 g/dl Platelet Count 20 K/uL Mean Platelet Volume 11.0 fL RDW Standard Deviation 43.0 fL RDW Coefficient of Variation 13.9 % Neutrophils % (Manual) 12.3 % Lymphocytes % (Manual) 80.6 % Monocytes % (Manual) 1.8 % Metamyelocytes % 0.9 % Myelocytes % 1.8 % Blast Cells % 2.6 % Neutrophils # (Manual) 0.25 K/uL Total Absolute Neutrophils 0.25 K/uL Lymphocytes # (Manual) 1.64 K/uL Total Absolute Lymphocytes 1.64 K/uL Monocytes # (Manual) 0.04 K/uL Metamyelocytes # 0.02 K/uL Myelocytes # 0.04 K/uL Hypogranular Neutrophils 1+ Blast Cells # 0.05 K/uL Sodium Level 138 mmol/L Potassium Level 3.8 mmol/L Chloride Level 105 mmol/L Carbon Dioxide Level 25 mmol/L Anion Gap 8.0 mmol/L Blood Urea Nitrogen 24 mg/dl Creatinine 1.00 mg/dl Est Creatinine Clear Calc Drug Dose 56.0 ml/min Estimated GFR () 82.6 Estimated GFR (Non- 71.3 BUN/Creatinine Ratio 23.7 Random Glucose 183 mg/dl Calcium Level 8.8 mg/dl Magnesium Level 2.1 mg/dl Bedside Glucose 189 mg/dl 285 mg/dl 331 mg/dl Test 04/04/17 17:59 04/04/17 20:17 Urine Color YELLOW Urine Appearance CLEAR Urine pH 5.0 Urine Specific [place] 1.025 Urine Protein TRACE Urine Glucose (UA) 1+ Urine Ketones NEG Urine Occult Blood 3+ Urine Nitrite NEG Urine Bilirubin NEG Urine Urobilinogen NEG Urine Leukocyte Esterase NEG Urine WBC (Auto) 1-5 /hpf Urine RBC (Auto) 10-30 /hpf Urine Hyaline Casts (Auto) 1-5 /lpf Urine Epithelial Cells (Auto) 0-5 /lpf Urine Bacteria (Auto) NEG Bedside Glucose 271 mg/dl Assessment and Plan 68-year-old male with: 1. perirectal abscess, s/p I/D x 2 with most recent surgery on 04/01/17 - culture from first I/& grew e. coli and bacteroides species. ID has recommended at least 2 weeks of ertapenem. However, he spiked fevers through the ertapenem - changed to cefepime & flagyl ( latter for anaerobic coverage). If he continues w/ fevers then add MRSA coverage and even antifungal coverage. Repeat blood cx's x 2 sets thus far negative. Check u/a and urine culture. Check cxr. 2. 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 Doubt there will be any improvement in cell counts. repeat CBC w/ diff in am. cont neutropenic precautions. 3. thrombocytopenia - no bleeding at this time. Daily CBC. Platelets 20 today 4. uncontrolled T2DM - tighten his novolog coverage; increase lantus to 22 units daily. 5. HTN - adequate control with metoprolol 25 TID. 6. BPH - cont flomax. 7. DVT proph - chemical means contraindicated due to significant thrombocytopenia; SCDs only 8. hypothyroidism - TSH 11/2016 was normal; continue same synthroid dose. 9. rectal pain - in light of declining status consider adding fentanyl patch 12.5mcg as a palliative measure. Hydrocodone in the meantime. 10. CAD - plavix/asa on hold due to severe thrombocytopenia. Remains on BB and imdur. Recent chest pain - has not recurred. Appreciate cardiology input. 40 minute discussion held with pt, his , 2 daughters, and son in law discussed ongoing fevers despite abx, lack of progress, ongoing issues with MDS and severe cytopenias, failure to thrive, poor prognosis discussed options for care - home with hospice, SNF with hospice, or ongoing aggressive care measures including PICC line, abx, etc. recommended hospice in some setting family to discuss this weekend total time today about 60 minutes over 2 separate visits Continued [facility] stay due to: fever, inadequate po fluid intake, inadequate oral pain control, ambulation difficulties, multiple IV medications needed Discharge planning: fdc facility ([facility] vs home with HH )
[2017-04-05 08:27] LABS: HEMATOCRIT 22.6 % (42-52); MEAN CELL VOLUME 83.7 fL (80-100); MEAN CORPUSCULAR HEMOGLOBIN 29.6 pg (25-34); MEAN CORPUSCULAR HGB CONC 35.4 g/dl (32-36); MEAN PLATELET VOLUME 11.2 fL (7.4-10.4); PLATELET COUNT 16 K/uL (130-400); WHITE BLOOD COUNT 1.91 K/uL (4.8-10.8)
[2017-04-05 08:33] LABS: COMPLETE YES; EOSINOPHIL % 0.9 %; LYMPH ABS # 1.66 K/uL (1.2-3.4); LYMPHOCYTE % 86.9 %; META ABS # 0.02 K/uL (0-0); METAMYELOCYTE % 0.9 %; MYELOCYTE % 0.9 %; NEUTROPHILS % 7.8 %
[2017-04-05] MEDS: INSULIN GLARGINE SOLOSTAR 100 UNITS/ML 3 ML PEN SC SCH (10:01)
[2017-04-05] MEDS: INSULIN ASPART 100 UNITS/ML 3 ML PEN SC SCH ×4 (10:03→21:18)
[2017-04-05] MEDS ORDERED: ACETAMINOPHEN 500 MG TAB PO STA (11:45)
--- NOTE | 2017-04-05 13:57 | Surgery Progress Note ---
Surgery Progress Note Date of Service Apr 05, 2017. Subjective 77 year old male with MDS, s/p I&D with drain and seton placement for complex perirectal abscess by Dr. Rodríguez. Overall doing well, no fevers, feels weak. No pain in buttock. Objective Vital Signs: Date Time Temp Pulse Resp B/P (MAP) Pulse Ox O2 Delivery O2 Flow Rate FiO2 04/05/17 12:55 36.9 77 20 158/81 04/05/17 11:23 36.9 69 18 133/65 (87) 96 Room Air 04/05/17 08:00 Room Air 04/05/17 07:48 36.9 55 18 158/68 (98) 95 Room Air 04/05/17 07:48 36.9 04/05/17 04:15 36.7 54 18 153/60 (91) 94 Room Air 04/05/17 00:00 Room Air 04/04/17 23:55 36.8 55 20 126/56 (79) 96 Room Air 04/04/17 19:15 37.7 67 18 122/58 (79) 94 Room Air 04/04/17 17:00 38.5 77 20 130/55 (80) 94 Room Air 04/04/17 14:06 37.0 General Appearance: no apparent distress, + cachetic Head: normocephalic, atraumatic Neck: supple, no adenopathy, thyroid normal, no JVD, no carotid bruits, trachea midline Respiratory/Chest: chest non-tender, lungs clear, normal breath sounds, no respiratory distress, no accessory muscle use Cardiovascular: regular rate, rhythm, no edema, no gallop, no JVD, no murmur Abdomen: normal bowel sounds, non tender, non distended, soft, no organomegaly , no pulsatile mass Extremities: normal range of motion, non-tender, normal inspection, no pedal edema, no calf tenderness, normal capillary refill, pelvis stable Laboratory Results: Results Past 24 Hours Test 04/04/17 16:47 04/04/17 17:59 04/04/17 20:17 04/05/17 07:10 Range/Units Bedside Glucose 331 271 188 70-99 mg/dl Urine Color YELLOW Urine Appearance CLEAR CLEAR Urine pH 5.0 4.5-7.5 Urine Specific [place] 1.025 1.000-1.030 Urine Protein TRACE NEG Urine Glucose (UA) 1+ NEG Urine Ketones NEG NEG Urine Occult Blood 3+ NEG Urine Nitrite NEG NEG Urine Bilirubin NEG NEG Urine Urobilinogen NEG NEG Urine Leukocyte Esterase NEG NEG Urine WBC (Auto) 1-5 0-5 /hpf Urine RBC (Auto) 10-30 0-4 /hpf Urine Hyaline Casts (Auto) 1-5 0-5 /lpf Urine Epithelial Cells (Auto) 0-5 0-5 /lpf Urine Bacteria (Auto) NEG NEG Test 04/05/17 07:30 04/05/17 11:26 Range/Units White Blood Count 1.91 4.8-10.8 K/uL Red Blood Count 2.70 4.7-6.1 M/uL Hemoglobin 8.0 14.0-18.0 g/dL Hematocrit 22.6 42-52 % Mean Corpuscular Volume 83.7 80-100 fL Mean Corpuscular Hemoglobin 29.6 25-34 pg Mean Corpuscular Hemoglobin Concent 35.4 32-36 g/dl Platelet Count 16 130-400 K/uL Mean Platelet Volume 11.2 7.4-10.4 fL RDW Standard Deviation 42.9 36.4-46.3 fL RDW Coefficient of Variation 14.0 11.5-14.5 % Neutrophils % (Manual) 7.8 % Lymphocytes % (Manual) 86.9 % Monocytes % (Manual) 2.6 % Eosinophils % (Manual) 0.9 % Metamyelocytes % 0.9 % Myelocytes % 0.9 % Neutrophils # (Manual) 0.15 1.4-6.5 K/uL Total Absolute Neutrophils 0.15 1.4-6.5 K/uL Lymphocytes # (Manual) 1.66 1.2-3.4 K/uL Total Absolute Lymphocytes 1.66 1.2-3.4 K/uL Monocytes # (Manual) 0.05 0.11-0.59 K/uL Eosinophils # (Manual) 0.02 0-0.5 K/uL Metamyelocytes # 0.02 0-0 K/uL Myelocytes # 0.02 0-0 K/uL Red Blood Cell Morphology Unremarkable Sodium Level 134 136-145 mmol/L Potassium Level 3.6 3.5-5.1 mmol/L Chloride Level 103 98-107 mmol/L Carbon Dioxide Level 24 21-32 mmol/L Anion Gap 7.0 3-11 mmol/L Blood Urea Nitrogen 22 7-18 mg/dl Creatinine 0.90 0.60-1.40 mg/dl Est Creatinine Clear Calc Drug Dose 62.2 ml/min Estimated GFR () 93.8 Estimated GFR (Non- 80.9 BUN/Creatinine Ratio 24.8 10-20 Random Glucose 178 70-99 mg/dl Calcium Level 8.6 8.5-10.1 mg/dl Bedside Glucose 281 70-99 mg/dl Microbiology Results 04/04/17 Urine Culture - Preliminary, Resulted NO GROWTH - LESS THAN 1,000 COLONIES/... buttock with seton and drain in place, no induration or erythema. pressure ulcer developing with superficial eshchar on superior right buttock, foam in place, no evidence of infection. Assessment & Plan 77 year old male with MDS s/p Seton and drain placement for complex perirectal abscess. Doing well from surgery standpoint, no evidence of worsening infection. Continue abx per ID. Local wound care for pressure ulcer. optimize nutrition surgery will follow Carmen Gonzalez DO
[2017-04-05] MEDS: HYDROCODONE/ACETAMI 10/325 TAB PO PRN (14:58)
[2017-04-05] MEDS: SIMETHICONE 80 MG CHEW PO PRN ×2 (15:31→21:55)
[2017-04-05] MEDS: PRAVASTATIN SOD 40 MG TAB PO SCH (20:59)
[2017-04-05] MEDS: TAMSULOSIN HCL 0.4 MG CAP PO SCH (21:00)
[2017-04-05] MEDS ORDERED: INSULIN GLARGINE SOLOSTAR 100 UNITS/ML 3 ML PEN SC SCH (21:00)
[2017-04-05] MEDS: HYDROCODONE/ACETAMI 10/325 TAB PO SCH (21:07)
[2017-04-05] MEDS: HYDROmorphone INJ 0.5 MG/0.5 ML SYR IV PRN (22:23)
--- NOTE | 2017-04-05 22:42 | Progress Note ---
Subjective Date of Service: Apr 05, 2017. Subjective Pt evaluation today including: conversation w/ patient, conversation w/ family (multiple, at bedside), physical exam, chart review, lab review, review of inpatient medication list Pain: rectal, but declines any increase in meds PO Intake: poor today Voiding: no voiding problems no further fevers overnight patient & family talked about their options - patient reports he is leading towards home with hospice denies rectal bleeding, hematuria, or epistaxis Problem List Medical Problems: (1) Pancytopenia Status: Acute (2) Pneumonia Status: Acute Review of Systems Constitutional: No fever, No chills Respiratory: No cough, No shortness of breath Cardiac: No chest pain Abdomen: No pain Objective Vital Signs Date Time Temp Pulse Resp B/P (MAP) Pulse Ox O2 Delivery O2 Flow Rate FiO2 04/05/17 20:13 36.9 68 20 154/71 (98) 98 Room Air 04/05/17 15:35 37.2 75 18 154/71 (98) 96 04/05/17 14:00 36.9 89 20 147/70 95 04/05/17 13:30 36.4 81 18 162/72 94 04/05/17 13:15 36.6 76 20 170/75 95 04/05/17 12:55 36.9 77 20 158/81 04/05/17 11:23 36.9 69 18 133/65 (87) 96 Room Air 04/05/17 08:00 Room Air 04/05/17 07:48 36.9 55 18 158/68 (98) 95 Room Air 04/05/17 07:48 36.9 04/05/17 04:15 36.7 54 18 153/60 (91) 94 Room Air 04/05/17 00:00 Room Air 04/04/17 23:55 36.8 55 20 126/56 (79) 96 Room Air Physical Exam General Appearance: no apparent distress ENT: pharynx normal Neck: no JVD Respiratory/Chest: lungs clear, no respiratory distress, no accessory muscle use Cardiovascular: regular rate, rhythm, no gallop, no murmur Abdomen: normal bowel sounds, non tender, soft, no organomegaly Extremities: no pedal edema Neurologic/Psychiatric: alert, oriented x 3, + depressed affect Skin: + pallor Laboratory Results Last 24 Hours Test 04/05/17 07:10 04/05/17 07:30 04/05/17 11:26 04/05/17 16:42 Bedside Glucose 188 mg/dl 281 mg/dl 248 mg/dl White Blood Count 1.91 K/uL Red Blood Count 2.70 M/uL Hemoglobin 8.0 g/dL Hematocrit 22.6 % Mean Corpuscular Volume 83.7 fL Mean Corpuscular Hemoglobin 29.6 pg Mean Corpuscular Hemoglobin Concent 35.4 g/dl Platelet Count 16 K/uL Mean Platelet Volume 11.2 fL RDW Standard Deviation 42.9 fL RDW Coefficient of Variation 14.0 % Neutrophils % (Manual) 7.8 % Lymphocytes % (Manual) 86.9 % Monocytes % (Manual) 2.6 % Eosinophils % (Manual) 0.9 % Metamyelocytes % 0.9 % Myelocytes % 0.9 % Neutrophils # (Manual) 0.15 K/uL Total Absolute Neutrophils 0.15 K/uL Lymphocytes # (Manual) 1.66 K/uL Total Absolute Lymphocytes 1.66 K/uL Monocytes # (Manual) 0.05 K/uL Eosinophils # (Manual) 0.02 K/uL Metamyelocytes # 0.02 K/uL Myelocytes # 0.02 K/uL Red Blood Cell Morphology Unremarkable Sodium Level 134 mmol/L Potassium Level 3.6 mmol/L Chloride Level 103 mmol/L Carbon Dioxide Level 24 mmol/L Anion Gap 7.0 mmol/L Blood Urea Nitrogen 22 mg/dl Creatinine 0.90 mg/dl Est Creatinine Clear Calc Drug Dose 62.2 ml/min Estimated GFR () 93.8 Estimated GFR (Non- 80.9 BUN/Creatinine Ratio 24.8 Random Glucose 178 mg/dl Calcium Level 8.6 mg/dl Test 04/05/17 19:55 Bedside Glucose 257 mg/dl Assessment and Plan 68-year-old male with: 1. perirectal abscess, s/p I/D x 2 with most recent surgery on 04/01/17 - culture from [facility] I/& grew e. coli and bacteroides species. ID has recommended at least 2 weeks of ertapenem. However, he spiked fevers through the ertapenem - changed to cefepime & flagyl ( latter for anaerobic coverage). If he continues w/ fevers then add MRSA coverage and even antifungal coverage. Repeat blood cx's x 2 sets thus far negative. Urine cx negative. CXR w/o infiltrates. Cont current abx and follow cultures. 2. 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 cont neutropenic precautions. 3. thrombocytopenia - platelet count 16,000 today. Tx 1 unit of apheresed platelets; cbc in am. 4. uncontrolled T2DM - add lantus 10 units HS. Cont AM lantus + novolog. 5. HTN - adequate control with metoprolol 25 TID. 6. BPH - cont flomax. 7. DVT proph - chemical means contraindicated due to significant thrombocytopenia; SCDs only 8. hypothyroidism - TSH 11/2016 was normal; continue same synthroid dose. 9. rectal pain - patient declines adding fentanyl patch 12.5mcg as a palliative measure at this time. 10. CAD - plavix/asa on hold due to severe thrombocytopenia. Remains on BB and imdur. Recent chest pain - has not recurred. Appreciate cardiology input. pt/family now leaning towards hospice will discuss this again tomorrow Continued [facility] stay due to: inadequate po fluid intake, inadequate oral pain control, ambulation difficulties, multiple IV medications needed Discharge planning: [facility] facility ([facility] vs home with HH )
[2017-04-06] MEDS: METRONIDAZOLE / NSS 500 MG in PREMIXED NSS 100 ML IV SCH ×3 (04:30→21:11)
[2017-04-06] MEDS: HYDROmorphone INJ 0.5 MG/0.5 ML SYR IV PRN ×5 (04:30→18:10)
[2017-04-06 04:32] VITALS: BP 150/72; PULSE 83; TEMP 37.8; O2SAT 95
[2017-04-06] MEDS: CEFEPIME IV 2,000 MG in DEXTROSE 5% 100ML 100 ML IV SCH ×3 (05:55→21:32)
[2017-04-06] MEDS: LEVOTHYROXINE 75 MCG TAB PO SCH (05:58)
[2017-04-06 07:14] VITALS: BP 145/63; PULSE 69; TEMP 36.8; O2SAT 98
[2017-04-06] MEDS: PSYLLIUM 58.6% PWD PACK S\\F PO SCH (08:00)
[2017-04-06 08:03] LABS: HEMATOCRIT 24.9 % (42-52); MEAN CELL VOLUME 84.7 fL (80-100); MEAN CORPUSCULAR HEMOGLOBIN 28.9 pg (25-34); MEAN CORPUSCULAR HGB CONC 34.1 g/dl (32-36); MEAN PLATELET VOLUME 10.6 fL (7.4-10.4); PLATELET COUNT 29 K/uL (130-400); RED BLOOD COUNT 2.94 M/uL (4.7-6.1); WHITE BLOOD COUNT 2.09 K/uL (4.8-10.8)
[2017-04-06 08:37] LABS: COMPLETE YES; LYMPH ABS # 1.34 K/uL (1.2-3.4); LYMPHOCYTE % 64.2 %; META ABS # 0.02 K/uL (0-0); METAMYELOCYTE % 0.9 %; MYELOCYTE % 2.6 %; NEUTROPHILS % 15.7 %
[2017-04-06] MEDS: INSULIN ASPART 100 UNITS/ML 3 ML PEN SC SCH ×4 (09:10→21:14)
[2017-04-06] MEDS: INSULIN GLARGINE SOLOSTAR 100 UNITS/ML 3 ML PEN SC SCH ×2 (09:10→21:17)
[2017-04-06] MEDS: METOPROLOL TARTRATE 25 MG TAB PO SCH ×3 (09:11→21:10)
[2017-04-06] MEDS: ISOSORBIDE MONONITRATE 30 MG TABCR PO SCH (09:12)
[2017-04-06] MEDS: MAGNESIUM OXIDE 400 MG TAB PO SCH (09:12)
[2017-04-06 11:22] VITALS: BP 130/65; PULSE 66; TEMP 36.9; O2SAT 97
--- NOTE | 2017-04-06 12:39 | Surgery Progress Note ---
Surgery Progress Note Date of Service Apr 06, 2017. Subjective 77 year old male with MDS, s/p I&D with drain and seton placement for complex perirectal abscess by Dr. Rodríguez. Overall doing well, low grade fever overnight, feels better. No pain in buttock. Objective Vital Signs: Date Time Temp Pulse Resp B/P (MAP) Pulse Ox O2 Delivery O2 Flow Rate FiO2 04/06/17 11:22 36.9 66 20 130/65 (86) 97 04/06/17 07:14 36.8 69 20 145/63 (90) 98 04/06/17 04:32 37.8 83 20 150/72 (98) 95 Room Air 04/06/17 00:00 Room Air 04/05/17 23:05 36.7 74 18 164/74 (104) 95 Room Air 04/05/17 20:13 36.9 68 20 154/71 (98) 98 Room Air 04/05/17 20:00 Room Air 04/05/17 15:35 37.2 75 18 154/71 (98) 96 04/05/17 14:00 36.9 89 20 147/70 95 04/05/17 13:30 36.4 81 18 162/72 94 04/05/17 13:15 36.6 76 20 170/75 95 04/05/17 12:55 36.9 77 20 158/81 General Appearance: WD/WN, no apparent distress Head: normocephalic, atraumatic Neck: supple, no adenopathy, thyroid normal, no JVD, no carotid bruits, trachea midline Respiratory/Chest: chest non-tender, lungs clear, normal breath sounds, no respiratory distress, no accessory muscle use Cardiovascular: regular rate, rhythm, no edema, no gallop, no JVD, no murmur Abdomen: normal bowel sounds, non tender, non distended, soft, no organomegaly , no pulsatile mass, + pertinent finding (rectal exam deferred as patient eating lunch, no concerns.) Extremities: normal range of motion, non-tender, normal inspection, no pedal edema, no calf tenderness, normal capillary refill, pelvis stable Laboratory Results: Results Past 24 Hours Test 04/05/17 16:42 04/05/17 19:55 04/06/17 07:08 04/06/17 07:26 Range/Units Bedside Glucose 248 257 195 70-99 mg/dl White Blood Count 2.09 4.8-10.8 K/uL Red Blood Count 2.94 4.7-6.1 M/uL Hemoglobin 8.5 14.0-18.0 g/dL Hematocrit 24.9 42-52 % Mean Corpuscular Volume 84.7 80-100 fL Mean Corpuscular Hemoglobin 28.9 25-34 pg Mean Corpuscular Hemoglobin Concent 34.1 32-36 g/dl Platelet Count 29 130-400 K/uL Mean Platelet Volume 10.6 7.4-10.4 fL RDW Standard Deviation 42.4 36.4-46.3 fL RDW Coefficient of Variation 13.9 11.5-14.5 % Neutrophils % (Manual) 15.7 % Lymphocytes % (Manual) 64.2 % Monocytes % (Manual) 0.9 % Metamyelocytes % 0.9 % Myelocytes % 2.6 % Blast Cells % 15.7 % Neutrophils # (Manual) 0.33 1.4-6.5 K/uL Total Absolute Neutrophils 0.33 1.4-6.5 K/uL Lymphocytes # (Manual) 1.34 1.2-3.4 K/uL Total Absolute Lymphocytes 1.34 1.2-3.4 K/uL Monocytes # (Manual) 0.02 0.11-0.59 K/uL Metamyelocytes # 0.02 0-0 K/uL Myelocytes # 0.05 0-0 K/uL Blast Cells # 0.33 0-0 K/uL Red Blood Cell Morphology Unremarkable Test 04/06/17 11:12 Range/Units Bedside Glucose 206 70-99 mg/dl Assessment & Plan 77 year old male with MDS s/p Seton and drain placement for complex perirectal abscess. Doing well from surgery standpoint, no evidence of worsening infection. Continue abx per ID. Local wound care for pressure ulcer. optimize nutrition surgery will follow Carmen Gonzalez DO
[2017-04-06] MEDS ORDERED: ACETAMINOPHEN 500 MG TAB PO STA (15:29)
[2017-04-06] MEDS ORDERED: ACETAMINOPHEN 500 MG TAB PO ONE (15:32)
--- NOTE | 2017-04-06 16:26 | Pharmacy Progress Note ---
Pharmacy Antibiotic Consult Date of Service: Apr 06, 2017. Pharmacy Dosing Scope Pharmacy is consulted to initiate VANC IV dosing therapy, order appropriate labs and adjust drug dose/frequency. Subjective The patient is a 77 year old male admitted on Mar 19, 2017 at 12:16. Objective Height (Feet): 5 Height (Inches): 7.00 Weight (Kilograms): 75.900 Lab Results (24hrs): Test 04/06/17 07:08 04/06/17 07:26 04/06/17 11:12 White Blood Count 2.09 K/uL (4.8-10.8) Red Blood Count 2.94 M/uL (4.7-6.1) Hemoglobin 8.5 g/dL (14.0-18.0) Hematocrit 24.9 % (42-52) Mean Corpuscular Volume 84.7 fL (80-100) Mean Corpuscular Hemoglobin 28.9 pg (25-34) Mean Corpuscular Hemoglobin Concent 34.1 g/dl (32-36) Platelet Count 29 K/uL (130-400) Mean Platelet Volume 10.6 fL (7.4-10.4) RDW Standard Deviation 42.4 fL (36.4-46.3) RDW Coefficient of Variation 13.9 % (11.5-14.5) Neutrophils % (Manual) 15.7 % Lymphocytes % (Manual) 64.2 % Monocytes % (Manual) 0.9 % Metamyelocytes % 0.9 % Myelocytes % 2.6 % Blast Cells % 15.7 % Neutrophils # (Manual) 0.33 K/uL (1.4-6.5) Total Absolute Neutrophils 0.33 K/uL (1.4-6.5) Lymphocytes # (Manual) 1.34 K/uL (1.2-3.4) Total Absolute Lymphocytes 1.34 K/uL (1.2-3.4) Monocytes # (Manual) 0.02 K/uL (0.11-0.59) Metamyelocytes # 0.02 K/uL (0-0) Myelocytes # 0.05 K/uL (0-0) Blast Cells # 0.33 K/uL (0-0) Red Blood Cell Morphology Unremarkable Bedside Glucose 195 mg/dl (70-99) 206 mg/dl (70-99) Recent Pertinent Medications See emr Assessment & Plan Loading dose: 2000 mg IV X 1 dose then: 1500 mg IV every 12 hours. Peak and trough or random level has been ordered for: none as empiric and prior level was therapeutic on this dose. Will reorder if to continue past 48 hours. Pharmacy will continue to follow and will adjust dose/frequency as necessary. Thank you
[2017-04-06] MEDS ORDERED: VANCOMYCIN CONSULT ACTIVE PRN (16:30)
[2017-04-06 16:37] VITALS: BP 136/68; PULSE 80; O2SAT 94
[2017-04-06 16:45] VITALS: TEMP 37.8
[2017-04-06] MEDS ORDERED: VANCOMYCIN INJ 2,000 MG in SODIUM CHLORIDE 0.9% 500ML 500 ML IV ONE (17:00)
[2017-04-06] MEDS: ACYCLOVIR SOD INJ 750 MG in DEXTROSE 5% 250ML 250 ML IV SCH (17:22)
[2017-04-06] MEDS: SIMETHICONE 80 MG CHEW PO PRN (17:58)
[2017-04-06 20:03] VITALS: BP 108/53; PULSE 70; TEMP 37.1; O2SAT 97
[2017-04-06] MEDS: HYDROCODONE/ACETAMI 10/325 TAB PO SCH (21:00)
[2017-04-06] MEDS: PRAVASTATIN SOD 40 MG TAB PO SCH (21:11)
[2017-04-06] MEDS: TAMSULOSIN HCL 0.4 MG CAP PO SCH (21:11)
--- NOTE | 2017-04-06 21:21 | Progress Note ---
Subjective Date of Service: Apr 06, 2017. Subjective Pt evaluation today including: conversation w/ patient, conversation w/ family (daughter - in private and at bedside ), physical exam, chart review, lab review , conversation w/ distributor sales consultant (heme/onc), review of inpatient medication list Pain: rectal but minimal today PO Intake: poor Voiding: incontinence upon my arrival for the visit today he had just awoken from a nap he was quite confused, however, and stated "something is wrong" he began to have rigors I checked a temperature and he was 39 degrees celcius he denied any new complaints such as cough, dyspnea, abd pain, headache, mouth sores, skin rash, vomiting, diarrhea only complaint was mild rectal pain I spoke with the pt's daughter outside the room - I asked whether her father and the family had discussed his options for care ( see my prior notes detailing these discussions) she said "he's a fighter and wants to do everything possible" this, however, was quite different from yesterday's visit when he stated he was leaning towards home with hospice his daughter reported that they wanted to be sure that all possible treatment modalities had been pursued and that "no stone had not been unturned" Problem List Medical Problems: (1) Pancytopenia Status: Acute (2) Pneumonia Status: Acute Review of Systems unable to obtain ROS due to altered MS Objective Vital Signs Date Time Temp Pulse Resp B/P (MAP) Pulse Ox O2 Delivery O2 Flow Rate FiO2 04/06/17 20:03 37.1 70 18 108/53 (71) 97 Room Air 04/06/17 16:45 37.8 04/06/17 16:37 80 28 136/68 (90) 94 Room Air 04/06/17 11:22 36.9 66 20 130/65 (86) 97 04/06/17 08:00 Room Air 04/06/17 07:14 36.8 69 20 145/63 (90) 98 04/06/17 04:32 37.8 83 20 150/72 (98) 95 Room Air 04/06/17 00:00 Room Air 04/05/17 23:05 36.7 74 18 164/74 (104) 95 Room Air Physical Exam General Appearance: + thin, + pertinent finding (confused, having active rigors ) ENT: pharynx normal (MMM, no thrush or mucositis ) Neck: no JVD Respiratory/Chest: lungs clear, no respiratory distress, no accessory muscle use Cardiovascular: regular rate, rhythm, no gallop, no murmur Abdomen: normal bowel sounds, non tender, soft, no organomegaly Extremities: no pedal edema Neurologic/Psychiatric: alert (but confused and acting strangely) Comments: rectal - mild erythema/swelling perirectal area; [address]; no drainage during my exam; no tenderness to palpation Laboratory Results Last 24 Hours Test 04/06/17 07:08 04/06/17 07:26 04/06/17 11:12 04/06/17 17:33 White Blood Count 2.09 K/uL Red Blood Count 2.94 M/uL Hemoglobin 8.5 g/dL Hematocrit 24.9 % Mean Corpuscular Volume 84.7 fL Mean Corpuscular Hemoglobin 28.9 pg Mean Corpuscular Hemoglobin Concent 34.1 g/dl Platelet Count 29 K/uL Mean Platelet Volume 10.6 fL RDW Standard Deviation 42.4 fL RDW Coefficient of Variation 13.9 % Neutrophils % (Manual) 15.7 % Lymphocytes % (Manual) 64.2 % Monocytes % (Manual) 0.9 % Metamyelocytes % 0.9 % Myelocytes % 2.6 % Blast Cells % 15.7 % Neutrophils # (Manual) 0.33 K/uL Total Absolute Neutrophils 0.33 K/uL Lymphocytes # (Manual) 1.34 K/uL Total Absolute Lymphocytes 1.34 K/uL Monocytes # (Manual) 0.02 K/uL Metamyelocytes # 0.02 K/uL Myelocytes # 0.05 K/uL Blast Cells # 0.33 K/uL Red Blood Cell Morphology Unremarkable Bedside Glucose 195 mg/dl 206 mg/dl 202 mg/dl Test 04/06/17 20:31 Bedside Glucose 274 mg/dl Assessment and Plan 68-year-old male with: 1. perirectal abscess, s/p I/D x 2 with most recent surgery on 04/01/17 - culture from first I/& grew e. coli and bacteroides species. ID has recommended at least 2 weeks of ertapenem. However, he spiked fevers through the ertapenem - changed to cefepime & flagyl ( latter for anaerobic coverage). Repeat blood cx's x 2 sets thus far negative. Urine cx negative. CXR w/o infiltrates. 2. recurrent neutropenic fever - despite cefepime + flagyl he has continued with daily fevers this weekend. He has no new source of infection on examination and no new physical complaints. The perirectal abscess appears quite stable. At this time the patient and his family - despite numerous discussions about poor prognosis, lack of candidacy for bone marrow transplant, transitioning to hospice, etc - wish to continue fairly aggressive treatment. Thus, will add vanco as well as acyclovir. Hold on antifungals. I spoke with the on-call oncologist who will ask Dr. Marroquin, his primary oncologist, to consult tomorrow and speak with the patient/family once again. 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 3. 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 s/p platelet infusion yesterday; platelets today 29,000. H/H and wbc unchanged. cont neutropenic precautions. CBC am. 4. thrombocytopenia - as above. 5. uncontrolled T2DM - increase lantus to 15 units HS. Cont AM lantus + novolog. Suspect increasing requirements are due to fever and physiological stress as he is eating poorly. 6. HTN - adequate control with metoprolol 25 TID. 7. BPH - cont flomax. 8. DVT proph - chemical means contraindicated due to significant thrombocytopenia; SCDs only 9. hypothyroidism - TSH 11/2016 was normal; continue same synthroid dose. 10. rectal pain - patient declines adding fentanyl patch 12.5mcg as a palliative measure at this time. 11. CAD - plavix/asa on hold due to severe thrombocytopenia. Remains on BB and imdur. Recent chest pain - has not recurred. Appreciate cardiology input. consult Dr. Marroquin in the AM to discuss poor prognosis and options consider palliative care consultation if patient/family agreeable see my prior notes regarding multiple discussions from this weekend I again recommended hospice today in light of rapidly declining status Continued [facility] stay due to: fever, abnormal vital signs, inadequate po fluid intake, inadequate oral pain control, ambulation difficulties, multiple IV medications needed Discharge planning: halfway facility ([facility] vs home with hospice )
[2017-04-07] VITALS (8 sets, daily range): BP systolic 96–144; BP diastolic 56–65; PULSE 63–84; TEMP 36.3–37.7; O2SAT 94–99
[2017-04-07] MEDS: ACYCLOVIR SOD INJ 750 MG in DEXTROSE 5% 250ML 250 ML IV SCH ×4 (00:41→23:46)
[2017-04-07] MEDS: ACETAMINOPHEN 325 MG TAB PO PRN (03:01)
[2017-04-07] MEDS: VANCOMYCIN INJ 1,500 MG in SODIUM CHLORIDE 0.9% 500ML 500 ML IV SCH ×2 (04:48→17:54)
[2017-04-07] MEDS: CEFEPIME IV 2,000 MG in DEXTROSE 5% 100ML 100 ML IV SCH ×3 (04:49→20:51)
[2017-04-07] MEDS: METRONIDAZOLE / NSS 500 MG in PREMIXED NSS 100 ML IV SCH ×3 (05:33→20:40)
[2017-04-07] MEDS: LEVOTHYROXINE 75 MCG TAB PO SCH (06:17)
--- NOTE | 2017-04-07 06:42 | Surgery Progress Note ---
Surgery Progress Note Date of Service Apr 07, 2017. Subjective currently resting comfortably- min pain incontinent of stool early this am- not watery Intermittent fever- now also on vanco Objective Vital Signs: Date Time Temp Pulse Resp B/P (MAP) Pulse Ox O2 Delivery O2 Flow Rate FiO2 04/07/17 04:27 37.7 84 20 144/64 (90) 94 Room Air 04/07/17 00:19 36.5 63 18 142/56 (84) 97 Room Air 04/07/17 00:00 Room Air 04/06/17 20:03 37.1 70 18 108/53 (71) 97 Room Air 04/06/17 20:00 Room Air 04/06/17 16:45 37.8 04/06/17 16:37 80 28 136/68 (90) 94 Room Air 04/06/17 11:22 36.9 66 20 130/65 (86) 97 04/06/17 08:00 Room Air 04/06/17 07:14 36.8 69 20 145/63 (90) 98 General Appearance: no apparent distress Respiratory/Chest: no respiratory distress Laboratory Results: Results Past 24 Hours Test 04/06/17 07:08 04/06/17 07:26 04/06/17 11:12 04/06/17 17:33 Range/Units White Blood Count 2.09 4.8-10.8 K/uL Red Blood Count 2.94 4.7-6.1 M/uL Hemoglobin 8.5 14.0-18.0 g/dL Hematocrit 24.9 42-52 % Mean Corpuscular Volume 84.7 80-100 fL Mean Corpuscular Hemoglobin 28.9 25-34 pg Mean Corpuscular Hemoglobin Concent 34.1 32-36 g/dl Platelet Count 29 130-400 K/uL Mean Platelet Volume 10.6 7.4-10.4 fL RDW Standard Deviation 42.4 36.4-46.3 fL RDW Coefficient of Variation 13.9 11.5-14.5 % Neutrophils % (Manual) 15.7 % Lymphocytes % (Manual) 64.2 % Monocytes % (Manual) 0.9 % Metamyelocytes % 0.9 % Myelocytes % 2.6 % Blast Cells % 15.7 % Neutrophils # (Manual) 0.33 1.4-6.5 K/uL Total Absolute Neutrophils 0.33 1.4-6.5 K/uL Lymphocytes # (Manual) 1.34 1.2-3.4 K/uL Total Absolute Lymphocytes 1.34 1.2-3.4 K/uL Monocytes # (Manual) 0.02 0.11-0.59 K/uL Metamyelocytes # 0.02 0-0 K/uL Myelocytes # 0.05 0-0 K/uL Blast Cells # 0.33 0-0 K/uL Red Blood Cell Morphology Unremarkable Bedside Glucose 195 206 202 70-99 mg/dl Test 04/06/17 20:31 04/07/17 01:04 04/07/17 06:19 Range/Units Bedside Glucose 274 171 70-99 mg/dl Microbiology Results 04/07/17 Blood Culture, Received Pending 04/07/17 Blood Culture, Received Pending skin necrosis Rt sacral area - no overt infection drains in place Assessment & Plan 04/07/17- extremely weak- progressive decline- plts transfused 04/05. Currently bld cultures negative, on triple atbx- I do not think any aggressive treatment will improve his gradual deterioration. Oncology to help with care 04/03/17- no acute changes- IV Ertapenem for at least 2 weeks will need picc line to go to [facility]- per medical team. I will follow him in the office and also ID f/u. Cont to show evidence of gradual deterioration. 04/02/17- s/p incision/ drainage complex perirectal abscess- loculated w/ sinus cavity into Rt perianal buttock- now has drain tube and seton in place- also gauze packing which will be removed this am and not replaced. Drains will remain weeks to months for seton. Will need to determine duration of atbx- IV/po. will ask ID for suggestions. Currently evaluating cardiac issues . 03/31/17- no acute changes or temp spikes. Overall same over past week. more anemic and platelets diminished. Will repeat CT pelvis w/ IV contrast only ( no oral ). Consider transfer to [facility] if no significant changes reviewed CT- persistent 2 cm abscess w/ gas, probable developing fistula tract- Will likely worsen over time w/o drain placement- especiallt in light of pancytopenia- For OR in am 04/01- will need 2 packs of plts preop 03/28/17- would continue IV atbx, nonoperative management unless shows significant worsening perirectal infection- plan repeat imaging on Mon- most likely here over weekend. Dr Hooper covering over weekend. 03/27/17- seems to be stable from infection standpoint but extreme weakness from primary disease will likely progress. Not using any IV pain meds. cont supportive care and IV atbx. 03/26/17- seems to be more stable, always a concern for recurrence of abscess- would consider repeat pelvic CT w/o contrast if fever recurs. will check CT pelvis- no contrast- keep npo for now in case of significant collection- see addendum below 03/25/17- progressive deterioration w/ incontinence of bowel/bladder. min loose stool since yesterday afternoon- colestid may be helping. Now on po atbx for perirectal abscess. Severe anemia, pancytopenia. will ask wound care nurse for suggestions re- skin protective ointment. Needs significant nursing care 03/21/17- s/p incision/ drainage perirectal abscess via transrectal approach- will have nurses remove packing- cannot replace- cont IV atbx/ check cultures- may need Blood transfusion with expected anemia. No evidence of acute bleeding. Would cont atbx 2 weeks (IV then po) 04/03/17- no acute changes- IV Ertapenem for at least 2 weeks will need picc line to go to [facility]- per medical team. I will follow him in the office and also ID f/u. Cont to show evidence of gradual deterioration. 04/02/17- s/p incision/ drainage complex perirectal abscess- loculated w/ sinus cavity into Rt perianal buttock- now has drain tube and seton in place- also gauze packing which will be removed this am and not replaced. Drains will remain weeks to months for seton. Will need to determine duration of atbx- IV/po. will ask ID for suggestions. Currently evaluating cardiac issues . 03/31/17- no acute changes or temp spikes. Overall same over past week. more anemic and platelets diminished. Will repeat CT pelvis w/ IV contrast only ( no oral ). Consider transfer to [facility] if no significant changes reviewed CT- persistent 2 cm abscess w/ gas, probable developing fistula tract- Will likely worsen over time w/o drain placement- especiallt in light of pancytopenia- For OR in am 04/01- will need 2 packs of plts preop 03/28/17- would continue IV atbx, nonoperative management unless shows significant worsening perirectal infection- plan repeat imaging on Mon- most likely here over weekend. Dr Hooper covering over weekend. 03/27/17- seems to be stable from infection standpoint but extreme weakness from primary disease will likely progress. Not using any IV pain meds. cont supportive care and IV atbx. 03/26/17- seems to be more stable, always a concern for recurrence of abscess- would consider repeat pelvic CT w/o contrast if fever recurs. will check CT pelvis- no contrast- keep npo for now in case of significant collection- see addendum below 03/25/17- progressive deterioration w/ incontinence of bowel/bladder. min loose stool since yesterday afternoon- colestid may be helping. Now on po atbx for perirectal abscess. Severe anemia, pancytopenia. will ask wound care nurse for suggestions re- skin protective ointment. Needs significant nursing care 03/21/17- s/p incision/ drainage perirectal abscess via transrectal approach- will have nurses remove packing- cannot replace- cont IV atbx/ check cultures- may need Blood transfusion with expected anemia. No evidence of acute bleeding. Would cont atbx 2 weeks (IV then po)
[2017-04-07 06:48] LABS: HEMATOCRIT 22.6 % (42-52); MEAN CELL VOLUME 84.6 fL (80-100); MEAN CORPUSCULAR HEMOGLOBIN 28.5 pg (25-34); MEAN CORPUSCULAR HGB CONC 33.6 g/dl (32-36); MEAN PLATELET VOLUME 11.1 fL (7.4-10.4); PLATELET COUNT 22 K/uL (130-400); RED BLOOD COUNT 2.67 M/uL (4.7-6.1); WHITE BLOOD COUNT 1.98 K/uL (4.8-10.8)
--- NOTE | 2017-04-07 07:06 | DIAGNOSTIC IMAGING REPORT ---
CHEST ONE VIEW PORTABLE CLINICAL HISTORY: Rigors. Evaluate for pneumonia. COMPARISON STUDY: Chest radiograph April 04, 2017. FINDINGS: There are median sternotomy wires and mediastinal surgical clips. Cardiomediastinal silhouette is stable. There is no evidence of pulmonary edema. Exam is compromised by motion artifact. Left basilar opacity has developed. IMPRESSION: Interval development of left basilar opacity. Although exam compromised by motion artifact, this favors pneumonia. Electronically signed by: Luis Mills M.D. 04/07/2017 7:05 AM Dictated Date/Time: 04/07/2017 7:03 AM
[2017-04-07 07:15] LABS: COMPLETE YES; EOSINOPHIL % 0.9 %; LYMPH ABS # 0.99 K/uL (1.2-3.4); MYELOCYTE % 1.8 %; NEUTROPHILS % 35.7 %
[2017-04-07 07:18] LABS: BUN/CREATININE RATIO 20.9 (10-20); CALCIUM 8.7 mg/dl (8.5-10.1); POTASSIUM 3.3 mmol/L (3.5-5.1)
[2017-04-07] MEDS: MAGNESIUM OXIDE 400 MG TAB PO SCH (07:49)
[2017-04-07] MEDS: ISOSORBIDE MONONITRATE 30 MG TABCR PO SCH (07:49)
[2017-04-07] MEDS: PSYLLIUM 58.6% PWD PACK S\\F PO SCH (07:49)
[2017-04-07] MEDS: METOPROLOL TARTRATE 25 MG TAB PO SCH ×4 (07:49→20:20)
[2017-04-07] MEDS: INSULIN GLARGINE SOLOSTAR 100 UNITS/ML 3 ML PEN SC SCH ×2 (09:08→20:40)
[2017-04-07] MEDS: INSULIN ASPART 100 UNITS/ML 3 ML PEN SC SCH ×4 (09:09→20:39)
[2017-04-07] MEDS: HYDROmorphone INJ 0.5 MG/0.5 ML SYR IV PRN ×3 (09:11→15:31)
[2017-04-07] MEDS: SIMETHICONE 80 MG CHEW PO PRN (09:15)
--- NOTE | 2017-04-07 09:32 | CARDIOLOGY PROGRESS NOTE ---
DATE: 04/07/2017 SUBJECTIVE: Mr. Fenton is resting comfortably in bed without complaints of chest pain or dyspnea. He did have a fever earlier this morning. OBJECTIVE: VITAL SIGNS: Blood pressure is 135/60 with a regular pulse of 67. Respiratory rate is 16 and the patient is afebrile at 36.4 degrees Celsius. Max was 37.7 earlier this morning. Saturation is 99% on room air. NECK: Supple with full carotid upstrokes. There are no carotid bruits. Jugular venous pressure is flat at 90 degrees. There is no thyromegaly. CARDIOVASCULAR: Reveals a regular rhythm with a normal S1 and S2. No S3, S4, or murmurs are noted. LUNGS: Clear without rales, rhonchi, or wheezes. ABDOMEN: Soft without bruits. EXTREMITIES: Reveal intact radial artery pulses bilaterally. There is no peripheral edema. LABORATORY DATA: Hemoglobin is 7.6, hematocrit 22.6, white count 1.98, and platelet count 22,000. Electrolytes note a sodium of 136, potassium 3.3, chloride 103, bicarb 26, BUN 21, creatinine 1.0, and glucose 183. IMPRESSION AND PLAN: 1. Coronary artery disease -- status post coronary artery bypass graft x4 in 1988. Cardiac catheterization in May 2007 noted an occluded SVG to diagonal, but all other grafts patent. Continue medical management. Aspirin and clopidogrel will remain on hold due to thrombocytopenia. 2. Chronic stable angina pectoris -- asymptomatic at this time. 3. Hypertension -- controlled. 4. Hypercholesterolemia -- continue statin. 5. Status post endovascular repair of abdominal aneurysm - March 2015. 6. Myelodysplastic syndrome. 7. Perirectal abscess.
--- NOTE | 2017-04-07 11:54 | Oncology Consultation ---
Oncology/Heme Consultation Date of Consultation: Apr 07, 2017. Attending Physician: Carlos Reese M.D. Reason for Consultation: History of myelodysplasia History of Present Illness 77-year-old gentleman that was diagnosed with myelodysplasia and (RAEB). Has been treated with azacitidine on 2 occasions with the last course finishing at the end of January. Patient was admitted and found to have a perirectal abscess. This has been approached surgically. He has been remained cytopenic with intermittent fevers. His fatigue seems to have increased quite a bit. Past Medical/Surgical History Medical Problems: (1) Pancytopenia Status: Acute (2) Pneumonia Status: Acute Social History Smoking Status: Unknown if Ever Smoked Drug Use: none Marital Status: Housing Status: lives with significant other Occupation Status: retired Allergies Coded Allergies: No Known Allergies (Verified , 03/09/17) Home Medications Scheduled Aspirin (Aspirin Ec), 325 MG PO DAILY Atenolol (Atenolol), 1 TAB PO DAILY Clopidogrel (Plavix), 75 MG PO DAILY Epoetin Butch (Procrit), Unknown Dose WK Glipizide (Glipizide), 5 MG PO BIDM Isosorbide Mononitrate (Isosorbide Mononitrate ER), 30 MG PO DAILY Levofloxacin (Levofloxacin), 750 MG PO DAILY Levothyroxine Sodium (Levothyroxine Sodium), 1 TAB PO DAILYBB Pravastatin Sodium (Pravastatin Sodium), 40 MG PO HS Tamsulosin Hcl (Flomax), 0.4 MG PO HS Scheduled PRN Nitroglycerin (Nitrostat), 0.4 MG UT PRN PRN for Chest Pain Current Inpatient Medications Current Inpatient Medications Medications (Trade) Dose Ordered Sig/Cameron Route Start Time Stop Time Status Last Admin Dose Admin Aspirin (Ecotrin Tab) 325 mg DAILY PO 03/20/17 08:00 04/19/17 07:59 Future Hold 03/20/17 07:26 325 MG Clopidogrel Bisulfate (plAVix TAB) 75 mg DAILY PO 03/20/17 08:00 04/19/17 07:59 Future Hold 03/20/17 07:26 75 MG Isosorbide Mononitrate (Imdur Ext Rel Tab) 30 mg DAILY PO 03/20/17 08:00 04/19/17 07:59 04/07/17 07:49 30 MG Levothyroxine Sodium (Synthroid Tab) 75 mcg DAILYBB PO 03/20/17 06:30 04/19/17 06:29 04/07/17 06:17 75 MCG Nitroglycerin (Nitrostat Tab) 0.4 mg PRN PRN UT 03/19/17 14:15 04/18/17 14:14 Pravastatin Sodium (Pravachol Tab) 40 mg HS PO 03/19/17 21:00 04/18/17 20:59 04/06/17 21:11 40 MG Tamsulosin HCl (Flomax Cap) 0.4 mg HS PO 03/19/17 21:00 04/18/17 20:59 04/06/17 21:11 0.4 MG Insulin Aspart (novoLOG ASPART) SLIDING SCALE PARAMETER ACHS SC 03/19/17 16:30 04/18/17 16:29 04/07/17 09:09 7 UNITS Hydrocortisone (Proctozone Hc 2.5% Crm) 1 appln TID PRN EXT 03/19/17 15:00 04/18/17 14:59 03/31/17 10:59 1 APPLN Acetaminophen (Tylenol Tab) 650 mg Q4H PRN PO 03/19/17 15:00 04/18/17 14:59 04/07/17 03:01 650 MG Ondansetron HCl (Zofran Inj) 4 mg Q6H PRN IV 03/19/17 15:00 04/18/17 14:59 Glucose (Glucose 40% Gel) 15-30 GRAMS 15 GRAMS... UD PRN PO 03/19/17 15:30 04/18/17 15:29 Glucose (Glucose Chew Tab) 4-8 Tablets 4 Tabl... UD PRN PO 03/19/17 15:30 04/18/17 15:29 Dextrose (Dextrose 50% 50ML Syringe) 25-50ML OF 50% DW IV FOR... UD PRN IV 03/19/17 15:30 04/18/17 15:29 Glucagon (Glucagon Inj) 1 mg UD PRN SQ 03/19/17 15:30 04/18/17 15:29 Hydromorphone HCl (Dilaudid Inj) 0.5 mg Q1H PRN IV 03/20/17 16:00 04/09/17 15:59 04/07/17 11:08 0.5 MG Psyllium Hydrophilic Mucilloid (Metamucil Powder) 1 pkt QAM PO 03/24/17 09:00 04/23/17 08:59 04/07/17 07:49 1 PKT Magnesium Oxide (Mag-Ox Tab) 400 mg QAM PO 03/24/17 08:30 04/23/17 08:29 04/07/17 07:49 400 MG Colestipol HCl (Colestid Tab) 1 gm BID@1000,2200 PO 03/24/17 13:30 04/23/17 13:29 Future Hold 04/05/17 08:16 1 GM Loperamide HCl (Imodium Cap) 2 mg Q2H PRN PO 03/24/17 12:45 04/23/17 12:44 03/24/17 20:43 2 MG Acetaminophen/ Hydrocodone Bitart ([place] 10/325 Tab) 1 tab HS PO 03/25/17 21:30 04/08/17 21:29 04/05/17 21:07 1 TAB Metoprolol Tartrate (Lopressor Tab) 25 mg TID PO 04/01/17 14:00 05/01/17 13:59 04/07/17 07:49 25 MG Cefepime HCl 2000 mg/Dextrose 112.5 ml @ 200 mls/hr Q8H IV 04/03/17 21:00 04/13/17 20:59 04/07/17 04:49 200 MLS/HR Metronidazole 500 mg/Prmx 100 ml @ 100 mls/hr Q8H IV 04/03/17 21:00 04/13/17 20:59 04/07/17 05:33 100 MLS/HR Insulin Glargine (Lantus Solostar Pen) 22 units DAILY SC 04/05/17 08:00 04/29/17 08:59 04/07/17 09:08 22 UNITS Simethicone (Mylicon Chew Tab) 80 mg Q6H PRN PO 04/05/17 14:30 05/05/17 14:29 04/07/17 09:15 80 MG Vancomycin HCl 1500 mg/Sodium Chloride 530 ml @ 200 mls/hr Q12H IV 04/07/17 05:00 04/09/17 04:59 04/07/17 04:48 200 MLS/HR Acyclovir Sodium 750 mg/Dextrose 265 ml @ 265 mls/hr Q8H IV 04/06/17 16:00 04/08/17 15:59 04/07/17 07:49 265 MLS/HR Vancomycin HCl (Consult) 1 ea UD PRN N/A 04/06/17 16:30 05/06/17 16:29 Insulin Glargine (Lantus Solostar Pen) 15 units HS SC 04/06/17 21:10 05/05/17 20:59 04/06/17 21:17 15 UNITS Potassium Chloride (Klor-Con Tab) 20 meq BID PO 04/07/17 20:00 04/08/17 20:01 Review of Systems Constitutional: Negative for weight loss, positive for intermittent fever Eyes: Negative for event change of vision ENT: Negative for epistaxis, nasal discharge, sore throat, or deafness Cardiovascular: Negative for chest pain, palpitations, dizziness, diaphoresis Respiratory: Negative for new shortness of breath,hemoptysis, or purulent cough Gastrointestinal: Negative for hematemesis, melena, nausea, vomiting, or dyspepsia. Positive for loose stools. Integumentary (skin): Negative for rash or jaundice discoloration Genitourinary: Negative for urinary frequency, hematuria, or dysuria Neurological: Negative for weakness, seizure activity, headache, or dizziness Lymphatic/Hematologic: Negative for petechiae, bleeding or new adenopathy Musculoskeletal: Negative for new joint or back pain Allergic/Immunologic: Negative for unusual rash or pruritis. Physical Exam Date Time Temp Pulse Resp B/P (MAP) Pulse Ox O2 Delivery O2 Flow Rate FiO2 04/07/17 08:00 Room Air 04/07/17 07:52 36.4 67 16 135/61 (85) 99 Room Air 04/07/17 04:27 37.7 84 20 144/64 (90) 94 Room Air 04/07/17 00:19 36.5 63 18 142/56 (84) 97 Room Air 04/07/17 00:00 Room Air 04/06/17 20:03 37.1 70 18 108/53 (71) 97 Room Air 04/06/17 20:00 Room Air 04/06/17 16:45 37.8 04/06/17 16:37 80 28 136/68 (90) 94 Room Air Constitutional: vitals are stable. Well-appearing pleasant gentleman Eyes: Eyes are LAURA EOMI without conjuctival erythema or icterus. ENT: External examination was negative for masses. Neck: Negative for masses or palpable thyromegaly Respiratory: Lung sounds were generally clear bilaterally Cardiovascular: Heart was RRR without significant murmur, gallops aoe rubs Gastrointestinal: No palpable hepatic or splenomegaly. The abdomen was soft with normal bowel sounds. Lymphatic system: there was no palpable peripheral lymphadenopathy Musculoskeletal System: The musculoskeletal system seemed concordant with age. Skin: The skin was negative for jaundice. Neurologic exam: The exam was negative for any focal findings. Deep tendon reflexes were equal and symmetrical. Psychiatric exam: Was essentially negative with normal mood and effect. Extremities: Negative for significant edema or erythema Laboratory Results Last 24 Hours Test 04/06/17 17:33 04/06/17 20:31 04/07/17 01:04 04/07/17 06:19 Bedside Glucose 202 mg/dl 274 mg/dl 171 mg/dl White Blood Count 1.98 K/uL Red Blood Count 2.67 M/uL Hemoglobin 7.6 g/dL Hematocrit 22.6 % Mean Corpuscular Volume 84.6 fL Mean Corpuscular Hemoglobin 28.5 pg Mean Corpuscular Hemoglobin Concent 33.6 g/dl Platelet Count 22 K/uL Mean Platelet Volume 11.1 fL RDW Standard Deviation 43.0 fL RDW Coefficient of Variation 14.2 % Neutrophils % (Manual) 35.7 % Lymphocytes % (Manual) 50.0 % Eosinophils % (Manual) 0.9 % Myelocytes % 1.8 % Blast Cells % 11.6 % Neutrophils # (Manual) 0.71 K/uL Total Absolute Neutrophils 0.71 K/uL Lymphocytes # (Manual) 0.99 K/uL Total Absolute Lymphocytes 0.99 K/uL Eosinophils # (Manual) 0.02 K/uL Myelocytes # 0.04 K/uL Hypogranular Neutrophils 3+ Blast Cells # 0.23 K/uL Sodium Level 136 mmol/L Potassium Level 3.3 mmol/L Chloride Level 103 mmol/L Carbon Dioxide Level 26 mmol/L Anion Gap 7.0 mmol/L Blood Urea Nitrogen 21 mg/dl Creatinine 1.00 mg/dl Est Creatinine Clear Calc Drug Dose 56.0 ml/min Estimated GFR () 82.6 Estimated GFR (Non- 71.3 BUN/Creatinine Ratio 20.9 Random Glucose 183 mg/dl Calcium Level 8.7 mg/dl Test 04/07/17 07:41 04/07/17 11:31 Bedside Glucose 217 mg/dl 326 mg/dl Assessment & Plan Today I reviewed with the patient as well as his Cheryl what I believe they already were quite aware of. The chances of being able to salvage the situation with further cytoreductive therapy and without affecting negatively his overall quality of life are very slim. I would approach as had been with purely supportive therapy. Platelet transfusions are as needed for bleeding or when platelet counts less than 10,000, red cell transfusions as have been ongoing. He and his were both aware of this. His (Cheryl) reviews with me that they do have living [place]. He has had hospital stay of about 2 weeks now and there may come a time soon when he would prefer not to pursue any further transfusions or antibiotics but that will have to be a subject of further conversations. Will follow along with you.
--- NOTE | 2017-04-07 18:25 | Progress Note ---
Subjective Date of Service: Apr 07, 2017. Subjective This patient remains mildly confused feeling he is too tired to talk about obstruction of his care today says he's been out of bed to chair and walking about the room although oriented to remain sleeping quietly. I personally spoke to his oncologist who stated he told the patient be nothing more to offer him here. Despite this fact the patient says he wants acute finding in order to get better he's had some incontinence of stool and some mild rectal pain Problem List Medical Problems: (1) Pancytopenia Status: Acute (2) Pneumonia Status: Acute Review of Systems Constitutional: + weakness, + fatigue, No fever, No chills Respiratory: + dyspnea on exertion, No cough, No shortness of breath Cardiac: No chest pain, No edema, No claudication Abdomen: + diarrhea, + problem reported (incontinence of stool) Objective Vital Signs Date Time Temp Pulse Resp B/P (MAP) Pulse Ox O2 Delivery O2 Flow Rate FiO2 04/07/17 07:52 36.4 67 16 135/61 (85) 99 Room Air 04/07/17 04:27 37.7 84 20 144/64 (90) 94 Room Air 04/07/17 00:19 36.5 63 18 142/56 (84) 97 Room Air 04/07/17 00:00 Room Air 04/06/17 20:03 37.1 70 18 108/53 (71) 97 Room Air 04/06/17 20:00 Room Air 04/06/17 16:45 37.8 04/06/17 16:37 80 28 136/68 (90) 94 Room Air 04/06/17 11:22 36.9 66 20 130/65 (86) 97 Physical Exam General Appearance: WD/WN, + mild distress, + moderate distress Eyes: PERRL, EOMI Respiratory/Chest: chest non-tender, lungs clear, + decreased breath sounds ( bases) Cardiovascular: regular rate, rhythm, no murmur Abdomen: normal bowel sounds, non tender, soft Extremities: no pedal edema, no calf tenderness Neurologic/Psychiatric: alert, oriented x 3 Laboratory Results Last 24 Hours Test 04/06/17 11:12 04/06/17 17:33 04/06/17 20:31 04/07/17 01:04 Bedside Glucose 206 mg/dl 202 mg/dl 274 mg/dl 171 mg/dl Test 04/07/17 06:19 04/07/17 07:41 White Blood Count 1.98 K/uL Red Blood Count 2.67 M/uL Hemoglobin 7.6 g/dL Hematocrit 22.6 % Mean Corpuscular Volume 84.6 fL Mean Corpuscular Hemoglobin 28.5 pg Mean Corpuscular Hemoglobin Concent 33.6 g/dl Platelet Count 22 K/uL Mean Platelet Volume 11.1 fL RDW Standard Deviation 43.0 fL RDW Coefficient of Variation 14.2 % Neutrophils % (Manual) 35.7 % Lymphocytes % (Manual) 50.0 % Eosinophils % (Manual) 0.9 % Myelocytes % 1.8 % Blast Cells % 11.6 % Neutrophils # (Manual) 0.71 K/uL Total Absolute Neutrophils 0.71 K/uL Lymphocytes # (Manual) 0.99 K/uL Total Absolute Lymphocytes 0.99 K/uL Eosinophils # (Manual) 0.02 K/uL Myelocytes # 0.04 K/uL Hypogranular Neutrophils 3+ Blast Cells # 0.23 K/uL Sodium Level 136 mmol/L Potassium Level 3.3 mmol/L Chloride Level 103 mmol/L Carbon Dioxide Level 26 mmol/L Anion Gap 7.0 mmol/L Blood Urea Nitrogen 21 mg/dl Creatinine 1.00 mg/dl Est Creatinine Clear Calc Drug Dose 56.0 ml/min Estimated GFR () 82.6 Estimated GFR (Non- 71.3 BUN/Creatinine Ratio 20.9 Random Glucose 183 mg/dl Calcium Level 8.7 mg/dl Bedside Glucose 217 mg/dl Assessment and Plan 68-year-old male here with perirectal abscess and a history of myelodysplastic syndrome, operative drainage x2 poor WBC with pancytopenia for the duration of his stay perirectal abscess, s/p I/D x 2 with most recent surgery on 04/01/17 - culture from first I/& grew e. coli and bacteroides species. spiked fevers on ertapenem - changed to vancomycin cefepime & flagyl plus acyclovir persistent neutropenic fever on triple antibiotics and antiviral, antiviral times today no defined viral source The perirectal abscess no plans are further intervention At this time the patient and his family - despite numerous discussions about poor prognosis, lack of candidacy for bone marrow transplant, transitioning to hospice, etc - wish to continue fairly aggressive treatment. question if transformed to acute leukemia and his fevers are due to the cancer itself. 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 transfusion dependent, cont neutropenic precautions. uncontrolled T2DM -basal lantus + novolog. HTN - metoprolol 25 TID. imdur BPH - cont flomax. DVT proph - chemical means contraindicated due to significant thrombocytopenia; SCDs only hypothyroidism - TSH 11/2016 was normal; continue same synthroid dose. CAD - plavix/asa on hold due to severe thrombocytopenia. Remains on BB and imdur. Continued [facility] stay due to: fever, abnormal vital signs, inadequate po fluid intake, inadequate oral pain control, ambulation difficulties, multiple IV medications needed Discharge planning: alf facility ([facility] vs home with hospice )
[2017-04-07] MEDS: TAMSULOSIN HCL 0.4 MG CAP PO SCH (20:20)
[2017-04-07] MEDS: POTASSIUM CHLORIDE 20 MEQ TABCR PO SCH (20:20)
[2017-04-07] MEDS: PRAVASTATIN SOD 40 MG TAB PO SCH (20:21)
[2017-04-07] MEDS: HYDROCODONE/ACETAMI 10/325 TAB PO SCH (20:38)
[2017-04-08] VITALS (9 sets, daily range): BP systolic 132–164; BP diastolic 56–68; PULSE 56–71; TEMP 36.3–37.5; O2SAT 95–97; Ht 170.2 cm; Wt 80.0 kg
[2017-04-08] MEDS: CEFEPIME IV 2,000 MG in DEXTROSE 5% 100ML 100 ML IV SCH ×3 (05:10→21:02)
[2017-04-08] MEDS: VANCOMYCIN INJ 1,500 MG in SODIUM CHLORIDE 0.9% 500ML 500 ML IV SCH ×2 (05:43→16:54)
[2017-04-08] MEDS: METRONIDAZOLE / NSS 500 MG in PREMIXED NSS 100 ML IV SCH ×3 (05:43→20:14)
[2017-04-08] MEDS: LEVOTHYROXINE 75 MCG TAB PO SCH (05:44)
--- NOTE | 2017-04-08 06:51 | Surgery Progress Note ---
Surgery Progress Note Date of Service Apr 08, 2017. Subjective no fever spike over past 24 hrs no acute chgs- walked some in room yesterday- needs assist bowel incontinence pain gluteal/ sacral area Objective Vital Signs: Date Time Temp Pulse Resp B/P (MAP) Pulse Ox O2 Delivery O2 Flow Rate FiO2 04/08/17 03:35 36.3 63 14 142/63 (89) 95 Room Air 04/08/17 00:42 97 Room Air 0.0 04/08/17 00:33 36.8 57 20 141/56 (84) 97 Room Air 04/07/17 20:45 97 Room Air 0.0 04/07/17 20:31 37.3 72 129/57 (81) 04/07/17 19:32 37.2 74 20 123/65 (84) 97 Room Air 04/07/17 15:17 37.4 84 18 120/57 (78) 96 Room Air 04/07/17 12:20 36.3 72 18 96/62 (73) 99 Room Air 04/07/17 08:00 Room Air 04/07/17 08:00 Room Air 04/07/17 07:52 36.4 67 16 135/61 (85) 99 Room Air General Appearance: no apparent distress Respiratory/Chest: no respiratory distress Laboratory Results: Results Past 24 Hours Test 04/07/17 07:41 04/07/17 11:31 04/07/17 16:58 04/07/17 19:56 Range/Units Bedside Glucose 217 326 308 216 70-99 mg/dl continued deconditioning/ weakness Assessment & Plan 04/08/17- on Vanco and acyclovir in addn to Cefepime and flagyl unfortunately , I don't have anything to offer that would improve his care. No plan to remove any drain soon- would leave weeks to months 04/07/17- extremely weak- progressive decline- plts transfused 04/05. Currently bld cultures negative, on triple atbx- I do not think any aggressive treatment will improve his gradual deterioration. Oncology to help with care 04/03/17- no acute changes- IV Ertapenem for at least 2 weeks will need picc line to go to [facility]- per medical team. I will follow him in the office and also ID f/u. Cont to show evidence of gradual deterioration. 04/02/17- s/p incision/ drainage complex perirectal abscess- loculated w/ sinus cavity into Rt perianal buttock- now has drain tube and seton in place- also gauze packing which will be removed this am and not replaced. Drains will remain weeks to months for seton. Will need to determine duration of atbx- IV/po. will ask ID for suggestions. Currently evaluating cardiac issues . 03/31/17- no acute changes or temp spikes. Overall same over past week. more anemic and platelets diminished. Will repeat CT pelvis w/ IV contrast only ( no oral ). Consider transfer to [facility] if no significant changes reviewed CT- persistent 2 cm abscess w/ gas, probable developing fistula tract- Will likely worsen over time w/o drain placement- especiallt in light of pancytopenia- For OR in am 04/01- will need 2 packs of plts preop 03/28/17- would continue IV atbx, nonoperative management unless shows significant worsening perirectal infection- plan repeat imaging on Mon- most likely here over weekend. Dr Hooper covering over weekend. 03/27/17- seems to be stable from infection standpoint but extreme weakness from primary disease will likely progress. Not using any IV pain meds. cont supportive care and IV atbx. 03/26/17- seems to be more stable, always a concern for recurrence of abscess- would consider repeat pelvic CT w/o contrast if fever recurs. will check CT pelvis- no contrast- keep npo for now in case of significant collection- see addendum below 03/25/17- progressive deterioration w/ incontinence of bowel/bladder. min loose stool since yesterday afternoon- colestid may be helping. Now on po atbx for perirectal abscess. Severe anemia, pancytopenia. will ask wound care nurse for suggestions re- skin protective ointment. Needs significant nursing care 03/21/17- s/p incision/ drainage perirectal abscess via transrectal approach- will have nurses remove packing- cannot replace- cont IV atbx/ check cultures- may need Blood transfusion with expected anemia. No evidence of acute bleeding. Would cont atbx 2 weeks (IV then po) 04/07/17- extremely weak- progressive decline- plts transfused 9/16. Currently bld cultures negative, on triple atbx- I do not think any aggressive treatment will improve his gradual deterioration. Oncology to help with care 04/03/17- no acute changes- IV Ertapenem for at least 2 weeks will need picc line to go to [facility]- per medical team. I will follow him in the office and also ID f/u. Cont to show evidence of gradual deterioration. 04/02/17- s/p incision/ drainage complex perirectal abscess- loculated w/ sinus cavity into Rt perianal buttock- now has drain tube and seton in place- also gauze packing which will be removed this am and not replaced. Drains will remain weeks to months for seton. Will need to determine duration of atbx- IV/po. will ask ID for suggestions. Currently evaluating cardiac issues . 03/31/17- no acute changes or temp spikes. Overall same over past week. more anemic and platelets diminished. Will repeat CT pelvis w/ IV contrast only ( no oral ). Consider transfer to [facility] if no significant changes reviewed CT- persistent 2 cm abscess w/ gas, probable developing fistula tract- Will likely worsen over time w/o drain placement- especiallt in light of pancytopenia- For OR in am 04/01- will need 2 packs of plts preop 03/28/17- would continue IV atbx, nonoperative management unless shows significant worsening perirectal infection- plan repeat imaging on Mon- most likely here over weekend. Dr Hooper covering over weekend. 03/27/17- seems to be stable from infection standpoint but extreme weakness from primary disease will likely progress. Not using any IV pain meds. cont supportive care and IV atbx. 03/26/17- seems to be more stable, always a concern for recurrence of abscess- would consider repeat pelvic CT w/o contrast if fever recurs. will check CT pelvis- no contrast- keep npo for now in case of significant collection- see addendum below 03/25/17- progressive deterioration w/ incontinence of bowel/bladder. min loose stool since yesterday afternoon- colestid may be helping. Now on po atbx for perirectal abscess. Severe anemia, pancytopenia. will ask wound care nurse for suggestions re- skin protective ointment. Needs significant nursing care 03/21/17- s/p incision/ drainage perirectal abscess via transrectal approach- will have nurses remove packing- cannot replace- cont IV atbx/ check cultures- may need Blood transfusion with expected anemia. No evidence of acute bleeding. Would cont atbx 2 weeks (IV then po)
[2017-04-08] MEDS: MAGNESIUM OXIDE 400 MG TAB PO SCH (07:35)
[2017-04-08] MEDS: SIMETHICONE 80 MG CHEW PO PRN (07:35)
[2017-04-08] MEDS: ISOSORBIDE MONONITRATE 30 MG TABCR PO SCH (07:35)
[2017-04-08] MEDS: ACYCLOVIR SOD INJ 750 MG in DEXTROSE 5% 250ML 250 ML IV SCH (07:35)
[2017-04-08] MEDS: METOPROLOL TARTRATE 25 MG TAB PO SCH ×3 (07:36→20:12)
[2017-04-08] MEDS: POTASSIUM CHLORIDE 20 MEQ TABCR PO SCH ×2 (07:36→20:14)
[2017-04-08] MEDS: PSYLLIUM 58.6% PWD PACK S\\F PO SCH (07:36)
[2017-04-08] MEDS: HYDROmorphone INJ 0.5 MG/0.5 ML SYR IV PRN ×4 (07:37→18:36)
[2017-04-08] MEDS: INSULIN ASPART 100 UNITS/ML 3 ML PEN SC SCH ×4 (09:13→21:00)
[2017-04-08] MEDS: INSULIN GLARGINE SOLOSTAR 100 UNITS/ML 3 ML PEN SC SCH ×2 (09:13→21:08)
--- NOTE | 2017-04-08 11:20 | CARDIOLOGY PROGRESS NOTE ---
DATE: 04/08/2017 SUBJECTIVE: Mr. Fenton is resting comfortably in bed without complaints of chest pain or dyspnea. He was ambulatory yesterday in his room. Also set up for several hours in the chair. OBJECTIVE: VITAL SIGNS: Blood pressure 160/62 with a regular pulse of 67. Respiratory rate is 18. The patient is afebrile at 37.3 degrees Celsius. Saturations are 96% on room air. NECK: Supple with full carotid upstrokes. No carotid bruits. Jugular venous pressure is flat at 90 degrees. There is no thyromegaly. CARDIOVASCULAR: Reveals a regular rhythm with normal S1 and S2. No S3, S4, or murmurs are noted. LUNGS: Clear without rales, rhonchi, or wheezes. ABDOMEN: Soft without bruits. EXTREMITIES: Reveal intact radial artery pulses bilaterally. There is no peripheral edema. DATA: Bedside glucose is 236. No other laboratories studies today. IMPRESSION AND PLAN: 1. Coronary artery disease -- quiescent on current medical regimen. Aspirin and clopidogrel remains on hold due to thrombocytopenia. As noted previously, he had a 4-vessel bypass procedure performed 1988. Cardiac catheterization May 2007 noted an occluded saphenous vein graft to the diagonal, but all other grafts patent. 2. Chronic stable angina pectoris -- remains asymptomatic. 3. Hypertension -- controlled. 4. Hypercholesterolemia -- continue statin. 5. Status post endovascular repair of abdominal aneurysm -- March 2015. 6. Myelodysplastic syndrome. 7. Perirectal abscess.
--- NOTE | 2017-04-08 15:22 | Progress Note ---
Subjective Date of Service: Apr 08, 2017. Subjective Patient is seen in the presence of his daughter he is actually feeling well today he did participate in some physical therapy and did get out of bed. We discussed the fact that the patient may eventually be sent to [facility] of his neutrophil count is low on IV antibiotics if needed. Patient and daughter were in agreement but didn't believe he may need to get slightly stronger to do that and we would need to procure a PICC line which may require pretreatment with intravenous platelet therapy Problem List Medical Problems: (1) Pancytopenia Status: Acute (2) Pneumonia Status: Acute Review of Systems Constitutional: + weakness, + fatigue, No fever, No chills Respiratory: No cough, No sputum, No shortness of breath, No dyspnea on exertion Cardiac: No chest pain, No edema Abdomen: No pain, No nausea, No vomiting, No diarrhea Male : No dysuria, No urinary frequency Neurologic: + memory loss, + weakness Psychiatric: No depression symptoms, No anhedonism Objective Vital Signs Date Time Temp Pulse Resp B/P (MAP) Pulse Ox O2 Delivery O2 Flow Rate FiO2 04/08/17 15:10 37.5 71 20 143/57 (85) 97 Room Air 04/08/17 11:26 37.2 65 16 132/62 (85) 96 04/08/17 08:00 Room Air 04/08/17 07:33 37.3 67 18 164/62 (96) 96 Room Air 04/08/17 03:35 36.3 63 14 142/63 (89) 95 Room Air 04/08/17 00:42 97 Room Air 0.0 04/08/17 00:33 36.8 57 20 141/56 (84) 97 Room Air 04/07/17 20:45 97 Room Air 0.0 04/07/17 20:31 37.3 72 129/57 (81) 04/07/17 19:32 37.2 74 20 123/65 (84) 97 Room Air 04/07/17 16:00 Room Air Physical Exam General Appearance: + mild distress, + thin Eyes: PERRL, EOMI ENT: hearing grossly normal, pharynx normal Respiratory/Chest: chest non-tender, lungs clear, normal breath sounds Cardiovascular: regular rate, rhythm, no murmur Abdomen: normal bowel sounds, non tender, soft Extremities: no pedal edema, no calf tenderness Neurologic/Psychiatric: alert, oriented x 3 Laboratory Results Last 24 Hours Test 04/07/17 16:58 04/07/17 19:56 04/08/17 07:45 04/08/17 11:18 Bedside Glucose 308 mg/dl 216 mg/dl 236 mg/dl 246 mg/dl Assessment and Plan 68-year-old male here with perirectal abscess and a history of myelodysplastic syndrome, operative drainage x2 poor WBC with pancytopenia for the duration of his stay perirectal abscess, s/p I/D x 2 with most recent surgery on 04/01/17 - culture from first I/& grew e. coli and bacteroides species. spiked fevers on ertapenem - changed to vancomycin cefepime & flagyl plus acyclovir, acyclovir times out .04/07 may consider infectious disease recommendations for streamlined medication and for duration of therapy persistent neutropenic fever on triple antibiotics and antiviral, The perirectal abscess no plans are further intervention will once again look for duration of antibiotic therapy At this time the patient and his family - despite numerous discussions about poor prognosis, lack of candidacy for bone marrow transplant, transitioning to hospice, etc - wish to continue fairly aggressive treatment. 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 transfusion dependent, cont neutropenic precautions. uncontrolled T2DM -basal lantus + novolog. Adjustment of basal insulin to twice a day dosing on 04/08 HTN - in reasonable control metoprolol 25 TID. imdur BPH - no voiding issues cont flomax. DVT proph - chemical means continues to be contraindicated due to significant thrombocytopenia; SCDs only hypothyroidism - TSH 11/2016 was normal; synthroid . CAD - plavix/asa on hold due to severe thrombocytopenia. Remains on BB and imdur. Continued [facility] stay due to: fever, abnormal vital signs, inadequate po fluid intake, inadequate oral pain control, ambulation difficulties, multiple IV medications needed Discharge planning: residential facility ([facility] vs home with hospice )
--- NOTE | 2017-04-08 17:38 | Hematology/Oncology Prog Note ---
Hematology/Onc Progress Note Date of Service Apr 08, 2017. Diagnoses MDS Perirectal abscess Medications Medications Administered Medications (Trade) Dose Ordered Sig/Cameron Route Start Time Stop Time Status Last Admin Dose Admin Aspirin (Ecotrin Tab) 325 mg DAILY PO 03/20/17 08:00 04/19/17 07:59 Future Hold 03/20/17 07:26 325 MG Atenolol (Tenormin Tab) 50 mg DAILY PO 03/20/17 08:00 03/25/17 21:01 DC 03/25/17 09:17 50 MG Clopidogrel Bisulfate (plAVix TAB) 75 mg DAILY PO 03/20/17 08:00 04/19/17 07:59 Future Hold 03/20/17 07:26 75 MG Glipizide (Glucotrol Tab) 5 mg BIDM PO 03/19/17 17:00 03/22/17 18:38 DC 03/22/17 17:52 5 MG Isosorbide Mononitrate (Imdur Ext Rel Tab) 30 mg DAILY PO 03/20/17 08:00 04/19/17 07:59 04/08/17 07:35 30 MG Levothyroxine Sodium (Synthroid Tab) 75 mcg DAILYBB PO 03/20/17 06:30 04/19/17 06:29 04/08/17 05:44 75 MCG Pravastatin Sodium (Pravachol Tab) 40 mg HS PO 03/19/17 21:00 04/18/17 20:59 04/07/17 20:21 40 MG Tamsulosin HCl (Flomax Cap) 0.4 mg HS PO 03/19/17 21:00 04/18/17 20:59 04/07/17 20:20 0.4 MG Piperacillin Sod/ Tazobactam Sod 3.375 gm/Dextrose 115 ml @ 28.75 mls/ hr Q8H IV 03/19/17 22:00 03/24/17 08:29 DC 03/24/17 05:38 28.75 MLS/HR Sodium Chloride 1,000 ml @ 100 mls/hr Q10H IV 03/19/17 14:30 03/22/17 18:17 DC 03/22/17 12:42 100 MLS/HR Insulin Aspart (novoLOG ASPART) SLIDING SCALE PARAMETER ACHS SC 03/19/17 16:30 04/18/17 16:29 04/08/17 13:24 10 UNITS Hydrocortisone (Proctozone Hc 2.5% Crm) 1 appln TID PRN EXT 03/19/17 15:00 04/18/17 14:59 03/31/17 10:59 1 APPLN Acetaminophen (Tylenol Tab) 650 mg Q4H PRN PO 03/19/17 15:00 04/18/17 14:59 04/07/17 03:01 650 MG Al Hydrox/Mg Hydrox/Simethicone (Maalox Max Susp) 15 ml Q4H PRN PO 03/19/17 15:00 03/24/17 07:18 DC 03/24/17 04:52 15 ML Piperacillin Sod/ Tazobactam Sod 3.375 gm/Dextrose 115 ml @ 200 mls/hr NOW ONCE IV 03/19/17 16:15 03/19/17 16:49 DC 03/19/17 18:44 200 MLS/HR Miscellaneous Information (Patient'S Height And/Or Weight Needed) 1 ea Q2H N/A 03/19/17 16:15 03/19/17 16:55 DC 03/19/17 16:25 1 EA Vancomycin HCl 2000 mg/Sodium Chloride 540 ml @ 200 mls/hr NOW ONCE IV 03/19/17 20:30 03/19/17 23:11 DC 03/19/17 20:59 200 MLS/HR Vancomycin HCl 1250 mg/Sodium Chloride 275 ml @ 125 mls/hr Q12H IV 03/20/17 10:00 03/21/17 11:11 DC 03/21/17 10:35 125 MLS/HR Potassium Chloride (Klor-Con Tab) 20 meq BID PO 03/20/17 08:00 03/21/17 08:01 DC 03/21/17 08:44 20 MEQ Acetaminophen/ Hydrocodone Bitart ([place] 5/325 Tab) 1 tab Q4H PRN PO 03/20/17 16:00 03/23/17 15:32 DC 03/23/17 13:09 1 TAB Hydromorphone HCl (Dilaudid Inj) 0.5 mg Q1H PRN IV 03/20/17 16:00 04/09/17 15:59 04/08/17 16:19 0.5 MG Vancomycin HCl 1500 mg/Sodium Chloride 530 ml @ 125 mls/hr Q12@1000,2200 IV 03/21/17 22:00 03/23/17 18:00 DC 03/23/17 10:34 125 MLS/HR Acetaminophen/ Hydrocodone Bitart ([place] 7.5/325 Tab) 1 tab HS PO 03/22/17 21:30 03/25/17 20:55 DC 03/24/17 20:40 1 TAB Acetaminophen (Tylenol Tab) 1,000 mg TODAY@0200 PO 03/23/17 02:00 03/23/17 03:00 DC 03/23/17 02:08 1,000 MG Diphenhydramine HCl (Benadryl Cap) 25 mg TODAY@0200 PO 03/23/17 02:00 03/23/17 03:00 DC 03/23/17 02:07 25 MG Furosemide 20 mg/ Syringe 2 ml @ 4 mls/min ONE STAT IV 03/23/17 14:41 03/23/17 14:42 DC 03/23/17 15:41 4 MLS/MIN Potassium Chloride (Klor-Con M10) 40 meq NOW STAT PO 03/23/17 14:28 03/23/17 14:42 DC 03/23/17 15:42 40 MEQ Acetaminophen/ Hydrocodone Bitart ([place] 10/325 Tab) 1 tab Q6H PRN PO 03/23/17 15:45 03/26/17 15:13 DC 03/26/17 10:29 1 TAB Psyllium Hydrophilic Mucilloid (Metamucil Powder) 1 pkt QAM PO 03/24/17 09:00 04/23/17 08:59 04/08/17 07:36 1 PKT Cephalexin Monohydrate (Keflex Cap) 500 mg TID PO 03/24/17 14:00 03/26/17 16:49 DC 03/26/17 12:28 500 MG Metronidazole (Flagyl Tab) 500 mg TID PO 03/24/17 14:00 03/26/17 16:49 DC 03/26/17 12:28 500 MG Furosemide 20 mg/ Syringe 2 ml @ 4 mls/min TODAY@0900 IV 03/24/17 09:00 03/24/17 11:00 DC 03/24/17 09:58 4 MLS/MIN Potassium Chloride (Klor-Con Tab) 20 meq ONE ONCE PO 03/24/17 09:00 03/24/17 09:01 DC 03/24/17 09:59 20 MEQ Magnesium Oxide (Mag-Ox Tab) 400 mg QAM PO 03/24/17 08:30 04/23/17 08:29 04/08/17 07:35 400 MG Colestipol HCl (Colestid Tab) 1 gm BID@1000,2200 PO 03/24/17 13:30 04/23/17 13:29 Future Hold 04/05/17 08:16 1 GM Loperamide HCl (Imodium Cap) 2 mg Q2H PRN PO 03/24/17 12:45 04/23/17 12:44 03/24/17 20:43 2 MG Acetaminophen/ Hydrocodone Bitart ([place] 10/325 Tab) 1 tab HS PO 03/25/17 21:30 04/08/17 21:29 04/07/17 20:38 1 TAB Atenolol (Tenormin Tab) 25 mg DAILY PO 03/26/17 08:00 04/01/17 13:59 DC 04/01/17 06:35 25 MG Acetaminophen/ Hydrocodone Bitart ([place] 10/325 Tab) 1 tab Q4H PRN PO 03/26/17 17:45 04/06/17 15:44 DC 04/05/17 14:58 1 TAB Piperacillin Sod/ Tazobactam Sod 3.375 gm/Dextrose 115 ml @ 230 mls/hr NOW ONCE IV 03/26/17 17:00 03/26/17 17:29 DC 03/26/17 17:24 230 MLS/HR Piperacillin Sod/ Tazobactam Sod 3.375 gm/Dextrose 115 ml @ 28.75 mls/ hr Q8H IV 03/26/17 22:00 04/02/17 11:40 DC 04/02/17 05:41 28.75 MLS/HR Epoetin Butch (Procrit Inj) 40,000 units 1930 ONCE IV 03/26/17 19:30 03/26/17 19:31 DC 03/26/17 19:56 40,000 UNITS Insulin Glargine (Lantus Solostar Pen) 10 units DAILY SC 03/28/17 13:00 03/30/17 08:28 DC 03/29/17 08:44 10 UNITS Filgrastim (Neupogen Sq) 300 mcg 1315 ONCE SQ 03/28/17 13:15 03/28/17 13:16 DC 03/28/17 14:05 300 MCG Filgrastim (Neupogen Sq) 300 mcg ONE ONCE SQ 03/30/17 09:00 03/30/17 09:01 DC 03/30/17 08:59 300 MCG Insulin Glargine (Lantus Solostar Pen) 15 units DAILY SC 03/30/17 09:00 04/03/17 08:25 DC 04/02/17 07:57 15 UNITS Bupivacaine HCl (Marcaine 0.5% MPF Inj) 30 ml STK-MED ONCE .ROUTE 04/01/17 07:03 04/01/17 07:04 DC 04/01/17 07:30 4 ML Hydromorphone HCl (Dilaudid Inj) 2 mg STK-MED ONCE .ROUTE 04/01/17 08:27 04/01/17 08:28 DC 04/01/17 08:50 0.5 MG Metoprolol Tartrate (Lopressor Tab) 25 mg TID PO 04/01/17 14:00 05/01/17 13:59 04/08/17 13:19 25 MG Ertapenem 1 gm/ Sodium Chloride 50 ml @ 120 mls/hr Q24H IV 04/02/17 14:00 04/03/17 20:43 DC 04/03/17 14:31 120 MLS/HR Acetaminophen (Tylenol Tab) 650 mg NOW ONCE PO 04/02/17 18:30 04/02/17 18:31 DC 04/02/17 18:33 650 MG Diphenhydramine HCl (Benadryl Cap) 25 mg NOW ONCE PO 04/02/17 19:45 04/02/17 19:49 DC 04/02/17 20:14 25 MG Insulin Glargine (Lantus Solostar Pen) 18 units DAILY SC 04/03/17 08:30 04/04/17 22:59 DC 04/04/17 09:02 18 UNITS Cefepime HCl 2000 mg/Dextrose 112.5 ml @ 200 mls/hr Q8H IV 04/03/17 21:00 04/13/17 20:59 04/08/17 13:19 200 MLS/HR Metronidazole 500 mg/Prmx 100 ml @ 100 mls/hr Q8H IV 04/03/17 21:00 04/13/17 20:59 04/08/17 13:19 100 MLS/HR Insulin Glargine (Lantus Solostar Pen) 22 units DAILY SC 04/05/17 08:00 04/08/17 13:59 DC 04/08/17 09:13 22 UNITS Acetaminophen (Tylenol Tab) 1,000 mg NOW STAT PO 04/05/17 11:45 04/05/17 12:04 DC 04/05/17 12:48 1,000 MG Diphenhydramine HCl (Benadryl Cap) 25 mg NOW ONCE PO 04/05/17 11:45 04/05/17 12:04 DC 04/05/17 12:48 25 MG Simethicone (Mylicon Chew Tab) 80 mg Q6H PRN PO 04/05/17 14:30 05/05/17 14:29 04/08/17 07:35 80 MG Insulin Glargine (Lantus Solostar Pen) 10 units HS SC 04/05/17 21:00 04/06/17 21:06 DC 04/05/17 21:19 10 UNITS Acetaminophen (Tylenol Tab) 1,000 mg STK-MED ONCE PO 04/06/17 15:32 04/06/17 15:33 DC 04/06/17 15:35 1,000 MG Vancomycin HCl 1500 mg/Sodium Chloride 530 ml @ 200 mls/hr Q12H IV 04/07/17 05:00 04/09/17 04:59 04/08/17 16:54 200 MLS/HR Acyclovir Sodium 750 mg/Dextrose 265 ml @ 265 mls/hr Q8H IV 04/06/17 16:00 04/08/17 15:59 DC 04/08/17 07:35 265 MLS/HR Vancomycin HCl 2000 mg/Sodium Chloride 540 ml @ 200 mls/hr ONE ONCE IV 04/06/17 17:00 04/06/17 19:41 DC 04/06/17 17:59 200 MLS/HR Insulin Glargine (Lantus Solostar Pen) 15 units HS SC 04/06/17 21:10 05/05/17 20:59 04/07/17 20:40 15 UNITS Potassium Chloride (Klor-Con Tab) 20 meq BID PO 04/07/17 20:00 04/08/17 20:01 04/08/17 07:36 20 MEQ Subjective Staes his stools are a little more formed. Getting out of bed intermittently. Afebrile, denies any pain. Review of Systems: Constitutional: Negative for night sweats, or fever Eyes: Negative for event change of vision ENT: Negative for epistaxis, nasal discharge, sore throat, or deafness Cardiovascular: Negative for chest pain, palpitations, dizziness, diaphoresis Respiratory: Negative for new shortness of breath,hemoptysis, or purulent cough Gastrointestinal: Negative for hematemesis, melena, nausea, vomiting, or dyspepsia. Loose stools recorded as less. Integumentary (skin): Negative for rash or jaundice discoloration Genitourinary: Negative for urinary frequency, hematuria, or dysuria Neurological: Negative for weakness, seizure activity, headache, or dizziness Lymphatic/Hematologic: Negative for petechiae, bleeding or new adenopathy Musculoskeletal: Negative for new joint or back pain Allergic/Immunologic: Negative for unusual rash or pruritis. Vital Signs Vital Signs Past 12 Hours Date Time Temp Pulse Resp B/P (MAP) Pulse Ox O2 Delivery O2 Flow Rate FiO2 04/08/17 15:10 37.5 71 20 143/57 (85) 97 Room Air 04/08/17 11:26 37.2 65 16 132/62 (85) 96 04/08/17 08:00 Room Air 04/08/17 07:33 37.3 67 18 164/62 (96) 96 Room Air Physical Exam Constitutional: vitals are stable. Pale appearing gentleman in no distress. Eyes: Eyes are LAURA EOMI without conjuctival erythema or icterus. ENT: External examination was negative for masses. Neck: Negative for masses or palpable thyromegaly Respiratory: Lung sounds were generally clear bilaterally Cardiovascular: Heart was RRR without significant murmur, gallops aoe rubs Gastrointestinal: No palpable hepatic or splenomegaly. The abdomen was soft with normal bowel sounds. Lymphatic system: there was no palpable peripheral lymphadenopathy Musculoskeletal System: The musculoskeletal system seemed concordant with age. Skin: The skin was negative for jaundice. Neurologic exam: The exam was negative for any focal findings. Deep tendon reflexes were equal and symmetrical. Psychiatric exam: Was essentially negative with normal mood and effect. Laboratory Last 24 Hours Test 04/07/17 19:56 04/08/17 07:45 04/08/17 11:18 04/08/17 16:34 Bedside Glucose 216 mg/dl 236 mg/dl 246 mg/dl 143 mg/dl Assessment & Plan Ppears comfortable and would like to pursue further supportive measures. Will need a red cell transfusion. Would hold off on any further platelet transfusions unless bleeding beyond bruising occurs.
[2017-04-08] MEDS: PRAVASTATIN SOD 40 MG TAB PO SCH (21:01)
[2017-04-08] MEDS: HYDROCODONE/ACETAMI 10/325 TAB PO SCH (21:01)
[2017-04-08] MEDS: TAMSULOSIN HCL 0.4 MG CAP PO SCH (21:02)
[2017-04-09] VITALS (19 sets, daily range): BP systolic 134–171; BP diastolic 56–80; PULSE 58–96; TEMP 36.3–38.3; O2SAT 96–99
[2017-04-09] MEDS: CEFEPIME IV 2,000 MG in DEXTROSE 5% 100ML 100 ML IV SCH ×2 (05:26→13:28)
[2017-04-09] MEDS: METRONIDAZOLE / NSS 500 MG in PREMIXED NSS 100 ML IV SCH ×2 (05:26→13:28)
[2017-04-09] MEDS: LEVOTHYROXINE 75 MCG TAB PO SCH (05:27)
[2017-04-09 06:48] LABS: BUN/CREATININE RATIO 18.2 (10-20); CALCIUM 8.2 mg/dl (8.5-10.1); CREATININE 0.87 mg/dl (0.60-1.40); POTASSIUM 3.3 mmol/L (3.5-5.1)
[2017-04-09 06:51] LABS: ALB/GLOB RATIO 0.4 (0.9-2)
[2017-04-09 07:00] LABS: HEMATOCRIT 20.1 % (42-52); MEAN CELL VOLUME 83.1 fL (80-100); MEAN CORPUSCULAR HEMOGLOBIN 29.8 pg (25-34); MEAN CORPUSCULAR HGB CONC 35.8 g/dl (32-36); PLATELET COUNT 12 K/uL (130-400); RED BLOOD COUNT 2.42 M/uL (4.7-6.1); WHITE BLOOD COUNT 2.05 K/uL (4.8-10.8)
[2017-04-09 07:05] LABS: COMPLETE YES; LYMPH ABS # 1.66 K/uL (1.2-3.4); LYMPHOCYTE % 81.2 %; MYELOCYTE % 0.9 %; NEUTROPHILS % 13.4 %
[2017-04-09] MEDS: PSYLLIUM 58.6% PWD PACK S\\F PO SCH (08:00)
[2017-04-09] MEDS: HYDROCODONE/ACETAMI 10/325 TAB PO PRN ×2 (08:26→15:09)
[2017-04-09] MEDS: METOPROLOL TARTRATE 25 MG TAB PO SCH ×3 (08:26→20:48)
[2017-04-09] MEDS: ISOSORBIDE MONONITRATE 30 MG TABCR PO SCH (08:27)
[2017-04-09] MEDS: SIMETHICONE 80 MG CHEW PO PRN (08:27)
[2017-04-09] MEDS: MAGNESIUM OXIDE 400 MG TAB PO SCH (08:28)
[2017-04-09] MEDS: INSULIN GLARGINE SOLOSTAR 100 UNITS/ML 3 ML PEN SC SCH ×2 (08:31→20:48)
[2017-04-09] MEDS: INSULIN ASPART 100 UNITS/ML 3 ML PEN SC SCH ×4 (08:32→20:47)
[2017-04-09] MEDS ORDERED: ERTA1INJ IV (10:56)
--- NOTE | 2017-04-09 10:59 | CARDIOLOGY PROGRESS NOTE ---
DATE: 04/09/2017 SUBJECTIVE: Mr. Fenton is resting comfortably in bed without complaints of chest pain or dyspnea. OBJECTIVE: VITAL SIGNS: Blood pressure is 150-170/60-75. Respiratory rate is 20. Pulse is regular at 66. The patient is afebrile at 36.4 degrees Celsius with the saturation of 97% on room air. NECK: Supple with full carotid upstrokes. There are no carotid bruits. Jugular venous pressure is flat at 90 degrees. There is no thyromegaly. CARDIOVASCULAR: Reveals a regular rhythm with a normal S1 and S2. No S3, S4, or murmurs are noted. LUNGS: Clear without rales, rhonchi, or wheezes. ABDOMEN: Soft and nontender without bruits. EXTREMITIES: Reveal intact radial artery pulses bilaterally. There is no peripheral edema. LABORATORY DATA: CBC notes a hemoglobin of 7.2, hematocrit 20.1, white count 2.0, and platelet count 12,000. Electrolytes note a sodium of 138, potassium 3.3, chloride 105, bicarb 29, BUN 16, creatinine 0.87, and glucose of 110. IMPRESSION AND PLAN: 1. Coronary artery disease -- quiescent on current medical regimen. Aspirin and clopidogrel remain on hold due to thrombocytopenia. He is status post 4-vessel bypass in 1988. Cardiac catheterization in May 2007 noted an occluded saphenous vein graft to the diagonal. All other grafts were patent. 2. Chronic stable angina pectoris -- asymptomatic. 3. Hypertension -- borderline control. 4. Hypercholesterolemia -- continue statin. 5. Status post endovascular repair of abdominal aneurysm - March 2015. 6. Myelodysplastic syndrome. 7. Perirectal abscess.
[2017-04-09] MEDS: ERTAPENEM IV 1 GM in SODIUM CHLOR 0.9% AD-VAN 50ML 50 ML IV SCH (15:07)
--- NOTE | 2017-04-09 15:15 | Progress Note ---
Subjective Date of Service: Apr 09, 2017. Subjective this pt is in good condition this am but has worsened blood counts, is looking forward to possible transition out of the hospital Problem List Medical Problems: (1) Pancytopenia Status: Acute (2) Pneumonia Status: Acute Review of Systems Constitutional: + weakness, No fever, No chills Respiratory: No cough, No sputum, No shortness of breath Cardiac: No chest pain, No orthopnea, No edema Abdomen: No pain, No nausea, No vomiting, No diarrhea Neurologic: No memory loss, No paralysis, No weakness Psychiatric: + depression symptoms, No anhedonism, No anxiety Objective Vital Signs Date Time Temp Pulse Resp B/P (MAP) Pulse Ox O2 Delivery O2 Flow Rate FiO2 04/09/17 13:30 37.3 62 163/67 04/09/17 13:00 36.6 61 164/69 04/09/17 13:00 36.6 61 164/69 04/09/17 12:45 36.8 62 149/65 04/09/17 12:25 36.7 60 16 136/56 04/09/17 08:16 97 Room Air 04/09/17 08:02 36.4 66 20 171/74 (106) 97 Room Air 04/09/17 08:00 Room Air 04/09/17 04:07 36.4 60 16 149/63 (91) 96 Room Air 04/09/17 00:00 Room Air 04/08/17 23:37 36.7 56 20 156/68 (97) 96 Room Air 04/08/17 20:13 65 147/64 (91) 04/08/17 19:23 36.9 63 20 140/61 (87) 95 Room Air 04/08/17 16:00 Room Air 04/08/17 15:10 37.5 71 20 143/57 (85) 97 Room Air Physical Exam General Appearance: + mild distress, + thin Eyes: PERRL, EOMI Respiratory/Chest: chest non-tender, lungs clear, normal breath sounds Cardiovascular: regular rate, rhythm, no murmur Abdomen: normal bowel sounds, non tender, soft Extremities: no pedal edema, no calf tenderness Neurologic/Psychiatric: alert, oriented x 3 Skin: normal color, warm/dry Laboratory Results Last 24 Hours Test 04/08/17 16:34 04/08/17 20:35 04/09/17 05:47 04/09/17 07:38 Bedside Glucose 143 mg/dl 144 mg/dl 140 mg/dl White Blood Count 2.05 K/uL Red Blood Count 2.42 M/uL Hemoglobin 7.2 g/dL Hematocrit 20.1 % Mean Corpuscular Volume 83.1 fL Mean Corpuscular Hemoglobin 29.8 pg Mean Corpuscular Hemoglobin Concent 35.8 g/dl Platelet Count 12 K/uL RDW Standard Deviation 42.8 fL RDW Coefficient of Variation 14.0 % Neutrophils % (Manual) 13.4 % Lymphocytes % (Manual) 81.2 % Monocytes % (Manual) 0.9 % Myelocytes % 0.9 % Blast Cells % 3.6 % Neutrophils # (Manual) 0.27 K/uL Total Absolute Neutrophils 0.27 K/uL Lymphocytes # (Manual) 1.66 K/uL Total Absolute Lymphocytes 1.66 K/uL Monocytes # (Manual) 0.02 K/uL Myelocytes # 0.02 K/uL Hypogranular Neutrophils 1+ Blast Cells # 0.07 K/uL Sodium Level 138 mmol/L Potassium Level 3.3 mmol/L Chloride Level 105 mmol/L Carbon Dioxide Level 29 mmol/L Anion Gap 4.0 mmol/L Blood Urea Nitrogen 16 mg/dl Creatinine 0.87 mg/dl Est Creatinine Clear Calc Drug Dose 70.8 ml/min Estimated GFR () 95.1 Estimated GFR (Non- 82.1 BUN/Creatinine Ratio 18.2 Random Glucose 110 mg/dl Calcium Level 8.2 mg/dl Total Bilirubin 0.7 mg/dl Aspartate Amino Transf (AST/SGOT) 11 U/L Alanine Aminotransferase (ALT/SGPT) 16 U/L Alkaline Phosphatase 49 U/L Total Protein 6.1 gm/dl Albumin 1.8 gm/dl Globulin 4.3 gm/dl Albumin/Globulin Ratio 0.4 Test 04/09/17 11:40 Bedside Glucose 245 mg/dl Assessment and Plan 68-year-old male here with perirectal abscess and a history of myelodysplastic syndrome, operative drainage x2 poor WBC with pancytopenia for the duration of his stay perirectal abscess, s/p I/D x 2 with most recent surgery on 04/01/17 - culture from first I/& grew e. coli and bacteroides species. spiked fevers on ertapenem - ertapenem is recommended by infectious disease last dose 04/15 perirectal abscess with drainage x2, will continue local care and follow surgery recommendations At this time the patient and his family - despite numerous discussions about poor prognosis, lack of candidacy for bone marrow transplant, transitioning to hospice, etc - wish to continue fairly aggressive treatment. 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 Adjustment of basal insulin to twice a day dosing on 04/08 HTN - in reasonable control metoprolol 25 TID. imdur BPH - no voiding issues cont flomax. DVT proph - chemical means continues to be contraindicated due to significant thrombocytopenia; SCDs only hypothyroidism - TSH 11/2016 was normal; synthroid . CAD - plavix/asa on hold due to severe thrombocytopenia. Remains on BB and imdur. Continued [facility] stay due to: fever, abnormal vital signs, inadequate po fluid intake, inadequate oral pain control, ambulation difficulties, multiple IV medications needed Discharge planning: halfway facility ([facility] [address] vs home with hospice )
[2017-04-09] MEDS ORDERED: ACETAMINOPHEN 500 MG TAB PO STA (17:20)
[2017-04-09] MEDS ORDERED: ACETAMINOPHEN 500 MG TAB PO ONE (17:24)
[2017-04-09] MEDS: PRAVASTATIN SOD 40 MG TAB PO SCH (20:48)
[2017-04-09] MEDS: POTASSIUM CHLORIDE 20 MEQ TABCR PO SCH (20:48)
[2017-04-09] MEDS: TAMSULOSIN HCL 0.4 MG CAP PO SCH (20:48)
[2017-04-10 05:11] VITALS: BP 155/72; PULSE 71; TEMP 37.3; O2SAT 96
[2017-04-10] MEDS: LEVOTHYROXINE 75 MCG TAB PO SCH (05:58)
[2017-04-10 05:59] VITALS: TEMP 36.7
[2017-04-10] MEDS: HYDROCODONE/ACETAMI 10/325 TAB PO PRN (06:16)
--- NOTE | 2017-04-10 07:14 | Surgery Progress Note ---
Surgery Progress Note Date of Service Apr 10, 2017. Subjective resting comfortably this am no fever spikes noted Objective Vital Signs: Date Time Temp Pulse Resp B/P (MAP) Pulse Ox O2 Delivery O2 Flow Rate FiO2 04/10/17 05:59 36.7 04/10/17 05:11 37.3 71 20 155/72 (99) 96 Room Air 04/10/17 00:01 Room Air 04/09/17 21:45 36.5 58 18 160/71 98 04/09/17 21:15 36.7 60 18 151/71 96 04/09/17 20:45 36.3 60 20 138/71 98 04/09/17 20:30 36.5 66 20 140/65 99 04/09/17 20:15 36.6 62 20 141/63 99 04/09/17 20:00 36.6 62 20 141/63 (89) 99 04/09/17 19:30 Room Air 04/09/17 18:55 36.8 67 20 139/65 96 04/09/17 18:25 36.9 69 18 136/62 97 04/09/17 17:55 37.5 71 16 148/67 97 04/09/17 17:40 37.8 72 16 134/71 97 04/09/17 17:21 38.3 79 18 148/63 96 04/09/17 15:25 Room Air 04/09/17 15:21 37.5 96 20 169/80 (109) 97 Room Air 04/09/17 15:00 Room Air 04/09/17 13:30 37.3 62 163/67 04/09/17 13:00 36.6 61 164/69 04/09/17 13:00 36.6 61 164/69 04/09/17 12:45 36.8 62 149/65 04/09/17 12:25 36.7 60 16 136/56 04/09/17 08:16 97 Room Air 04/09/17 08:02 36.4 66 20 171/74 (106) 97 Room Air 04/09/17 08:00 Room Air General Appearance: no apparent distress Respiratory/Chest: no respiratory distress Laboratory Results: Results Past 24 Hours Test 04/09/17 07:38 04/09/17 11:40 Range/Units Bedside Glucose 140 245 70-99 mg/dl sacral skin changes, drains in place Assessment & Plan 04/10/17- transfused yesterday, consult for wound nurse- may need wound clinic follow up for sacral wound. Will leave mushroom drain for weeks and seton longer. will follow up in office for drain check/ removal- 1-2 weeks after d/c. Cont IV atbx as planned 04/08/17- on Vanco and acyclovir in addn to Cefepime and flagyl unfortunately , I don't have anything to offer that would improve his care. No plan to remove any drain soon- would leave weeks to months 04/07/17- extremely weak- progressive decline- plts transfused 04/05. Currently bld cultures negative, on triple atbx- I do not think any aggressive treatment will improve his gradual deterioration. Oncology to help with care 04/03/17- no acute changes- IV Ertapenem for at least 2 weeks will need picc line to go to [facility]- per medical team. I will follow him in the office and also ID f/u. Cont to show evidence of gradual deterioration. 04/02/17- s/p incision/ drainage complex perirectal abscess- loculated w/ sinus cavity into Rt perianal buttock- now has drain tube and seton in place- also gauze packing which will be removed this am and not replaced. Drains will remain weeks to months for seton. Will need to determine duration of atbx- IV/po. will ask ID for suggestions. Currently evaluating cardiac issues . 03/31/17- no acute changes or temp spikes. Overall same over past week. more anemic and platelets diminished. Will repeat CT pelvis w/ IV contrast only ( no oral ). Consider transfer to [facility] if no significant changes reviewed CT- persistent 2 cm abscess w/ gas, probable developing fistula tract- Will likely worsen over time w/o drain placement- especiallt in light of pancytopenia- For OR in am 04/01- will need 2 packs of plts preop 03/28/17- would continue IV atbx, nonoperative management unless shows significant worsening perirectal infection- plan repeat imaging on Mon- most likely here over weekend. Dr Hooper covering over weekend. 03/27/17- seems to be stable from infection standpoint but extreme weakness from primary disease will likely progress. Not using any IV pain meds. cont supportive care and IV atbx. 03/26/17- seems to be more stable, always a concern for recurrence of abscess- would consider repeat pelvic CT w/o contrast if fever recurs. will check CT pelvis- no contrast- keep npo for now in case of significant collection- see addendum below 03/25/17- progressive deterioration w/ incontinence of bowel/bladder. min loose stool since yesterday afternoon- colestid may be helping. Now on po atbx for perirectal abscess. Severe anemia, pancytopenia. will ask wound care nurse for suggestions re- skin protective ointment. Needs significant nursing care 03/21/17- s/p incision/ drainage perirectal abscess via transrectal approach- will have nurses remove packing- cannot replace- cont IV atbx/ check cultures- may need Blood transfusion with expected anemia. No evidence of acute bleeding. Would cont atbx 2 weeks (IV then po) 04/08/17- on Vanco and acyclovir in addn to Cefepime and flagyl unfortunately , I don't have anything to offer that would improve his care. No plan to remove any drain soon- would leave weeks to months 04/07/17- extremely weak- progressive decline- plts transfused 04/05. Currently bld cultures negative, on triple atbx- I do not think any aggressive treatment will improve his gradual deterioration. Oncology to help with care 04/03/17- no acute changes- IV Ertapenem for at least 2 weeks will need picc line to go to [facility]- per medical team. I will follow him in the office and also ID f/u. Cont to show evidence of gradual deterioration. 04/02/17- s/p incision/ drainage complex perirectal abscess- loculated w/ sinus cavity into Rt perianal buttock- now has drain tube and seton in place- also gauze packing which will be removed this am and not replaced. Drains will remain weeks to months for seton. Will need to determine duration of atbx- IV/po. will ask ID for suggestions. Currently evaluating cardiac issues . 03/31/17- no acute changes or temp spikes. Overall same over past week. more anemic and platelets diminished. Will repeat CT pelvis w/ IV contrast only ( no oral ). Consider transfer to [facility] if no significant changes reviewed CT- persistent 2 cm abscess w/ gas, probable developing fistula tract- Will likely worsen over time w/o drain placement- especiallt in light of pancytopenia- For OR in am 04/01- will need 2 packs of plts preop 03/28/17- would continue IV atbx, nonoperative management unless shows significant worsening perirectal infection- plan repeat imaging on Mon- most likely here over weekend. Dr Hooper covering over weekend. 03/27/17- seems to be stable from infection standpoint but extreme weakness from primary disease will likely progress. Not using any IV pain meds. cont supportive care and IV atbx. 03/26/17- seems to be more stable, always a concern for recurrence of abscess- would consider repeat pelvic CT w/o contrast if fever recurs. will check CT pelvis- no contrast- keep npo for now in case of significant collection- see addendum below 03/25/17- progressive deterioration w/ incontinence of bowel/bladder. min loose stool since yesterday afternoon- colestid may be helping. Now on po atbx for perirectal abscess. Severe anemia, pancytopenia. will ask wound care nurse for suggestions re- skin protective ointment. Needs significant nursing care 03/21/17- s/p incision/ drainage perirectal abscess via transrectal approach- will have nurses remove packing- cannot replace- cont IV atbx/ check cultures- may need Blood transfusion with expected anemia. No evidence of acute bleeding. Would cont atbx 2 weeks (IV then po)
[2017-04-10 07:29] VITALS: BP 148/66; PULSE 59; TEMP 36.7; O2SAT 97
[2017-04-10] MEDS: METOPROLOL TARTRATE 25 MG TAB PO SCH ×2 (08:26→12:41)
[2017-04-10] MEDS: MAGNESIUM OXIDE 400 MG TAB PO SCH (08:26)
[2017-04-10] MEDS: ISOSORBIDE MONONITRATE 30 MG TABCR PO SCH (08:26)
[2017-04-10] MEDS: PSYLLIUM 58.6% PWD PACK S\\F PO SCH (08:27)
[2017-04-10] MEDS: POTASSIUM CHLORIDE 20 MEQ TABCR PO SCH (08:55)
[2017-04-10] MEDS: INSULIN ASPART 100 UNITS/ML 3 ML PEN SC SCH ×2 (08:58→12:29)
[2017-04-10] MEDS: INSULIN GLARGINE SOLOSTAR 100 UNITS/ML 3 ML PEN SC SCH (09:00)
--- NOTE | 2017-04-10 10:22 | Hematology/Oncology Prog Note ---
Hematology/Onc Progress Note Date of Service Apr 10, 2017. Diagnoses MDS Perirectal abscess Medications Medications Administered Medications (Trade) Dose Ordered Sig/Cameron Route Start Time Stop Time Status Last Admin Dose Admin Aspirin (Ecotrin Tab) 325 mg DAILY PO 03/20/17 08:00 04/19/17 07:59 Future Hold 03/20/17 07:26 325 MG Atenolol (Tenormin Tab) 50 mg DAILY PO 03/20/17 08:00 03/25/17 21:01 DC 03/25/17 09:17 50 MG Clopidogrel Bisulfate (plAVix TAB) 75 mg DAILY PO 03/20/17 08:00 04/19/17 07:59 Future Hold 03/20/17 07:26 75 MG Glipizide (Glucotrol Tab) 5 mg BIDM PO 03/19/17 17:00 03/22/17 18:38 DC 03/22/17 17:52 5 MG Isosorbide Mononitrate (Imdur Ext Rel Tab) 30 mg DAILY PO 03/20/17 08:00 04/19/17 07:59 04/10/17 08:26 30 MG Levothyroxine Sodium (Synthroid Tab) 75 mcg DAILYBB PO 03/20/17 06:30 04/19/17 06:29 04/10/17 05:58 75 MCG Pravastatin Sodium (Pravachol Tab) 40 mg HS PO 03/19/17 21:00 04/18/17 20:59 04/09/17 20:48 40 MG Tamsulosin HCl (Flomax Cap) 0.4 mg HS PO 03/19/17 21:00 04/18/17 20:59 04/09/17 20:48 0.4 MG Piperacillin Sod/ Tazobactam Sod 3.375 gm/Dextrose 115 ml @ 28.75 mls/ hr Q8H IV 03/19/17 22:00 03/24/17 08:29 DC 03/24/17 05:38 28.75 MLS/HR Sodium Chloride 1,000 ml @ 100 mls/hr Q10H IV 03/19/17 14:30 03/22/17 18:17 DC 03/22/17 12:42 100 MLS/HR Insulin Aspart (novoLOG ASPART) SLIDING SCALE PARAMETER ACHS SC 03/19/17 16:30 04/18/17 16:29 04/10/17 08:58 5 UNITS Hydrocortisone (Proctozone Hc 2.5% Crm) 1 appln TID PRN EXT 03/19/17 15:00 04/18/17 14:59 03/31/17 10:59 1 APPLN Acetaminophen (Tylenol Tab) 650 mg Q4H PRN PO 03/19/17 15:00 04/18/17 14:59 04/07/17 03:01 650 MG Al Hydrox/Mg Hydrox/Simethicone (Maalox Max Susp) 15 ml Q4H PRN PO 03/19/17 15:00 03/24/17 07:18 DC 03/24/17 04:52 15 ML Piperacillin Sod/ Tazobactam Sod 3.375 gm/Dextrose 115 ml @ 200 mls/hr NOW ONCE IV 03/19/17 16:15 03/19/17 16:49 DC 03/19/17 18:44 200 MLS/HR Miscellaneous Information (Patient'S Height And/Or Weight Needed) 1 ea Q2H N/A 03/19/17 16:15 03/19/17 16:55 DC 03/19/17 16:25 1 EA Vancomycin HCl 2000 mg/Sodium Chloride 540 ml @ 200 mls/hr NOW ONCE IV 03/19/17 20:30 03/19/17 23:11 DC 03/19/17 20:59 200 MLS/HR Vancomycin HCl 1250 mg/Sodium Chloride 275 ml @ 125 mls/hr Q12H IV 03/20/17 10:00 03/21/17 11:11 DC 03/21/17 10:35 125 MLS/HR Potassium Chloride (Klor-Con Tab) 20 meq BID PO 03/20/17 08:00 03/21/17 08:01 DC 03/21/17 08:44 20 MEQ Acetaminophen/ Hydrocodone Bitart ([place] 5/325 Tab) 1 tab Q4H PRN PO 03/20/17 16:00 03/23/17 15:32 DC 03/23/17 13:09 1 TAB Hydromorphone HCl (Dilaudid Inj) 0.5 mg Q1H PRN IV 03/20/17 16:00 04/09/17 15:59 DC 04/08/17 18:36 0.5 MG Vancomycin HCl 1500 mg/Sodium Chloride 530 ml @ 125 mls/hr Q12@1000,2200 IV 03/21/17 22:00 03/23/17 18:00 DC 03/23/17 10:34 125 MLS/HR Acetaminophen/ Hydrocodone Bitart ([place] 7.5/325 Tab) 1 tab HS PO 03/22/17 21:30 03/25/17 20:55 DC 03/24/17 20:40 1 TAB Acetaminophen (Tylenol Tab) 1,000 mg TODAY@0200 PO 03/23/17 02:00 03/23/17 03:00 DC 03/23/17 02:08 1,000 MG Diphenhydramine HCl (Benadryl Cap) 25 mg TODAY@0200 PO 03/23/17 02:00 03/23/17 03:00 DC 03/23/17 02:07 25 MG Furosemide 20 mg/ Syringe 2 ml @ 4 mls/min ONE STAT IV 03/23/17 14:41 03/23/17 14:42 DC 03/23/17 15:41 4 MLS/MIN Potassium Chloride (Klor-Con M10) 40 meq NOW STAT PO 03/23/17 14:28 03/23/17 14:42 DC 03/23/17 15:42 40 MEQ Acetaminophen/ Hydrocodone Bitart ([place] 10/325 Tab) 1 tab Q6H PRN PO 03/23/17 15:45 03/26/17 15:13 DC 03/26/17 10:29 1 TAB Psyllium Hydrophilic Mucilloid (Metamucil Powder) 1 pkt QAM PO 03/24/17 09:00 04/23/17 08:59 04/10/17 08:27 1 PKT Cephalexin Monohydrate (Keflex Cap) 500 mg TID PO 03/24/17 14:00 03/26/17 16:49 DC 03/26/17 12:28 500 MG Metronidazole (Flagyl Tab) 500 mg TID PO 03/24/17 14:00 03/26/17 16:49 DC 03/26/17 12:28 500 MG Furosemide 20 mg/ Syringe 2 ml @ 4 mls/min TODAY@0900 IV 03/24/17 09:00 03/24/17 11:00 DC 03/24/17 09:58 4 MLS/MIN Potassium Chloride (Klor-Con Tab) 20 meq ONE ONCE PO 03/24/17 09:00 03/24/17 09:01 DC 03/24/17 09:59 20 MEQ Magnesium Oxide (Mag-Ox Tab) 400 mg QAM PO 03/24/17 08:30 04/23/17 08:29 04/10/17 08:26 400 MG Colestipol HCl (Colestid Tab) 1 gm BID@1000,2200 PO 03/24/17 13:30 04/23/17 13:29 Future Hold 04/05/17 08:16 1 GM Loperamide HCl (Imodium Cap) 2 mg Q2H PRN PO 03/24/17 12:45 04/23/17 12:44 03/24/17 20:43 2 MG Acetaminophen/ Hydrocodone Bitart ([place] 10/325 Tab) 1 tab HS PO 03/25/17 21:30 04/08/17 21:29 DC 04/08/17 21:01 1 TAB Atenolol (Tenormin Tab) 25 mg DAILY PO 03/26/17 08:00 04/01/17 13:59 DC 04/01/17 06:35 25 MG Acetaminophen/ Hydrocodone Bitart ([place] 10/325 Tab) 1 tab Q4H PRN PO 03/26/17 17:45 04/06/17 15:44 DC 04/05/17 14:58 1 TAB Piperacillin Sod/ Tazobactam Sod 3.375 gm/Dextrose 115 ml @ 230 mls/hr NOW ONCE IV 03/26/17 17:00 03/26/17 17:29 DC 03/26/17 17:24 230 MLS/HR Piperacillin Sod/ Tazobactam Sod 3.375 gm/Dextrose 115 ml @ 28.75 mls/ hr Q8H IV 03/26/17 22:00 04/02/17 11:40 DC 04/02/17 05:41 28.75 MLS/HR Epoetin Butch (Procrit Inj) 40,000 units 1930 ONCE IV 03/26/17 19:30 03/26/17 19:31 DC 03/26/17 19:56 40,000 UNITS Insulin Glargine (Lantus Solostar Pen) 10 units DAILY SC 03/28/17 13:00 03/30/17 08:28 DC 03/29/17 08:44 10 UNITS Filgrastim (Neupogen Sq) 300 mcg 1315 ONCE SQ 03/28/17 13:15 03/28/17 13:16 DC 03/28/17 14:05 300 MCG Filgrastim (Neupogen Sq) 300 mcg ONE ONCE SQ 03/30/17 09:00 03/30/17 09:01 DC 03/30/17 08:59 300 MCG Insulin Glargine (Lantus Solostar Pen) 15 units DAILY SC 03/30/17 09:00 04/03/17 08:25 DC 04/02/17 07:57 15 UNITS Bupivacaine HCl (Marcaine 0.5% MPF Inj) 30 ml STK-MED ONCE .ROUTE 04/01/17 07:03 04/01/17 07:04 DC 04/01/17 07:30 4 ML Hydromorphone HCl (Dilaudid Inj) 2 mg STK-MED ONCE .ROUTE 04/01/17 08:27 04/01/17 08:28 DC 04/01/17 08:50 0.5 MG Metoprolol Tartrate (Lopressor Tab) 25 mg TID PO 04/01/17 14:00 05/01/17 13:59 04/10/17 08:26 25 MG Ertapenem 1 gm/ Sodium Chloride 50 ml @ 120 mls/hr Q24H IV 04/02/17 14:00 04/03/17 20:43 DC 04/03/17 14:31 120 MLS/HR Acetaminophen (Tylenol Tab) 650 mg NOW ONCE PO 04/02/17 18:30 04/02/17 18:31 DC 04/02/17 18:33 650 MG Diphenhydramine HCl (Benadryl Cap) 25 mg NOW ONCE PO 04/02/17 19:45 04/02/17 19:49 DC 04/02/17 20:14 25 MG Insulin Glargine (Lantus Solostar Pen) 18 units DAILY SC 04/03/17 08:30 04/04/17 22:59 DC 04/04/17 09:02 18 UNITS Cefepime HCl 2000 mg/Dextrose 112.5 ml @ 200 mls/hr Q8H IV 04/03/17 21:00 04/09/17 14:34 DC 04/09/17 13:28 200 MLS/HR Metronidazole 500 mg/Prmx 100 ml @ 100 mls/hr Q8H IV 04/03/17 21:00 04/09/17 14:34 DC 04/09/17 13:28 100 MLS/HR Insulin Glargine (Lantus Solostar Pen) 22 units DAILY SC 04/05/17 08:00 04/08/17 13:59 DC 04/08/17 09:13 22 UNITS Acetaminophen (Tylenol Tab) 1,000 mg NOW STAT PO 04/05/17 11:45 04/05/17 12:04 DC 04/05/17 12:48 1,000 MG Diphenhydramine HCl (Benadryl Cap) 25 mg NOW ONCE PO 04/05/17 11:45 04/05/17 12:04 DC 04/05/17 12:48 25 MG Simethicone (Mylicon Chew Tab) 80 mg Q6H PRN PO 04/05/17 14:30 05/05/17 14:29 04/09/17 08:27 80 MG Insulin Glargine (Lantus Solostar Pen) 10 units HS SC 04/05/17 21:00 04/06/17 21:06 DC 04/05/17 21:19 10 UNITS Acetaminophen (Tylenol Tab) 1,000 mg STK-MED ONCE PO 04/06/17 15:32 04/06/17 15:33 DC 04/06/17 15:35 1,000 MG Vancomycin HCl 1500 mg/Sodium Chloride 530 ml @ 200 mls/hr Q12H IV 04/07/17 05:00 04/09/17 04:59 DC 04/08/17 16:54 200 MLS/HR Acyclovir Sodium 750 mg/Dextrose 265 ml @ 265 mls/hr Q8H IV 04/06/17 16:00 04/08/17 15:59 DC 04/08/17 07:35 265 MLS/HR Vancomycin HCl 2000 mg/Sodium Chloride 540 ml @ 200 mls/hr ONE ONCE IV 04/06/17 17:00 04/06/17 19:41 DC 04/06/17 17:59 200 MLS/HR Insulin Glargine (Lantus Solostar Pen) 15 units HS SC 04/06/17 21:10 04/09/17 19:22 DC 04/08/17 21:08 15 UNITS Potassium Chloride (Klor-Con Tab) 20 meq BID PO 04/07/17 20:00 04/08/17 20:01 DC 04/08/17 20:14 20 MEQ Insulin Glargine (Lantus Solostar Pen) 15 units BID SC 04/09/17 08:00 04/29/17 08:59 04/10/17 09:00 15 UNITS Acetaminophen/ Hydrocodone Bitart ([place] 10/325 Tab) 1 tab Q6 PRN PO 04/08/17 14:00 04/22/17 13:59 04/10/17 06:16 1 TAB Potassium Chloride (Klor-Con Tab) 20 meq BID PO 04/09/17 20:00 04/10/17 20:01 04/10/17 08:55 20 MEQ Ertapenem 1 gm/ Sodium Chloride 50 ml @ 120 mls/hr Q24H IV 04/09/17 15:00 04/19/17 14:59 04/09/17 15:07 120 MLS/HR Acetaminophen (Tylenol Tab) 1,000 mg STK-MED ONCE PO 04/09/17 17:24 04/09/17 17:25 DC 04/09/17 17:27 1,000 MG Subjective He states his stools are soft but formed. He has been without a fever for about 24 hours. This been no overt bleeding. A PICC line has been placed. Review of Systems: Constitutional: Negative for night sweats. Continues to be quite weak. Eyes: Negative for event change of vision ENT: Negative for epistaxis, nasal discharge, sore throat, or deafness Cardiovascular: Negative for chest pain, palpitations, dizziness, diaphoresis Respiratory: Negative for new shortness of breath,hemoptysis, or purulent cough Gastrointestinal: Negative for diarrhea, hematemesis, melena, nausea, vomiting , or dyspepsia Integumentary (skin): Negative for rash or jaundice discoloration Genitourinary: Negative for urinary frequency, hematuria, or dysuria Neurological: Negative for weakness, seizure activity, headache, or dizziness Lymphatic/Hematologic: Negative for petechiae, bleeding or new adenopathy Musculoskeletal: Negative for new joint or back pain Allergic/Immunologic: Negative for unusual rash or pruritis. Vital Signs Vital Signs Past 12 Hours Date Time Temp Pulse Resp B/P (MAP) Pulse Ox O2 Delivery O2 Flow Rate FiO2 04/10/17 08:00 Room Air 04/10/17 07:29 36.7 59 18 148/66 (93) 97 Room Air 04/10/17 05:59 36.7 04/10/17 05:11 37.3 71 20 155/72 (99) 96 Room Air 04/10/17 00:01 Room Air Physical Exam Constitutional: vitals are stable. Eyes: Eyes are LAURA EOMI without conjuctival erythema or icterus. ENT: External examination was negative for masses. Neck: Negative for masses or palpable thyromegaly Respiratory: Lung sounds were generally clear bilaterally Cardiovascular: Heart was RRR without significant murmur, gallops aoe rubs Gastrointestinal: No palpable hepatic or splenomegaly. The abdomen was soft with normal bowel sounds. Lymphatic system: there was no palpable peripheral lymphadenopathy Musculoskeletal System: The musculoskeletal system seemed concordant with age. Skin: The skin was negative for jaundice. Neurologic exam: The exam was negative for any focal findings. Deep tendon reflexes were equal and symmetrical. Psychiatric exam: Was essentially negative with normal mood and effect. Extremities: Negative for significant edema or erythema Laboratory Last 24 Hours Test 04/09/17 11:40 04/10/17 07:32 Bedside Glucose 245 mg/dl 149 mg/dl Assessment & Plan Continues to appears stable. Being readied for discharge to a shelter home setting. We will arrange for follow-up in our clinic with blood counts for transfusions and continued supportive care.
[2017-04-10] MEDS ORDERED: MTML PO (11:04)
[2017-04-10] MEDS ORDERED: CLS1 PO (11:04)
[2017-04-10] MEDS ORDERED: ANSHCCR EXT (11:04)
[2017-04-10] MEDS ORDERED: IMD2X PO (11:04)
[2017-04-10] MEDS ORDERED: MCRK20 PO (11:04)
[2017-04-10] MEDS ORDERED: LPR25 PO (11:04)
[2017-04-10] MEDS ORDERED: HYDR-4079 PO (11:04)
[2017-04-10] MEDS ORDERED: INSDGIPEN SC (11:04)
[2017-04-10] MEDS ORDERED: NVLGIPEN SC (11:04)
[2017-04-10] MEDS ORDERED: MGNO400 PO (11:04)
--- NOTE | 2017-04-10 11:06 | Discharge Instructions ---
Discharge Instructions Date of Service Apr 10, 2017. 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 coli and bacteroides species. spiked fevers on ertapenem - ertapenem is recommended by infectious disease last dose 04/15 perirectal abscess with drainage x2, will continue local care and follow surgery recommendations At this time the patient and his family - despite numerous discussions about poor prognosis, lack of candidacy for bone marrow transplant, transitioning to hospice, etc - wish to continue fairly aggressive treatment. 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 Adjustment of basal insulin to twice a day dosing on 04/08 HTN - in reasonable control metoprolol 25 TID. imdur BPH - no voiding issues cont flomax. DVT proph - chemical means continues to be contraindicated due to significant thrombocytopenia; SCDs only hypothyroidism - TSH 11/2016 was normal; synthroid . CAD - plavix/asa cautiously restarted with thrombocytopenia. Remains on BB and imdur. Additional Information Patient informed of condition: Yes Advance Directives: Yes DNR: No Level of Care: Skilled Communicable Disease: No Prognosis: Stable Current Hospital Diet Patient's current hospital diet: Regular Diet, Diabetes Type 2 Diet Discharge Diet Recommended Diet: Regular Diet Procedures Procedures Performed: Incision and Drainage Perirectal Abscess- seton and malecot drain placement Pending Studies Studies pending at discharge: no Medical Emergencies . Who to Call and When: Medical Emergencies: If at any time you feel your situation is an emergency, please call 911 immediately. . Non-Emergent Contact Non-Emergency issues call your: Primary Care Provider Call Non-Emergent contact if: temperature is above 101, your pain is unusual for you . . "Provider Documentation" section prepared by Carlos Reese. . Core Measure Problem Core Measures: None
[2017-04-10] MEDS ORDERED: ASPI81TA28 PO (11:08)
[2017-04-10 11:09] VITALS: BP 127/63; PULSE 63; TEMP 36.8; O2SAT 97
[2017-04-10 12:35] VITALS: BP 127/63; PULSE 63; TEMP 36.8; O2SAT 97
[2017-04-10] MEDS: ERTAPENEM IV 1 GM in SODIUM CHLOR 0.9% AD-VAN 50ML 50 ML IV SCH (12:40)
--- NOTE | 2017-04-10 14:43 | Discharge Summary ---
Discharge Summary Date of Service Apr 10, 2017. Discharge Summary Admission Date: Mar 19, 2017 at 12:16 Discharge Date: Apr 10, 2017 Discharge Disposition: [facility] facility Principal Diagnosis: pancytopenia, matthew rectal abscess with drainage Consultations: Dr Amin, Dr Marroquin, Dr Granda Medication Reconciliation New Medications: Aspirin (Aspirin Ec) 81 Mg Tab 81 MG PO DAILY, #30 DOSE Ertapenem Sodium (Invanz) 1 Gm Inj 1 GM IV DAILY for 5 Days, #5 VIAL Colestipol HCl (Colestid) 1 Gm Tab 1 GM PO BID@1000,2200, #60 TAB Hydrocodone/Acetaminophen 10MG/325MG ([place] 10MG/325MG) Tab 1 TAB PO Q6 PRN for Pain, #30 TAB PRN PAIN Hydrocortisone (Proctosol Hc) 90 Appln/30 Gm Cr 1 APPLN EXT TID PRN for Hemorrhoids, #1 DOSE Insulin Aspart (Novolog Flexpen) 100 Units/Ml Inj 0 UNITS SC ACHS, #1 PEN Insulin Glargine (Lantus Solostar) 100 Unit/Ml Inj 15 UNITS SC BID, #1 PEN Loperamide Hcl (Imodium) 2 Mg Cap 2 MG PO Q2H PRN for Diarrhea, #60 CAP Magnesium Oxide (Magnesium-Oxide) 400 Mg Tab 400 MG PO QAM, #30 TAB Metoprolol Tartrate (Lopressor) 25 Mg Tab 25 MG PO TID, #90 TAB Potassium Chloride (Klor-Con M20) 20 Meq Tabcr 20 MEQ PO BID, #30 DOSE Psyllium (Konsyl) 1 Pkt Pack 1 PKT PO QAM, #30 DOSE Continued Medications: Clopidogrel (Plavix) 75 Mg Tab 75 MG PO DAILY, TAB Isosorbide Mononitrate (Isosorbide Mononitrate ER) 30 Mg Tabcr 30 MG PO DAILY Levothyroxine Sodium (Levothyroxine Sodium) 75 Mcg Tab 1 TAB PO DAILYBB Nitroglycerin (Nitrostat) 0.4 Mg Sub 0.4 MG UT PRN PRN for Chest Pain, BTL Pravastatin Sodium (Pravastatin Sodium) 40 Mg Tab 40 MG PO HS for 90 Days, #90 TAB 3 Refills Tamsulosin Hcl (Flomax) 0.4 Mg Cap 0.4 MG PO HS, CAP Discontinued Medications: Aspirin (Aspirin Ec) 325 Mg Tab 325 MG PO DAILY Atenolol (Atenolol) 50 Mg Tab 1 TAB PO DAILY, #60 DOSE Epoetin Butch (Procrit) Unknown Strength Inj Unknown Dose WK Glipizide (Glipizide) 5 Mg Tab 5 MG PO BIDM Levofloxacin (Levofloxacin) 750 Mg Tab 750 MG PO DAILY, #14 DOSE Discharge Exam Review of Systems: Constitutional: + chills, + weakness, No fever, No sweats, No weight loss Respiratory: No cough, No sputum, No wheezing Physical Exam: General Appearance: + mild distress, + thin Neck: supple, no JVD Respiratory/Chest: chest non-tender, lungs clear, normal breath sounds Cardiovascular: regular rate, rhythm, no murmur Abdomen / GI: normal bowel sounds, non tender, soft Hospital Course 68-year-old male with perirectal abscess and a history of myelodysplastic syndrome, operative drainage x2 poor WBC with pancytopenia for the duration of his stay perirectal abscess, s/p I/D x 2 with most recent surgery on 04/01/17 - culture from first I/& grew e. coli and bacteroides species. - ertapenem is recommended by infectious disease last dose 04/15 perirectal abscess with drainage x2, will continue local care and follow surgery recommendations At this time the patient and his family - despite numerous discussions about poor prognosis, lack of candidacy for bone marrow transplant, transitioning to hospice, etc - wish to continue fairly aggressive treatment. 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 Adjustment of basal insulin to twice a day dosing on 04/08 HTN - in reasonable control metoprolol 25 TID. imdur BPH - no voiding issues cont flomax. DVT proph - chemical means continues to be contraindicated due to significant thrombocytopenia; SCDs only hypothyroidism - TSH 11/2016 was normal; synthroid . CAD - plavix/asa used cautiously due to severe thrombocytopenia. Remains on BB and imdur. Total Time Spent: Greater than 30 minutes This includes examination of the patient, discharge planning, medication reconciliation, and communication with other providers. Discharge Instructions Please refer to the electronic Patient Visit Report (Discharge Instructions) for additional information.
[2017-04-10] MEDS ORDERED: CEFEPIME IV 2,000 MG in DEXTROSE 5% 100ML 100 ML IV SCH (16:30)
[2017-04-10] MEDS ORDERED: METRONIDAZOLE / NSS 500 MG in PREMIXED NSS 100 ML IV SCH (16:30)
== END 2017-04-10 14:08 | DRG 344 ==
LOC: UNDOADMIN 12:16 → C.4E 12:16 → ENRESERV 04-01 14:24 → C.2E 04-01 15:41 → ENRESERV 04-02 12:06 → C.4E 04-02 13:02
PROVIDERS: ADMIT Internal Medicine; ATTEND Internal Medicine
PROC: 30233N1 Transfusion of Nonautologous Red Blood Cells into Peripheral Vein, Percutaneous Approach (ICD-10-PCS; 2017-03-17)
PROC: 0D9P0ZZ Drainage of Rectum, Open Approach (ICD-10-PCS; principal; 2017-03-20 10:00)
PROC: 0D9P0ZZ Drainage of Rectum, Open Approach (ICD-10-PCS; 2017-04-01)
DX: K61.1 Rectal abscess (principal); I50.31 Acute diastolic (congestive) heart failure; G92 Toxic encephalopathy; D61.818 Other pancytopenia; R15.9 Full incontinence of feces; D46.9 Myelodysplastic syndrome, unspecified; E11.65 Type 2 diabetes mellitus with hyperglycemia; E78.5 Hyperlipidemia, unspecified; I11.0 Hypertensive heart disease with heart failure; I25.2 Old myocardial infarction; B96.20 Unspecified Escherichia coli [E. coli] as the cause of diseases classified elsewhere; I20.8 Other forms of angina pectoris; R19.7 Diarrhea, unspecified; N40.0 Benign prostatic hyperplasia without lower urinary tract symptoms; T40.2X5A Adverse effect of other opioids, initial encounter; Z79.02 Long term (current) use of antithrombotics/antiplatelets; Z79.82 Long term (current) use of aspirin; Z79.899 Other long term (current) drug therapy; Z83.3 Family history of diabetes mellitus; D46.21 Refractory anemia with excess of blasts 1

== ENCOUNTER 2017-04-10 15:59 | Inpatient (IN) | payer MEDICARE, OTHER ==
[~2017-04-10] VITALS: Ht 182.9 cm; Wt 74.6 kg
[~2017-04-10 15:59] MED LIST changes: +ANSHCCR EXT; +ASPI81TA28 PO; +CLS1 PO; +ERTA1INJ IV; +HYDR-4079 PO; +IMD2X PO; +INSDGIPEN SC; +LPR25 PO; +MCRK20 PO; +MGNO400 PO; +MTML PO; +NVLGIPEN SC
[2017-04-10] MEDS ORDERED: NITROGLYCERIN 0.4 MG SL PER TAB CHARGE UT PRN (16:30)
[2017-04-10] MEDS ORDERED: ONDANSETRON INJ 2 MG/ML 2 ML VIAL IV PRN (16:30)
[2017-04-10] MEDS: INSULIN ASPART 100 UNITS/ML 3 ML PEN SC SCH ×2 (16:30→20:57)
[2017-04-10] MEDS ORDERED: HYDROCORTISONE HC 2.5% CRM 30GM TUBE EXT PRN (16:30)
[2017-04-10] MEDS ORDERED: ACETAMINOPHEN 325 MG TAB PO PRN (16:30)
[2017-04-10] MEDS ORDERED: MAGNESIUM HYDROXIDE SUSP 30 ML UDC PO PRN (16:30)
[2017-04-10] MEDS ORDERED: ALUMINUM/MAGNESIUM/SIMETH (MAALOX MAX) 30 ML UDC PO PRN (16:30)
[2017-04-10] MEDS ORDERED: LOPERAMIDE HCL 2 MG CAP PO PRN (16:30)
[2017-04-10] MEDS: KETOROLAC TROMETHAMINE 15 MG/ML VIAL IV PRN (16:40)
[2017-04-10] MEDS ORDERED: GLUCOSE 40% GEL 15 GM TUBE PO PRN (16:45)
[2017-04-10] MEDS ORDERED: DEXTROSE 50% 50 ML SYR IV PRN (16:45)
[2017-04-10] MEDS ORDERED: GLUCOSE 10 TABS/TUBE PO PRN (16:45)
[2017-04-10] MEDS ORDERED: GLUCAGON FOR INJ 1 MG VIAL SQ PRN (16:45)
--- NOTE | 2017-04-10 16:59 | History and Physical ---
History & Physical Date & Time of Service: Apr 10, 2017 at 16:52 Chief Complaint: Hawkins Cytopenia Primary Care Physician: Gonzalo Amin M.D. History of Present Illness This patient is a readmission after being discharged earlier today. The patient was in the hospital for 3 weeks with a perirectal abscess complicated by pancytopenia from his myelodysplastic syndrome. The patient has been transfusion dependent and refractory to Neupogen. The patient had been stable. For a period of time without fever. Infectious disease and recommended it ertapenem therapy to be continued as an outpatient. This was arranged. Since a intravenous line needed to be placed to achieve this goal the patient was transfused packed red blood cells and platelets on 04/09. The patient did have a low-grade temperature during transfusions which was attributed to the transfusions. The patient was afebrile through the morning hours of the when he was transferred to a snf facility and developed bright green chills and a temperature of 103F he is returned back for facility reportedly he had encephalopathy during the fever but when I visited the patient in his room he recognized me and although somewhat tired had no focal complaints or problems other than some discomfort on his sacral area for which he has a pressure sore sustained while he was here previously. The patient and the nurses state that his surgical site looked similar to what his discharge and had no additional redness or changes The patient's was spoken to in the hallway she understood the progression of his illness however he and his still support that he should be maximally supported. Past Medical/Surgical History Medical Problems: (1) Abdominal aortic aneurysm Status: Chronic (2) Calculus Of Kidney Status: Chronic (3) CVD (cardiovascular disease) Status: Chronic (4) Hyperlipidemia Nec/Nos Status: Chronic (5) Hypertension Nos Status: Chronic (6) Old Myocardial Infarct Status: Chronic (7) Senile Nuclear Cataract Status: Chronic (8) Unilat Inguinal Hernia Status: Chronic Surgical Problems: (1) H/O abdominal aortic aneurysm repair Status: Resolved (2) H/O heart bypass surgery Status: Resolved Social History Smoking Status: Unknown if Ever Smoked Drug Use: none Marital Status: Occupational Status: retired Multi-Drug Resistant Organisms History of MDRO: No Allergies Coded Allergies: No Known Allergies (Verified , 03/09/17) Home Medications Scheduled Aspirin (Aspirin Ec), 81 MG PO DAILY Clopidogrel (Plavix), 75 MG PO DAILY Colestipol HCl (Colestid), 1 GM PO BID@1000,2200 Ertapenem Sodium (Invanz), 1 GM IV DAILY Insulin Aspart (Novolog Flexpen), 0 UNITS SC ACHS Insulin Glargine (Lantus Solostar), 15 UNITS SC BID Isosorbide Mononitrate (Isosorbide Mononitrate ER), 30 MG PO DAILY Levothyroxine Sodium (Levothyroxine Sodium), 1 TAB PO DAILYBB Magnesium Oxide (Magnesium-Oxide), 400 MG PO QAM Metoprolol Tartrate (Lopressor), 25 MG PO TID Potassium Chloride (Klor-Con M20), 20 MEQ PO BID Pravastatin Sodium (Pravastatin Sodium), 40 MG PO HS Psyllium (Konsyl), 1 PKT PO QAM Tamsulosin Hcl (Flomax), 0.4 MG PO HS Scheduled PRN Hydrocodone/Acetaminophen 10MG/325MG ([place] 10MG/325MG), 1 TAB PO Q6 PRN for Pain Hydrocortisone (Proctosol Hc), 1 APPLN EXT TID PRN for Hemorrhoids Loperamide Hcl (Imodium), 2 MG PO Q2H PRN for Diarrhea Nitroglycerin (Nitrostat), 0.4 MG UT PRN PRN for Chest Pain Review of Systems ROS: Patient appears frail and thin he is pale No double vision blurry vision No problems with speech or swallowing no sore throat No palpitations, chest pain or pressure No Wheezing or breathing issues No abdominal pain nausea vomiting his diarrhea has lessened he has perirectal and sacral pain No burning urine urine frequency or changes in color No focal joint pain or muscle pain No skin rashes or oral lesions No unusual bruising or bleeding No focused back pain or numbness or loss of strength Patient was mildly confused during time of maximum temperature Physical Exam General Appearance: + mild distress, + thin Head: normocephalic, atraumatic Eyes: PERRL, EOMI ENT: hearing grossly normal, pharynx normal Neck: supple, no JVD Respiratory/Chest: chest non-tender, lungs clear, normal breath sounds Cardiovascular: regular rate, rhythm, no murmur Abdomen/GI: normal bowel sounds, non tender, soft, + pertinent finding (no abdominal pain whatsoever) Back: normal inspection, no CVA tenderness Extremities/Musculoskelatal: normal inspection, no pedal edema, normal range of motion Neurologic/Psych: alert, oriented x 3 Skin: normal color, warm/dry, + pertinent finding (this is a exception of his sacral pressure ulcer and surgical wound) Diagnostics Laboratory Results Results Past 24 Hours Test 04/10/17 16:22 Range/Units Microbiology Results 04/10/17 Blood Culture, Ordered Pending 04/10/17 Blood Culture, Ordered Pending Impression Assessment and Plan 68-year-old male with readmitted with fever with recent history of perirectal abscess and transfusion dependent myelodysplastic syndrome, operative drainage x2 patient remains a low-grade temperature Fever, the patient will have ertapenem discontinued and be placed on cefepime and Flagyl 1 cultures will be taken and a noncontrast CT scan will be undertaken to reevaluate his perirectal abscess, this has previously had I/D x 2 with most recent surgery on 04/01/17 - culture from first I/& grew e. coli and bacteroides species that should've been covered by ertapenem. - Wound care will be reconsulted to manage his sacral pressure sore and surgical wound Despite this patient's poor prognosis, lack of candidacy for bone marrow transplant, the family continues to wish for aggressive therapy. Oncology has been pessimistic about this patient having good recovery of his bone marrow we will continue to support his cellular needs with continue readdress of this patient's progress pancytopenia 2nd to MDS - ongoing. transfusion dependent, cont neutropenic precautions, transfusion of PRBC and platelets 04/09 uncontrolled T2DM -basal lantus + novolog. We'll continue with diabetic diet and adjustment of basal bolus insulin HTN - metoprolol 25 TID. imdur BPH -resume his flomax. DVT proph - chemical means continues to be contraindicated hypothyroidism -has had normal TSH earlier this year, continue synthroid . CAD - plavix/asa will continue to be cautiously used given severe thrombocytopenia. VTE Prophylaxis VTE Risk Assessment Done? Y/N: Yes Risk Level: Moderate
[2017-04-10 17:00] VITALS: BP 151/67; PULSE 86; TEMP 38.4; O2SAT 93; Ht 182.9 cm; Wt 74.6 kg
[2017-04-10 17:44] LABS: BUN/CREATININE RATIO 23.6 (10-20); CALCIUM 8.3 mg/dl (8.5-10.1); CREATININE 0.84 mg/dl (0.60-1.40); POTASSIUM 3.4 mmol/L (3.5-5.1)
[2017-04-10 17:50] VITALS: TEMP 36.7
[2017-04-10] MEDS: CEFEPIME IV 2,000 MG in DEXTROSE 5% 100ML 100 ML IV SCH (17:57)
[2017-04-10] MEDS: HYDROCODONE/ACETAMI 10/325 TAB PO PRN (18:13)
--- NOTE | 2017-04-10 18:20 | DIAGNOSTIC IMAGING REPORT ---
CT PELVIS NO IV/ORAL CONT (CT) CT DOSE: 531.25 mGycm CLINICAL HISTORY: Perirectal abscess TECHNIQUE: Patient was scanned without intravenous or oral contrast. Helical images were obtained through the pelvis. A dose lowering technique was utilized adhering to the principles of ALARA. COMPARISON STUDY: 03/31/2017 FINDINGS: There are postsurgical changes of an aortobifemoral stent graft. There is no free intraperitoneal air. There is no pathologic bowel dilatation within the pelvis. There is extensive sigmoid diverticulosis. There is no evidence of acute diverticulitis. There is no evidence of pathologic adenopathy. There is presacral edema. There are no bony destructive changes to indicate acute osteomyelitis. There is moderate rectal wall thickening. Evaluation the perirectal soft tissues is limited given the lack of intravenous administered contrast. There is opaque material within the posterior perirectal/anal soft tissues, likely representing suture material. There is a gas-filled sinus tract ((possibly surgically created) extending from the right gluteal fold, to the right posterior lateral perirectal soft tissues. A small perirectal abscess is suspected. There is mild prostamegaly. There is mild bladder wall thickening likely secondary to chronic bladder outlet obstruction. IMPRESSION: 1. Technically limited study for the evaluation of inflammatory changes given the lack of intravenously administered contrast 2. Interval surgery in the region of the perirectal soft tissues 3. Persistent presacral edema 4. Increasing rectal wall thickening 5. Suspected small right posterior lateral perirectal abscess with a sinus tract (possibly surgically created) extending to the right gluteal fold Electronically signed by: Juan Antonio Queen M.D. 04/10/2017 6:19 PM Dictated Date/Time: 04/10/2017 6:06 PM
[2017-04-10] MEDS: METRONIDAZOLE / NSS 500 MG in PREMIXED NSS 100 ML IV SCH (18:47)
[2017-04-10] MEDS: POTASSIUM CHLORIDE 20 MEQ TABCR PO SCH (20:53)
[2017-04-10] MEDS: METOPROLOL TARTRATE 25 MG TAB PO SCH (20:55)
[2017-04-10] MEDS: PRAVASTATIN SOD 40 MG TAB PO SCH (20:56)
[2017-04-10] MEDS: TAMSULOSIN HCL 0.4 MG CAP PO SCH (20:56)
[2017-04-10] MEDS: INSULIN GLARGINE SOLOSTAR 100 UNITS/ML 3 ML PEN SC SCH (20:59)
[2017-04-10] MEDS: COLESTIPOL HCL 1 GM TAB PO SCH (20:59)
[2017-04-10 23:05] VITALS: BP 147/63; PULSE 46; TEMP 36.4; O2SAT 97
[2017-04-11] MEDS: METRONIDAZOLE / NSS 500 MG in PREMIXED NSS 100 ML IV SCH ×3 (01:40→18:06)
[2017-04-11 04:10] VITALS: BP 167/72; PULSE 51; TEMP 36.3; O2SAT 99
[2017-04-11] MEDS: CEFEPIME IV 2,000 MG in DEXTROSE 5% 100ML 100 ML IV SCH ×2 (05:32→17:15)
[2017-04-11] MEDS: LEVOTHYROXINE 75 MCG TAB PO SCH (05:32)
--- NOTE | 2017-04-11 05:58 | Medical Consult ---
Consultation Date of Consultation: Apr 11, 2017. Attending Physician: Carlos Reese M.D. History of Present Illness readmitted with fever- CT scan of pelvic area shows seton and malecot drain in place - may be abscess above drains. To OR 04/01 drains placed had postop chest pain, cardiac ischemia, elevated troponin. Past Medical/Surgical History Medical Problems: (1) Pancytopenia Status: Acute (2) Pneumonia Status: Acute Social History Smoking Status: Former Smoker Drug Use: none Marital Status: Housing Status: lives with significant other Occupation Status: retired Allergies Coded Allergies: No Known Allergies (Verified , 03/09/17) Current Inpatient Medications Current Inpatient Medications Medications (Trade) Dose Ordered Sig/Cameron Route Start Time Stop Time Status Last Admin Dose Admin Acetaminophen (Tylenol Tab) 650 mg Q4H PRN PO 04/10/17 16:30 05/10/17 16:29 04/10/17 21:07 650 MG Al Hydrox/Mg Hydrox/Simethicone (Maalox Max Susp) 15 ml Q4H PRN PO 04/10/17 16:30 05/10/17 16:29 Magnesium Hydroxide (Milk Of Magnesia Susp) 30 ml Q6H PRN PO 04/10/17 16:30 05/10/17 16:29 Ondansetron HCl (Zofran Inj) 4 mg Q6H PRN IV 04/10/17 16:30 05/10/17 16:29 Aspirin (Ecotrin Tab) 81 mg DAILY PO 04/11/17 08:00 05/11/17 07:59 Clopidogrel Bisulfate (plAVix TAB) 75 mg DAILY PO 04/11/17 08:00 05/11/17 07:59 Colestipol HCl (Colestid Tab) 1 gm BID@1000,2200 PO 04/10/17 22:00 05/10/17 21:59 04/10/17 20:59 1 GM Acetaminophen/ Hydrocodone Bitart ([place] 10/325 Tab) 1 tab Q6 PRN PO 04/10/17 16:30 04/24/17 16:29 04/10/17 18:13 1 TAB Hydrocortisone (Proctozone Hc 2.5% Crm) 1 appln TID PRN EXT 04/10/17 16:30 05/10/17 16:29 Insulin Aspart (novoLOG ASPART) ACHS SC 04/10/17 16:30 05/10/17 16:29 Insulin Glargine (Lantus Solostar Pen) 15 units BID SC 04/10/17 20:00 05/10/17 19:59 04/10/17 20:59 15 UNITS Isosorbide Mononitrate (Imdur Ext Rel Tab) 30 mg DAILY PO 04/11/17 08:00 05/11/17 07:59 Levothyroxine Sodium (Synthroid Tab) 75 mcg DAILYBB PO 04/11/17 06:30 05/11/17 06:29 04/11/17 05:32 75 MCG Loperamide HCl (Imodium Cap) 2 mg Q2H PRN PO 04/10/17 16:30 05/10/17 16:29 Magnesium Oxide (Mag-Ox Tab) 400 mg QAM PO 04/11/17 08:00 05/11/17 07:59 Metoprolol Tartrate (Lopressor Tab) 25 mg TID PO 04/10/17 20:00 05/10/17 19:59 04/10/17 20:55 25 MG Nitroglycerin (Nitrostat Tab) 0.4 mg PRN PRN UT 04/10/17 16:30 05/10/17 16:29 Potassium Chloride (Klor-Con Tab) 20 meq BID PO 04/10/17 20:00 05/10/17 19:59 04/10/17 20:53 20 MEQ Pravastatin Sodium (Pravachol Tab) 40 mg HS PO 04/10/17 21:00 05/10/17 20:59 04/10/17 20:56 40 MG Psyllium Hydrophilic Mucilloid (Metamucil Powder) 1 pkt QAM PO 04/11/17 08:00 05/11/17 07:59 Tamsulosin HCl (Flomax Cap) 0.4 mg HS PO 04/10/17 21:00 05/10/17 20:59 04/10/17 20:56 0.4 MG Ketorolac Tromethamine (Toradol Inj) 15 mg Q6H PRN IV 04/10/17 16:30 04/15/17 16:29 04/10/17 16:40 15 MG Glucose (Glucose 40% Gel) 15-30 GRAMS 15 GRAMS... UD PRN PO 04/10/17 16:45 05/10/17 16:44 Glucose (Glucose Chew Tab) 4-8 Tablets 4 Tabl... UD PRN PO 04/10/17 16:45 05/10/17 16:44 Dextrose (Dextrose 50% 50ML Syringe) 25-50ML OF 50% DW IV FOR... UD PRN IV 04/10/17 16:45 05/10/17 16:44 Glucagon (Glucagon Inj) 1 mg UD PRN SQ 04/10/17 16:45 05/10/17 16:44 Cefepime HCl 2000 mg/Dextrose 112.5 ml @ 200 mls/hr Q12H IV 04/10/17 17:30 04/20/17 17:29 04/11/17 05:32 200 MLS/HR Metronidazole 500 mg/Prmx 100 ml @ 100 mls/hr Q8H IV 04/10/17 18:00 04/20/17 17:59 04/11/17 01:40 100 MLS/HR Review of Systems Constitutional: + fever, + chills Respiratory: No shortness of breath Cardiovascular: No chest pain Abdomen: + pain, No nausea Genitourinary - Male: No dysuria Physical Exam Date Time Temp Pulse Resp B/P (MAP) Pulse Ox O2 Delivery O2 Flow Rate FiO2 04/11/17 04:10 36.3 51 18 167/72 (103) 99 Room Air 04/11/17 00:00 Room Air 04/10/17 23:05 36.4 46 18 147/63 (91) 97 Room Air 04/10/17 20:00 Room Air 04/10/17 17:50 36.7 04/10/17 17:00 38.4 86 18 151/67 93 Room Air has sacral erythema and skin breakdown- foam in place seton and drain in place- no overt surrounding infection General Appearance: + cachetic Head: atraumatic Eyes: sclerae normal Neck: supple Respiratory/Chest: no respiratory distress Cardiovascular: regular rate, rhythm Abdomen/GI: soft Laboratory Results Last 24 Hours Test 04/10/17 16:19 04/10/17 16:51 04/10/17 20:45 04/11/17 04:44 Sodium Level 136 mmol/L Potassium Level 3.4 mmol/L Chloride Level 105 mmol/L Carbon Dioxide Level 24 mmol/L Anion Gap 7.0 mmol/L Blood Urea Nitrogen 20 mg/dl Creatinine 0.84 mg/dl Est Creatinine Clear Calc Drug Dose 74.1 ml/min Estimated GFR () 96.5 Estimated GFR (Non- 83.3 BUN/Creatinine Ratio 23.6 Random Glucose 125 mg/dl Calcium Level 8.3 mg/dl Bedside Glucose 141 mg/dl 149 mg/dl Assessment & Plan 04/11/17- h/o fever and evidence on CT of persistent abscess above drains. I have operated on pt twice with persistent/ recurrent abscess- I do not feel comfortable trying again- may be amenable to interventional drainage especially in light of cardiac issues. I discussed possible transfer with pt- Will discuss with medical service. Not sure pt will agree to transfer
[2017-04-11 07:30] VITALS: BP 164/59; PULSE 67; TEMP 36.6; O2SAT 99
[2017-04-11 07:56] LABS: HEMATOCRIT 25.4 % (42-52); MEAN CELL VOLUME 84.7 fL (80-100); MEAN CORPUSCULAR HGB CONC 34.3 g/dl (32-36); WHITE BLOOD COUNT 1.88 K/uL (4.8-10.8)
[2017-04-11 08:01] LABS: BUN/CREATININE RATIO 27.8 (10-20); CALCIUM 8.7 mg/dl (8.5-10.1); CREATININE 0.83 mg/dl (0.60-1.40); POTASSIUM 3.9 mmol/L (3.5-5.1)
[2017-04-11] MEDS: POTASSIUM CHLORIDE 20 MEQ TABCR PO SCH ×2 (08:11→21:21)
[2017-04-11] MEDS: CLOPIDOGREL BISULFATE 75 MG TAB PO SCH (08:12)
[2017-04-11] MEDS: ISOSORBIDE MONONITRATE 30 MG TABCR PO SCH (08:12)
[2017-04-11] MEDS: ASPIRIN 81 MG ECTAB PO SCH (08:12)
[2017-04-11] MEDS: COLESTIPOL HCL 1 GM TAB PO SCH ×2 (08:12→22:00)
[2017-04-11] MEDS: METOPROLOL TARTRATE 25 MG TAB PO SCH ×3 (08:13→21:21)
[2017-04-11] MEDS: PSYLLIUM 58.6% PWD PACK S\\F PO SCH (08:17)
[2017-04-11 08:25] LABS: MEAN PLATELET VOLUME 9.9 fL (7.4-10.4); PLATELET COUNT 14 K/uL (130-400)
[2017-04-11 08:29] LABS: PLT ESTIMATE SIGNIFIC DECREASED
[2017-04-11 08:32] LABS: COMPLETE YES; EOSINOPHIL % 0.9 %; LYMPH ABS # 1.22 K/uL (1.2-3.4); LYMPHOCYTE % 65.1 %; MYELOCYTE % 3.5 %; NEUTROPHILS % 15.7 %
[2017-04-11] MEDS: INSULIN ASPART 100 UNITS/ML 3 ML PEN SC SCH ×4 (08:32→21:24)
[2017-04-11] MEDS: INSULIN GLARGINE SOLOSTAR 100 UNITS/ML 3 ML PEN SC SCH ×2 (08:33→21:25)
--- NOTE | 2017-04-11 10:41 | Clinical Documentation Query ---
BERNARD Rose : CLINICAL DOCUMENTATION QUERY Patient is a 77 year old male readmitted on the day of discharge for evaluation of fever. H&P documentation includes that of a "sacral pressure ulcer", not otherwise specified. WOCN consulted and Dr. Sprague apparently to see patient as well per WOCN note. On previous admission, wound was documented as unstagable, which by definition, makes the wound at least a stage 3 according the the NPUAP. Definitions provided below. Please clarify as clinically appropriate. Thank you. In your clinical opinion is this patient being managed for: ( xx ) Pressure ulcer of sacral region, stage 3, POA ( ) Not Agree ( ) Other explanation of clinical findings (Please Explain) ( ) Unable to determine (Please Define) ( ) Need to Discuss The medical record reflects the following clinical findings, treatment, and risk factors. Clinical Indicators: As above Treatment: WOCN consultation, offloading, turn/reposition, lead java software engineer consultation Risk Factors: Age, comorbid conditions, poor nutritional status, immobility NPUAP Pressure Injury Stages The National Pressure Ulcer Advisory Panel redefined the definition of a pressure injuries during the NPUAP 2016 Staging Consensus Conference that was held October 26-2015 in [place], [place]. The updated staging definitions were presented at a meeting of over 400 professionals. Using a consensus format, Dr. Trent Elliott from the [employer] adeptly guided the Staging Task Force and meeting participants to consensus on the updated definitions through an interactive discussion and voting process. During the meeting, the participants also validated the new terminology using photographs. The updated staging system includes the following definitions: Pressure Injury: A pressure injury is localized damage to the skin and underlying soft tissue usually over a bony prominence or related to a medical or other device. The injury can present as intact skin or an open ulcer and may be painful. The injury occurs as a result of intense and/or prolonged pressure or pressure in combination with shear. The tolerance of soft tissue for pressure and shear may also be affected by microclimate, nutrition, perfusion, co-morbidities and condition of the soft tissue. Stage 1 Pressure Injury: Non-blanchable erythema of intact skin Intact skin with a localized area of non-blanchable erythema, which may appear differently in darkly pigmented skin. Presence of blanchable erythema or changes in sensation, temperature, or firmness may precede visual changes. Color changes do not include purple or maroon discoloration; these may indicate deep tissue pressure injury. Stage 2 Pressure Injury: Partial-thickness skin loss with exposed dermis Partial-thickness loss of skin with exposed dermis. The wound bed is viable, pink or red, moist, and may also present as an intact or ruptured serum-filled blister. Adipose (fat) is not visible and deeper tissues are not visible. Granulation tissue, slough and eschar are not present. These injuries commonly result from adverse microclimate and shear in the skin over the pelvis and shear in the heel. This stage should not be used to describe moisture associated skin damage (MASD) including incontinence associated dermatitis (IAD), intertriginous dermatitis (ITD), medical adhesive related skin injury (MARSI), or traumatic wounds (skin tears, mcmanus, abrasions). Stage 3 Pressure Injury: Full-thickness skin loss Full-thickness loss of skin, in which adipose (fat) is visible in the ulcer and granulation tissue and epibole (rolled wound edges) are often present. Slough and/or eschar may be visible. The depth of tissue damage varies by anatomical location; areas of significant adiposity can develop deep wounds. Undermining and tunneling may occur. Fascia, muscle, tendon, ligament, cartilage and/or bone are not exposed. If slough or eschar obscures the extent of tissue loss this is an Unstageable Pressure Injury. Stage 4 Pressure Injury: Full-thickness skin and tissue loss Full-thickness skin and tissue loss with exposed or directly palpable fascia, muscle, tendon, ligament, cartilage or bone in the ulcer. Slough and/or eschar may be visible. Epibole (rolled edges), undermining and/or tunneling often occur. Depth varies by anatomical location. If slough or eschar obscures the extent of tissue loss this is an Unstageable Pressure Injury. Unstageable Pressure Injury: Obscured full-thickness skin and tissue loss Full-thickness skin and tissue loss in which the extent of tissue damage within the ulcer cannot be confirmed because it is obscured by slough or eschar. If slough or eschar is removed, a Stage 3 or Stage 4 pressure injury will be revealed. Stable eschar (i.e. dry, adherent, intact without erythema or fluctuance) on the heel or ischemic limb should not be softened or removed. Deep Tissue Pressure Injury: Persistent non-blanchable deep red, maroon or purple discoloration Intact or non-intact skin with localized area of persistent non-blanchable deep red, maroon, purple discoloration or epidermal separation revealing a dark wound bed or blood filled blister. Pain and temperature change often precede skin color changes. Discoloration may appear differently in darkly pigmented skin. This injury results from intense and/or prolonged pressure and shear forces at the bone-muscle interface. The wound may evolve rapidly to reveal the actual extent of tissue injury, or may resolve without tissue loss. If necrotic tissue, subcutaneous tissue, granulation tissue, fascia, muscle or other underlying structures are visible, this indicates a full thickness pressure injury (Unstageable, Stage 3 or Stage 4). Do not use DTPI to describe vascular, traumatic, neuropathic, or dermatologic conditions. Please clarify and document your clinical opinion in the progress notes and discharge summary. Terms such as "probable", "suspected", "likely", "questionable", "possible", or "still to be ruled out" are acceptable. IF IN AGREEMENT, YOU MUST DOCUMENT ABOVE DIAGNOSTIC STATEMENT IN DAILY PROGRESS NOTES AND DISCHARGE SUMMARY. This document is not part of the patient's record. Thank You, Porfirio Lund, SHEMAR [phone]
[2017-04-11] MEDS: MAGNESIUM OXIDE 400 MG TAB PO SCH (10:51)
[2017-04-11] MEDS: HYDROCODONE/ACETAMI 10/325 TAB PO PRN (10:52)
[2017-04-11 11:20] VITALS: BP 124/61; PULSE 62; TEMP 36.6; O2SAT 98
--- NOTE | 2017-04-11 11:46 | PROGRESS NOTE ---
DATE: 04/11/2017 SUBJECTIVE: I stopped in to see Mr. Fenton again today. I have been following his hospital course slowly. He has a myelodysplastic syndrome with very poor prognostic features noted in his bone marrow and it was done last spring. Recently his clinical course has been characterized by a severe pancytopenia. He has been red cell transfusion dependent and prior to procedures has been platelet transfusion dependent as well. His major complicating factors of late have been recurrent fevers, likely related to a perirectal abscess. That had shown no evidence of significant improvement. Additionally, he has a large pressure sore in the presacral area. Mr. Fenton was transferred to the [facility] yesterday but returned shortly thereafter because of a spike in his temperature to 103. He was recultured and his antibiotics changed. I had a long discussion with Mr. Fenton and his Cheryl again today. I outlined for him what could be offered and what the expected outcomes would be. Unfortunately, none of those potential outcomes are favorable for him. Clearly with the severity of his illness, it is likely that in the not too distant future, he will as a result of systemic infection or significant bleeding resulting from his low platelet count. His future would simply be remaining in the hospital, getting transfusions and antibiotics until one of those interventions does not lead to an improvement in his status and subsequent ultimate . After laying out the prognosis for him, Mr. Fenton admitted that he is frustrated and does not feel that there is any reasonable future quality of life. I agreed with that assessment. We discussed what could be offered to him. He has elected to go simply on in-hospital palliative care. He would prefer to remain here as opposed to going home. I told him that we would offer him analgesics in the form of morphine and he would welcome that since he is having some discomfort from his presacral ulcer. I told him that he would be allowed to eat anything that he desires, that his could bring in from home. We can withhold any further laboratory work other than blood sugars done on an intermittent basis. Doses of morphine can be increased. He can have close friends and family visit according to his wishes. There will be no resuscitative efforts made. and Mrs. Fenton are completely in agreement with the outlined plan. I have discussed it with Dr. Reese.
[2017-04-11] MEDS: BOOST GLUCOSE CONTROL PO SCH ×2 (12:00→17:15)
[2017-04-11] MEDS ORDERED: MoRPHine SULFATE 4 MG/ML 1 ML CARP\\VIAL IV PRN (12:30)
[2017-04-11] MEDS: KETOROLAC TROMETHAMINE 15 MG/ML VIAL IV PRN (13:10)
--- NOTE | 2017-04-11 15:31 | Palliative Care Consultation ---
Consultation Date of Consultation: Apr 11, 2017. Requesting Physician: Dr. Reese Attending Physician: Dr. Reese Reason for Consultation: Goals of care, comfort care History of Present Illness This 77 year old male patient with PMH myelodysplastic syndrome with severe pancytopenia, perirectal abscess, and others listed below, presented to the hospital yesterday after having left for only a couple hours. Patient was in the hospital for about three weeks for the abscess s/p surgery x2, and for pancytopenia- transfusion dependent and neupogen resistant. He was discharged with ertapenem set up to be given at the [facility] [place], where he was discharged to. Apparently he developed a fever of 103F and chills/rigors while there, and he came right back to hospital. He was admitted with pancytopenia, platelets 14. He was evaluated by Dr. Rodríguez from surgery, who is not comfortable with performing a third surgery. Dr. Rodríguez had a conversation with patient and , Cheryl, about transferring to another facility if he wished to pursue aggressive intervention. They were undecided. Dr. Amin then came and spoke with patient about his wishes and goals of care. Patient then stated that he wants to pursue palliative care and does not want aggressive treatment. Per documentation, patient agreed upon no resuscitation. Palliative care consulted. I met with the patient, his Cheryl, and her best friend Cheryl Bennett, in room 418. With patient's permission to speak in front of visitor, we discussed goals of care and his pain. Pain is a 3/10 today, which patient is happy with and " can live with." It has been up to a 7, which is too much for him. He has essentially no other discomforts to report, but is weak with a poor appetite. He is excited to be able to eat whatever he wants and to do what he chooses. Patient stated to me, "I know where this is all heading, and I'm okay with it. I 've accepted it." He went on to say that he does not want aggressive treatment any more and wants to remain in the hospital for comfort care indefinitely. I did explain/offer some other options such as hospice at SNF or hospice at home, but patient was not very interested in listening to that at this time. Patient states he has no worries or fears, he is working on tieing up some [employer]. Past Medical/Surgical History Medical History: Abdominal aortic aneurysm Calculus Of Kidney CVD Hyperlipidemia Hypertension Nos Old Myocardial Infarct Senile Nuclear Cataract Unilateral Inguinal Hernia Surgical Problems: Abdominal aortic aneurysm repair Heart bypass surgery Social History Smoking Status: Former Smoker History of Alcohol Use: No Drug Use: none Marital Status: Occupation Status: retired Review of Systems Constitutional: + weakness, No chills Respiratory: No cough, No wheezing, No shortness of breath Cardiac: No chest pain, No edema Abdomen: No pain, No nausea, No vomiting Musculoskeletal: + problem reported (presacral pain) Psychiatric: No depression symptoms, No anxiety Allergies Coded Allergies: No Known Allergies (Verified , 03/09/17) Medications Current Inpatient Medications Medications (Trade) Dose Ordered Sig/Cameron Route Start Time Stop Time Status Last Admin Dose Admin Acetaminophen (Tylenol Tab) 650 mg Q4H PRN PO 04/10/17 16:30 05/10/17 16:29 04/10/17 21:07 650 MG Al Hydrox/Mg Hydrox/Simethicone (Maalox Max Susp) 15 ml Q4H PRN PO 04/10/17 16:30 05/10/17 16:29 Magnesium Hydroxide (Milk Of Magnesia Susp) 30 ml Q6H PRN PO 04/10/17 16:30 05/10/17 16:29 Ondansetron HCl (Zofran Inj) 4 mg Q6H PRN IV 04/10/17 16:30 05/10/17 16:29 Aspirin (Ecotrin Tab) 81 mg DAILY PO 04/11/17 08:00 05/11/17 07:59 04/11/17 08:12 81 MG Clopidogrel Bisulfate (plAVix TAB) 75 mg DAILY PO 04/11/17 08:00 05/11/17 07:59 04/11/17 08:12 75 MG Colestipol HCl (Colestid Tab) 1 gm BID@1000,2200 PO 04/10/17 22:00 05/10/17 21:59 04/11/17 08:12 1 GM Acetaminophen/ Hydrocodone Bitart (Lancaster 10/325 Tab) 1 tab Q6 PRN PO 04/10/17 16:30 04/24/17 16:29 04/11/17 10:52 1 TAB Hydrocortisone (Proctozone Hc 2.5% Crm) 1 appln TID PRN EXT 04/10/17 16:30 05/10/17 16:29 Insulin Aspart (novoLOG ASPART) ACHS SC 04/10/17 16:30 05/10/17 16:29 04/11/17 13:01 6 UNITS Insulin Glargine (Lantus Solostar Pen) 15 units BID SC 04/10/17 20:00 05/10/17 19:59 04/11/17 08:33 15 UNITS Isosorbide Mononitrate (Imdur Ext Rel Tab) 30 mg DAILY PO 04/11/17 08:00 05/11/17 07:59 04/11/17 08:12 30 MG Levothyroxine Sodium (Synthroid Tab) 75 mcg DAILYBB PO 04/11/17 06:30 05/11/17 06:29 04/11/17 05:32 75 MCG Loperamide HCl (Imodium Cap) 2 mg Q2H PRN PO 04/10/17 16:30 05/10/17 16:29 Magnesium Oxide (Mag-Ox Tab) 400 mg QAM PO 04/11/17 08:00 05/11/17 07:59 04/11/17 10:51 400 MG Metoprolol Tartrate (Lopressor Tab) 25 mg TID PO 04/10/17 20:00 05/10/17 19:59 04/11/17 08:13 25 MG Nitroglycerin (Nitrostat Tab) 0.4 mg PRN PRN UT 04/10/17 16:30 05/10/17 16:29 Potassium Chloride (Klor-Con Tab) 20 meq BID PO 04/10/17 20:00 05/10/17 19:59 04/11/17 08:11 20 MEQ Pravastatin Sodium (Pravachol Tab) 40 mg HS PO 04/10/17 21:00 05/10/17 20:59 04/10/17 20:56 40 MG Psyllium Hydrophilic Mucilloid (Metamucil Powder) 1 pkt QAM PO 04/11/17 08:00 05/11/17 07:59 04/11/17 08:17 1 PKT Tamsulosin HCl (Flomax Cap) 0.4 mg HS PO 04/10/17 21:00 05/10/17 20:59 04/10/17 20:56 0.4 MG Ketorolac Tromethamine (Toradol Inj) 15 mg Q6H PRN IV 04/10/17 16:30 04/15/17 16:29 04/11/17 13:10 15 MG Glucose (Glucose 40% Gel) 15-30 GRAMS 15 GRAMS... UD PRN PO 04/10/17 16:45 05/10/17 16:44 Glucose (Glucose Chew Tab) 4-8 Tablets 4 Tabl... UD PRN PO 04/10/17 16:45 05/10/17 16:44 Dextrose (Dextrose 50% 50ML Syringe) 25-50ML OF 50% DW IV FOR... UD PRN IV 04/10/17 16:45 05/10/17 16:44 Glucagon (Glucagon Inj) 1 mg UD PRN SQ 04/10/17 16:45 05/10/17 16:44 Cefepime HCl 2000 mg/Dextrose 112.5 ml @ 200 mls/hr Q12H IV 04/10/17 17:30 04/20/17 17:29 04/11/17 05:32 200 MLS/HR Metronidazole 500 mg/Prmx 100 ml @ 100 mls/hr Q8H IV 04/10/17 18:00 04/20/17 17:59 04/11/17 10:52 100 MLS/HR Enteral Nutritional Formula (Boost Glucose Control) 1 can TIDM PO 04/11/17 12:00 05/11/17 11:59 04/11/17 12:00 1 CAN Morphine Sulfate (MoRPHine SULFATE INJ) 2 mg Q4H PRN IV 04/11/17 12:30 04/25/17 12:29 Morphine Sulfate (MoRPHine SULFATE INJ) 4 mg Q4H PRN IV 04/11/17 12:30 04/25/17 12:29 Oxycodone HCl (Roxicodone Immediate Rel Tab) 10 mg Q6 PRN PO 04/11/17 12:30 04/25/17 12:29 Physical Exam Date Time Temp Pulse Resp B/P (MAP) Pulse Ox O2 Delivery O2 Flow Rate FiO2 04/11/17 11:20 36.6 62 18 124/61 (82) 98 Room Air 04/11/17 08:00 Room Air 04/11/17 07:30 36.6 67 18 164/59 (94) 99 Room Air 04/11/17 04:10 36.3 51 18 167/72 (103) 99 Room Air 04/11/17 00:00 Room Air 04/10/17 23:05 36.4 46 18 147/63 (91) 97 Room Air 04/10/17 20:00 Room Air 04/10/17 17:50 36.7 04/10/17 17:00 38.4 86 18 151/67 93 Room Air General Appearance: no apparent distress, + thin ENT: hearing grossly normal Neck: supple, no JVD Respiratory: lungs clear, no respiratory distress, no accessory muscle use Cardiovascular: regular rate, rhythm, no edema, + normal peripheral pulses Abdomen: normal bowel sounds, non tender, soft Neurologic/Psychiatric: alert, normal mood/affect, oriented x 3 Skin: + pertinent finding (I did not visualize patient's wound) Assessment & Plan Problem list: Pain, presacral area Weakness Perirectal abscess Myelodysplastic syndrome Pancytopenia with significant thrombocytopenia Goals of care (Z51.5) Palliative care recs: -Patient had a good conversation with Dr. Amin regarding goals of care. See Eloisa's note for details, as he discussed most of patient's goals of care. -Per documentation, patient may have agreed to DNR, I did not specifically address this with him. -Patient confirmed with me that he just wants to be made comfortable, he no longer wants to participate in therapy or pursue any aggressive medical treatment. He looks forward to eating what he wants, when he wants. -He has no fears or worries, only hopes that his pain will stay under control. Pain is currently a 3/10, which patient is happy with. He has Lancaster 10/325 ordered, and has had only two doses in last 24 hours. Also has Roxicodone and IV morphine ordered, but none given so far. Would choose either Lancaster or Millicent, I would prefer Roxicodone. -He remains on antibiotics at this time- patient wishes to continue at this time. -Will need frequent repositioning and wound care as recommended by [facility] (who is consulted). -I currently do not see any signs that patient is actively dying, and he may have some good time left with his loved ones. I offered to get him home with hospice and 24-hour care, but patient declined and really didn't discuss that further with me. He also does not have any inpatient hospice ([facility] hospice) needs /qualifying factors at this time, so discharge plan is uncertain. I will be happy to follow with this nice patient and family. Thank you for involving me in his care.
[2017-04-11 15:44] VITALS: BP 125/52; PULSE 53; TEMP 36.6; O2SAT 98
--- NOTE | 2017-04-11 17:04 | Progress Note ---
Subjective Date of Service: Apr 11, 2017. Subjective Patient is awake alert today a long conversation with his longtime primary care physician Dr. Amin and came to the conclusion that it is futile to continue to aggressively treat his health issues as his myelodysplastic syndrome has been refractory to treatment for some time. The patient will now progress towards more comfort measures and he is agreeable to talk to our palliative care nurse The patient has pain in his rectal and sacral area and is wishing to pursue comfort treatment with morphine Problem List Medical Problems: (1) Pancytopenia Status: Acute (2) Pneumonia Status: Acute Review of Systems Constitutional: No fever, No chills Respiratory: No cough, No sputum, No shortness of breath Cardiac: No chest pain, No edema Abdomen: No pain, No vomiting Musculoskeletal: + muscle pain, No see HPI, No joint pain Objective Vital Signs Date Time Temp Pulse Resp B/P (MAP) Pulse Ox O2 Delivery O2 Flow Rate FiO2 04/11/17 16:00 Room Air 04/11/17 15:44 36.6 53 18 125/52 (76) 98 Room Air 04/11/17 11:20 36.6 62 18 124/61 (82) 98 Room Air 04/11/17 08:00 Room Air 04/11/17 07:30 36.6 67 18 164/59 (94) 99 Room Air 04/11/17 04:10 36.3 51 18 167/72 (103) 99 Room Air 04/11/17 00:00 Room Air 04/10/17 23:05 36.4 46 18 147/63 (91) 97 Room Air 04/10/17 20:00 Room Air 04/10/17 17:50 36.7 Physical Exam General Appearance: + mild distress, + thin Eyes: PERRL, EOMI Respiratory/Chest: chest non-tender, + decreased breath sounds Cardiovascular: regular rate, rhythm, no murmur Abdomen: normal bowel sounds, non tender, soft Extremities: no pedal edema, no calf tenderness Neurologic/Psychiatric: alert, oriented x 3 Laboratory Results Last 24 Hours Test 04/10/17 20:45 04/11/17 07:02 04/11/17 07:39 04/11/17 11:27 Bedside Glucose 149 mg/dl 163 mg/dl 209 mg/dl White Blood Count 1.88 K/uL Red Blood Count 3.00 M/uL Hemoglobin 8.7 g/dL Hematocrit 25.4 % Mean Corpuscular Volume 84.7 fL Mean Corpuscular Hemoglobin 29.0 pg Mean Corpuscular Hemoglobin Concent 34.3 g/dl Platelet Count 14 K/uL Mean Platelet Volume 9.9 fL RDW Standard Deviation 45.5 fL RDW Coefficient of Variation 14.7 % Neutrophils % (Manual) 15.7 % Lymphocytes % (Manual) 65.1 % Eosinophils % (Manual) 0.9 % Myelocytes % 3.5 % Blast Cells % 14.8 % Neutrophils # (Manual) 0.30 K/uL Total Absolute Neutrophils 0.30 K/uL Lymphocytes # (Manual) 1.22 K/uL Total Absolute Lymphocytes 1.22 K/uL Eosinophils # (Manual) 0.02 K/uL Myelocytes # 0.07 K/uL Hypogranular Neutrophils 1+ Blast Cells # 0.28 K/uL Platelet Estimate SIGNIFIC DECREASED Sodium Level 136 mmol/L Potassium Level 3.9 mmol/L Chloride Level 104 mmol/L Carbon Dioxide Level 27 mmol/L Anion Gap 5.0 mmol/L Blood Urea Nitrogen 23 mg/dl Creatinine 0.83 mg/dl Est Creatinine Clear Calc Drug Dose 76.1 ml/min Estimated GFR () 97.0 Estimated GFR (Non- 83.7 BUN/Creatinine Ratio 27.8 Random Glucose 153 mg/dl Calcium Level 8.7 mg/dl Assessment and Plan 68-year-old male with readmitted with fever with recent history of perirectal abscess and transfusion dependent myelodysplastic syndrome, operative drainage x2 patient remains a low-grade temperature Discussions of direction of care have now centered on comfort care however continuation of antibiotics as recommended by the patient and his primary care physician we will begin palliative care discussions not seeking any remarkable interventional treatment for daily labs at this point Fever, cefepime and Flagyl pending blood cultures noncontrast CT scan suggests continued fluid collection near his previously drained perirectal abscess, with most recent surgery on 04/01/17 -no further plans of surgical intervention are at this time pancytopenia 2nd to MDS - ongoing. transfusion dependent, cont neutropenic precautions, no for the laboratory checks uncontrolled T2DM -basal lantus + novolog. We'll need to reduce this as his oral intake declines HTN -CAD - plavix/asa metoprolol 25 TID. imdur these will continue BPH -has had no issues on flomax. DVT proph - chemical means continues to be contraindicated Given the fact of progression to comfort measures I still believe we are fairly far away from this patient's actual decline and
[2017-04-11 20:07] VITALS: BP 143/63; PULSE 63; TEMP 37.3; O2SAT 96
[2017-04-11] MEDS: TAMSULOSIN HCL 0.4 MG CAP PO SCH (21:21)
[2017-04-11] MEDS: PRAVASTATIN SOD 40 MG TAB PO SCH (21:22)
[2017-04-12 00:21] VITALS: BP 159/68; PULSE 64; TEMP 37; O2SAT 94
[2017-04-12] MEDS: METRONIDAZOLE / NSS 500 MG in PREMIXED NSS 100 ML IV SCH ×3 (02:29→18:15)
[2017-04-12] MEDS: HYDROCODONE/ACETAMI 10/325 TAB PO PRN ×2 (02:56→20:27)
[2017-04-12 03:44] VITALS: BP 149/62; PULSE 57; TEMP 36.8; O2SAT 97
[2017-04-12] MEDS: LEVOTHYROXINE 75 MCG TAB PO SCH (05:36)
[2017-04-12] MEDS: CEFEPIME IV 2,000 MG in DEXTROSE 5% 100ML 100 ML IV SCH ×2 (05:36→17:03)
[2017-04-12] MEDS: OXYCODONE HCL IR 5 MG TAB (IMMEDIATE RELEASE) PO PRN ×2 (05:51→15:55)
[2017-04-12] MEDS: KETOROLAC TROMETHAMINE 15 MG/ML VIAL IV PRN ×3 (07:32→22:23)
[2017-04-12] MEDS: METOPROLOL TARTRATE 25 MG TAB PO SCH ×3 (07:32→20:28)
[2017-04-12] MEDS: CLOPIDOGREL BISULFATE 75 MG TAB PO SCH (07:32)
[2017-04-12] MEDS: ISOSORBIDE MONONITRATE 30 MG TABCR PO SCH (07:32)
[2017-04-12] MEDS: ASPIRIN 81 MG ECTAB PO SCH (07:32)
[2017-04-12] MEDS: MAGNESIUM OXIDE 400 MG TAB PO SCH (07:33)
[2017-04-12] MEDS: PSYLLIUM 58.6% PWD PACK S\\F PO SCH (07:33)
[2017-04-12] MEDS: POTASSIUM CHLORIDE 20 MEQ TABCR PO SCH ×2 (07:33→20:27)
[2017-04-12] MEDS: BOOST GLUCOSE CONTROL PO SCH ×3 (07:34→17:00)
[2017-04-12 07:38] VITALS: BP 153/66; PULSE 62; TEMP 36.8; O2SAT 96
--- NOTE | 2017-04-12 08:38 | Surgery Progress Note ---
Surgery Progress Note Date of Service Apr 12, 2017. Subjective Post OP Day: HD 2 + pain controlled, + diet (regular), No complaints Objective Vital Signs: Date Time Temp Pulse Resp B/P (MAP) Pulse Ox O2 Delivery O2 Flow Rate FiO2 04/12/17 07:45 Room Air 04/12/17 07:38 36.8 62 20 153/66 (95) 96 Room Air 04/12/17 03:44 36.8 57 18 149/62 (91) 97 Room Air 04/12/17 00:21 37.0 64 18 159/68 (98) 94 Room Air 04/12/17 00:00 Room Air 04/11/17 20:07 37.3 63 18 143/63 (89) 96 Room Air 04/11/17 16:00 Room Air 04/11/17 15:44 36.6 53 18 125/52 (76) 98 Room Air 04/11/17 11:20 36.6 62 18 124/61 (82) 98 Room Air General Appearance: WD/WN, no apparent distress Head: normocephalic, atraumatic Neck: supple, trachea midline Respiratory/Chest: lungs clear Cardiovascular: regular rate, rhythm Abdomen: normal bowel sounds, non tender, non distended, soft Extremities: non-tender, no pedal edema Laboratory Results: Results Past 24 Hours Test 04/11/17 11:27 04/11/17 17:00 04/11/17 20:28 04/12/17 07:35 Range/Units Bedside Glucose 209 168 198 154 70-99 mg/dl Assessment & Plan abscess above previous drains -plan IV abx and conservative care -possible IR intervention if needed -will follow
[2017-04-12] MEDS: INSULIN ASPART 100 UNITS/ML 3 ML PEN SC SCH ×4 (08:55→21:35)
[2017-04-12] MEDS: INSULIN GLARGINE SOLOSTAR 100 UNITS/ML 3 ML PEN SC SCH ×2 (08:56→21:36)
[2017-04-12] MEDS: MoRPHine SULFATE 2 MG/ML CARP IV PRN ×3 (08:59→21:31)
[2017-04-12] MEDS: COLESTIPOL HCL 1 GM TAB PO SCH ×2 (10:08→21:36)
[2017-04-12 11:16] VITALS: BP 115/48; PULSE 60; TEMP 36.8; O2SAT 97
[2017-04-12 13:48] VITALS: BP 135/84; PULSE 58; TEMP 37.5; O2SAT 96
--- NOTE | 2017-04-12 15:52 | Progress Note ---
Subjective Date of Service: Apr 12, 2017. Subjective pt is comfortable resting in bed at bedside Problem List Medical Problems: (1) Pancytopenia Status: Acute (2) Pneumonia Status: Acute Review of Systems Constitutional: + weakness, + fatigue Respiratory: No shortness of breath, No dyspnea on exertion Abdomen: No pain, No nausea, No vomiting, No diarrhea Musculoskeletal: + joint pain, + muscle pain Objective Vital Signs Date Time Temp Pulse Resp B/P (MAP) Pulse Ox O2 Delivery O2 Flow Rate FiO2 04/12/17 13:48 37.5 58 18 135/84 (101) 96 Room Air 04/12/17 11:16 36.8 60 18 115/48 (70) 97 04/12/17 07:45 Room Air 04/12/17 07:38 36.8 62 20 153/66 (95) 96 Room Air 04/12/17 03:44 36.8 57 18 149/62 (91) 97 Room Air 04/12/17 00:21 37.0 64 18 159/68 (98) 94 Room Air 04/12/17 00:00 Room Air 04/11/17 20:07 37.3 63 18 143/63 (89) 96 Room Air 04/11/17 16:00 Room Air Physical Exam General Appearance: + mild distress, + thin Eyes: PERRL, EOMI Respiratory/Chest: chest non-tender, lungs clear Cardiovascular: regular rate, rhythm, no murmur Abdomen: normal bowel sounds, non tender, soft Neurologic/Psychiatric: alert, + depressed affect Laboratory Results Last 24 Hours Test 04/11/17 17:00 04/11/17 20:28 04/12/17 07:35 04/12/17 11:15 Bedside Glucose 168 mg/dl 198 mg/dl 154 mg/dl 181 mg/dl Assessment and Plan 68-year-old male with readmitted with fever with recent history of perirectal abscess and transfusion dependent myelodysplastic syndrome, operative drainage x2 patient remains a low-grade temperature Discussions of direction of care have now centered on comfort care however continuation of antibiotics as recommended by the patient and his primary care physician we will begin palliative care discussions not seeking any remarkable interventional treatment for daily labs at this point, made DNR and Comfort measures initiated Fever, cefepime and Flagyl pending blood cultures noncontrast CT scan suggests continued fluid collection near his previously drained perirectal abscess, with most recent surgery on 04/01/17 -no further plans of surgical intervention are at this time pancytopenia 2nd to MDS - ongoing. transfusion dependent, cont neutropenic precautions, no for the laboratory checks uncontrolled T2DM -basal lantus + novolog. We'll need to reduce this as his oral intake declines, but has had ok oral intake thus far HTN -CAD - plavix/asa metoprolol 25 TID. imdur these will continue BPH -has had no issues on flomax. DVT proph - chemical means continues to be contraindicated Given the fact of progression to comfort measures I still continue to believe we are fairly far away from this patient's actual decline and
[2017-04-12] MEDS: PRAVASTATIN SOD 40 MG TAB PO SCH (20:27)
[2017-04-12] MEDS: TAMSULOSIN HCL 0.4 MG CAP PO SCH (20:28)
[2017-04-13] MEDS: METRONIDAZOLE / NSS 500 MG in PREMIXED NSS 100 ML IV SCH ×3 (02:24→18:28)
[2017-04-13] MEDS: CEFEPIME IV 2,000 MG in DEXTROSE 5% 100ML 100 ML IV SCH ×2 (05:10→17:44)
[2017-04-13] MEDS: MoRPHine SULFATE 2 MG/ML CARP IV PRN ×2 (05:24→09:39)
[2017-04-13] MEDS: KETOROLAC TROMETHAMINE 15 MG/ML VIAL IV PRN ×2 (06:09→16:59)
[2017-04-13] MEDS: LEVOTHYROXINE 75 MCG TAB PO SCH (06:11)
[2017-04-13] MEDS: ISOSORBIDE MONONITRATE 30 MG TABCR PO SCH (07:57)
[2017-04-13] MEDS: ASPIRIN 81 MG ECTAB PO SCH (07:57)
[2017-04-13] MEDS: POTASSIUM CHLORIDE 20 MEQ TABCR PO SCH ×2 (07:57→20:36)
[2017-04-13] MEDS: METOPROLOL TARTRATE 25 MG TAB PO SCH ×3 (07:57→20:35)
[2017-04-13] MEDS: CLOPIDOGREL BISULFATE 75 MG TAB PO SCH (07:57)
[2017-04-13] MEDS: MAGNESIUM OXIDE 400 MG TAB PO SCH (07:58)
[2017-04-13] MEDS: BOOST GLUCOSE CONTROL PO SCH ×3 (07:58→17:00)
[2017-04-13 08:02] VITALS: BP 155/84; PULSE 68; TEMP 37.5
[2017-04-13] MEDS: INSULIN ASPART 100 UNITS/ML 3 ML PEN SC SCH ×4 (09:36→20:40)
[2017-04-13] MEDS: INSULIN GLARGINE SOLOSTAR 100 UNITS/ML 3 ML PEN SC SCH ×2 (09:36→20:40)
[2017-04-13] MEDS: COLESTIPOL HCL 1 GM TAB PO SCH ×2 (09:39→22:00)
[2017-04-13] MEDS: HYDROCODONE/ACETAMI 10/325 TAB PO PRN ×2 (09:39→17:00)
[2017-04-13] MEDS: LIDODERM (LIDOCAINE) PATCH 5% TD SCH (10:55)
--- NOTE | 2017-04-13 14:10 | Progress Note ---
Subjective Date of Service: Apr 13, 2017. Subjective pt is on comfort care, is alert now complaining of lower right anterior rib pain without apparent injury, is at bedside and updated Problem List Medical Problems: (1) Pancytopenia Status: Acute (2) Pneumonia Status: Acute Review of Systems Constitutional: No fever, No chills Respiratory: + dyspnea on exertion, No cough, No shortness of breath Cardiac: + chest pain, No edema Abdomen: No pain, No nausea Musculoskeletal: No joint pain, No muscle pain Skin: + problem reported (stage 3 decubitus sacral ulcer poa) Objective Vital Signs Date Time Temp Pulse Resp B/P (MAP) Pulse Ox O2 Delivery O2 Flow Rate FiO2 04/13/17 08:02 37.5 68 155/84 (107) 04/13/17 08:00 Room Air 04/13/17 00:00 Room Air 04/12/17 16:00 Room Air Physical Exam General Appearance: + mild distress, + thin Eyes: PERRL, EOMI Respiratory/Chest: chest non-tender, + decreased breath sounds, + accessory muscle use Cardiovascular: regular rate, rhythm, no murmur Abdomen: normal bowel sounds, soft, + tenderness (rigth lower rib pain to exam) Neurologic/Psychiatric: alert, oriented x 3 Laboratory Results Last 24 Hours Test 04/12/17 16:49 04/12/17 20:47 04/13/17 07:38 04/13/17 11:37 Bedside Glucose 149 mg/dl 199 mg/dl 169 mg/dl 169 mg/dl Assessment and Plan 68-year-old male with readmitted with fever with recent history of perirectal abscess and transfusion dependent myelodysplastic syndrome, operative drainage x2 patient remains a low-grade temperature, has a stage 3 sacral decubitus ulcer that occurred last admission and is poa COMFORT MEASURES STARTED 04/12 Rib pain try lidoderm and continue morphine and oxycodone Discussions of direction of care have now centered on comfort care however continuation of antibiotics as recommended by the patient and his primary care physician we will begin palliative care discussions not seeking any remarkable interventional treatment for daily labs at this point, made DNR and Comfort measures initiated Fever, cefepime and Flagyl pending blood cultures negative to date, noncontrast CT scan suggests continued fluid collection near his previously drained perirectal abscess, with most recent surgery on 04/01/17 -no further plans of surgical intervention are at this time pancytopenia 2nd to MDS - ongoing. transfusion dependent, cont neutropenic precautions, no laboratory checks uncontrolled T2DM -basal lantus + novolog. We'll need to reduce this as his oral intake declines, but has had ok oral intake thus far HTN -CAD - plavix/asa metoprolol 25 TID. imdur these will continue BPH -has had no issues on flomax. DVT proph - chemical means continues to be contraindicated Given the fact of progression to comfort measures I still continue to believe we are fairly far away from this patient's actual decline and
[2017-04-13 14:12] VITALS: BP 155/84; PULSE 76; O2SAT 94
[2017-04-13 15:18] VITALS: BP 133/81; PULSE 54
[2017-04-13] MEDS: TAMSULOSIN HCL 0.4 MG CAP PO SCH (20:35)
[2017-04-13] MEDS: PRAVASTATIN SOD 40 MG TAB PO SCH (20:36)
[2017-04-14] MEDS: KETOROLAC TROMETHAMINE 15 MG/ML VIAL IV PRN ×2 (00:02→06:31)
[2017-04-14] MEDS: HYDROCODONE/ACETAMI 10/325 TAB PO PRN ×3 (00:02→17:25)
[2017-04-14] MEDS: METRONIDAZOLE / NSS 500 MG in PREMIXED NSS 100 ML IV SCH ×3 (02:16→18:10)
[2017-04-14] MEDS: CEFEPIME IV 2,000 MG in DEXTROSE 5% 100ML 100 ML IV SCH ×2 (05:19→17:25)
[2017-04-14] MEDS: LEVOTHYROXINE 75 MCG TAB PO SCH (06:24)
--- NOTE | 2017-04-14 06:35 | Surgery Progress Note ---
Surgery Progress Note Date of Service Apr 14, 2017. Subjective awake,alert no fever spikes on IV atbx pain in sacral area controlled with IV/po meds Objective Vital Signs: Date Time Temp Pulse Resp B/P (MAP) Pulse Ox O2 Delivery O2 Flow Rate FiO2 04/14/17 00:00 Room Air 04/13/17 16:00 Room Air 04/13/17 15:18 54 133/81 (98) 04/13/17 14:12 76 94 04/13/17 08:02 37.5 68 155/84 (107) 04/13/17 08:00 Room Air General Appearance: no apparent distress Respiratory/Chest: no respiratory distress Laboratory Results: Results Past 24 Hours Test 04/13/17 07:38 04/13/17 11:37 04/13/17 16:44 04/13/17 20:11 Range/Units Bedside Glucose 169 169 208 240 70-99 mg/dl Assessment & Plan 04/14/17- supportive care with IV meds for pain and atbx for perirectal/ sacral infection seems to be comfortable. Difficult for him as he is very alert/ frustrated
[2017-04-14] MEDS: MAGNESIUM OXIDE 400 MG TAB PO SCH (08:56)
[2017-04-14] MEDS: POTASSIUM CHLORIDE 20 MEQ TABCR PO SCH ×2 (08:56→19:59)
[2017-04-14] MEDS: METOPROLOL TARTRATE 25 MG TAB PO SCH ×3 (08:56→19:59)
[2017-04-14] MEDS: CLOPIDOGREL BISULFATE 75 MG TAB PO SCH (08:57)
[2017-04-14] MEDS: ASPIRIN 81 MG ECTAB PO SCH (08:58)
[2017-04-14] MEDS: ISOSORBIDE MONONITRATE 30 MG TABCR PO SCH (08:58)
[2017-04-14] MEDS: MoRPHine SULFATE 2 MG/ML CARP IV PRN (09:01)
[2017-04-14] MEDS: BOOST GLUCOSE CONTROL PO SCH ×3 (09:01→17:00)
[2017-04-14] MEDS: LIDODERM (LIDOCAINE) PATCH 5% TD SCH (09:02)
[2017-04-14] MEDS: INSULIN ASPART 100 UNITS/ML 3 ML PEN SC SCH ×4 (09:04→20:59)
[2017-04-14] MEDS: INSULIN GLARGINE SOLOSTAR 100 UNITS/ML 3 ML PEN SC SCH ×2 (09:04→20:59)
[2017-04-14 09:05] VITALS: BP 144/67; PULSE 77; O2SAT 95
[2017-04-14] MEDS: COLESTIPOL HCL 1 GM TAB PO SCH ×2 (09:48→20:59)
[2017-04-14] MEDS ORDERED: FENTANYL 12 MCG/HR TDSY TD SCH (12:45)
[2017-04-14 13:02] VITALS: BP 144/67; PULSE 78
[2017-04-14] MEDS: CHECK FENTANYL PATCH PLACEMENT SCH ×2 (17:20→23:36)
[2017-04-14] MEDS: TAMSULOSIN HCL 0.4 MG CAP PO SCH (19:59)
[2017-04-14] MEDS: PRAVASTATIN SOD 40 MG TAB PO SCH (19:59)
[2017-04-14 20:01] VITALS: BP 124/62; PULSE 72
[2017-04-15] MEDS: METRONIDAZOLE / NSS 500 MG in PREMIXED NSS 100 ML IV SCH ×3 (01:33→18:44)
[2017-04-15] MEDS: CEFEPIME IV 2,000 MG in DEXTROSE 5% 100ML 100 ML IV SCH ×2 (05:45→18:04)
[2017-04-15] MEDS: LEVOTHYROXINE 75 MCG TAB PO SCH (05:46)
[2017-04-15] MEDS: MoRPHine SULFATE 4 MG/ML 1 ML CARP\\VIAL IV PRN ×3 (06:18→21:27)
--- NOTE | 2017-04-15 07:49 | Progress Note ---
Subjective Date of Service: Apr 14, 2017. Subjective Pt evaluation today including: conversation w/ patient, conversation w/ family ( at bedside), physical exam, chart review, lab review Pain: rectal PO Intake: minimal Voiding: incontinence patient stated multiple times during my visit "oh no" when asked what was bothering him he had a hard time explaining reports "significant decline" since yesterday Problem List Medical Problems: (1) Pancytopenia Status: Acute (2) Pneumonia Status: Acute Review of Systems Constitutional: No fever Respiratory: No shortness of breath Cardiac: No chest pain Abdomen: No pain Objective Vital Signs Date Time Temp Pulse Resp B/P (MAP) Pulse Ox O2 Delivery O2 Flow Rate FiO2 04/14/17 16:00 Room Air 04/14/17 13:02 78 144/67 (92) 04/14/17 09:05 77 16 144/67 (92) 95 Room Air 04/14/17 09:00 Room Air 04/14/17 00:00 Room Air Physical Exam General Appearance: + pertinent finding (ill appearing, confused, "dazed look") ENT: pharynx normal (MM slightly dry, no lesions) Neck: no JVD Respiratory/Chest: lungs clear, no respiratory distress, no accessory muscle use Cardiovascular: regular rate, rhythm, no gallop, no murmur Abdomen: normal bowel sounds, non tender, soft, no organomegaly Extremities: no pedal edema Neurologic/Psychiatric: + disoriented Laboratory Results Last 24 Hours Test 04/13/17 20:11 04/14/17 07:59 04/14/17 11:53 04/14/17 16:14 Bedside Glucose 240 mg/dl 183 mg/dl 193 mg/dl 172 mg/dl Assessment and Plan 77yo male with severe MDS, 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 Now on quasi comfort measures. * add fentanyl patch 12mcg q3days due to ongoing pain * continue PRN pain meds either IV or PO * consider d/c of antibiotics * consider d/c of fingersticks * strongly consider hospice consult to help provide support to not only the patient but his family * good candidate for inpatient hospice status * consider d/c of plavix, aspirin, etc. * diet as tolerated * DNR status * updated Continued [facility] stay due to: inadequate oral pain control, multiple IV medications needed Discharge planning: uncertain
[2017-04-15] MEDS: BOOST GLUCOSE CONTROL PO SCH ×3 (08:00→16:36)
[2017-04-15] MEDS: KETOROLAC TROMETHAMINE 15 MG/ML VIAL IV PRN (08:31)
[2017-04-15] MEDS: LIDODERM (LIDOCAINE) PATCH 5% TD SCH (08:35)
[2017-04-15] MEDS: METOPROLOL TARTRATE 25 MG TAB PO SCH ×2 (08:35→13:17)
[2017-04-15] MEDS: ISOSORBIDE MONONITRATE 30 MG TABCR PO SCH (08:35)
[2017-04-15] MEDS: CHECK FENTANYL PATCH PLACEMENT SCH ×2 (08:36→16:35)
[2017-04-15] MEDS: INSULIN GLARGINE SOLOSTAR 100 UNITS/ML 3 ML PEN SC SCH (08:37)
[2017-04-15] MEDS: INSULIN ASPART 100 UNITS/ML 3 ML PEN SC SCH ×3 (08:37→16:30)
[2017-04-15 08:38] VITALS: BP 166/77; PULSE 88; TEMP 37.1; O2SAT 97
[2017-04-15] MEDS: COLESTIPOL HCL 1 GM TAB PO SCH (10:11)
--- NOTE | 2017-04-15 10:31 | Palliative Care Progress Note ---
Palliative Care Progress Note Date of Service Apr 15, 2017. Subjective Pt evaluation today including: conversation w/ patient, conversation w/ family (, Cheryl), physical exam, conversation w/ remediation consultant (Dr. Lancaster), review of inpatient medication list Pain: 3/10 PO Intake: none Voiding: no voiding problems -Patient is frustrated today. Frustrated with the pain and being confined to bed /room. -Pain is 3/10 at this time, which patient is comfortable with. The fentanyl patch is working well so far. -Has only had 4mg IV morphine in last 24 hours. Patient states "morphine knocks me out." -Turning and repositioning causes patient great discomfort. He is also frustrated with being woken up during the night for blood sugars. Review of Systems Constitutional: + weakness Respiratory: No shortness of breath Cardiac: No chest pain, No edema Abdomen: + problem reported (poor appetite), No pain, No nausea, No vomiting Musculoskeletal: + see HPI Male : No problem reported Psychiatric: + problem reported (feeling down, frustrated), No anxiety Objective Vital Signs Date Time Temp Pulse Resp B/P (MAP) Pulse Ox O2 Delivery O2 Flow Rate FiO2 04/15/17 08:38 37.1 88 26 166/77 (106) 97 04/15/17 00:01 Room Air 04/14/17 20:01 72 124/62 (82) 04/14/17 20:00 Room Air 04/14/17 16:00 Room Air 04/14/17 13:02 78 144/67 (92) Physical Exam General Appearance: no apparent distress, + thin ENT: hearing grossly normal Neck: supple, no JVD Respiratory/Chest: lungs clear, no respiratory distress, no accessory muscle use Cardiovascular: regular rate, rhythm, + normal peripheral pulses, + pertinent finding (feet with trace pitting edema) Abdomen: normal bowel sounds, non tender, soft Neurologic/Psychiatric: alert, normal mood/affect, oriented x 3, + pertinent finding (periods of confused as noted in nursing documentation. not witnessed by myself) Laboratory Results Last 24 Hours Test 04/14/17 11:53 04/14/17 16:14 04/14/17 20:32 04/15/17 07:51 Bedside Glucose 193 mg/dl 172 mg/dl 262 mg/dl 183 mg/dl Assessment and Plan Problem list: Pain, presacral area Weakness Perirectal abscess Myelodysplastic syndrome Pancytopenia with significant thrombocytopenia Goals of care (Z51.5) Palliative care recommendations: -Lidoderm patch to sacral area- DO NOT REMOVE until soiled. Checked with pharmacy, okay to keep on and not remove after 12 hours. -Offer 2mg IV morphine for low to moderate levels of pain. Keep 4mg IV morphine to be given before painful procedures such as turning/repositioning. -Decrease frequency of accuchecks to once daily or BID with breakfast and dinner. Patient finds QID is bothersome and unnecessary. -Patient requests not to be disturbed when sleeping. -If patient's pain is more controlled, he would like to go outside to healing garden. -Continue 12mcg fentanyl patch for now. Thank you again for allowing me to participate in the care of this patient. Palliative Performance Scale: 30 % Continued [facility] stay due to: inadequate oral pain control, multiple IV medications needed Discharge planning: uncertain
[2017-04-16] MEDS: METRONIDAZOLE / NSS 500 MG in PREMIXED NSS 100 ML IV SCH ×3 (02:41→17:57)
[2017-04-16] MEDS: CEFEPIME IV 2,000 MG in DEXTROSE 5% 100ML 100 ML IV SCH ×2 (05:01→16:21)
--- NOTE | 2017-04-16 05:21 | Progress Note ---
Subjective Date of Service: late entry for visit on Apr 15, 2017. Subjective Pt evaluation today including: conversation w/ patient, conversation w/ family ( at bedside), physical exam, chart review Pain: improved rectal pain today PO Intake: scant Voiding: incontinence patient seems comfortable today minimally interactive at times and at other times answering questions reports both daughters will arrive from [place] sometime this week Problem List Medical Problems: (1) Pancytopenia Status: Acute (2) Pneumonia Status: Acute Review of Systems Constitutional: No fever Respiratory: No shortness of breath Objective Vital Signs Date Time Temp Pulse Resp B/P (MAP) Pulse Ox O2 Delivery O2 Flow Rate FiO2 04/16/17 00:00 Room Air 04/15/17 15:25 Room Air 04/15/17 08:38 37.1 88 26 166/77 (106) 97 04/15/17 08:00 Room Air Physical Exam General Appearance: no apparent distress ENT: pharynx normal Neck: no JVD Respiratory/Chest: lungs clear, normal breath sounds, no respiratory distress, no accessory muscle use Cardiovascular: regular rate, rhythm, no gallop, no murmur Abdomen: normal bowel sounds, non tender, soft, no organomegaly Extremities: + pedal edema (trace) Neurologic/Psychiatric: + depressed affect, + pertinent finding ("glazed" look , staring straight ahead during the visit ) Laboratory Results Last 24 Hours Test 04/15/17 07:51 04/15/17 11:39 Bedside Glucose 183 mg/dl 190 mg/dl Assessment and Plan 77yo male with severe MDS, 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 Now on quasi comfort measures. * added fentanyl patch 12mcg q3days due to ongoing pain - this has improved his rectal pain * continue PRN pain meds either IV or PO * consider d/c of antibiotics * strongly consider hospice consult to help provide support to not only the patient but his family * good candidate for inpatient hospice status * DNR status * updated Late in the day staff reported he was refusing his insulin and various other meds. I d/c his fingerstick blood sugars, lantus/novolog, plavix, aspirin, thyroid medication, and other nonessential meds. Leave antibiotics for now but will encourage d/c of both. updated; support given. Appreciate palliative care help. Continued [facility] stay due to: inadequate oral pain control, multiple IV medications needed Discharge planning: uncertain
[2017-04-16] MEDS: MoRPHine SULFATE 4 MG/ML 1 ML CARP\\VIAL IV PRN ×2 (06:07→16:21)
[2017-04-16 08:00] VITALS: O2SAT 97
[2017-04-16] MEDS: BOOST GLUCOSE CONTROL PO SCH (08:00)
[2017-04-16] MEDS: CHECK FENTANYL PATCH PLACEMENT SCH ×2 (08:20)
[2017-04-16] MEDS: LIDODERM (LIDOCAINE) PATCH 5% TD SCH (08:21)
[2017-04-16 09:05] VITALS: TEMP 37
--- NOTE | 2017-04-16 11:39 | PROGRESS NOTE ---
DATE: 04/16/2017 PRIMARY CARE INTERNAL MEDICINE PROGRESS NOTE SUBJECTIVE: I stopped by to see Mr. Fenton today. He complains of having "morphine hangover." He has no appetite and feels fuzzy in the head. He has good pain control with his doses of morphine, but it does wear off. In addition to his morphine, he has a 12.5-mcg fentanyl patch. I took the liberty of discontinuing the fentanyl to see if his side effects were from fentanyl or morphine. Certainly it could be a combination Nonetheless, since morphine does seem to be given at a regular interval, it may be that the patch is ineffective, but still contributing to some of his symptoms. Obviously, the fentanyl can be resumed at a later date if it turns out that it is not associated with his current symptomatology.
[2017-04-16 16:02] VITALS: O2SAT 97
[2017-04-17 00:18] VITALS: BP 130/75; PULSE 99; TEMP 37.4; O2SAT 95
--- NOTE | 2017-04-17 01:40 | Progress Note ---
Subjective Date of Service: late entry for visit on Apr 16, 2017. Subjective Pt evaluation today including: conversation w/ patient, conversation w/ family ( at bedside), physical exam, chart review Pain: none reported - improved after fentanyl patch was started 2 days ago PO Intake: scant Voiding: incontinence feels sluggish but denies c/o dyspnea, abd pain, back pain, chest pain, fever, chills daughter coming tonight from [place] 2nd daughter coming from [place] later this week Problem List Medical Problems: (1) Pancytopenia Status: Acute (2) Pneumonia Status: Acute Objective Vital Signs Date Time Temp Pulse Resp B/P (MAP) Pulse Ox O2 Delivery O2 Flow Rate FiO2 04/17/17 00:18 37.4 99 18 130/75 (93) 95 Room Air 04/17/17 00:00 Room Air 04/16/17 20:00 Room Air 04/16/17 16:02 97 Room Air 04/16/17 09:05 Room Air 04/16/17 09:05 37.0 04/16/17 08:00 97 Room Air 04/16/17 07:28 20 Physical Exam General Appearance: no apparent distress ENT: pharynx normal Neck: no JVD Respiratory/Chest: lungs clear, no respiratory distress, no accessory muscle use Cardiovascular: no gallop, no murmur, + tachycardia Abdomen: normal bowel sounds, non tender, soft, no organomegaly Extremities: + pedal edema Neurologic/Psychiatric: alert (slightly sleepy but able to answer all questions ), + depressed affect Assessment and Plan 77yo male with severe MDS, 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 Now on quasi comfort measures. * added fentanyl patch 12mcg q3days due to ongoing pain on 04/14/17- this has improved his rectal pain; continue such * continue PRN morphine IV * consider d/c of antibiotics * good candidate for inpatient hospice status; I spoke with pt/ once again and encouraged them to allow hospice agency to assist in his care as they will be a good support to he and his family during his palliative care period and following his passing; and patient agreeable to that referral * continue other palliative care measures * all fingerstick blood sugars, insulin, un-necessary meds have been d/c * appreciate palliative care consultation and recommendations updated support given Continued [facility] stay due to: inadequate oral pain control, multiple IV medications needed Discharge planning: uncertain
[2017-04-17] MEDS: METRONIDAZOLE / NSS 500 MG in PREMIXED NSS 100 ML IV SCH ×3 (01:48→18:47)
[2017-04-17] MEDS: CEFEPIME IV 2,000 MG in DEXTROSE 5% 100ML 100 ML IV SCH ×2 (05:22→17:27)
[2017-04-17] MEDS: MoRPHine SULFATE 4 MG/ML 1 ML CARP\\VIAL IV PRN ×2 (07:44→14:38)
[2017-04-17] MEDS: LIDODERM (LIDOCAINE) PATCH 5% TD SCH (07:45)
[2017-04-17] MEDS: FENTANYL 12 MCG/HR TDSY TD SCH (07:46)
[2017-04-17 10:45] VITALS: O2SAT 97
[2017-04-17] MEDS ORDERED: FENTANYL PATCH REMOVE & WASTE SCH (12:45)
[2017-04-17 16:00] VITALS: O2SAT 97
[2017-04-17] MEDS: CHECK FENTANYL PATCH PLACEMENT SCH (16:00)
--- NOTE | 2017-04-17 18:17 | Progress Note ---
Subjective Date of Service: Apr 17, 2017. Subjective pt ia a bit lethargic, his and daughter are present, we discussed sleepy and pain control vs more awake and maybe less pain control, they opted to continue fentanyl patch at this time Problem List Medical Problems: (1) Pancytopenia Status: Acute (2) Pneumonia Status: Acute Review of Systems Constitutional: + weakness, + fatigue Abdomen: + nausea, + problem reported (loss of appetite) Objective Vital Signs Date Time Temp Pulse Resp B/P (MAP) Pulse Ox O2 Delivery O2 Flow Rate FiO2 04/17/17 10:45 97 Room Air 04/17/17 00:18 37.4 99 18 130/75 (93) 95 Room Air 04/17/17 00:00 Room Air 04/16/17 20:00 Room Air Physical Exam General Appearance: + mild distress, + thin Eyes: PERRL, EOMI Respiratory/Chest: no respiratory distress, + decreased breath sounds Cardiovascular: regular rate, rhythm, no murmur Abdomen: normal bowel sounds, soft Neurologic/Psychiatric: alert, oriented x 3 (sleepy) Assessment and Plan 68-year-old male with readmitted with fever with recent history of perirectal abscess and transfusion dependent myelodysplastic syndrome, operative drainage x2, stage 3 sacral decubitus ulcer that occurred last admission and is poa, accepted is dying from MDS will now agree to comfort care COMFORT MEASURES STARTED 04/12 Rib pain try lidoderm and continue morphine and oxycodone, sacral pain will try lidocaine gel, and daughter seem to be accepting of direction of care at this point] Fever, cefepime and Flagyl pending blood cultures negative to date, noncontrast CT scan suggests continued fluid collection near his previously drained perirectal abscess, with most recent surgery on 04/01/17 -no further plans of surgical intervention are at this time pancytopenia 2nd to MDS - ongoing. previously transfusion dependent, no laboratory checks uncontrolled T2DM -basal lantus + novolog. HTN -CAD - plavix/asa metoprolol 25 TID. imdur BPH -has had no issues on flomax. DVT proph - chemical means continues to be contraindicated Given the fact of progression to comfort measures I still continue to believe we are fairly far away from this patient's actual decline and Continued [facility] stay due to: inadequate oral pain control, multiple IV medications needed Discharge planning: uncertain
[2017-04-17] MEDS: MoRPHine SULFATE 2 MG/ML CARP IV PRN (18:54)
[2017-04-18] MEDS: CHECK FENTANYL PATCH PLACEMENT SCH ×3 (00:22→16:00)
[2017-04-18] MEDS: METRONIDAZOLE / NSS 500 MG in PREMIXED NSS 100 ML IV SCH ×3 (03:28→18:02)
[2017-04-18] MEDS: CEFEPIME IV 2,000 MG in DEXTROSE 5% 100ML 100 ML IV SCH ×2 (05:35→17:21)
[2017-04-18] MEDS: MoRPHine SULFATE 2 MG/ML CARP IV PRN ×2 (07:47→10:32)
[2017-04-18] MEDS: LIDODERM (LIDOCAINE) PATCH 5% TD SCH (07:47)
[2017-04-18 08:00] VITALS: O2SAT 97
--- NOTE | 2017-04-18 08:20 | Palliative Care Progress Note ---
Palliative Care Progress Note Date of Service Apr 18, 2017. Subjective Pt evaluation today including: conversation w/ patient, physical exam, conversation w/ search consultant, review of inpatient medication list Pain: 7/10 PO Intake: small amounts, poor appetite Voiding: no voiding problems -Patient is awake, alert and oriented. He is waiting for his to arrive to feed him breakfast. -Pain is 7/10 in sacral area, just received a dose of IV morphine. -C/o constipation. Did move bowels yesterday, but only a small amount. -Had a rather flat affect today. C/o increased weakness. Review of Systems Constitutional: + weakness ENT: No trouble swallowing Respiratory: No cough, No shortness of breath Cardiac: + edema (feet), No chest pain Abdomen: No pain, No nausea, No vomiting Male : No problem reported Psychiatric: No anxiety Objective Vital Signs Date Time Temp Pulse Resp B/P (MAP) Pulse Ox O2 Delivery O2 Flow Rate FiO2 04/18/17 00:00 Room Air 04/17/17 16:00 97 Room Air 04/17/17 10:45 97 Room Air Physical Exam General Appearance: no apparent distress, + thin ENT: hearing grossly normal Neck: supple, no JVD Respiratory/Chest: lungs clear, no respiratory distress, no accessory muscle use Cardiovascular: regular rate, rhythm, + normal peripheral pulses, + pertinent finding (feet with +1 pitting edema) Abdomen: normal bowel sounds, non tender, soft Neurologic/Psychiatric: alert, oriented x 3, + pertinent finding (somewhat flattened affect) Assessment and Plan Problem list: Pain, presacral area Weakness Perirectal abscess Myelodysplastic syndrome Pancytopenia with significant thrombocytopenia Goals of care (Z51.5) Palliative care recommendations: -Please use Lidoderm jelly to sacral area under his dressing for pain. -Offer 2mg IV morphine for low to moderate levels of pain. Keep 4mg IV morphine to be given before painful procedures such as turning/repositioning. -Accuchecks were discontinued. -Patient requests not to be disturbed when sleeping. -Would add Mirilax, one dose now and PRN daily. Also should add colace daily. -Continue 12mcg fentanyl patch. -I think if patient's pain is under control, it may do him very well and lift his spirits if he is able to get out of bed to a chair or wheelchair. Going outside may be nice or taking a walk. Thank you again for allowing me to participate in the care of this patient. Palliative Performance Scale: 30 % Continued [facility] stay due to: inadequate oral pain control, multiple IV medications needed Discharge planning: uncertain
[2017-04-18] MEDS: POLYETHYLENE (MIRALAX) 17 GM PACK PO SCH (09:00)
[2017-04-18 16:00] VITALS: O2SAT 97
--- NOTE | 2017-04-18 16:34 | Progress Note ---
Subjective Date of Service: Apr 18, 2017. Subjective no real great changes. I privately did discuss home hospice with , the family is still comforted about having pt stay here for now, c/o constipation adding miralax Problem List Medical Problems: (1) Pancytopenia Status: Acute (2) Pneumonia Status: Acute Review of Systems Constitutional: No fever, No chills Respiratory: No cough, No shortness of breath, No dyspnea on exertion Abdomen: + pain, + constipation Objective Vital Signs Date Time Temp Pulse Resp B/P (MAP) Pulse Ox O2 Delivery O2 Flow Rate FiO2 04/18/17 08:00 97 Room Air 04/18/17 00:00 Room Air Physical Exam General Appearance: WD/WN, + mild distress Eyes: PERRL, EOMI Neck: supple, no JVD Respiratory/Chest: chest non-tender, lungs clear, normal breath sounds Cardiovascular: regular rate, rhythm, no murmur Abdomen: normal bowel sounds, non tender, soft Neurologic/Psychiatric: alert, oriented x 3 Assessment and Plan 68-year-old male with readmitted with fever with recent history of perirectal abscess and transfusion dependent myelodysplastic syndrome, operative drainage x2, stage 3 sacral decubitus ulcer that occurred last admission and is poa, accepted is dying from MDS will now agree to comfort care COMFORT MEASURES STARTED 04/12 added miralax Rib pain try lidoderm and continue morphine and oxycodone, sacral pain will try lidocaine gel, and daughter seem to be accepting of direction of care at this point] Fever, cefepime and Flagyl pending blood cultures negative to date, noncontrast CT scan suggests continued fluid collection near his previously drained perirectal abscess, with most recent surgery on 04/01/17 -no further plans of surgical intervention are at this time pancytopenia 2nd to MDS - ongoing. previously transfusion dependent, no laboratory checks uncontrolled T2DM -basal lantus + novolog. HTN -CAD - plavix/asa metoprolol 25 TID. imdur BPH -has had no issues on flomax. DVT proph - chemical means continues to be contraindicated Given the fact of progression to comfort measures I still continue to believe we are fairly far away from this patient's actual decline and Continued [facility] stay due to: inadequate oral pain control, multiple IV medications needed Discharge planning: uncertain
[2017-04-18] MEDS: MoRPHine SULFATE 4 MG/ML 1 ML CARP\\VIAL IV PRN (16:39)
[2017-04-19] MEDS: METRONIDAZOLE / NSS 500 MG in PREMIXED NSS 100 ML IV SCH ×2 (02:28→09:18)
[2017-04-19] MEDS: CEFEPIME IV 2,000 MG in DEXTROSE 5% 100ML 100 ML IV SCH (05:39)
[2017-04-19] MEDS: MoRPHine SULFATE 2 MG/ML CARP IV PRN ×2 (06:42→20:04)
[2017-04-19] MEDS: POLYETHYLENE (MIRALAX) 17 GM PACK PO SCH (07:06)
[2017-04-19] MEDS: CHECK FENTANYL PATCH PLACEMENT SCH ×4 (08:06→23:53)
[2017-04-19] MEDS: LIDODERM (LIDOCAINE) PATCH 5% TD SCH (09:18)
[2017-04-19] MEDS ORDERED: PHENAZOPYRIDINE HCL 200 MG TAB PO ONE (15:45)
[2017-04-19] MEDS: PHENAZOPYRIDINE HCL 200 MG TAB PO SCH (20:21)
--- NOTE | 2017-04-19 21:16 | Progress Note ---
Subjective Date of Service: Apr 19, 2017. Subjective Pt evaluation today including: conversation w/ patient, conversation w/ family (), physical exam Pain: rectum, but controlled at time of my visit PO Intake: scant pt c/o dysuria some hesitancy no dyspnea sleeping much of the day and eating is poor Problem List Medical Problems: (1) Pancytopenia Status: Acute (2) Pneumonia Status: Acute Objective Vital Signs Date Time Temp Pulse Resp B/P (MAP) Pulse Ox O2 Delivery O2 Flow Rate FiO2 04/19/17 16:00 Room Air 04/19/17 08:00 Room Air 04/19/17 00:00 Room Air Physical Exam General Appearance: no apparent distress, + thin, + pertinent finding (tired appearing) ENT: + pertinent finding (MM slightly dry) Neck: no JVD Respiratory/Chest: lungs clear, no respiratory distress, no accessory muscle use Cardiovascular: no gallop, no murmur, + tachycardia Abdomen: normal bowel sounds, non tender, soft, no organomegaly Extremities: + pedal edema Neurologic/Psychiatric: + pertinent finding (drowsy) Assessment and Plan 77yo male with severe MDS, 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 Now on comfort care measures. * cont fentanyl patch 12mcg q3days * continue PRN morphine IV * d/c IV abx today (permission obtained from patient and his ) * appreciate palliative care consultation and recommendations * add pyridium 200mg TID for dysuria updated support given Continued [facility] stay due to: inadequate oral pain control, multiple IV medications needed Discharge planning: other (comfort care pathway - inpatient )
[2017-04-20] MEDS: MoRPHine SULFATE 4 MG/ML 1 ML CARP\\VIAL IV PRN ×2 (04:07→19:24)
[2017-04-20] MEDS ORDERED: FENTANYL PATCH REMOVE & WASTE SCH (06:59)
[2017-04-20] MEDS: CHECK FENTANYL PATCH PLACEMENT SCH ×2 (07:19→15:28)
[2017-04-20] MEDS: FENTANYL 12 MCG/HR TDSY TD SCH (07:19)
[2017-04-20] MEDS: POLYETHYLENE (MIRALAX) 17 GM PACK PO SCH (07:20)
[2017-04-20] MEDS: PHENAZOPYRIDINE HCL 200 MG TAB PO SCH ×2 (07:20→13:19)
[2017-04-20] MEDS: LIDODERM (LIDOCAINE) PATCH 5% TD SCH ×2 (07:21→07:24)
[2017-04-20] MEDS ORDERED: NURSING VERBAL MED ORDER ONE (16:45)
--- NOTE | 2017-04-20 17:13 | Progress Note ---
Subjective Date of Service: Apr 20, 2017. Subjective Pt evaluation today including: conversation w/ patient, conversation w/ family (2 daughters, son in law), physical exam, chart review Pain: dysuria PO Intake: minimal Voiding: incontinence, voiding difficulty (mainly painful urination despite pyridium) patient asks "about the date" when asked to clarify he says "I want to pick the date" when I asked him to clarify once again he asked if I could "end it for him" we then had a lengthy discussion about his end-of-life care and that euthanasia is illegal when asked if he wished to have his fentanyl patch increased for his rectal pain he declined Problem List Medical Problems: (1) Pancytopenia Status: Acute (2) Pneumonia Status: Acute Review of Systems Constitutional: No fever Respiratory: No shortness of breath Cardiac: No chest pain Objective Vital Signs Date Time Temp Pulse Resp B/P (MAP) Pulse Ox O2 Delivery O2 Flow Rate FiO2 04/20/17 08:00 Room Air 04/20/17 00:00 Room Air 04/19/17 20:00 Room Air Physical Exam General Appearance: no apparent distress, + pertinent finding (groggy but awake enough to have a conversation ) ENT: + pertinent finding (MM dry) Neck: no JVD Respiratory/Chest: lungs clear, no respiratory distress, no accessory muscle use Cardiovascular: no murmur, + tachycardia Abdomen: normal bowel sounds, non tender, soft, no organomegaly Extremities: + pedal edema Skin: + pallor Assessment and Plan 77yo male with severe MDS, 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 Now on comfort care measures. * cont fentanyl patch 12mcg q3days; no increase at this time - patient declined * continue PRN morphine IV * appreciate palliative care consultation and recommendations * stop pyridium; not helpful; could place loera if desired by patient; doubt oxybutinin would be helpful as I don't think his symptom is bladder spasm Today we spent most of the visit discussing end of life care and the end of life journey. I asked him if he wished to return home, noting that perhaps a "change of scenery" would be helpful to him and his family - both mentally and spiritually. He seems frustrated that he has been bed-bound for so long and my sense is that he anticipated he would have days prior (and appears almost frustrated by that). Support given. Encouraged him to pray to his higher power during this time. Again touched upon returning home if he desired. Continued [facility] stay due to: inadequate oral pain control, multiple IV medications needed Discharge planning: other (comfort care pathway - inpatient )
[2017-04-21] MEDS: CHECK FENTANYL PATCH PLACEMENT SCH ×3 (00:16→15:31)
[2017-04-21] MEDS: LIDODERM (LIDOCAINE) PATCH 5% TD SCH ×2 (02:00→12:31)
[2017-04-21] MEDS: MoRPHine SULFATE 4 MG/ML 1 ML CARP\\VIAL IV PRN ×5 (05:47→22:08)
[2017-04-21] MEDS: POLYETHYLENE (MIRALAX) 17 GM PACK PO SCH (07:40)
[2017-04-21 08:00] VITALS: O2SAT 97
[2017-04-21] MEDS ORDERED: NURSING VERBAL MED ORDER ONE (11:15)
--- NOTE | 2017-04-21 22:35 | Progress Note ---
Subjective Date of Service: Apr 21, 2017. Subjective Pt evaluation today including: conversation w/ patient, conversation w/ family (, daughter), physical exam Pain: back PO Intake: minimal Voiding: loera catheter in place no events overnight patient reports urinary symptoms resolved with loera placement after discussing the option of returning home with hospice he wishes to remain hospitalized for comfort care measures Problem List Medical Problems: (1) Pancytopenia Status: Acute (2) Pneumonia Status: Acute Review of Systems Constitutional: No fever Respiratory: No shortness of breath Cardiac: No chest pain Abdomen: No pain Objective Vital Signs Date Time Temp Pulse Resp B/P (MAP) Pulse Ox O2 Delivery O2 Flow Rate FiO2 04/21/17 08:00 97 Room Air 04/21/17 00:17 Room Air 04/20/17 20:41 Room Air Physical Exam General Appearance: no apparent distress, + cachetic, + thin ENT: + pertinent finding (MM dry) Neck: no JVD Respiratory/Chest: lungs clear, normal breath sounds, no respiratory distress, no accessory muscle use Cardiovascular: no gallop, no murmur, + tachycardia Abdomen: normal bowel sounds, non tender, soft, no organomegaly Extremities: + pedal edema Assessment and Plan 77yo male with severe MDS, 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 Now on comfort care measures. * cont fentanyl patch 12mcg q3days * continue PRN morphine IV * appreciate palliative care consultation and recommendations * lidoderm patches Patient declined option of returning home with hospice. Continue comfort care measures at [facility]. Continued [facility] stay due to: inadequate oral pain control, multiple IV medications needed Discharge planning: other (comfort care pathway - inpatient )
[2017-04-22] MEDS: CHECK FENTANYL PATCH PLACEMENT SCH ×4 (00:15→22:52)
[2017-04-22] MEDS: MoRPHine SULFATE 4 MG/ML 1 ML CARP\\VIAL IV PRN ×3 (03:52→13:16)
[2017-04-22] MEDS: LIDODERM (LIDOCAINE) PATCH 5% TD SCH ×2 (07:50→07:51)
--- NOTE | 2017-04-22 11:28 | Palliative Care Progress Note ---
Palliative Care Progress Note Date of Service Apr 22, 2017. Subjective Pt evaluation today including: conversation w/ patient, conversation w/ family , physical exam, chart review, conversation w/ technical sales consultant Pain: 6/10- comfortable with rating PO Intake: tolerating small amounts, no appetite Voiding: loera catheter in place -Patient is awake, alert. Affect somewhat flat. -Patient states he is thinking about possibly going home. He states he would need it to be a "smooth transition." -Pain is 6/10, but is comfortable with that number. He had two doses of morphine this morning, total of 5 doses of 4mg (20mg) in last 24 hours. Review of Systems Constitutional: + weakness ENT: No trouble swallowing Respiratory: No shortness of breath Cardiac: No chest pain, No edema Abdomen: No pain, No nausea, No vomiting Musculoskeletal: + problem reported (sacral pain) Male : No problem reported Psychiatric: No anxiety Objective Vital Signs Date Time Temp Pulse Resp B/P (MAP) Pulse Ox O2 Delivery O2 Flow Rate FiO2 04/22/17 08:00 Room Air 04/22/17 01:35 Room Air 04/21/17 19:57 Room Air 04/21/17 16:00 Room Air Physical Exam General Appearance: no apparent distress, + thin ENT: hearing grossly normal Neck: supple, no JVD Respiratory/Chest: no respiratory distress, no accessory muscle use Cardiovascular: regular rate, rhythm, + pertinent finding (trace edema to feet) Abdomen: non tender, soft Neurologic/Psychiatric: alert, oriented x 3, + pertinent finding (somewhat flattened affect) Skin: normal color Assessment and Plan Problem list: Pain, presacral area Weakness Perirectal abscess Myelodysplastic syndrome Pancytopenia with significant thrombocytopenia Goals of care (Z51.5) Palliative care recommendations: -Comfort measures continue. -Morphine 2-4 mg IV PRN pain or SOB. Has had 20mg total in last 24 hours. -Patient is considering going home with hospice. He would likely need 24/7 caregivers in the home as well. -If he decides to go home, morphine could be converted to Roxanol 10-15mg PO Q3h PRN. -Fentanyl patch and Lidoderm patch remain on. -Support given to patient and family. Thank you again for allowing me to participate in the care of this patient. Will continue to follow as needed. Palliative Performance Scale: 30 % Continued [facility] stay due to: inadequate oral pain control, multiple IV medications needed Discharge planning: other (comfort care pathway - inpatient )
[2017-04-22] MEDS ORDERED: NURSING VERBAL MED ORDER ONE (12:00)
[2017-04-22] MEDS ORDERED: BEER 1 CAN PO PRN ×2 (12:15)
[2017-04-22] MEDS ORDERED: FENTANYL 25 MCG/HR TDSY ONE (16:12)
[2017-04-22] MEDS ORDERED: MoRPHine SULFATE 4 MG/ML 1 ML CARP\\VIAL ONE (16:12)
[2017-04-22] MEDS ORDERED: MoRPHine SULFATE 4 MG/ML 1 ML CARP\\VIAL IV PRN (16:15)
--- NOTE | 2017-04-22 18:55 | Progress Note ---
Subjective Date of Service: Apr 22, 2017. Subjective Pt evaluation today including: conversation w/ patient, conversation w/ family , physical exam, chart review, conversation w/ hr business partner consultant (palliative care) Pain: left chest wall PO Intake: minimal; drinking some fluids; requests a beer Voiding: loera catheter in place patient requests to drink a beer today ("Kaci") reports she does not want to take him home with hospice Problem List Medical Problems: (1) Pancytopenia Status: Acute (2) Pneumonia Status: Acute Review of Systems Respiratory: No shortness of breath Cardiac: + chest pain Abdomen: No pain Objective Vital Signs Date Time Temp Pulse Resp B/P (MAP) Pulse Ox O2 Delivery O2 Flow Rate FiO2 04/22/17 16:20 Room Air 04/22/17 08:00 Room Air 04/22/17 01:35 Room Air 04/21/17 19:57 Room Air Physical Exam General Appearance: + cachetic, + thin ENT: pharynx normal (MMM today) Neck: no JVD Respiratory/Chest: lungs clear, no respiratory distress, no accessory muscle use Cardiovascular: no gallop, no murmur, + tachycardia Abdomen: normal bowel sounds, soft, no organomegaly, + tenderness (over LUQ with mild splenomegaly present) Extremities: + pedal edema, + pertinent finding (muscle wasting) Assessment and Plan 77yo male with severe MDS, 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 Now on comfort care measures. * cont fentanyl patch but increase to 25mcg q3days * continue morphine IV but increase dosing frequency to q2h prn * appreciate palliative care consultation and recommendations * lidoderm patches as desired; lidocaine jelly as desired * patient can have a beer if desired Patient's declined option of returning home with hospice. Continue comfort care measures at [facility]. Continued [facility] stay due to: inadequate oral pain control, multiple IV medications needed Discharge planning: other (comfort care pathway - inpatient )
[2017-04-23] MEDS ORDERED: FENTANYL 25 MCG/HR TDSY TD SCH (07:00)
[2017-04-23] MEDS: LIDODERM (LIDOCAINE) PATCH 5% TD SCH ×2 (08:16)
[2017-04-23] MEDS: CHECK FENTANYL PATCH PLACEMENT SCH ×3 (08:16→23:21)
--- NOTE | 2017-04-23 18:41 | Progress Note ---
Subjective Date of Service: Apr 23, 2017. Subjective Pt evaluation today including: conversation w/ patient, physical exam, chart review, conversation w/ independent marketing consultant (palliative care, social work) Pain: none reported during my AM rounds PO Intake: minimal solids but is drinking some Voiding: loera catheter in place patient without any specific complaints we talked about him going outside for some sun he said "ok, yeah, that sounds good" Problem List Medical Problems: (1) Pancytopenia Status: Acute (2) Pneumonia Status: Acute Review of Systems Respiratory: No shortness of breath Cardiac: No chest pain Abdomen: No pain Objective Vital Signs Date Time Temp Pulse Resp B/P (MAP) Pulse Ox O2 Delivery O2 Flow Rate FiO2 04/23/17 16:00 Room Air 04/23/17 08:00 Room Air Physical Exam General Appearance: + cachetic, + thin ENT: pharynx normal (MMM no lesions) Neck: no JVD Respiratory/Chest: lungs clear, no respiratory distress, no accessory muscle use Cardiovascular: no gallop, no murmur, + tachycardia Abdomen: normal bowel sounds, non tender, soft, no organomegaly Extremities: + pedal edema, + swelling, + pertinent finding (muscle atrophy noted) Neurologic/Psychiatric: alert, + depressed affect Assessment and Plan 77yo male with severe MDS, 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 Now on comfort care measures. * cont fentanyl patch 25mcg q3days * continue morphine IV q2h prn breakthrough pain * I offered ativan for sleep and/or anxiety - declined by patient * appreciate palliative care consultation and recommendations * lidoderm patches as desired; lidocaine jelly as desired * patient can have a beer if desired * encouraged him to have staff get him into a wheelchair and go outside for fresh air/sun [facility] to come evaluate him today for candidacy for inpatient hospice status (or home with hospice if he and/or his have change of heart) Continued [facility] stay due to: inadequate oral pain control, ambulation difficulties, multiple IV medications needed Discharge planning: other (comfort care pathway - inpatient )
[2017-04-24] MEDS: LIDODERM (LIDOCAINE) PATCH 5% TD SCH ×2 (07:48)
[2017-04-24] MEDS: CHECK FENTANYL PATCH PLACEMENT SCH ×2 (07:49→16:00)
--- NOTE | 2017-04-24 12:12 | Progress Note ---
Subjective Date of Service: Apr 24, 2017. Subjective Pt evaluation today including: conversation w/ patient, conversation w/ family (, daughter - bedside), physical exam, chart review, conversation w/ road consultant (palliative care, social work) Pain: denies any during my visit PO Intake: minimal solids, continues to drink fairly well Voiding: loera catheter in place no events overnight never went outside yesterday stating "no one asked me" (?) denies any new complaints states he likes horse racing and in fact owned several racing horses himself Problem List Medical Problems: (1) Pancytopenia Status: Acute (2) Pneumonia Status: Acute Review of Systems Respiratory: No shortness of breath Cardiac: No chest pain Abdomen: No pain Objective Vital Signs Date Time Temp Pulse Resp B/P (MAP) Pulse Ox O2 Delivery O2 Flow Rate FiO2 04/24/17 08:00 Room Air 04/24/17 00:00 Room Air 04/23/17 20:00 Room Air 04/23/17 16:00 Room Air Physical Exam General Appearance: no apparent distress, + cachetic, + thin ENT: pharynx normal (MMM, no thrush) Neck: no JVD Respiratory/Chest: no respiratory distress, no accessory muscle use, + crackles (left base) Cardiovascular: no gallop, no murmur, + tachycardia Abdomen: normal bowel sounds, non tender, soft Extremities: + pedal edema Neurologic/Psychiatric: alert, oriented x 3, + depressed affect Skin: + pallor Assessment and Plan 77yo male with severe MDS, 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 Now on comfort care measures. * cont fentanyl patch 25mcg q3days - no dose adjustment needed at this time * continue morphine IV q2h prn breakthrough pain - encouraged him to use such when he needs it * I offered ativan for sleep and/or anxiety - declined by patient * appreciate palliative care consultation and recommendations * lidoderm patches as desired; lidocaine jelly as desired * patient can have a beer if desired * encouraged him to have staff get him into a wheelchair and go outside for fresh air/sun * [facility] continues to visit daily with the patient * he does not qualify for inpatient hospice at this time * home with hospice has been discussed numerous times; patient declining, still wanting to remain hospitalized here for comfort care Continued [facility] stay due to: inadequate oral pain control, ambulation difficulties, multiple IV medications needed Discharge planning: other (comfort care pathway - inpatient )
[2017-04-25] MEDS: CHECK FENTANYL PATCH PLACEMENT SCH ×3 (00:08→16:10)
[2017-04-25] MEDS: LIDODERM (LIDOCAINE) PATCH 5% TD SCH ×2 (09:21)
[2017-04-25] MEDS ORDERED: HYDROmorphone INJ 0.5 MG/0.5 ML SYR IV PRN (10:00)
[2017-04-25] MEDS: LIDOCAINE HCL 2% JELLY 30 ML TUBE EXT PRN (11:43)
[2017-04-25] MEDS: TRAMADOL HCL 50 MG TAB PO SCH ×2 (11:44→21:30)
--- NOTE | 2017-04-25 11:50 | Palliative Care Progress Note ---
Palliative Care Progress Note Date of Service Apr 25, 2017. Subjective Pt evaluation today including: conversation w/ patient, conversation w/ family ( Cheryl and daughter Cely), physical exam, review of inpatient medication list Pain: "it's okay" "could be better" PO Intake: small amounts Voiding: loera catheter in place -Patient is awake, alert and oriented. Flat affect, but did converse a little. , Cheryl, and daughter from [place], Cely, at bedside. -Does not like the way morphine makes him feel-- makes him foggy-headed and forgetful. Dr. Reese made some new med changes. See below. -Patient is not allowing for repositioning or wound care. -Pain is all over body, did not give a number rating. Review of Systems Constitutional: + weakness ENT: No trouble swallowing Respiratory: No cough, No shortness of breath Abdomen: No pain, No nausea, No vomiting Musculoskeletal: + problem reported (generalized pain, pain in sacrum) Psychiatric: No depression symptoms (denies, although his affect is flat and depressive), No anxiety Objective Vital Signs Date Time Temp Pulse Resp B/P (MAP) Pulse Ox O2 Delivery O2 Flow Rate FiO2 04/25/17 08:00 Room Air 04/25/17 00:00 Room Air Physical Exam General Appearance: no apparent distress, + thin ENT: hearing grossly normal Neck: supple, no JVD Respiratory/Chest: no respiratory distress, no accessory muscle use Cardiovascular: regular rate, rhythm Abdomen: non tender, soft Neurologic/Psychiatric: alert, oriented x 3, + depressed affect Skin: normal color, + pallor Assessment and Plan Problem list: Pain, sacral area, all over body, shoulders Weakness Perirectal abscess Myelodysplastic syndrome Pancytopenia with significant thrombocytopenia Deconditioning/decline Poor PO intake Goals of care (Z51.5) Palliative care recommendations: -Comfort measures continue. -Morphine 4 mg IV PRN pain or SOB. Has had 0mg total in last 24 hours-- does not like the way it makes him feel. -New orders by hospitalist: Tylenol Q8h, tramadol 50mg PO BID, hydromorphone 0.5mg IV Q3h PRN. -Asked nurse to give tramadol now, if no relief in half hour try the Dilaudid. -If still no relief, could try Roxanol as opposed to IV pain meds-- sometimes has less "foggy" effect. Could also consider increasing fentanyl patch to 37mcg/ hr. -Patient is considering going home with hospice. He would likely need 24/7 caregivers in the home as well. -Met with outside of patient's room for about 40 minutes. She has many anxieties and uncertainties about patient's situation. Had some questions about hospice as well. She stated, "I know he'd be happier at home, and if he wants to go home I will do whatever he wants, but I just don't know how it will work. " We discussed her fears of taking him home and talked about solutions to the problem. Ultimately though, patient is still unsure of what he wants to do. I encouraged them to relax over the weekend and focus on getting patient out of his room (possibly outside tomorrow in the sun), watching the football game, having a beer if he wants it, just spending time with family. -Fentanyl patch and Lidoderm patch remain on. -Support given to patient and family. Thank you again for allowing me to participate in the care of this patient. Will continue to follow as needed. Palliative Performance Scale: 30 % Continued [facility] stay due to: inadequate oral pain control, ambulation difficulties, multiple IV medications needed Discharge planning: other (comfort care pathway - inpatient )
[2017-04-25] MEDS: ACETAMINOPHEN 500 MG TAB PO SCH ×2 (12:00→21:29)
[2017-04-25] MEDS: FENTANYL PATCH REMOVE & WASTE SCH (16:10)
[2017-04-25] MEDS: FENTANYL 25 MCG/HR TDSY TD SCH (16:10)
--- NOTE | 2017-04-25 18:54 | Progress Note ---
Subjective Date of Service: Apr 25, 2017. Problem List Medical Problems: (1) Pancytopenia Status: Acute (2) Pneumonia Status: Acute Objective Vital Signs Date Time Temp Pulse Resp B/P (MAP) Pulse Ox O2 Delivery O2 Flow Rate FiO2 04/25/17 16:00 Room Air 04/25/17 08:00 Room Air 04/25/17 00:00 Room Air Assessment and Plan 68-year-old male with readmitted with fever with recent history of perirectal abscess and transfusion dependent myelodysplastic syndrome, operative drainage x2, stage 3 sacral decubitus ulcer that occurred last admission and is poa, accepted is dying from MDS will now agree to comfort care COMFORT MEASURES STARTED 04/12 added miralax Rib pain try lidoderm and oxycodone, sacral pain will try lidocaine gel, and daughter updated and feel that he would not want to be home at this point Fever, resolved no further plans of surgical intervention are at this time pancytopenia 2nd to MDS - ongoing. previously transfusion dependent, no laboratory checks T2DM -oral intake has declined and stopped insulin HTN -CAD -as vitals reduce also stopped meds BPH now has loera DVT proph - chemical means continues to be contraindicated Given the fact of progression to comfort measures I believe we are fairly far away from this patient's actual decline and , it may be to his psychological benefit to try to make it to home Continued [facility] stay due to: inadequate oral pain control, ambulation difficulties, multiple IV medications needed Discharge planning: other (comfort care pathway - inpatient )
[2017-04-26] VITALS: O2SAT 97
[2017-04-26] MEDS: CHECK FENTANYL PATCH PLACEMENT SCH ×3 (00:25→16:22)
[2017-04-26] MEDS: ACETAMINOPHEN 500 MG TAB PO SCH ×3 (06:13→21:52)
[2017-04-26] MEDS: LIDODERM (LIDOCAINE) PATCH 5% TD SCH ×2 (08:09)
[2017-04-26] MEDS: TRAMADOL HCL 50 MG TAB PO SCH ×2 (08:15→20:47)
[2017-04-26 08:30] VITALS: O2SAT 97
--- NOTE | 2017-04-26 17:47 | Progress Note ---
Subjective Date of Service: Apr 26, 2017. Subjective eval with daughter and at bedside, all seem happy that pain control in reasonable with tylenol and ultram, discussed going home again, pt is not interseted and the family is concerned about his level of support there Problem List Medical Problems: (1) Pancytopenia Status: Acute (2) Pneumonia Status: Acute Review of Systems Constitutional: + weakness, No fever, No chills Respiratory: No shortness of breath, No dyspnea on exertion Musculoskeletal: + joint pain, + muscle pain Objective Vital Signs Date Time Temp Pulse Resp B/P (MAP) Pulse Ox O2 Delivery O2 Flow Rate FiO2 04/26/17 00:00 97 Room Air 04/25/17 16:00 Room Air 04/25/17 08:00 Room Air Physical Exam General Appearance: WD/WN, + mild distress Eyes: PERRL, EOMI Extremities: no pedal edema, no calf tenderness Neurologic/Psychiatric: alert, oriented x 3 Skin: normal color, warm/dry, no rash Assessment and Plan 68-year-old male with readmitted with fever with recent history of perirectal abscess and transfusion dependent myelodysplastic syndrome, operative drainage x2, stage 3 sacral decubitus ulcer that occurred last admission and is poa, accepted is dying from MDS, comfort care with pt tolerating liquids but has poor nutritional intake COMFORT MEASURES STARTED 04/12, tylenol and ultram are helpful added miralax Rib pain try lidoderm and oxycodone, sacral pain will try lidocaine gel, and daughter updated and feel that he would not want to be home at this point Fever, resolved no further plans of surgical intervention are at this time pancytopenia 2nd to MDS - ongoing. previously transfusion dependent, no laboratory checks T2DM -oral intake has declined and stopped insulin HTN -CAD -as vitals reduce also stopped meds BPH now has loera DVT proph - chemical means continues to be contraindicated Given the fact of progression to comfort measures I believe we are fairly far away from this patient's actual decline and , it may be to his psychological benefit to try to make it to home Continued [facility] stay due to: inadequate oral pain control, ambulation difficulties, multiple IV medications needed Discharge planning: other (comfort care pathway - inpatient )
[2017-04-26] MEDS ORDERED: OXYCODONE HCL SOLN 5 MG/5 ML UDC PO PRN (18:30)
[2017-04-26] MEDS: LIDOCAINE HCL 2% JELLY 30 ML TUBE EXT PRN (20:50)
[2017-04-26] MEDS: MoRPHine SULFATE 5 MG/0.25 ML UDP PO PRN (21:53)
[2017-04-27] VITALS: O2SAT 97
[2017-04-27] MEDS: CHECK FENTANYL PATCH PLACEMENT SCH ×3 (00:29→15:50)
[2017-04-27] MEDS: ACETAMINOPHEN 500 MG TAB PO SCH ×4 (06:00→21:16)
[2017-04-27] MEDS: MoRPHine SULFATE 5 MG/0.25 ML UDP PO PRN (06:01)
[2017-04-27] MEDS: LIDODERM (LIDOCAINE) PATCH 5% TD SCH ×2 (08:11)
[2017-04-27] MEDS: TRAMADOL HCL 50 MG TAB PO SCH ×2 (08:22→20:00)
[2017-04-27] MEDS: MoRPHine SULFATE 5 MG/0.25 ML UDP SL PRN ×2 (13:30→21:17)
[2017-04-27 15:54] VITALS: O2SAT 97
--- NOTE | 2017-04-27 16:19 | Progress Note ---
Subjective Date of Service: Apr 27, 2017. Subjective pt seems to have taken a turn for the worse, he is staring off into the distance and appears confused at times, updated at bedside Problem List Medical Problems: (1) Pancytopenia Status: Acute (2) Pneumonia Status: Acute Review of Systems Constitutional: + weakness, + fatigue Neurologic: + memory loss, + weakness Endo: + fatigue, + excessive thirst Objective Vital Signs Date Time Temp Pulse Resp B/P (MAP) Pulse Ox O2 Delivery O2 Flow Rate FiO2 04/27/17 00:00 97 Room Air 04/26/17 16:00 Room Air 04/26/17 08:30 97 Room Air Physical Exam General Appearance: + moderate distress, + thin Respiratory/Chest: chest non-tender, no respiratory distress Neurologic/Psychiatric: alert, + disoriented Assessment and Plan 68-year-old male with readmitted with fever with recent history of perirectal abscess and transfusion dependent myelodysplastic syndrome, operative drainage x2, stage 3 sacral decubitus ulcer that occurred last admission and is poa, accepted is dying from MDS, comfort care with pt tolerating liquids but has poor nutritional intake COMFORT MEASURES STARTED 04/12, tylenol and ultram are helpful 04/27 the pt seems to have become more confused and distant, some peripheral swelling. was infomed that we maybe entering the final stages of consciousness and if he become obtunded will provide iv pain control if needed Fever, resolved no further plans of surgical intervention are at this time pancytopenia 2nd to MDS - ongoing. previously transfusion dependent, no laboratory checks T2DM -oral intake has declined and stopped insulin HTN -CAD -as vitals reduce also stopped meds BPH now has loera DVT proph - chemical means continues to be contraindicated Given the fact of progression to comfort measures I believe we are movnig toward actual decline and , provided comfort Continued [facility] stay due to: inadequate oral pain control, ambulation difficulties, multiple IV medications needed Discharge planning: other (comfort care pathway - inpatient )
[2017-04-28] VITALS: O2SAT 97
[2017-04-28] MEDS: MoRPHine SULFATE 5 MG/0.25 ML UDP SL PRN (00:06)
[2017-04-28] MEDS: CHECK FENTANYL PATCH PLACEMENT SCH ×4 (01:17→23:57)
[2017-04-28] MEDS: ACETAMINOPHEN 500 MG TAB PO SCH ×3 (05:27→19:38)
[2017-04-28] MEDS ORDERED: MoRPHine SULFATE 10 MG/0.5 ML UDP SL PRN (08:30)
[2017-04-28] MEDS ORDERED: MoRPHine SULFATE 5 MG/0.25 ML UDP SL PRN (08:30)
[2017-04-28] MEDS: LIDODERM (LIDOCAINE) PATCH 5% TD SCH ×2 (08:33)
[2017-04-28] MEDS: TRAMADOL HCL 50 MG TAB PO SCH ×2 (08:33→19:38)
--- NOTE | 2017-04-28 14:55 | Progress Note ---
Subjective Date of Service: Apr 28, 2017. Subjective this pt is much less responsive today but nods head and agrees to iv medication to help with pain, and friends are at bedside Problem List Medical Problems: (1) Pancytopenia Status: Acute (2) Pneumonia Status: Acute Review of Systems Constitutional: + weakness, + fatigue (prevents full ROS does admit to some pain) Objective Vital Signs Date Time Temp Pulse Resp B/P (MAP) Pulse Ox O2 Delivery O2 Flow Rate FiO2 04/28/17 08:01 Room Air 04/28/17 00:00 97 Room Air 04/27/17 15:54 97 Room Air Physical Exam General Appearance: WD/WN, + moderate distress Respiratory/Chest: chest non-tender, + decreased breath sounds, + accessory muscle use Cardiovascular: no murmur, + tachycardia Abdomen: non tender, soft Neurologic/Psychiatric: alert, + depressed affect, + disoriented Assessment and Plan 68-year-old male with readmitted with fever with recent history of perirectal abscess and transfusion dependent myelodysplastic syndrome, operative drainage x2, stage 3 sacral decubitus ulcer that occurred last admission and is poa, accepted is dying from MDS, comfort care with pt tolerating liquids but has poor nutritional intake COMFORT MEASURES STARTED 04/12, tylenol and ultram are helpful 04/27 the pt seems to have become more confused and distant, some peripheral swelling. 04/28 even with more distance,only nods head, was infomed that we maybe needing to pursue IV medications for confort she agrees to placement of IV pancytopenia 2nd to MDS - ongoing. previously transfusion dependent, no laboratory checks T2DM -oral intake has declined and stopped insulin HTN -CAD -as vitals reduce also stopped meds BPH now has loera DVT proph - chemical means continues to be contraindicated Given the fact of progression to comfort measures I believe we are moving toward actual decline and , provided comfort again 04/28 Continued [facility] stay due to: inadequate oral pain control, ambulation difficulties, multiple IV medications needed Discharge planning: other (comfort care pathway - inpatient )
[2017-04-28] MEDS ORDERED: ACETAMINOPHEN IV 650 MG in EMPTY BAG 0 ML IV PRN (15:00)
[2017-04-28] MEDS ORDERED: LORAZEPAM 2 MG/ML 1 ML VIAL IV PRN ×2 (15:00)
[2017-04-28] MEDS ORDERED: HYDROmorphone INJ 0.5 MG/0.5 ML SYR IV PRN (15:00)
[2017-04-28] MEDS ORDERED: LORAZEPAM INJ 0.5 MG in SYRINGE 0.75 ML IV PRN (15:15)
[2017-04-28] MEDS ORDERED: LORAZEPAM INJ 1 MG in SYRINGE 0.5 ML IV PRN (15:15)
[2017-04-28] MEDS: FENTANYL 25 MCG/HR TDSY TD SCH (15:55)
[2017-04-28] MEDS: FENTANYL PATCH REMOVE & WASTE SCH (15:55)
[2017-04-28] MEDS: HYDROmorphone INJ 1 MG/ML SYR IV PRN ×2 (15:56→21:27)
[2017-04-28 20:00] VITALS: O2SAT 97
[2017-04-29] VITALS: O2SAT 97
[2017-04-29] MEDS: HYDROmorphone INJ 1 MG/ML SYR IV PRN (01:23)
--- NOTE | 2017-04-29 06:45 | Death Summary ---
Summary of Admission Date Apr 10, 2017 at 15:59 Date & Time of Apr 29, 2017. 0525 Cause of myelodysplastic syndrome Hospital Course 68-year-old male with readmitted with fever with recent history of perirectal abscess and transfusion dependent myelodysplastic syndrome, operative drainage x2, stage 3 sacral decubitus ulcer that occurred last admission and is poa, accepted is dying from MDS, comfort care with pt tolerating liquids but has poor nutritional intake COMFORT MEASURES STARTED 04/12, 04/27 the pt seems to have become more confused and distant, some peripheral swelling. 04/28 even with more distance,only nods head, pt continued to decline and ceased to breath with no heart tones at 0525 on 04/29 from myelodysplastic syndrome Copy To Gonzalo Amin M.D.
== END 2017-04-29 05:25 | disposition expired | DRG 393 ==
LOC: C.4E 15:59
PROVIDERS: ADMIT Internal Medicine; ATTEND Internal Medicine
DX: K61.1 Rectal abscess (principal); E43 Unspecified severe protein-calorie malnutrition; G93.40 Encephalopathy, unspecified; L89.153 Pressure ulcer of sacral region, stage 3; D46.9 Myelodysplastic syndrome, unspecified; E78.5 Hyperlipidemia, unspecified; I10 Essential (primary) hypertension; I25.2 Old myocardial infarction; E11.65 Type 2 diabetes mellitus with hyperglycemia; E03.9 Hypothyroidism, unspecified; I25.10 Atherosclerotic heart disease of native coronary artery without angina pectoris; Z51.5 Encounter for palliative care; Z66 Do not resuscitate; Z79.82 Long term (current) use of aspirin; Z79.02 Long term (current) use of antithrombotics/antiplatelets; Z79.899 Other long term (current) drug therapy; Z79.4 Long term (current) use of insulin